=== PATIENT | female | born 1950 | race Caucasian/White ===

== ENCOUNTER 2017-08-26 15:53 | Inpatient (IN) ==
--- NOTE | 2017-08-26 16:07 | Emergency Department Note ---
Disposition Clinical Impression: PAD (peripheral artery disease), Foot ulcer, Foot pain Disposition: Admitted As Inpatient General Adult HPI - General Chief complaint: ED Extremity Problem,Nontraumatic Stated complaint: left foot problem, swelling to foot/leg Time Seen by Provider: 08/26/17 16:03 Source: patient - History of Present Illness Pain Scale: 10 - Related Data Home Medications Medication Instructions Recorded Confirmed Albuterol Sulfate [Proair 2 puff IH Q4-6H PRN 12/02/14 08/26/17 Respiclick] Aspirin Enteric Coated [Aspirin] 81 mg PO DAILY 12/02/14 08/26/17 Clopidogrel [Plavix] 75 mg PO DAILY 12/02/14 08/26/17 Famotidine [Pepcid] 40 mg PO QPM 12/02/14 08/26/17 Furosemide [Lasix] 20 mg PO BID 12/02/14 08/26/17 GlipiZIDE [Glipizide Xl] 10 mg PO BID 12/02/14 08/26/17 Insulin ASPART [Novolog Flexpen] 8 - 10 unit SQ TID PRN 12/02/14 08/26/17 Insulin Glargine,Hum.rec.anlog 8 units SQ HS 12/02/14 08/26/17 [Lantus Solostar] Isosorbide MONOnitrate [Isosorbide 60 mg PO QDPC 12/02/14 08/26/17 Mononitrate ER] Lisinopril [Zestril] 20 mg PO DAILY 12/02/14 08/26/17 Lovastatin 20 mg PO DAILY 12/02/14 08/26/17 Metoprolol [Lopressor] 25 mg PO BID 12/02/14 08/26/17 Nitroglycerin [Nitrostat] 0.3 mg SL PRN PRN 12/02/14 08/26/17 OxyCODONE/APAP 10/325 [Percocet 10 mg PO Q6HR PRN 12/02/14 08/26/17 10/325] Albuterol Neb [Proventil Neb] 2.5 mg IH TID PRN 05/16/16 08/26/17 Dicyclomine [Bentyl] 10 mg PO TID 05/16/16 08/26/17 Ergocalciferol (VITAMIN D2) 50,000 unit PO QWEEK 05/16/16 08/26/17 [Vitamin D2] Simethicone [Gas Relief] 180 mg PO DAILY PRN 05/16/16 08/26/17 Sitagliptin Phosphate [Januvia] 50 mg PO DAILY 05/16/16 08/26/17 Gabapentin [Neurontin] 300 mg PO HS 08/26/17 08/26/17 Multivit-Min/FA/Lycopen/Lutein [A 1 tab PO DAILY 08/26/17 08/26/17 Thru Z Select Multivit Tab] Allergies Allergy/AdvReac Type Severity Reaction Status Date / Time escitalopram [From Lexapro] Allergy Rash Verified 01/23/17 11:54 itraconazole [From Sporanox] Allergy Hives Verified 01/23/17 11:54 Penicillins [PCN] Allergy Rash Verified 01/23/17 11:54 metformin AdvReac Diarrhea Verified 01/23/17 11:54 Past Medical History - Past Medical History Medical history: Reports: arthritis, asthma, COPD, coronary artery disease, diabetes, hyperlipidemia, hypertension, renal disease Surgical history: Reports: appendectomy, coronary bypass (CABG), hysterectomy, other, vascular surgery Psychiatric history: Reports: no psych history - Social History Smoking Status: Current every day smoker Smokeless Tobacco Status: No Alcohol use: Reports: unknown Drug use: Reports: unknown Physical Exam - General General appearance: alert Course Vital Signs Temperature 98.9 F 08/26/17 15:58 Pulse Rate 78 08/26/17 15:58 Respiratory Rate 16 08/26/17 15:58 Blood Pressure 121/77 08/26/17 15:58 O2 Sat by Pulse Oximetry 98 08/26/17 15:58 Temperature 97.8 F 08/26/17 18:19 Pulse Rate 73 08/26/17 17:43 Respiratory Rate 18 08/26/17 18:19 Blood Pressure 161/62 08/26/17 18:19 O2 Sat by Pulse Oximetry 98 08/26/17 17:43 Oxygen Delivery Oxygen Delivery Room Air Medical Decision Making - Lab Data Result diagrams: 08/26/17 16:07 08/26/17 16:07 Lab Results 08/26/17 08/26/17 08/26/17 Range/Units 16:07 16:07 16:07 WBC 8.4 (4.3-11.1) K/mcL RBC 3.65 L (3.82-4.97) M/mcL Hgb 10.6 L (11.5-15.4) g/dL Hct 32.4 L (35.3-44.9) % MCV 88.8 (83.0-100.0) fL MCH 29.0 (28.0-33.3) pg MCHC 32.7 (31.6-35.5) g/dL RDW 13.2 (11.5-14.5) % Plt Count 187 (140-400) K/mcL MPV 10.6 (9.4-12.4) fL Immature Gran % 0.1 (0-4) % Seg Neutrophils % 77.7 % Lymphocytes % 10.6 % Monocytes % 7.5 % Eosinophils % 3.7 % Basophils % 0.4 % Neutrophils # 6.5 (1.6-8.9) K/mcL Lymphocytes # 0.9 (0.6-4.6) K/mcL Monocytes # 0.6 (0.0-1.3) K/mcL Eosinophils # 0.3 (0.0-0.6) K/mcL Basophils # 0.0 (0.0-0.2) K/mcL PT 12.3 H (9.4-12.1) Seconds INR 1.1 APTT 30.5 (26.0-36.0) Seconds Sodium 136 (136-145) mEq/L Potassium 4.5 (3.5-5.1) mEq/L Chloride 105 (98-107) mEq/L Carbon Dioxide 26 (23-29) mEq/L BUN 26 H (8-23) mg/dL Creatinine 1.20 (0.60-1.20) mg/dL Est GFR ( Amer) 54 L (> 60) Est GFR (Non-Af Amer) 45 L (> 60) BUN/Creatinine Ratio 22 (6-26) Glucose 203 H (70-105) mg/dL Calculated Osmolality 293 (280-300) Calcium 9.3 (8.6-10.3) mg/dL Attestation Statement - Attestation Attestation: I examined this patient and my medical decision-making was reviewed with the Resident Physician. I agree with the documented findings, disposition and treatment plan as described except to the extent set forth below. [id number] time provided Atraumatic left foot pain. History of peripheral arterial disease. Arterial study dated 08/20/17 results reviewed by me. The patient does have increased erythema and swelling to her left foot but her foot is warm. We will evaluate this patient and plan to admit to the medicine service with impending vascular surgery consultation
[2017-08-26] MEDS ORDERED: *HR* FentaNYL (PF) 100 MCG/2 ML VIAL IVP ONE ×3 (16:08→17:53)
--- NOTE | 2017-08-26 16:30 | Emergency Department Note ---
Disposition Clinical Impression: PAD (peripheral artery disease) Foot ulcer Qualifiers: Laterality: left Non-pressure ulcer stage: unspecified non-pressure ulcer stage Qualified Code(s): L97.529 - Non-pressure chronic ulcer of other part of left foot with unspecified severity Foot pain Qualifiers: Laterality: left Qualified Code(s): M79.672 - Pain in left foot Disposition: Admitted As Inpatient Referrals: Eleazar Vargas MD [Primary Care Provider] - Forms: ED Satisfaction Letter Extremity Problem HPI - General Chief complaint: ED Extremity Problem,Nontraumatic Stated complaint: left foot problem, swelling to foot/leg Time Seen by Provider: 08/26/17 16:03 Source: patient Nursing Notes Reviewed: Yes Vital Signs Reviewed: Yes - History of Present Illness HPI Narrative: Mrs. Sepulveda, 66-year-old female, presents from home for evaluation of worsening left foot pain. Is been steadily getting slowly worse over the week however, became substantially worse this morning so that it is now intolerable. Pain is described as 10/10, sharp, stabbing, radiating proximally. This occurs at rest as well as with any ambulation. She is a patient of Dr. Hutchinson. She has no inflammatory afternoon but could not wait as the pain is becoming excruciating. Recent SILVIA which told her she had a blockage in the left lower extremity. She is a history of note left femoropopliteal bypass. Patient also has ulcers on the bottom of her left foot that are in various stages of healing. Patient's history of CAD with ACS status post CABG. On aspirin and Plavix. No anticoagulants. ROS: Positive: As above Negative: Fever, chills, nausea, vomiting, chest pains, palpitations, dyspnea, diaphoresis, knee pain, ankle pain, trauma Pain Scale: 10 - Related Data Home Medications Medication Instructions Recorded Confirmed Albuterol Sulfate [Proair 2 puff IH Q4-6H PRN 12/02/14 08/26/17 Respiclick] Aspirin Enteric Coated [Aspirin] 81 mg PO DAILY 12/02/14 08/26/17 Clopidogrel [Plavix] 75 mg PO DAILY 12/02/14 08/26/17 Famotidine [Pepcid] 40 mg PO QPM 12/02/14 08/26/17 Furosemide [Lasix] 20 mg PO BID 12/02/14 08/26/17 GlipiZIDE [Glipizide Xl] 10 mg PO BID 12/02/14 08/26/17 Insulin ASPART [Novolog Flexpen] 8 - 10 unit SQ TID PRN 12/02/14 08/26/17 Insulin Glargine,Hum.rec.anlog 8 units SQ HS 12/02/14 08/26/17 [Lantus Solostar] Isosorbide MONOnitrate [Isosorbide 60 mg PO QDPC 12/02/14 08/26/17 Mononitrate ER] Lisinopril [Zestril] 20 mg PO DAILY 12/02/14 08/26/17 Lovastatin 20 mg PO DAILY 12/02/14 08/26/17 Metoprolol [Lopressor] 25 mg PO BID 12/02/14 08/26/17 Nitroglycerin [Nitrostat] 0.3 mg SL PRN PRN 12/02/14 08/26/17 OxyCODONE/APAP 10/325 [Percocet 10 mg PO Q6HR PRN 12/02/14 08/26/17 10/325] Albuterol Neb [Proventil Neb] 2.5 mg IH TID PRN 05/16/16 08/26/17 Dicyclomine [Bentyl] 10 mg PO TID 05/16/16 08/26/17 Ergocalciferol (VITAMIN D2) 50,000 unit PO QWEEK 05/16/16 08/26/17 [Vitamin D2] Simethicone [Gas Relief] 180 mg PO DAILY PRN 05/16/16 08/26/17 Sitagliptin Phosphate [Januvia] 50 mg PO DAILY 05/16/16 08/26/17 Gabapentin [Neurontin] 300 mg PO HS 08/26/17 08/26/17 Multivit-Min/FA/Lycopen/Lutein [A 1 tab PO DAILY 08/26/17 08/26/17 Thru Z Select Multivit Tab] Allergies Allergy/AdvReac Type Severity Reaction Status Date / Time escitalopram [From Lexapro] Allergy Rash Verified 01/23/17 11:54 itraconazole [From Sporanox] Allergy Hives Verified 01/23/17 11:54 Penicillins [PCN] Allergy Rash Verified 01/23/17 11:54 metformin AdvReac Diarrhea Verified 01/23/17 11:54 All systems ED: reviewed and negative except as stated. Review of Systems: As Per HPI Past Medical History - Past Medical History Medical history: Reports: arthritis, asthma, COPD, coronary artery disease, diabetes, hyperlipidemia, hypertension, renal disease Surgical history: Reports: appendectomy, coronary bypass (CABG), hysterectomy, other, vascular surgery Psychiatric history: Reports: no psych history - Social History Smoking Status: Current every day smoker Smokeless Tobacco Status: No Alcohol use: Reports: unknown Drug use: Reports: unknown Physical Exam Vital Signs Reviewed General: Patient is alert, oriented, and in moderate distress - from her left lower extremity pain Head: atraumatic, normocephalic Eye: normal appearance, no scleral icterus, no conjunctival injection ENT: mucous membranes moist, normal external ear exam Neck: normal inspection, trachea midline, full ROM Chest: normal inspection, symmetric chest rise Respiratory: Good respiratory effort. Bilateral breath sounds are clear without wheezing, crackles, or rhonchi. Cardiovascular: Regular rate and rhythm. No clicks, rubs, gallops, or murmors. Normal heart sounds. Left posterior tibial pulse is 1/4 and weak. Capillary refill is 3 seconds. Abdomen: Bowel sounds present normoactive x-4 quadrants. Abdomen is soft, nondistended, and nontender. No guarding or rebound. No organomegaly noted. Musculoskeletal: Spontaneously moving all extremities. Skin: warm, dry. Healing ulcer over later surface of MTP joint of great toe. Active ulcer plantar surface of left heel. Neuro: Alert and oriented x4. Sensation light touch intact. Psych: Patient's affect is appropriate for situation. - General General appearance: alert Course Course Narrative: Prior Intervention: The patient has undergone the following procedures: bypass of the fem pop bypass on the left and angioplasty of the superficial femoral on the right. SILVIA 08/20/17: 0.32 on left 1.02 on right EKG dated 26 Aug 2017 at 16:21 interpreted as sinus rhythm with rate of 74. Normal intervals. Normal axis. Right bundle branch block. Precordial T-wave inversions which are present on comparative EKG. Compared to previous EKG dated 01/23/2017 showing no acute ischemic changes or comparison. Discussed the patient with on-call vascular surgery, Dr. Giron. Given the patient's pain, he is agreeable to admission to the hospitalist for continued evaluation. This is likely chronic ischemia and not a surgical emergency at this time. We will begin IV Levaquin and heparinization as well as continued pain control. I discussed the patient with the admitting hospitalist, Dr. Silveira. She is in agreement to accept the patient for continued evaluation and management. Vital Signs Temperature 98.9 F 08/26/17 15:58 Pulse Rate 78 08/26/17 15:58 Respiratory Rate 16 08/26/17 15:58 Blood Pressure 121/77 08/26/17 15:58 O2 Sat by Pulse Oximetry 98 08/26/17 15:58 Temperature 98.9 F 08/26/17 15:58 Pulse Rate 73 08/26/17 17:43 Respiratory Rate 18 08/26/17 17:43 Blood Pressure 180/80 08/26/17 17:43 O2 Sat by Pulse Oximetry 98 08/26/17 17:43 Oxygen Delivery Oxygen Delivery Room Air Extremity Problem, Nontraumati - Lab Data Result diagrams: 08/26/17 16:07 08/26/17 16:07 Lab Results 08/26/17 08/26/17 08/26/17 Range/Units 16:07 16:07 16:07 WBC 8.4 (4.3-11.1) K/mcL RBC 3.65 L (3.82-4.97) M/mcL Hgb 10.6 L (11.5-15.4) g/dL Hct 32.4 L (35.3-44.9) % MCV 88.8 (83.0-100.0) fL MCH 29.0 (28.0-33.3) pg MCHC 32.7 (31.6-35.5) g/dL RDW 13.2 (11.5-14.5) % Plt Count 187 (140-400) K/mcL MPV 10.6 (9.4-12.4) fL Immature Gran % 0.1 (0-4) % Seg Neutrophils % 77.7 % Lymphocytes % 10.6 % Monocytes % 7.5 % Eosinophils % 3.7 % Basophils % 0.4 % Neutrophils # 6.5 (1.6-8.9) K/mcL Lymphocytes # 0.9 (0.6-4.6) K/mcL Monocytes # 0.6 (0.0-1.3) K/mcL Eosinophils # 0.3 (0.0-0.6) K/mcL Basophils # 0.0 (0.0-0.2) K/mcL PT 12.3 H (9.4-12.1) Seconds INR 1.1 APTT 30.5 (26.0-36.0) Seconds Sodium 136 (136-145) mEq/L Potassium 4.5 (3.5-5.1) mEq/L Chloride 105 (98-107) mEq/L Carbon Dioxide 26 (23-29) mEq/L BUN 26 H (8-23) mg/dL Creatinine 1.20 (0.60-1.20) mg/dL Est GFR ( Amer) 54 L (> 60) Est GFR (Non-Af Amer) 45 L (> 60) BUN/Creatinine Ratio 22 (6-26) Glucose 203 H (70-105) mg/dL Calculated Osmolality 293 (280-300) Calcium 9.3 (8.6-10.3) mg/dL
[2017-08-26 16:35] LABS: Basophils % 0.4 %; Eosinophils # 0.3 K/mcL (0.0-0.6); Eosinophils % 3.7 %; Hematocrit 32.4 % (35.3-44.9); Hemoglobin 10.6 g/dL (11.5-15.4); Immature Granulocytes % 0.1 % (0-4); Lymphocytes # 0.9 K/mcL (0.6-4.6); Lymphocytes % 10.6 %; Mean Corpuscular HGB Conc 32.7 g/dL (31.6-35.5); Mean Corpuscular Volume 88.8 fL (83.0-100.0); Mean Platelet Volume 10.6 fL (9.4-12.4); Monocytes # 0.6 K/mcL (0.0-1.3); Monocytes % 7.5 %; Neutrophils # 6.5 K/mcL (1.6-8.9); Platelet Count 187 K/mcL (140-400); Red Blood Count 3.65 M/mcL (3.82-4.97); Red Cell Distribution Width 13.2 % (11.5-14.5); Segmented Neutrophils % 77.7 %
[2017-08-26 16:40] LABS: INR 1.1; Prothrombin Time 12.3 Seconds (9.4-12.1)
[2017-08-26] MEDS ORDERED: Levofloxacin 750 MG/150 ML 750 MG/150 ML BAG IVPB ONE (16:41)
[2017-08-26] MEDS ORDERED: *HR* Heparin 5,000 UNIT/ML VIAL IVP ONE (16:42)
[2017-08-26] MEDS ORDERED: *HR* Heparin 5,000 UNIT/ML VIAL IVP PRN (16:42)
[2017-08-26 16:43] LABS: Activated Partial Thrombo Time 30.5 Seconds (26.0-36.0)
[2017-08-26 16:56] LABS: Calcium 9.3 mg/dL (8.6-10.3); Potassium 4.5 mEq/L (3.5-5.1)
[2017-08-26] MEDS: Heparin 25,000 UNIT/500 ML D5W 25,000 UNIT/500 ML BAG IVC SCH (18:06)
--- NOTE | 2017-08-26 18:43 | Vascular/Endovasc Consult Note ---
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 She is currently in no immediate limb threatening danger. I suspect she will come to repeat angiography with potential catheter directed lysis versus thromboembolectomy. Dr. Castelan will be around early this week and definitively manage this patient' s care. Discussed in detail with the patient and her son. Qualifiers: Peripheral atherosclerosis artery type: bypass graft, unspecified type Lower extremity ulceration location: midfoot Qualified Code(s): I70.344 - Atherosclerosis of unspecified type of bypass graft(s) of the left leg with ulceration of heel and midfoot - History of Present Illness Consult date: 08/26/17 Consult reason: Increasing pain left foot. Chief complaint: Ischemic rest pain left foot. History of present illness: Ms. Sepulveda is a 66 year old female who has a long-standing history of vascular disease. She has undergone prior left femoral to above-knee popliteal arterial bypass in the past. She has had progressive ischemic rest pain of her right foot now for more than 4 weeks. Her symptoms have become unbearable, and she now presents to the emergency room for pain control. She notices that she is also developed a small ulceration on the plantar surface of her left foot. Past Med Surg Social Fam HX - Past Medical History Medical history: arthritis, asthma, COPD, coronary artery disease, diabetes, hyperlipidemia, hypertension, renal disease Psychiatric history: no psych history - Past Surgical History Surgical History: appendectomy, coronary bypass (CABG), hysterectomy, other, vascular surgery - Social History Smoking Status: Current every day smoker Smokeless Tobacco Status: No Alcohol use: unknown Drug use: unknown Medications and Allergies Albuterol Sulfate [Proair Respiclick] 2 puff IH Q4-6H PRN 12/02/14 [History] Aspirin Enteric Coated [Aspirin] 81 mg PO DAILY 12/02/14 [History] Clopidogrel [Plavix] 75 mg PO DAILY 12/02/14 [History] Famotidine [Pepcid] 40 mg PO QPM 12/02/14 [History] Furosemide [Lasix] 20 mg PO BID 12/02/14 [History] GlipiZIDE [Glipizide Xl] 10 mg PO BID 12/02/14 [History] Insulin ASPART [Novolog Flexpen] 8 - 10 unit SQ TID PRN 12/02/14 [History] Insulin Glargine,Hum.rec.anlog [Lantus Solostar] 8 units SQ HS 12/02/14 [History ] Isosorbide MONOnitrate [Isosorbide Mononitrate ER] 60 mg PO QDPC 12/02/14 [ History] Lisinopril [Zestril] 20 mg PO DAILY 12/02/14 [History] Lovastatin 20 mg PO DAILY 12/02/14 [History] Metoprolol [Lopressor] 25 mg PO BID 12/02/14 [History] Nitroglycerin [Nitrostat] 0.3 mg SL PRN PRN 12/02/14 [History] OxyCODONE/APAP 10/325 [Percocet 10/325] 10 mg PO Q6HR PRN 12/02/14 [History] Albuterol Neb [Proventil Neb] 2.5 mg IH TID PRN 05/16/16 [History] Dicyclomine [Bentyl] 10 mg PO TID 05/16/16 [History] Ergocalciferol (VITAMIN D2) [Vitamin D2] 50,000 unit PO QWEEK 05/16/16 [History] Simethicone [Gas Relief] 180 mg PO DAILY PRN 05/16/16 [History] Sitagliptin Phosphate [Januvia] 50 mg PO DAILY 05/16/16 [History] Gabapentin [Neurontin] 300 mg PO HS 08/26/17 [History] Multivit-Min/FA/Lycopen/Lutein [A Thru Z Select Multivit Tab] 1 tab PO DAILY 10/08 [History] 3 Allergy/AdvReac Type Severity Reaction Status Date / Time escitalopram [From Lexapro] Allergy Rash Verified 01/23/17 11:54 itraconazole [From Sporanox] Allergy Hives Verified 01/23/17 11:54 Penicillins [PCN] Allergy Rash Verified 01/23/17 11:54 metformin AdvReac Diarrhea Verified 01/23/17 11:54 All Systems Review: The remainder of the systems were reviewed and are negative Exam Vital Signs, Last 4 Hours Temp Resp BP 08/26/17 18:19 97.8 F 18 161/62 General: Present: No Apparent Distress HEENT: Present: Trachea midline, Pupils equal Neck: Absent: JVD, Lymphadenopathy, Left Carotid bruit, Right Carotid bruit Cardiac: Present: Reg Rate and Rhythm, Normal S1 and S2, No Murmur Lungs: Present: Normal Breath Sounds, No Wheeze, Rales, Rhonchi Neuro: Present: Alert and responsive, No focal deficits noted Abdomen: Present: Soft, Non-tender Vascular: Present: Normal capillary refill, Pulse, absent (There are strong femoral pulses bilaterally. There is good right popliteal pulse and no left popliteal pulse present. There are good pedal pulses present in the right foot and no palpable pedal pulses present in the left foot.), Surgical incisions ( There are healed left groin and above-knee popliteal incisions present.). Absent: Amputation(s) Skin: Present: Wound/ulcer(s) (There is a small punctate ulceration of the left plantar surface around the third MTP joint.) Musculoskeletal: Present: No Chest Wall Tenderness Consult Discharge Plan - Plan Referrals: Eleazar Vargas MD [Primary Care Provider] -
--- NOTE | 2017-08-26 20:24 | Internal Med History&Physical ---
Date of Encounter: 08/26/17 Time of Encounter: 20:14 Internal Medicine - H&P: HPI Chief complaint: pain Admitted From: Emergency Dept Plans for Post Hospital Care: Home History of present illness: Ms. Sepulveda is a 66 year old female with extensive history of PVD s/p fem-pop bypass, CAD s/p CABG who presents with left foot pain that has worsened over the last few weeks. It is pain with rest and worse with ambulation. The patient has been evaluated by vascular in the outpatient with studies that showed PVD. Recent SILVIA on the left was .32 and on the right was 1.02. The left fem-pop is occluded. Vascular were consulted and recommended heparanizing with possibly intervention. She has a small ulceration of the left plantar side of the foot and was given levaquin in the ED for possible cellulitis. Patietn was hemodynamically stable. labs are unremarkable. Denies fever, chills, nausea, vomiting, chest pain, shortness of breath, abdominal pain, urinary symptoms, or neurological symptoms. Past Med Surg Social Fam HX - Past Medical History Medical history: arthritis, asthma, COPD, coronary artery disease, diabetes, hyperlipidemia, hypertension, renal disease Psychiatric history: no psych history - Past Surgical History Surgical History: appendectomy, coronary bypass (CABG), hysterectomy, other, vascular surgery - Social History Smoking Status: Current every day smoker Smokeless Tobacco Status: No Alcohol use: unknown Drug use: unknown Internal Medicine - H&P: Meds Albuterol Sulfate [Proair Respiclick] 2 puff IH Q4-6H PRN 12/02/14 [History] Aspirin Enteric Coated [Aspirin] 81 mg PO DAILY 12/02/14 [History] Clopidogrel [Plavix] 75 mg PO DAILY 12/02/14 [History] Famotidine [Pepcid] 40 mg PO QPM 12/02/14 [History] Furosemide [Lasix] 20 mg PO BID 12/02/14 [History] GlipiZIDE [Glipizide Xl] 10 mg PO BID 12/02/14 [History] Insulin ASPART [Novolog Flexpen] 8 - 10 unit SQ TID PRN 12/02/14 [History] Insulin Glargine,Hum.rec.anlog [Lantus Solostar] 8 units SQ HS 12/02/14 [History ] Isosorbide MONOnitrate [Isosorbide Mononitrate ER] 60 mg PO QDPC 12/02/14 [ History] Lisinopril [Zestril] 20 mg PO DAILY 12/02/14 [History] Lovastatin 20 mg PO DAILY 12/02/14 [History] Metoprolol [Lopressor] 25 mg PO BID 12/02/14 [History] Nitroglycerin [Nitrostat] 0.3 mg SL PRN PRN 12/02/14 [History] OxyCODONE/APAP 10/325 [Percocet 10/325] 10 mg PO Q6HR PRN 12/02/14 [History] Albuterol Neb [Proventil Neb] 2.5 mg IH TID PRN 05/16/16 [History] Dicyclomine [Bentyl] 10 mg PO TID 05/16/16 [History] Ergocalciferol (VITAMIN D2) [Vitamin D2] 50,000 unit PO QWEEK 05/16/16 [History] Simethicone [Gas Relief] 180 mg PO DAILY PRN 05/16/16 [History] Sitagliptin Phosphate [Januvia] 50 mg PO DAILY 05/16/16 [History] Gabapentin [Neurontin] 300 mg PO HS 08/26/17 [History] Multivit-Min/FA/Lycopen/Lutein [A Thru Z Select Multivit Tab] 1 tab PO DAILY 10/08 [History] 3 Allergy/AdvReac Type Severity Reaction Status Date / Time escitalopram [From Lexapro] Allergy Rash Verified 01/23/17 11:54 itraconazole [From Sporanox] Allergy Hives Verified 01/23/17 11:54 Penicillins [PCN] Allergy Rash Verified 01/23/17 11:54 metformin AdvReac Diarrhea Verified 01/23/17 11:54 All Systems PM: A 10-system review of systems was performed and is negative for pertinent findings except as documented above in the HPI. Review of systems: All systems reviewed are negative except for as mentioned above - Constitutional Vitals: Temp Pulse Resp BP Pulse Ox 97.9 F 70 16 153/112 96 08/26/17 19:09 08/26/17 19:09 08/26/17 19:09 08/26/17 19:09 08/26/17 19:09 Exam: GEN: NAD HEENT: AT, NC, No cyanosis, oral mucosa is moist, No JVD Lymphatics: No lymphadenoapthy Eyes: Extrocular muscles intact, anicteric CVS:RRR. S1, S2, No m/r/g RESP: CTAB ABD: Soft, NT, ND, +BS EXT: No edema, No rashes, pulses are felt in the femoral. I am unable to feel pulses in the popliteal bilaterally however those were felt by vascular. Dorsalis pedis pulse felt on the right and is weak. Not palpable on the left. NEURO: Nonfocal, CN II-XII intact, No focal motor or sensory deficits Psych: Cooperative, Not anxious or depressed Internal Med - H&P Results - Labs CBC & Chem 7: 08/26/17 16:07 08/26/17 16:07 - Assessment and plan (1) PAD (peripheral artery disease) Current Visit: Yes Status: Acute Assessment and plan: Vascular has been consulted already and recommended heparin drip. We will continue with pain control. Continue Levaquin for possible lower extremity cellulitis and ulceration. (2) CAD (coronary artery disease) Current Visit: Yes Status: Acute Assessment and plan: Continue with cardiac meds. Patient is stable. Qualifiers: Coronary Disease-Associated Artery/Lesion type: bypass graft [place] vs. transplanted heart: [place] heart Associated angina: without angina Qualified Code(s): I25.810 - Atherosclerosis of coronary artery bypass graft(s) without angina pectoris (3) Hypertension Current Visit: Yes Status: Acute Assessment and plan: Blood pressure is elevated likely secondary to pain. We will have some pain control. Resume antihypertensives. Qualifiers: Hypertension type: essential hypertension Qualified Code(s): I10 - Essential (primary) hypertension (4) Diabetes mellitus Current Visit: Yes Status: Acute Assessment and plan: We will place patient on insulin sliding scale. Continue with patient's basal insulin. Accu-Cheks. Qualifiers: Diabetes mellitus type: type 2 Diabetes mellitus snf insulin use: with snf use Diabetes mellitus complication status: with circulatory complication Diabetes mellitus complication detail: with other circulatory complications Qualified Code(s): E11.59 - Type 2 diabetes mellitus with other circulatory complications; Z79.4 - intermediate teacher (current) use of insulin; Z79.4 - residential (current) use of insulin; Z79.4 - intermediate teacher (current) use of insulin; Z79.4 - intermediate teacher (current) use of insulin (5) Atherosclerosis of left lower extremity with ulceration Current Visit: Yes Status: Acute Qualifiers: Peripheral atherosclerosis artery type: bypass graft, unspecified type Lower extremity ulceration location: midfoot Qualified Code(s): I70.344 - Atherosclerosis of unspecified type of bypass graft(s) of the left leg with ulceration of heel and midfoot (6) DVT prophylaxis Current Visit: Yes Status: Acute Assessment and plan: Patient is a heparin drip - Time Spent With Patient Total time spent is greater than 50% in coordination of care (as documented) at patient's floor/unit and/or counseling patient:
[2017-08-26] MEDS ORDERED: Dextrose Gel 15 GM/37.5 ML TUBE PO PRN ×2 (20:30)
[2017-08-26] MEDS ORDERED: D5% in Water 1,000 ML IVC PRN (20:30)
[2017-08-26] MEDS ORDERED: *HR* Dextrose 50 % in Water (Syg) 50 ML SYRINGE IVP PRN (20:30)
[2017-08-26] MEDS ORDERED: Naloxone 0.4 MG/ML INJ IVP PRN (20:31)
[2017-08-26] MEDS ORDERED: *HR* HYDROcodone/Acet 5/325 mg TABLET PO PRN (20:31)
[2017-08-26] MEDS ORDERED: Acetaminophen 325 MG TABLET PO PRN (20:31)
[2017-08-26] MEDS ORDERED: NON-FORMULARY MEDICATION 1 EACH EACH (Insulin Glargine,Hum.Rec.Anlog [Lantus Solostar] 8 U SQ SCH (21:00)
[2017-08-26] MEDS: Gabapentin 300 MG CAPSULE PO SCH (21:59)
[2017-08-26] MEDS: Insulin DETEMIR 100 UNIT/ML X5UNITS SQ SCH (22:00)
[2017-08-26] MEDS: Insulin LISPRO 300 UNITS/3 ML VIAL SQ SCH (22:01)
[2017-08-26] MEDS: Furosemide 20 MG TABLET PO SCH (22:07)
[2017-08-26] MEDS: *HR* OxyCODONE/APAP 7.5/325 TABLET PO PRN (22:15)
[2017-08-26] MEDS: Ondansetron 4 MG/2 ML VIAL IVP PRN (22:15)
[2017-08-27 01:03] LABS: Basophils % 0.3 %; Eosinophils # 0.2 K/mcL (0.0-0.6); Eosinophils % 3.7 %; Hematocrit 29.4 % (35.3-44.9); Hemoglobin 9.7 g/dL (11.5-15.4); Immature Granulocytes % 0.2 % (0-4); Immature Platelets 3.8 % (1.1-6.1); Lymphocytes # 0.8 K/mcL (0.6-4.6); Lymphocytes % 13.2 %; Mean Corpuscular Hemoglobin 29.6 pg (28.0-33.3); Mean Corpuscular Volume 89.6 fL (83.0-100.0); Monocytes # 0.5 K/mcL (0.0-1.3); Monocytes % 7.9 %; Neutrophils # 4.6 K/mcL (1.6-8.9); Platelet Count 150 K/mcL (140-400); Red Blood Count 3.28 M/mcL (3.82-4.97); Red Cell Distribution Width 13.1 % (11.5-14.5); Segmented Neutrophils % 74.7 %
[2017-08-27 01:25] LABS: Activated Partial Thrombo Time 140.7 Seconds (26.0-36.0)
[2017-08-27 01:29] LABS: Calcium 8.9 mg/dL (8.6-10.3); Heparin anti-factor XA UFH 0.8 IU/mL (0.30-0.70); Magnesium 1.8 mg/dL (1.6-2.6); Potassium 4.5 mEq/L (3.5-5.1)
[2017-08-27] MEDS: *HR* OxyCODONE/APAP 7.5/325 TABLET PO PRN (04:03)
[2017-08-27] MEDS ORDERED: *HR* OxyCODONE/APAP 7.5/325 TABLET PO PRN (07:28)
[2017-08-27] MEDS: Insulin LISPRO 300 UNITS/3 ML VIAL SQ SCH ×4 (07:50→22:07)
[2017-08-27] MEDS: Isosorbide MONOnitrate (24 HR) 60 MG TAB.ER.24H PO SCH (07:53)
[2017-08-27] MEDS: Lisinopril 20 MG TABLET PO SCH (07:53)
[2017-08-27] MEDS: Furosemide 20 MG TABLET PO SCH ×2 (07:53→16:42)
[2017-08-27] MEDS ORDERED: Isovue-370 500 ML INFUS..BTL IV ONE (08:38)
[2017-08-27 09:18] LABS: Estimated Average Glucose 186 mg/dl; Hemoglobin A1C 8.1 %
--- NOTE | 2017-08-27 10:48 | Internal Med Progress Note ---
Date of Encounter: 08/27/17 Time of Encounter: 10:45 - Assessment and plan (1) Foot ulcer Current Visit: No Status: Acute Assessment and plan: will continue on antibiotics for nopw Qualifiers: Laterality: left Non-pressure ulcer stage: unspecified non-pressure ulcer stage Qualified Code(s): L97.529 - Non-pressure chronic ulcer of other part of left foot with unspecified severity (2) PAD (peripheral artery disease) Current Visit: Yes Status: Acute Assessment and plan: severe with limb ischemic vascular surgery following has rest cludication (3) Foot pain Current Visit: Yes Status: Acute Assessment and plan: add toradol to pain regemen Qualifiers: Laterality: left Qualified Code(s): M79.672 - Pain in left foot (4) Atherosclerosis of left lower extremity with ulceration Current Visit: Yes Status: Chronic Assessment and plan: with rest pain Qualifiers: Peripheral atherosclerosis artery type: bypass graft, unspecified type Lower extremity ulceration location: midfoot Qualified Code(s): I70.344 - Atherosclerosis of unspecified type of bypass graft(s) of the left leg with ulceration of heel and midfoot (5) CAD (coronary artery disease) Current Visit: Yes Status: Chronic Assessment and plan: no chest pain Qualifiers: Coronary Disease-Associated Artery/Lesion type: bypass graft [place] vs. transplanted heart: [place] heart Associated angina: without angina Qualified Code(s): I25.810 - Atherosclerosis of coronary artery bypass graft(s) without angina pectoris (6) Hypertension Current Visit: Yes Status: Chronic Assessment and plan: not well controlled Qualifiers: Hypertension type: essential hypertension Qualified Code(s): I10 - Essential (primary) hypertension (7) Diabetes mellitus Current Visit: Yes Status: Chronic Assessment and plan: chronic continue sliding scale Qualifiers: Diabetes mellitus type: type 2 Diabetes mellitus fpc insulin use: with fpc use Diabetes mellitus complication status: with circulatory complication Diabetes mellitus complication detail: with other circulatory complications Qualified Code(s): E11.59 - Type 2 diabetes mellitus with other circulatory complications; Z79.4 - intermediate project manager (current) use of insulin; Z79.4 - intermediate project manager (current) use of insulin; Z79.4 - intermediate project manager (current) use of insulin; Z79.4 - intermediate project manager (current) use of insulin - Time Spent With Patient Total time spent is greater than 50% in coordination of care (as documented) at patient's floor/unit and/or counseling patient: - Subjective Interval history: Patient with history of PVD had a femoropopliteal bypass in the past, CAD had history of CABG, COPD, hypertension, diabetes. Patient admitted with left foot pain vascular studies shows a SILVIA bnormal SILVIA on the left 0.32 with with possible cellulitis . patient had been seen by vascular surgery and plan for possible intervention this week patient still complaining of lots of pain of the left leg I will add toradol to her pain management denies any chest pain - Constitutional Vitals: Temp Pulse Resp BP Pulse Ox 98.3 F 61 15 152/58 94 08/27/17 06:28 08/27/17 06:28 08/27/17 06:28 08/27/17 06:28 08/27/17 06:28 General appearance: Present: mild distress - Eye Eye exam: Present: PERRL, conjuntiva pink, sclera anicteric Pupils: Present: PERRL - Neck Neck exam general surgery: Present: supple, trachea midline. Absent: lymphadenopathy - Respiratory Respiratory exam: Present: CTAB. Absent: accessory muscle use, rales, rhonchi, wheezes - Cardiovascular Cardiovascular exam: Present: RRR, +S1, +S2. Absent: diastolic murmur, gallop, rubs, systolic murmur - GI/Abdominal GI/Abdominal exam: Present: normal bowel sounds, soft, no peritoneal signs. Absent: distended, tenderness Internal Medicine: Result - Labs CBC & Chem 7: 08/27/17 00:55 08/27/17 00:55 Labs: Short CBC 08/27/17 Range/Units 00:55 WBC 6.2 (4.3-11.1) K/mcL Hgb 9.7 L (11.5-15.4) g/dL Hct 29.4 L (35.3-44.9) % Plt Count 150 (140-400) K/mcL Neutrophils # 4.6 (1.6-8.9) K/mcL BMP 08/27/17 00:55 Sodium 137 Potassium 4.5 Chloride 106 Carbon Dioxide 24 BUN 24 H Creatinine 1.18 Glucose 82 Calcium 8.9 - ABG Interpretation ABG results: PT/INR, D-dimer PT 12.3 Seconds (9.4-12.1) H 08/26/17 16:07 Consult Discharge Plan - Plan Referrals: Eleazar Vargas MD [Primary Care Provider] -
--- NOTE | 2017-08-27 12:39 | Vascular/[facility] Progress Note ---
Date of Encounter: 08/27/17 Time of Encounter: 12:00 - Assessment and plan (1) Atherosclerosis of left lower extremity with ulceration Current Visit: Yes Status: Chronic Patient history of peripheral vascular disease. She has previously undergone a left femoral to above the posterior artery bypass. CT scan reveals that her bypass grafts now occluded. [place] severe disabling claudication and lethargically rest pain. She has a left heel ulceration without signs or symptoms of infection. She will continue with heparin drip today. Plan for graft thrombectomy with possible revision tomorrow. Continue with pain control. Qualifiers: Peripheral atherosclerosis artery type: bypass graft, unspecified type Lower extremity ulceration location: midfoot Qualified Code(s): I70.344 - Atherosclerosis of unspecified type of bypass graft(s) of the left leg with ulceration of heel and midfoot (2) CAD (coronary artery disease) Current Visit: Yes Status: Chronic Qualifiers: Coronary Disease-Associated Artery/Lesion type: bypass graft [place] vs. transplanted heart: [place] heart Associated angina: without angina Qualified Code(s): I25.810 - Atherosclerosis of coronary artery bypass graft(s) without angina pectoris (3) Hypertension Current Visit: Yes Status: Chronic She was counseled regarding atherosclerotic risk factor reduction. Qualifiers: Hypertension type: essential hypertension Qualified Code(s): I10 - Essential (primary) hypertension (4) Diabetes mellitus Current Visit: Yes Status: Chronic Qualifiers: Diabetes mellitus type: type 2 Diabetes mellitus group home insulin use: with group home use Diabetes mellitus complication status: with circulatory complication Diabetes mellitus complication detail: with other circulatory complications Qualified Code(s): E11.59 - Type 2 diabetes mellitus with other circulatory complications; Z79.4 - jail (current) use of insulin; Z79.4 - intermodal customer service (current) use of insulin; Z79.4 - intermodal customer service (current) use of insulin; Z79.4 - jail (current) use of insulin (5) Chronic anemia Current Visit: Yes Status: Chronic (6) Chronic kidney disease, stage III (moderate) Current Visit: Yes Status: Chronic - Subjective Interval history: The patient reports improved pain control since starting a heparin drip. She denies any fevers or chills. She denies chest pain or shortness of breath Vital Signs, Last 4 Hours Temp Pulse Resp BP Pulse Ox 08/27/17 11:54 98.1 F 67 15 150/93 97 - Physical Examination General: Present: Conversant, No Apparent Distress HEENT: Present: Pupils equal Neck: Absent: JVD Cardiac: Present: Reg Rate and Rhythm Lungs: Present: Normal Breath Sounds Neuro: Present: Alert and responsive, Motor nerves grossly intact, Sensory nerves grossly intact Vascular: Present: Normal capillary refill, Pulse, absent (Left popliteal and pedal pulses absent), Pulse, normal (Right lower [place] pulses normal). Absent: Edema Abdomen: Present: Soft Skin: Present: Wound/ulcer(s) (Left heel ulceration without erythema or drainage ) Results 08/27/17 00:55 08/27/17 00:55 Lab Results, Last 24 hours 08/27/17 08/27/17 08/27/17 00:55 00:55 00:55 WBC 6.2 Hgb 9.7 L Hct 29.4 L Plt Count 150 APTT 140.7 H* D Sodium 137 Potassium 4.5 Chloride 106 Carbon Dioxide 24 BUN 24 H Creatinine 1.18 Glucose 82 Calcium 8.9 Magnesium 1.8 08/27/17 09:46 WBC Hgb Hct Plt Count APTT 70.7 H Sodium Potassium Chloride Carbon Dioxide BUN Creatinine Glucose Calcium Magnesium - Imaging / Other Tests CT/CTA: report reviewed, image reviewed (Occluded left femoral to above-knee pop bypass with above-knee reconstitution.) Consult Discharge Plan - Plan Referrals: Eleazar Vargas MD [Primary Care Provider] -
[2017-08-27] MEDS ORDERED: Acetaminophen 325 MG TABLET PO PRN (12:54)
[2017-08-27] MEDS: *HR* Acetylcysteine 20% 600 MG/3 ML ORAL SYRINGE PO SCH ×2 (13:14→22:07)
[2017-08-27] MEDS: *HR* Heparin 5,000 UNIT/ML VIAL IVP PRN (16:43)
[2017-08-27] MEDS: *HR* OxyCODONE/APAP 10/325 TABLET PO PRN (16:44)
[2017-08-27] MEDS ORDERED: Levofloxacin 500 MG/100 ML 500 MG/100 ML BAG IVPB SCH (18:00)
[2017-08-27] MEDS: Famotidine 20 MG TABLET PO SCH (18:05)
[2017-08-27] MEDS: Doxycycline 100 MG in 0.9 % Sodium Chloride Mini Bag 100 ML IVPB SCH (18:06)
[2017-08-27] MEDS: *HR* OxyCODONE Immed Rel 5 MG TABLET PO PRN (22:06)
[2017-08-27] MEDS: Gabapentin 300 MG CAPSULE PO SCH (22:06)
[2017-08-27] MEDS: Insulin DETEMIR 100 UNIT/ML X5UNITS SQ SCH (22:06)
[2017-08-27 23:29] LABS: Activated Partial Thrombo Time 114.4 Seconds (26.0-36.0)
[2017-08-27 23:35] LABS: Heparin anti-factor XA UFH 0.7 IU/mL (0.30-0.70)
[2017-08-27] MEDS: Heparin 25,000 UNIT/500 ML D5W 25,000 UNIT/500 ML BAG IVC SCH (23:37)
[2017-08-28] MEDS: *HR* OxyCODONE/APAP 10/325 TABLET PO PRN ×3 (00:47→18:50)
[2017-08-28] MEDS: *HR* OxyCODONE Immed Rel 5 MG TABLET PO PRN ×2 (04:19→22:59)
[2017-08-28 05:35] LABS: Basophils % 0.5 %; Eosinophils # 0.3 K/mcL (0.0-0.6); Eosinophils % 4.7 %; Hematocrit 30.9 % (35.3-44.9); Hemoglobin 10.2 g/dL (11.5-15.4); Immature Granulocytes % 0.2 % (0-4); Lymphocytes # 1.1 K/mcL (0.6-4.6); Lymphocytes % 17.7 %; Mean Corpuscular Hemoglobin 29.1 pg (28.0-33.3); Monocytes # 0.6 K/mcL (0.0-1.3); Monocytes % 9.6 %; Platelet Count 162 K/mcL (140-400); Red Blood Count 3.51 M/mcL (3.82-4.97); Red Cell Distribution Width 13.2 % (11.5-14.5); Segmented Neutrophils % 67.3 %
[2017-08-28] MEDS: Doxycycline 100 MG in 0.9 % Sodium Chloride Mini Bag 100 ML IVPB SCH ×2 (05:48→17:42)
[2017-08-28 05:52] LABS: Calcium 9.2 mg/dL (8.6-10.3); Potassium 4.4 mEq/L (3.5-5.1)
[2017-08-28] MEDS: *HR* Heparin 5,000 UNIT/ML VIAL IVP PRN (05:54)
[2017-08-28] MEDS: Insulin LISPRO 300 UNITS/3 ML VIAL SQ SCH ×4 (07:39→20:29)
--- NOTE | 2017-08-28 07:50 | Internal Med Progress Note ---
Date of Encounter: 08/28/17 Time of Encounter: 07:48 - Assessment and plan (1) Foot ulcer Current Visit: No Status: Acute Assessment and plan: Occluded grafts to the left leg with plan for thrombectomy and muslim of blood flow sometime today Qualifiers: Laterality: left Non-pressure ulcer stage: unspecified non-pressure ulcer stage Qualified Code(s): L97.529 - Non-pressure chronic ulcer of other part of left foot with unspecified severity (2) PAD (peripheral artery disease) Current Visit: Yes Status: Acute (3) Foot pain Current Visit: Yes Status: Acute Assessment and plan: We will continue current pain control Qualifiers: Laterality: left Qualified Code(s): M79.672 - Pain in left foot (4) Atherosclerosis of left lower extremity with ulceration Current Visit: Yes Status: Chronic Qualifiers: Peripheral atherosclerosis artery type: bypass graft, unspecified type Lower extremity ulceration location: midfoot Qualified Code(s): I70.344 - Atherosclerosis of unspecified type of bypass graft(s) of the left leg with ulceration of heel and midfoot (5) CAD (coronary artery disease) Current Visit: Yes Status: Chronic Assessment and plan: No chest pain continue current medications Qualifiers: Coronary Disease-Associated Artery/Lesion type: bypass graft [place] vs. transplanted heart: [place] heart Associated angina: without angina Qualified Code(s): I25.810 - Atherosclerosis of coronary artery bypass graft(s) without angina pectoris (6) Hypertension Current Visit: Yes Status: Chronic Assessment and plan: not Quite well controlled will make adjustments to blood pressure meds Qualifiers: Hypertension type: essential hypertension Qualified Code(s): I10 - Essential (primary) hypertension (7) Diabetes mellitus Current Visit: Yes Status: Chronic Assessment and plan: Chronic we will continue sliding scale Qualifiers: Diabetes mellitus type: type 2 Diabetes mellitus long-term insulin use: with intermodal truck driver use Diabetes mellitus complication status: with circulatory complication Diabetes mellitus complication detail: with other circulatory complications Qualified Code(s): E11.59 - Type 2 diabetes mellitus with other circulatory complications; Z79.4 - [facility] (current) use of insulin; Z79.4 - [facility] (current) use of insulin; Z79.4 - [facility] (current) use of insulin; Z79.4 - [facility] (current) use of insulin - Time Spent With Patient Total time spent is greater than 50% in coordination of care (as documented) at patient's floor/unit and/or counseling patient: - Subjective Interval history: Patient with history of PVD had a femoropopliteal bypass in the past, CAD had history of CABG, COPD, hypertension, diabetes. Patient admitted with left foot pain vascular studies shows a SILVIA bnormal SILVIA on the left 0.32 with with possible cellulitis . patient had been seen by vascular surgery and plan for possible intervention this week patient still complaining of lots of pain of the left leg I will add toradol to her pain management denies any chest pain Vascular surgery evaluation and plan noted patient is still complaining of left leg pain but she says she stable at this point no new complaints plan for thrombectemy sometime this afternoon - Constitutional Vitals: Temp Pulse Resp BP Pulse Ox 98.3 F 64 18 164/68 98 08/28/17 07:19 08/28/17 07:19 08/28/17 07:19 08/28/17 07:19 08/28/17 07:19 General appearance: Present: mild distress - Head Head exam: Present: atraumatic, normocephalic - Eye Eye exam: Present: PERRL, conjuntiva pink, sclera anicteric Pupils: Present: PERRL - Neck Neck exam general surgery: Present: supple, trachea midline. Absent: lymphadenopathy - Respiratory Respiratory exam: Present: CTAB. Absent: accessory muscle use, rales, rhonchi, wheezes - Cardiovascular Cardiovascular exam: Present: RRR, +S1, +S2. Absent: diastolic murmur, gallop, rubs, systolic murmur - GI/Abdominal GI/Abdominal exam: Present: normal bowel sounds, soft, no peritoneal signs. Absent: distended, tenderness Internal Medicine: Result - Labs CBC & Chem 7: 08/28/17 05:16 08/28/17 05:16 Labs: Short CBC 08/28/17 Range/Units 05:16 WBC 5.9 (4.3-11.1) K/mcL Hgb 10.2 L (11.5-15.4) g/dL Hct 30.9 L (35.3-44.9) % Plt Count 162 (140-400) K/mcL Neutrophils # 4.0 (1.6-8.9) K/mcL BMP 08/28/17 05:16 Sodium 136 Potassium 4.4 Chloride 103 Carbon Dioxide 26 BUN 25 H Creatinine 1.33 H Glucose 156 H Calcium 9.2 - ABG Interpretation ABG results: PT/INR, D-dimer PT 12.3 Seconds (9.4-12.1) H 08/26/17 16:07 - Impressions Impressions Aorta w/Runoff CTA 08/27/17 10:00 IMPRESSION: 1. Occluded/thrombosed left femoral-popliteal bypass graft. 2. Flow in the left profunda femoral artery with collateral perfusion of the left popliteal artery distal to the bypass graft. 3. There is 3 vessel patency in the left leg and 2 vessel patency in the left foot. 4. Mild multifocal stenoses in the right superficial femoral artery. 5. Indeterminate 10 mm and 7 mm hypervascular lesions in the liver are likely benign. If the patient is low risk, no further imaging follow-up is required. If the patient is high risk, follow-up MRI should be considered in 3 to 6 months. D/ / 08/27/2017 17:52:11 Slick Hand MD / kasie Interpreting Provider: Slick Hand MD Consult Discharge Plan - Plan Referrals: Eleazar Vargas MD [Primary Care Provider] -
[2017-08-28] MEDS: Isosorbide MONOnitrate (24 HR) 60 MG TAB.ER.24H PO SCH (08:26)
[2017-08-28] MEDS: Furosemide 20 MG TABLET PO SCH (08:26)
[2017-08-28] MEDS: Lisinopril 20 MG TABLET PO SCH (08:26)
[2017-08-28] MEDS: *HR* Acetylcysteine 20% 600 MG/3 ML ORAL SYRINGE PO SCH ×2 (08:27→20:31)
[2017-08-28] MEDS: Ondansetron 4 MG/2 ML VIAL IVP PRN ×2 (08:35→23:00)
[2017-08-28] MEDS: 0.9 % Sodium Chloride 1,000 ML IVC SCH ×2 (10:19→23:26)
--- NOTE | 2017-08-28 16:39 | Electrocardiograph Report ---
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
[2017-08-28] MEDS ORDERED: Vancomycin 1,000 MG, Sodium Chloride IRRigation 1,000 ML IR ONE (17:00)
--- NOTE | 2017-08-28 17:15 | Vascular/Endovas Progress Note ---
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 She has ulcers on her left foot. She has a left femoral to popliteal artery bypass graft occlusion. She remains on heparin. She reports adequate pain control. She is scheduled for a left lower surgery thrombectomy with possible revision of her graft tomorrow. Qualifiers: Peripheral atherosclerosis artery type: bypass graft, unspecified type Lower extremity ulceration location: midfoot Qualified Code(s): I70.344 - Atherosclerosis of unspecified type of bypass graft(s) of the left leg with ulceration of heel and midfoot (2) CAD (coronary artery disease) Status: Chronic Qualifiers: Coronary Disease-Associated Artery/Lesion type: bypass graft [place] vs. transplanted heart: [email or web address] heart Associated angina: without angina Qualified Code(s): I25.810 - Atherosclerosis of coronary artery bypass graft(s) without angina pectoris (3) Hypertension Status: Chronic She was counseled regarding atherosclerotic risk factor reduction. 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 She reports that she is able to wiggle her toes. She denies any acute events overnight. She denies chest pain or shortness of breath Vital Signs, Last 4 Hours Temp Pulse Resp BP Pulse Ox 08/28/17 16:06 97.7 F 60 17 121/55 97 08/28/17 13:42 20 100 - Physical Examination General: Present: Conversant, No Apparent Distress HEENT: Present: Atraumatic Cardiac: Present: Reg Rate and Rhythm, Normal S1 and S2 Lungs: Present: Normal Breath Sounds Neuro: Present: Alert and responsive, No focal deficits noted, Motor nerves grossly intact, Sensory nerves grossly intact Vascular: Present: Normal capillary refill, Pulse, absent (Left pedal pulses absent), Pulse, normal (In the right lower extremity). Absent: Cyanosis, Edema Abdomen: Present: Soft, Non-tender Skin: Present: Wound/ulcer(s) (Superficial ulcerations on the plantar aspect of the left foot) Results 08/30/17 04:41 08/30/17 12:53 Lab Results, Last 24 hours 08/27/17 08/28/17 08/28/17 22:47 05:16 05:16 WBC 5.9 Hgb 10.2 L Hct 30.9 L Plt Count 162 APTT 114.4 H* D Sodium 136 Potassium 4.4 Chloride 103 Carbon Dioxide 26 BUN 25 H Creatinine 1.33 H Glucose 156 H Calcium 9.2 B-Natriuretic Peptide 08/28/17 08/28/17 08/28/17 05:16 05:16 11:07 WBC Hgb Hct Plt Count APTT 55.3 H D 102.1 H D Sodium Potassium Chloride Carbon Dioxide BUN Creatinine Glucose Calcium B-Natriuretic Peptide 309 H - Imaging / Other Tests CT/CTA: image reviewed Consult Discharge Plan - Plan Instructions: Doxycycline (By mouth) Additional Instructions: May remove bandages and shower on 08/31/17. Wash wound gently and pat to dry. Apply dry gauze to wound daily for 7 days. No tub baths or swimming until 09/25/17. Call Dr. Castelan at [phone] with questions or concerns. Follow up with PCP in 2-3 days after discharge. Recheck BMP (OSCAR on CKD) and CBC (post-op anemia) at that time. Follow up with vascular surgery as directed. Follow up with nephrology as directed. Referrals: Eleazar Vargas MD [Primary Care Provider] - 09/04/17 11:15 am Serge Castelan MD [Partnered Physician] - 10/15/17 11:00 am Prescriptions: Doxycycline 100 mg PO Q12HR 6 Days #12 capsule
[2017-08-28] MEDS: Famotidine 20 MG TABLET PO SCH (17:42)
--- NOTE | 2017-08-28 19:07 | Anesthesia Evaluation PreOp ---
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: Denies Any Significant HX Other Medical History: Renal (CKD stage 3), Diabetes Type II Anesthesia History: No Prior Anesthetic Complications, Past Anesthesia Alcohol Use: none Drug use: none Medications and Allergies Albuterol Sulfate [Proair Respiclick] 2 puff IH Q4-6H PRN 12/02/14 [History] Aspirin Enteric Coated [Aspirin] 81 mg PO DAILY 12/02/14 [History] Clopidogrel [Plavix] 75 mg PO DAILY 12/02/14 [History] Famotidine [Pepcid] 40 mg PO QPM 12/02/14 [History] Furosemide [Lasix] 20 mg PO BID 12/02/14 [History] GlipiZIDE [Glipizide Xl] 10 mg PO BID 12/02/14 [History] Insulin ASPART [Novolog Flexpen] 8 - 10 unit SQ TID PRN 12/02/14 [History] Insulin Glargine,Hum.rec.anlog [Lantus Solostar] 8 units SQ HS 12/02/14 [History ] Isosorbide MONOnitrate [Isosorbide Mononitrate ER] 60 mg PO QDPC 12/02/14 [ History] Lisinopril [Zestril] 20 mg PO DAILY 12/02/14 [History] Lovastatin 20 mg PO DAILY 12/02/14 [History] Metoprolol [Lopressor] 25 mg PO BID 12/02/14 [History] Nitroglycerin [Nitrostat] 0.3 mg SL PRN PRN 12/02/14 [History] OxyCODONE/APAP 10/325 [Percocet 10/325] 10 mg PO Q6HR PRN 12/02/14 [History] Albuterol Neb [Proventil Neb] 2.5 mg IH TID PRN 05/16/16 [History] Dicyclomine [Bentyl] 10 mg PO TID 05/16/16 [History] Ergocalciferol (VITAMIN D2) [Vitamin D2] 50,000 unit PO QWEEK 05/16/16 [History] Simethicone [Gas Relief] 180 mg PO DAILY PRN 05/16/16 [History] Sitagliptin Phosphate [Januvia] 50 mg PO DAILY 05/16/16 [History] Gabapentin [Neurontin] 300 mg PO HS 08/26/17 [History] Multivit-Min/FA/Lycopen/Lutein [A Thru Z Select Multivit Tab] 1 tab PO DAILY 10/08 [History] 3 Allergy/AdvReac Type Severity Reaction Status Date / Time escitalopram [From Lexapro] Allergy Rash Verified 01/23/17 11:54 itraconazole [From Sporanox] Allergy Hives Verified 01/23/17 11:54 Penicillins [PCN] Allergy Rash Verified 01/23/17 11:54 metformin AdvReac Diarrhea Verified 01/23/17 11:54 - Meds/Allergy Pre-op Review Medications Reviewed: Yes Allergies Reviewed: Yes Beta Blockers on Current Med List: Yes If Beta Blockers taken, Date/Time (Last Dose taken): 08/28/2017 at 2028 Anesthesia Results - Labs 08/28/17 05:16 08/28/17 05:16 Laboratory Tests 08/26/17 08/28/17 16:07 18:07 PT 12.3 H INR 1.1 APTT 61.3 H - Imaging EKG: report reviewed (08/26/2017 SINUS RHYTHM RIGHT BUNDLE BRANCH BLOCK [120+ ms QRS DURATION, UPRIGHT V1, 40+ ms S IN I/aVL/V4/V5/V6] MODERATE ST-WAVE ABNORMALITY, CONSIDER LATERAL ISCHEMIA [-0.1+ mV T WAVE IN I/aVL/V5/V6]) Additional studies: 04/10/2016 TTE: Impressions: LVEF 60%. Normal LV chamber size and function. Moderate left ventricular diastolic dysfunction. Atypical septal motion consistent with post-operative status. Normal right ventricular structure and function. Estimated RVSP is 54 mmHg. No significant valvular dysfunction. Anesthesia Exam Vital Signs/O2 Sat/Glucose, Most Recent Temp Pulse Resp BP Pulse Ox 97.7 F 60 17 121/55 97 08/28/17 16:06 08/28/17 16:06 08/28/17 16:06 08/28/17 16:06 08/28/17 16:06 Blood Glucose* 181 Height: 5'/1.52m Weight: 150 lbs/68 kg Pain Scale: 10 (left leg) Pain Scale Used: Numeric (1 - 10) - HEENT Pupil (Motor): EOMI Mallampati: II Teeth: Edentulous Oral Opening: Greater than 3 - WASTE REMOVALIST LOC: Oriented WASTE REMOVALIST Motor: Normal RUE, Normal LUE, Normal RLE, Normal Face, Deficit LLE WASTE REMOVALIST Sensory: Normal: RUE, LUE, Face, Deficit: RLE, LLE - Cardiac Rhythm: Regular Murmur: None - Pulmonary Breath Sounds: bilateral Clear Respiratory Effort: Symmetrical Anesthesia Assess/Plan ASA Score: 3 Modified [place] Scale for Level of Consciousness: Cooperative, oriented, and tranquil Anesthetic Plan: General Monitoring Plan: Standard Monitors Recovery Plan: PACU
[2017-08-28] MEDS: Gabapentin 300 MG CAPSULE PO SCH (20:28)
[2017-08-28] MEDS: Insulin DETEMIR 100 UNIT/ML X5UNITS SQ SCH (20:28)
[2017-08-29 01:29] LABS: Calcium 8.9 mg/dL (8.6-10.3); Potassium 4.7 mEq/L (3.5-5.1)
[2017-08-29] MEDS: *HR* OxyCODONE/APAP 10/325 TABLET PO PRN ×2 (01:35→23:30)
[2017-08-29] MEDS: *HR* Heparin 5,000 UNIT/ML VIAL IVP PRN (01:36)
[2017-08-29] MEDS: Doxycycline 100 MG in 0.9 % Sodium Chloride Mini Bag 100 ML IVPB SCH (05:50)
[2017-08-29] MEDS ORDERED: Vancomycin 1,000 MG, Sodium Chloride IRRigation 1,000 ML IR ONE (06:00)
[2017-08-29] MEDS ORDERED: Heparin 1,000 UNITS/500 mL 1,500 ML ONE (07:24)
[2017-08-29] MEDS ORDERED: Vancomycin 1,000 MG VIAL ONE (07:24)
[2017-08-29] MEDS: Heparin 25,000 UNIT/500 ML D5W 25,000 UNIT/500 ML BAG IVC SCH (07:46)
[2017-08-29] MEDS ORDERED: 0.9 % Sodium Chloride 1,000 ML IVC ONE (07:47)
[2017-08-29] MEDS: Insulin LISPRO 300 UNITS/3 ML VIAL SQ SCH ×2 (07:47→16:48)
[2017-08-29] MEDS ORDERED: Simethicone 80 MG TAB.CHEW PO PRN ×2 (07:49→12:01)
[2017-08-29] MEDS ORDERED: Albuterol 2.5 MG/3 ML NEBULIZER IH PRN ×2 (07:50→12:01)
[2017-08-29] MEDS ORDERED: Nitroglycerin 0.4 MG TAB.SUBL SL PRN ×2 (08:00→12:01)
[2017-08-29] MEDS ORDERED: 0.9 % Sodium Chloride 1,000 ML IVC SCH (08:00)
[2017-08-29] MEDS: Ringers Solution, Lactated 1,000 ML IVC SCH ×2 (08:15→10:03)
[2017-08-29] MEDS ORDERED: Multivit/Ca/Min/Fe/FA 1 TAB TABLET PO SCH (09:00)
[2017-08-29] MEDS ORDERED: *HR* FentaNYL (PF) 100 MCG/2 ML VIAL ONE (09:11)
[2017-08-29] MEDS ORDERED: *HR* Propofol 200 MG/20 ML VIAL IVP ONE (09:11)
[2017-08-29] MEDS ORDERED: Heparin 1,000 UNITS/500 mL 500 ML ONE (09:11)
[2017-08-29] MEDS ORDERED: *HR* Midazolam HCl 2 MG/2 ML VIAL ONE (09:11)
[2017-08-29] MEDS ORDERED: *HR* Succinylcholine 200 MG/10 ML VIAL IVP ONE (09:11)
[2017-08-29] MEDS ORDERED: Lidocaine -MPF 2% 2 ML VIAL ONE (09:11)
[2017-08-29] MEDS ORDERED: Ondansetron 4 MG/2 ML VIAL ONE (09:24)
[2017-08-29] MEDS ORDERED: Dexamethasone 4 MG/ML VIAL ONE (09:24)
[2017-08-29] MEDS ORDERED: *HR* Heparin 5,000 UNIT/ML VIAL ONE (09:25)
[2017-08-29] MEDS ORDERED: CeFAZolin Syringe 2,000MG/20 ML SYR IVPB ONE (09:42)
[2017-08-29] MEDS ORDERED: *HR* OxyCODONE Immed Rel 5 MG TABLET PO PRN ×2 (09:55→12:01)
[2017-08-29] MEDS ORDERED: *HR* Promethazine 25 MG/ML VIAL IVP PRN (09:55)
[2017-08-29] MEDS ORDERED: *HR* Labetalol 20 MG/4 ML SYRINGE IVP PRN ×2 (09:55→12:01)
[2017-08-29] MEDS ORDERED: CeFAZolin Syr 2,000MG/20 ML 2,000 MG/20 ML SYRINGE IVPB ONE (10:00)
--- NOTE | 2017-08-29 10:53 | Operative Note ---
Date of procedure: 08/29/17 Pre-op diagnosis: Peripheral vascualr disease with ulceration Post-op diagnosis: same Procedure: 1. Left lower extremity bypass graft thrombectomy. 2. Left common femoral endarterectomy. Complications: None Anesthesia: GETA Surgeon: Serge Casetlan Was there an customer relations assistant present: No Estimated blood loss (cc): 50 Specimen: Left lowerr extremity thrombus Condition: stable Disposition: same day Procedure in Detail: Indications: The patient is a 66 year old female with a history of peripheral vascular disease with disabling claudication. She previously underwent a left femoral to above knee popliteal artery bypass for a left superficial femoral artery occlusion. Her symptoms resolved. She has now developed recurrent symptoms as well as left foot ulcerations. A CT scan revealed that her graft is occluded. Revascularization has been recommended to reduce her risk of limb loss and to promote healing. Procedure: The patient was identified in the preoperative area. The risks, benefits and alternatives were discussed and all questions were answered. The patient was taken to the operating room and placed in the supine position on the operating room table. After the induction of general endotracheal anesthesia, the patient was cleaned and draped in the normal sterile fashion. An oblique incision was made sharply through her previous left groin scar overlying the femoral vessels. Hemostasis was obtained with electrocautery. Through a process of blunt, sharp and electrocautery dissection, the distal external iliac, deep and superficial femoral arteries were dissected and surrounded with vessel loops. The graft was also dissected and surrounded with vessel loops. The patient received a 5000 unit bolus of heparin. After waiting adequate time for the heparin to circulate, the vessels were occluded with the vessel loops. A longitudinal arteriotomy was made through the graft anastamosis. No flow was noted on release of the loops. Approximately a a strong pulse was noted. Upon release of the vessel loop antegrade pulsatile vigorous flow was noted in the common femoral artery. Significant interval hyperplasia was noted at the anastomosis. A 4 mal[place] lior catheter was passed distally through the graft and into the distal popliteal artery. Thrombus was retrieved on the first pass. Additional passes resulted in no additional thrombus. Retrograde flow as noted through the graft. The vessels and graft were flushed with heparin. Using a dental freer, an endarectomy was performed along the proximal anastomosis to remove the intimal hyperplasia that had accumulated. This intimal hyperplasia suspected to be the etiology of her graft occlusion. The graftotomy was reapproximated with arunnnig 6-0 prolene. Prior to completing the closure, the vessels were flushed, the graft was flushed and heparin was infused into the lumen. Flow was restored in the [place] vessels and graft. Polyphasic signals were identified in the posterior tibial and dorsalis pedis arteries below the ankle. The wound was irrigated with antibiotic containing saline. Hemostasis was obtained with electrocautery. Platelet rich and platelet poor plasma were infused into the wound. The wound was reapproximated with 2-0 and 3-0 vicryl. Skin was reapproximated with 3-0 Monocryl. Sterile dressings were applied. The patient was extubated and taken to the recover room in stable condition.
[2017-08-29] MEDS: *HR* HYDROmorphone (PF) 1 MG/ML SYRINGE IVP PRN ×2 (11:07→11:37)
[2017-08-29] MEDS ORDERED: Ondansetron 4 MG/2 ML VIAL IVP PRN (12:01)
[2017-08-29] MEDS ORDERED: D5% in Water 1,000 ML IVC PRN (12:01)
[2017-08-29] MEDS ORDERED: Acetaminophen 325 MG TABLET PO PRN (12:01)
[2017-08-29] MEDS ORDERED: Naloxone 0.4 MG/ML INJ IVP PRN ×2 (12:01)
[2017-08-29] MEDS ORDERED: Dextrose Gel 15 GM/37.5 ML TUBE PO PRN ×2 (12:01)
[2017-08-29] MEDS ORDERED: *HR* Dextrose 50 % in Water (Syg) 50 ML SYRINGE IVP PRN (12:01)
--- NOTE | 2017-08-29 12:25 | Anesthesia Evaluation Post Op ---
Date of Encounter: 08/29/17 Time of Encounter: 12:24 - Vital Signs Vital Signs: Selected Entries 08/29/17 11:53 08/29/17 12:13 Temperature 97.4 F L Pulse Rate 76 Respiratory Rate 14 Blood Pressure 158/54 O2 Sat by Pulse Oximetry 100 Oxygen Flow Rate (LPM) 2 - Lungs Lungs: Clear Ascult./Percussion - Airway Airway: Non-obstructed - Cardiovascular Regular Rate - Mental Status Mental Status: Alert & Oriented, Answers Appropriately - Pain Pain Scale: 3 Pain Scale used: Numeric (1 - 10) - Nausea Vomiting Nausea Vomiting: Not Present - Hydration Hydration: Tolerates oral liquids, Kennedy catheter - Discharge PostOp Status: Transfer Patient to floor
[2017-08-29] MEDS: *HR* Metoprolol 5 MG/5 ML VIAL IVP SCH ×3 (13:35→23:30)
[2017-08-29] MEDS: 0.9 % Sodium Chloride 1,000 ML IVC SCH ×2 (13:39→23:32)
[2017-08-29] MEDS: Famotidine 20 MG TABLET PO SCH (16:05)
[2017-08-29] MEDS: Doxycycline 100 MG CAPSULE PO SCH (16:05)
[2017-08-29] MEDS: CeFAZolin Pre 2,000 MG/100 ML 2,000 MG/100 ML BAG IVPB SCH ×2 (16:12→23:31)
--- NOTE | 2017-08-29 18:31 | Internal Med Progress Note ---
Date of Encounter: 08/29/17 Time of Encounter: 17:27 - Assessment and plan (1) Atherosclerosis of left lower extremity with ulceration Current Visit: Yes Status: Acute Assessment and plan: Vascular surgery consulted; appreciate input. S/P LLE thrombectomy today. Pain controlled at this time. Continue doxycycline for possible cellulitis/ ulcerations. Continue home medications. Continue to monitor. Recheck labwork in AM. Qualifiers: Peripheral atherosclerosis artery type: bypass graft, unspecified type Lower extremity ulceration location: midfoot Qualified Code(s): I70.344 - Atherosclerosis of unspecified type of bypass graft(s) of the left leg with ulceration of heel and midfoot (2) PAD (peripheral artery disease) Current Visit: Yes Status: Chronic Assessment and plan: Management as per above. (3) Acute kidney injury Current Visit: Yes Status: Acute Assessment and plan: Creatinine slowly trending up. Will give 1L NS bolus and then continue NS at 100 ml/hr. Monitor fluid status closely as patient has history of CHF; nursing staff counselled. Recheck BMP in AM. (4) CAD (coronary artery disease) Current Visit: Yes Status: Chronic Assessment and plan: Continue home medications. Qualifiers: Coronary Disease-Associated Artery/Lesion type: bypass graft [place] vs. transplanted heart: [place] heart Associated angina: without angina Qualified Code(s): I25.810 - Atherosclerosis of coronary artery bypass graft(s) without angina pectoris (5) Hypertension Current Visit: Yes Status: Chronic Assessment and plan: Improved. Continue home medications. Qualifiers: Hypertension type: essential hypertension Qualified Code(s): I10 - Essential (primary) hypertension (6) Diabetes mellitus Current Visit: Yes Status: Chronic Assessment and plan: Continue accuchecks and SSI QID AC/HS. Continue home basal insulin. 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 Will restart SQ lovenox tomorrow if H/H stable post-op. - Time Spent With Patient Total time spent is greater than 50% in coordination of care (as documented) at patient's floor/unit and/or counseling patient: less than 15 minutes - Subjective Interval history: Patient had no acute events overnight. She states that surgery went well today. She states that pain is controlled at this time. No issues with surgical site. She denies chest pain, SOB, fever, or chills. She has no complaints at this time. - Constitutional Vitals: Temp Pulse Resp BP Pulse Ox 99.1 F 63 16 142/64 100 08/29/17 17:00 08/29/17 17:00 08/29/17 17:00 08/29/17 17:00 08/29/17 17:00 General appearance: Present: cooperative, A&O X 3, pleasant, no acute distress, answers questions appropriately - Respiratory Respiratory exam: Present: CTAB. Absent: accessory muscle use, rales, rhonchi, wheezes Additional comments: Normal WOB - Cardiovascular Cardiovascular exam: Present: RRR, +S1, +S2. Absent: diastolic murmur, gallop, rubs, systolic murmur - GI/Abdominal GI/Abdominal exam: Present: normal bowel sounds, soft. Absent: distended, hepatomegaly, mass, splenomegaly, tenderness - Psychiatric Psychiatric exam: Present: normal affect, normal mood. Absent: agitated, anxious, depressed - Skin Skin exam: Present: dry, warm. Absent: cyanosis Additional comments: 2 small ulcerations on bottom of left foot Internal Medicine: Result - Labs CBC & Chem 7: 08/28/17 05:16 08/29/17 00:30 Labs: BMP 08/29/17 00:30 Sodium 137 Potassium 4.7 Chloride 106 Carbon Dioxide 22 L BUN 30 H Creatinine 1.86 H Glucose 110 H Calcium 8.9 - ABG Interpretation ABG results: PT/INR, D-dimer PT 12.3 Seconds (9.4-12.1) H 08/26/17 16:07 - VTE Reasons for not Prescribing Prophylaxis: Medical contraindication (Surgery) Documentation of Mechanical Device: Intermittent pneumatic compression device Consult Discharge Plan - Plan Referrals: Eleazar Vargas MD [Primary Care Provider] - 09/04/17 11:15 am Serge Castelan MD [Partnered Physician] - 10/15/17 11:00 am
[2017-08-29] MEDS ORDERED: Insulin LISPRO 300 UNITS/3 ML VIAL SQ SCH (21:00)
[2017-08-29] MEDS ORDERED: Doxycycline 100 MG CAPSULE PO SCH (21:00)
[2017-08-29] MEDS ORDERED: Insulin DETEMIR 100 UNIT/ML X5UNITS SQ SCH (21:00)
[2017-08-29] MEDS ORDERED: Gabapentin 300 MG CAPSULE PO SCH (21:00)
[2017-08-30] MEDS: *HR* Metoprolol 5 MG/5 ML VIAL IVP SCH (05:56)
[2017-08-30] MEDS: Doxycycline 100 MG CAPSULE PO SCH ×2 (05:57→17:09)
[2017-08-30 06:10] LABS: Potassium 4.8 mEq/L (3.5-5.1)
[2017-08-30 06:16] LABS: Basophils % 0.1 %; Hematocrit 25.9 % (35.3-44.9); Hemoglobin 8.5 g/dL (11.5-15.4); Immature Granulocytes % 0.9 % (0-4); Lymphocytes # 0.6 K/mcL (0.6-4.6); Lymphocytes % 7.8 %; Mean Corpuscular HGB Conc 32.8 g/dL (31.6-35.5); Mean Corpuscular Hemoglobin 30.1 pg (28.0-33.3); Mean Corpuscular Volume 91.8 fL (83.0-100.0); Mean Platelet Volume 11.6 fL (9.4-12.4); Monocytes # 0.6 K/mcL (0.0-1.3); Monocytes % 7.8 %; Neutrophils # 6.9 K/mcL (1.6-8.9); Nucleated Red Blood Cells 0.5 /100 WBC (0); Platelet Count 149 K/mcL (140-400); Red Blood Count 2.82 M/mcL (3.82-4.97); Red Cell Distribution Width 13.2 % (11.5-14.5); Segmented Neutrophils % 83.4 %
--- NOTE | 2017-08-30 08:08 | Vascular/Endovas Progress Note ---
Date of Encounter: 08/30/17 Time of Encounter: 07:45 - Assessment and plan (1) Atherosclerosis of left lower extremity with ulceration Current Visit: Yes Status: Chronic The patient is postoperative day #1 after left lower extremity thrombectomy. Her foot is warm and her pulses are normal. She will be seen by physical therapy today. She may be discharged from a vascular perspective pending PT recommendations. Qualifiers: Peripheral atherosclerosis artery type: bypass graft, unspecified type Lower extremity ulceration location: midfoot Qualified Code(s): I70.344 - Atherosclerosis of unspecified type of bypass graft(s) of the left leg with ulceration of heel and midfoot (2) CAD (coronary artery disease) Current Visit: Yes Status: Chronic Qualifiers: Coronary Disease-Associated Artery/Lesion type: bypass graft [place] vs. transplanted heart: [place] heart Associated angina: without angina Qualified Code(s): I25.810 - Atherosclerosis of coronary artery bypass graft(s) without angina pectoris (3) Hypertension Current Visit: Yes Status: Chronic She was counseled regarding atherosclerotic risk factor reduction. 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: with nursing home use Diabetes mellitus complication status: with circulatory complication Diabetes mellitus complication detail: with other circulatory complications Qualified Code(s): E11.59 - Type 2 diabetes mellitus with other circulatory complications; Z79.4 - [facility]iary (current) use of insulin; Z79.4 - superintendent container terminal (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 (7) Chronic disease anemia Current Visit: Yes Status: Chronic The patient has chronic anemia with acute expected postoperative blood loss anemia. She is hemodynamically stable without evidence of ongoing blood loss. - Subjective Interval history: The patient reports that she is feeling much better today, although she does complain of left foot pain secondary to her ulcer. She denies chest pain or shortness of breath Vital Signs, Last 4 Hours Temp Pulse Resp BP Pulse Ox 08/30/17 07:27 98.0 F 69 19 126/52 98 08/30/17 06:11 16 95 08/30/17 06:06 98.2 F 58 15 143/53 97 - Physical Examination General: Present: Conversant, No Apparent Distress Lungs: Present: Normal Breath Sounds Neuro: Present: Alert and responsive, No focal deficits noted, Motor nerves grossly intact, Sensory nerves grossly intact Vascular: Present: Normal capillary refill, Pulse, normal (polyphasic left dorsalis pedis and posterior tibial signals), Surgical incisions (clean and dry without erythema or drainage). Absent: Cyanosis Abdomen: Present: Soft - VTE Reasons for not Prescribing Prophylaxis: Medical contraindication (Surgery) Documentation of Mechanical Device: Graduated compression elastic hosiery Results 08/30/17 04:41 08/30/17 04:11 Lab Results, Last 24 hours 08/29/17 08/30/17 08/30/17 07:48 04:11 04:41 WBC 8.2 Hgb 8.5 L D Hct 25.9 L Plt Count 149 APTT 90.0 H D Sodium 139 Potassium 4.8 Chloride 110 H Carbon Dioxide 19 L BUN 39 H Creatinine 1.75 H Glucose 104 Calcium 8.0 L Consult Discharge Plan - Plan Additional Instructions: May remove bandages and shower on 08/31/17. Wash wound gently and pat to dry. Apply dry gauze to wound daily for 7 days. No tub baths or swimming until 09/25/17. Call Dr. Castelan at [phone] with questions or concerns. Referrals: Eleazar Vargas MD [Primary Care Provider] - 09/04/17 11:15 am Serge Castelan MD [Partnered Physician] - 10/15/17 11:00 am
[2017-08-30] MEDS: Insulin LISPRO 300 UNITS/3 ML VIAL SQ SCH ×3 (08:39→17:09)
[2017-08-30] MEDS ORDERED: Multivit/Ca/Min/Fe/FA 1 TAB TABLET PO SCH (09:00)
[2017-08-30] MEDS ORDERED: Isosorbide MONOnitrate (24 HR) 60 MG TAB.ER.24H PO SCH (09:00)
[2017-08-30] MEDS ORDERED: Aspirin Enteric Coated 81 MG Tablet PO SCH (09:00)
[2017-08-30] MEDS ORDERED: Lisinopril 20 MG TABLET PO SCH (09:00)
[2017-08-30] MEDS ORDERED: 0.9 % Sodium Chloride 1,000 ML IVC ONE (10:03)
[2017-08-30] MEDS: 0.9 % Sodium Chloride 1,000 ML IVC SCH (11:28)
[2017-08-30 13:35] LABS: Calcium 7.9 mg/dL (8.6-10.3); Potassium 4.6 mEq/L (3.5-5.1)
--- NOTE | 2017-08-30 16:52 | Discharge Summary ---
- NOTES TO OUTPATIENT PROVIDER Notes to Outpatient Provider: Follow up with PCP in 2-3 days after discharge. Recheck BMP (OSCAR on CKD) and CBC (post-op anemia) at that time. Follow up with vascular surgery as directed. Follow up with nephrology as directed. Orders not resulted at time of discharge: Pending orders 08/31/17 04:00 Basic Metabolic Panel AM 0400 CBC [Complete Blood Count] [HEME] AM 0400 Date of Encounter: 08/30/17 Time of Encounter: 12:47 - Discharge Diagnosis (1) Atherosclerosis of left lower extremity with ulceration Priority: Primary Status: Acute Qualifiers: Peripheral atherosclerosis artery type: bypass graft, unspecified type Lower extremity ulceration location: midfoot Qualified Code(s): I70.344 - Atherosclerosis of unspecified type of bypass graft(s) of the left leg with ulceration of heel and midfoot (2) PAD (peripheral artery disease) Priority: Secondary Status: Chronic (3) Acute kidney injury Priority: Secondary Status: Acute (4) CAD (coronary artery disease) Priority: Secondary Status: Chronic Qualifiers: Coronary Disease-Associated Artery/Lesion type: bypass graft [place] vs. transplanted heart: [place] heart Associated angina: without angina Qualified Code(s): I25.810 - Atherosclerosis of coronary artery bypass graft(s) without angina pectoris (5) Hypertension Priority: Secondary Status: Chronic Qualifiers: Hypertension type: essential hypertension Qualified Code(s): I10 - Essential (primary) hypertension (6) Diabetes mellitus Priority: Secondary Status: Chronic Qualifiers: Diabetes mellitus type: type 2 Diabetes mellitus clinical pharmacy specialist insulin use: with fci use Diabetes mellitus complication status: with circulatory complication Diabetes mellitus complication detail: with other circulatory complications Qualified Code(s): E11.59 - Type 2 diabetes mellitus with other circulatory complications; Z79.4 - draft roller picker (current) use of insulin; Z79.4 - draft roller picker (current) use of insulin; Z79.4 - nursing home (current) use of insulin; Z79.4 - draft roller picker (current) use of insulin (7) DVT prophylaxis Priority: Secondary Status: Acute Hospital course: Ms. Sepulveda is a 66 year old female admitted for atherosclerosis of LLE with ulceration. She was admitted to general medical floor with telemetry. She was started on antibiotics; transitioned to doxycycline on day of discharge. She was started on pain control medications. Vascular surgery was consulted. Patient went for LLE throbectomy. She tolerated procedure well, but some mild post-op anemia on top of chronic anemia, but hemodynamically stable and no further evidence of on-going blood loss. Pain is controlled today. She had some acute kidney injury on top of CKD. Creatinine trended up from 1.20 to 1.86 ; now trended down to 1.51 today with IVF. She was encouraged to maintain good PO fluid intake. PT saw patient and recommended home health with home PT services to improve overall AROM LLE and restore patient's independence with ambulation. She will complete 6 more days of doxycycline at home. She will follow up with PCP in 2-3 days after discharge. BMP (OSCAR on CKD) and CBC (post- op anemia) can be rechecked at that time. She will follow up with vascular surgery as directed. She will follow up with nephrology as directed. Patient has met maximum benefit of this hospitalization and will be discharged home with home health and home PT/OT in stable condition. Discharge discussed with: patient, nurse - Time Spent with Patient Total time spent providing and/or coordinating discharge services: Greater than 30 minutes - Discharge Medications Prescriptions: RX: Doxycycline 100 mg PO Q12HR 6 Days #12 capsule Home Medications: RX: Albuterol Sulfate [Proair Respiclick] 2 puff IH Q4-6H PRN 12/02/14 [History] RX: Aspirin Enteric Coated [Aspirin EC] 81 mg PO DAILY 12/02/14 [History] RX: Clopidogrel [Plavix] 75 mg PO DAILY 12/02/14 [History] RX: Famotidine [Pepcid] 40 mg PO QPM 12/02/14 [History] RX: Furosemide [Lasix] 20 mg PO BID 12/02/14 [History] RX: GlipiZIDE [Glipizide Xl] 10 mg PO BID 12/02/14 [History] RX: Insulin ASPART [Novolog Flexpen] 8 - 10 unit SQ TID PRN 12/02/14 [History] RX: Insulin Glargine,Hum.rec.anlog [Lantus Solostar] 8 units SQ HS 12/02/14 [ History] RX: Isosorbide MONOnitrate [Isosorbide Mononitrate ER] 60 mg PO QDPC 12/02/14 [ History] RX: Lisinopril [Zestril] 20 mg PO DAILY 12/02/14 [History] RX: Lovastatin 20 mg PO DAILY 12/02/14 [History] RX: Metoprolol [Lopressor] 25 mg PO BID 12/02/14 [History] RX: Nitroglycerin [Nitrostat] 0.3 mg SL PRN PRN 12/02/14 [History] RX: OxyCODONE/APAP 10/325 [Percocet 10/325] 10 mg PO Q6HR PRN 12/02/14 [History] RX: Albuterol Neb [Proventil Neb] 2.5 mg IH TID PRN 05/16/16 [History] RX: Dicyclomine [Bentyl] 10 mg PO TID 05/16/16 [History] RX: Ergocalciferol (VITAMIN D2) [Vitamin D2] 50,000 unit PO QWEEK 05/16/16 [ History] RX: Simethicone [Gas Relief] 180 mg PO DAILY PRN 05/16/16 [History] RX: Sitagliptin Phosphate [Januvia] 50 mg PO DAILY 05/16/16 [History] RX: Gabapentin [Neurontin] 300 mg PO HS 08/26/17 [History] RX: Multivit-Min/FA/Lycopen/Lutein [A Thru Z Select Multivit Tab] 1 tab PO DAILY 08/26/17 [History] RX: Doxycycline 100 mg PO Q12HR 6 Days #12 capsule 08/30/17 [Rx] Allergies/Adverse Reactions: 3 Allergy/AdvReac Type Severity Reaction Status Date / Time escitalopram [From Lexapro] Allergy Rash Verified 01/23/17 11:54 itraconazole [From Sporanox] Allergy Hives Verified 01/23/17 11:54 Penicillins [PCN] Allergy Rash Verified 01/23/17 11:54 metformin AdvReac Diarrhea Verified 01/23/17 11:54 Date of admission: 08/26/17 20:30 Primary care physician: Eleazar Vargas MD Consults: Vascular Surgery 08/30/17 08:36 Consult to Physical Therapy [CONS] Routine Comment: Evaluate, develop and implement POC Reason for Consult: postoperative evaluation after left lower extremity thrombectomy. Does patient have active BEDREST order?: No Is patient medically & hemodynamically stable?: Yes 08/30/17 13:09 Consult to Physical Therapy [CONS] Stat Comment: Evaluate, develop and implement POC Reason for Consult: Please evaluate and treat. Patient is POD #1 LLE thrombectomy. Plan for discharge today pending your recommendations. Please make sure you see today. Thanks. Does patient have active BEDREST order?: No Is patient medically & hemodynamically stable?: Yes Patient assessed for mobility or mobilized this visit?: No Discharging clinician: Ahmet Spence Anticipated date of discharge: 08/30/17 - Constitutional Vitals: Temp Pulse Resp BP Pulse Ox 98.0 F 60 18 127/60 100 08/30/17 11:44 08/30/17 11:44 08/30/17 11:44 08/30/17 11:44 08/30/17 11:44 General appearance: Present: cooperative, A&O X 3, pleasant, no acute distress, answers questions appropriately - Respiratory Respiratory exam: Present: CTAB. Absent: accessory muscle use, rales, rhonchi, wheezes Additional comments: Normal WOB - Cardiovascular Cardiovascular exam: Present: RRR, +S1, +S2. Absent: diastolic murmur, gallop, rubs, systolic murmur Additional comments: No BLE edema - GI/Abdominal GI/Abdominal exam: Present: normal bowel sounds, soft. Absent: distended, hepatomegaly, mass, splenomegaly, tenderness - Psychiatric Psychiatric exam: Present: normal affect, normal mood. Absent: agitated, anxious, depressed - Skin Skin exam: Present: dry, warm. Absent: cyanosis Additional comments: 2 small ulcerations on bottom of left foot, no erythema or drainage - Patient Status Disposition: Home Health Service Condition: Good Overall status at discharge: patient is progressing back to baseline - Discharge Instructions Instructions: Doxycycline (By mouth) Follow Up With: Eleazar Vargas MD [Primary Care Provider] - 09/04/17 11:15 am Serge Castelan MD [Partnered Physician] - 10/15/17 11:00 am Additional Instructions: May remove bandages and shower on 08/31/17. Wash wound gently and pat to dry. Apply dry gauze to wound daily for 7 days. No tub baths or swimming until 09/25/17. Call Dr. Castelan at [phone] with questions or concerns. Follow up with PCP in 2-3 days after discharge. Recheck BMP (OSCAR on CKD) and CBC (post-op anemia) at that time. Follow up with vascular surgery as directed. Follow up with nephrology as directed. - Diet and Activity Activity: as per physical therapy Diet: diabetic diet, low fat, low cholesterol, low salt diet, other (Cardiac Diet, Renal Diet) - VTE Reasons for not Prescribing Prophylaxis: Medical contraindication (Surgery) Documentation of Mechanical Device: Intermittent pneumatic compression device
[2017-08-30 17:06] VITALS: BP 132/64
[2017-08-30] MEDS: Famotidine 20 MG TABLET PO SCH (17:09)
--- NOTE | 2017-08-30 17:26 | Physician Discharge Referral ---
Home Health/Hosp Referral Info Transfer to: Home Health Provider in Charge Post Discharge: PCP - Diagnosis (1) Atherosclerosis of left lower extremity with ulceration Priority: Primary Status: Acute (2) PAD (peripheral artery disease) Priority: Secondary Status: Chronic (3) Acute kidney injury Priority: Secondary Status: Acute (4) CAD (coronary artery disease) Priority: Secondary Status: Chronic (5) Hypertension Priority: Secondary Status: Chronic (6) Diabetes mellitus Priority: Secondary Status: Chronic (7) DVT prophylaxis Priority: Secondary Status: Acute - Respiratory Orders Smoking Cessation: Smoking cessation has been advised. For more information, call the [place] Tobacco Quit Line at 1-863-RKQO-NOW. - Dressing/Wound Care Site: Per vascular surgery Type of Dressing/Treatments w/Frequency: Per vascular surgery - Diet/Nutrition Diet/Nutrition Orders: No Added Salt (MARY), Renal, Cardiac, No Concentrated Sweets (Diabetic) - Activity Activity: List: Per physical therapy - Services Needed Following services are medically necessary services: Nursing, Physical Therapy, Occupational Therapy - Transfer Medications Prescriptions: RX: Doxycycline 100 mg PO Q12HR 6 Days #12 capsule Home Medications: RX: Albuterol Sulfate [Proair Respiclick] 2 puff IH Q4-6H PRN 12/02/14 [History] RX: Aspirin Enteric Coated [Aspirin EC] 81 mg PO DAILY 12/02/14 [History] RX: Clopidogrel [Plavix] 75 mg PO DAILY 12/02/14 [History] RX: Famotidine [Pepcid] 40 mg PO QPM 12/02/14 [History] RX: Furosemide [Lasix] 20 mg PO BID 12/02/14 [History] RX: GlipiZIDE [Glipizide Xl] 10 mg PO BID 12/02/14 [History] RX: Insulin ASPART [Novolog Flexpen] 8 - 10 unit SQ TID PRN 12/02/14 [History] RX: Insulin Glargine,Hum.rec.anlog [Lantus Solostar] 8 units SQ HS 12/02/14 [ History] RX: Isosorbide MONOnitrate [Isosorbide Mononitrate ER] 60 mg PO QDPC 12/02/14 [ History] RX: Lisinopril [Zestril] 20 mg PO DAILY 12/02/14 [History] RX: Lovastatin 20 mg PO DAILY 12/02/14 [History] RX: Metoprolol [Lopressor] 25 mg PO BID 12/02/14 [History] RX: Nitroglycerin [Nitrostat] 0.3 mg SL PRN PRN 12/02/14 [History] RX: OxyCODONE/APAP 10/325 [Percocet 10/325] 10 mg PO Q6HR PRN 12/02/14 [History] RX: Albuterol Neb [Proventil Neb] 2.5 mg IH TID PRN 05/16/16 [History] RX: Dicyclomine [Bentyl] 10 mg PO TID 05/16/16 [History] RX: Ergocalciferol (VITAMIN D2) [Vitamin D2] 50,000 unit PO QWEEK 05/16/16 [ History] RX: Simethicone [Gas Relief] 180 mg PO DAILY PRN 05/16/16 [History] RX: Sitagliptin Phosphate [Januvia] 50 mg PO DAILY 05/16/16 [History] RX: Gabapentin [Neurontin] 300 mg PO HS 08/26/17 [History] RX: Multivit-Min/FA/Lycopen/Lutein [A Thru Z Select Multivit Tab] 1 tab PO DAILY 08/26/17 [History] RX: Doxycycline 100 mg PO Q12HR 6 Days #12 capsule 08/30/17 [Rx] Allergies/Adverse Reactions: 3 Allergy/AdvReac Type Severity Reaction Status Date / Time escitalopram [From Lexapro] Allergy Rash Verified 01/23/17 11:54 itraconazole [From Sporanox] Allergy Hives Verified 01/23/17 11:54 Penicillins [PCN] Allergy Rash Verified 01/23/17 11:54 metformin AdvReac Diarrhea Verified 01/23/17 11:54 Certification: Further, I certify that my clinical findings support that this patient is homebound (i.e. absences from home require considerable and taxing effort and are for medical reasons or voodoo services or infrequently or short duration when for other reasons) because: Homebound Reason: Patient requires assistance of a person or device to safely leave home, Post-surgery restriction and or conditions limit ability to leave home, Leaving home requires considerable and taxing effort due to condition, Severity of cardiac or pulmonary status limits activity tolerance Attestation: My signature below is to certify that this patient is under my care and that I, or nurse practitioner, or a physician's assistant store manager sales working with me, has a face-to -face encounter with this patient.
[2017-08-30] MEDS: *HR* OxyCODONE/APAP 10/325 TABLET PO PRN (18:28)
== END 2017-08-30 19:40 | disposition home health service (06) | DRG 253 ==
LOC: 3ANU 15:53 → EMEROO 15:53 → 3ANU 18:43 → 2ANU 20:46 → 2NNU 08-29 11:26
PROVIDERS: ADMIT General Practice; ATTEND General Practice

== ENCOUNTER 2017-10-27 15:30 | Inpatient (IN) ==
--- NOTE | 2017-10-27 15:47 | Emergency Department Note ---
Disposition Clinical Impression: Acute kidney injury, Hyperkalemia, Laceration Fall Qualifiers: Encounter type: initial encounter Qualified Code(s): W19.XXXA - Unspecified fall, initial encounter Closed head injury Qualifiers: Encounter type: initial encounter Qualified Code(s): S09.90XA - Unspecified injury of head, initial encounter Disposition: Admitted As Inpatient Condition: Critical Referrals: Eleazar Vargas MD [Primary Care Provider] - Time of Disposition: 20:14 Fall HPI - General Stated Complaint: Fall head injury Time Seen by Provider: 10/27/17 15:36 Nursing Notes Reviewed: Yes Vital Signs Reviewed: Yes - History of Present Illness HPI Narrative: 66-year-old female presents from home with son and grandson bedside. Approximately 90 minutes prior to arrival, patient fell forward from the toilet , striking the top of her forehead on the lasted around the corner of the bathtub. Patient denies headache or neck pain. She does note that she knows what she was to say however she is having difficulty getting her words out. Patient is a history of type 2 diabetes insulin-dependent. She is a left heel ulcer currently managed by wound care. Patient takes daily aspirin as well as an unknown anticoagulant. She is not aware what an INR is therefore suspected novel anticoagulant. ROS: Positive: As above Negative: Fever, chills, nausea, vomiting, chest pains, palpitations, abdominal pain, hematuria, melena, hematochezia, confusion - Related Data Home Medications Medication Instructions Recorded Confirmed Albuterol Sulfate [Proair 2 puff IH Q4-6H PRN 12/02/14 09/06/17 Respiclick] Aspirin Enteric Coated [Aspirin EC] 81 mg PO DAILY 12/02/14 10/27/17 Clopidogrel [Plavix] 75 mg PO DAILY 12/02/14 10/27/17 Famotidine [Pepcid] 40 mg PO QPM 12/02/14 10/27/17 Furosemide [Lasix] 20 mg PO BID 12/02/14 10/27/17 GlipiZIDE [Glipizide Xl] 10 mg PO BID 12/02/14 10/27/17 Insulin ASPART [Novolog Flexpen] 8 - 10 unit SQ TID PRN 12/02/14 10/27/17 Insulin Glargine,Hum.rec.anlog 8 units SQ HS 12/02/14 09/06/17 [Lantus Solostar] Isosorbide MONOnitrate [Isosorbide 60 mg PO QDPC 12/02/14 10/27/17 Mononitrate ER] Lisinopril [Zestril] 20 mg PO DAILY 12/02/14 10/27/17 Lovastatin 20 mg PO DAILY 12/02/14 10/27/17 Metoprolol [Lopressor] 25 mg PO BID 12/02/14 10/27/17 Nitroglycerin [Nitrostat] 0.3 mg SL PRN PRN 12/02/14 10/27/17 OxyCODONE/APAP 10/325 [Percocet 10 mg PO Q6HR PRN 12/02/14 10/27/17 10/325] Albuterol Neb [Proventil Neb] 2.5 mg IH TID PRN 05/16/16 09/06/17 Dicyclomine [Bentyl] 10 mg PO TID 05/16/16 10/27/17 Ergocalciferol (VITAMIN D2) 50,000 unit PO QWEEK 05/16/16 10/27/17 [Vitamin D2] Simethicone [Gas Relief] 180 mg PO DAILY PRN 05/16/16 10/27/17 Sitagliptin Phosphate [Januvia] 50 mg PO DAILY 05/16/16 09/06/17 Gabapentin [Neurontin] 300 mg PO HS 08/26/17 10/27/17 Multivit-Min/FA/Lycopen/Lutein [A 1 tab PO DAILY 08/26/17 10/27/17 Thru Z Select Multivit Tab] Allergies Allergy/AdvReac Type Severity Reaction Status Date / Time escitalopram [From Lexapro] Allergy Rash Verified 01/23/17 11:54 itraconazole [From Sporanox] Allergy Hives Verified 01/23/17 11:54 Penicillins [PCN] Allergy Rash Verified 01/23/17 11:54 metformin AdvReac Diarrhea Verified 01/23/17 11:54 All systems ED: reviewed and negative except as stated. Review of Systems: As Per HPI Fall PMH - Past Medical History Medical history: Reports: arthritis, asthma, CHF, COPD, coronary artery disease , diabetes, hyperlipidemia, hypertension, renal disease Surgical history: Reports: appendectomy, coronary bypass (CABG), hysterectomy, other, vascular surgery Psychiatric history: Reports: no psych history - Social History Smoking Status: Current every day smoker Alcohol use: Reports: none Drug use: Reports: none Physical Exam Vital Signs Reviewed General: Patient is alert, oriented, and in no acute distress. She appears to be slow to speak. Head: normocephalic Eye: normal appearance, PERRL, EOMI, no scleral icterus, no conjunctival injection ENT: mucous membranes moist, normal external ear exam Neck: normal inspection, trachea midline, full ROM Chest: normal inspection, symmetric chest rise Respiratory: Good respiratory effort. Bilateral breath sounds are clear without wheezing, crackles, or rhonchi. Cardiovascular: Regular rate and rhythm. No clicks, rubs, gallops, or murmors. Normal heart sounds. Abdomen: Bowel sounds present normoactive x-4 quadrants. Abdomen is soft, nondistended, and nontender. No guarding or rebound. No organomegaly noted. Musculoskeletal: Spontaneously moving all extremities. Skin: warm, dry. 3 cm linear laceration across midline upper aspect of patient' s forehead with spontaneous hemostasis. Neuro: Alert and oriented x4. Sensation light touch intact and equal bilaterally. Strength 5/5 and equal in upper and lower extremities. Psych: Patient's affect is appropriate for situation. Course Course Narrative: Will stat CT head, C-spine. Immediate concern is for intracranial pathology given the patient's speech patterns. Will update tetanus and staple her wound closed. Patient's heart rate fluctuated to a minimum of the low 30s. She was never hypotensive. Reviewing her history, she has been bradycardic previously as documented on early EKGs. She remains with unchanged mentation and appropriate blood pressure. Patient's blood work shows acute kidney injury with hyperkalemia 6.5. No EKG changes. Repeat potassium is 6.3. Will give calcium. I discussed the above with the patient and her son at bedside. Have ordered gentamicin ointment 3 bandage her left heel ulcer. In agreement to admission for continued evaluation of her acute kidney injury as well as her hyperkalemia. Discussed the patient with the admitting hospitalist, Dr. Griggs, who agrees to accept the patient for continued evaluation monitoring. Dr. Griggs requests insulin with glucose. I ordered 20 units of insulin in D5 500 mL to be given over 60 minutes with repeat POC glucose checks every 2 hours. EKG dated 27 October 2017 at 15:53 interpreted as sinus bradycardia with a rate of 46. ND 153, QRS 141, QTC 471. Normal axis. Nonspecific ST-T changes. Compared to previous dated 08/26/2017 showing no acute ischemic changes or comparison. Vital Signs Temperature 0 F L 10/27/17 15:41 Pulse Rate 40 10/27/17 15:41 Respiratory Rate 20 10/27/17 15:41 Blood Pressure 117/57 10/27/17 15:41 O2 Sat by Pulse Oximetry 95 10/27/17 15:41 Temperature 0 F L 10/27/17 15:41 Pulse Rate 44 10/27/17 18:30 Respiratory Rate 20 10/27/17 18:30 Blood Pressure 151/73 10/27/17 18:30 O2 Sat by Pulse Oximetry 94 10/27/17 18:30 Oxygen Delivery Oxygen Delivery Room Air Procedures - Laceration Laceration 1 Site: scalp Side (If applicable): right Size (cm): 3 Description: linear Depth: simple, single layer Local Anesthetic: lidocaine 1% Amount of Anesthesia Used (mL): 5 Pre-repair: wound explored, irrigated extensively, deep structures intact Skin layer closed with: anna Number of sutures/anna: 5 Fall - Lab Data Result diagrams: 10/27/17 15:42 10/27/17 17:00 Lab Results 10/27/17 10/27/17 10/27/17 Range/Units 15:42 16:02 16:31 WBC 8.2 (4.3-11.1) K/mcL RBC 3.89 (3.82-4.97) M/mcL Hgb 12.0 (11.5-15.4) g/dL Hct 36.5 (35.3-44.9) % MCV 93.8 (83.0-100.0) fL MCH 30.8 (28.0-33.3) pg MCHC 32.9 (31.6-35.5) g/dL RDW 13.4 (11.5-14.5) % Plt Count 155 (140-400) K/mcL MPV 11.7 (9.4-12.4) fL Immature Gran % 0.4 (0-4) % Seg Neutrophils % 84.3 % Lymphocytes % 8.3 % Monocytes % 5.6 % Eosinophils % 1.0 % Basophils % 0.4 % Neutrophils # 6.9 (1.6-8.9) K/mcL Lymphocytes # 0.7 (0.6-4.6) K/mcL Monocytes # 0.5 (0.0-1.3) K/mcL Eosinophils # 0.1 (0.0-0.6) K/mcL Basophils # 0.0 (0.0-0.2) K/mcL Sodium 137 (136-145) mEq/L Potassium 6.5 H* (3.5-5.1) mEq/L Chloride 112 H (98-107) mEq/L Carbon Dioxide 23 (23-29) mEq/L BUN 83 H (8-23) mg/dL Creatinine 3.77 H (0.60-1.20) mg/dL Est GFR ( Amer) 14 L (> 60) Est GFR (Non-Af Amer) 12 L (> 60) BUN/Creatinine Ratio 22 (6-26) Glucose 43 L (70-105) mg/dL Calculated Osmolality 306 H (280-300) Calcium 9.8 (8.6-10.3) mg/dL Troponin I 0.03 (< 0.04) ng/mL Urine Color Yellow (Yellow) Urine Clarity Clear (Clear) Urine pH 5.5 (5.0-8.0) pH Units Ur Specific [place] 1.021 (1.010-1.025) Urine Protein Trace (Neg-Trace) mg/dL Urine Glucose (UA) Normal (Normal) mg/dL Urine Ketones Negative (Negative) mg/dL Urine Blood Negative (Negative) Urine Nitrite Negative (Negative) Urine Bilirubin Small H (Negative) Urine Urobilinogen Normal (Normal) mg/dL Ur Leukocyte Esterase Small H (Negative) Urine Microscopic RBC 0-3 (0-3) per hpf Urine Microscopic WBC 3-5 H (0-3) per hpf Ur Squamous Epith Cells Many H (None-Few) per lpf Urine Bacteria None Seen (None-Few) per hpf Hyaline Casts Many H (None-Few) per lpf Ur Culture Indicated? NO. A (NO) 10/27/17 Range/Units 17:00 WBC (4.3-11.1) K/mcL RBC (3.82-4.97) M/mcL Hgb (11.5-15.4) g/dL Hct (35.3-44.9) % MCV (83.0-100.0) fL MCH (28.0-33.3) pg MCHC (31.6-35.5) g/dL RDW (11.5-14.5) % Plt Count (140-400) K/mcL MPV (9.4-12.4) fL Immature Gran % (0-4) % Seg Neutrophils % % Lymphocytes % % Monocytes % % Eosinophils % % Basophils % % Neutrophils # (1.6-8.9) K/mcL Lymphocytes # (0.6-4.6) K/mcL Monocytes # (0.0-1.3) K/mcL Eosinophils # (0.0-0.6) K/mcL Basophils # (0.0-0.2) K/mcL Sodium (136-145) mEq/L Potassium 6.3 H (3.5-5.1) mEq/L Chloride (98-107) mEq/L Carbon Dioxide (23-29) mEq/L BUN (8-23) mg/dL Creatinine (0.60-1.20) mg/dL Est GFR ( Amer) (> 60) Est GFR (Non-Af Amer) (> 60) BUN/Creatinine Ratio (6-26) Glucose (70-105) mg/dL Calculated Osmolality (280-300) Calcium (8.6-10.3) mg/dL Troponin I (< 0.04) ng/mL Urine Color (Yellow) Urine Clarity (Clear) Urine pH (5.0-8.0) pH Units Ur Specific [place] (1.010-1.025) Urine Protein (Neg-Trace) mg/dL Urine Glucose (UA) (Normal) mg/dL Urine Ketones (Negative) mg/dL Urine Blood (Negative) Urine Nitrite (Negative) Urine Bilirubin (Negative) Urine Urobilinogen (Normal) mg/dL Ur Leukocyte Esterase (Negative) Urine Microscopic RBC (0-3) per hpf Urine Microscopic WBC (0-3) per hpf Ur Squamous Epith Cells (None-Few) per lpf Urine Bacteria (None-Few) per hpf Hyaline Casts (None-Few) per lpf Ur Culture Indicated? (NO)
[2017-10-27 16:18] LABS: Basophils % 0.4 %; Eosinophils # 0.1 K/mcL (0.0-0.6); Hematocrit 36.5 % (35.3-44.9); Immature Granulocytes % 0.4 % (0-4); Lymphocytes # 0.7 K/mcL (0.6-4.6); Lymphocytes % 8.3 %; Mean Corpuscular HGB Conc 32.9 g/dL (31.6-35.5); Mean Corpuscular Hemoglobin 30.8 pg (28.0-33.3); Mean Corpuscular Volume 93.8 fL (83.0-100.0); Mean Platelet Volume 11.7 fL (9.4-12.4); Monocytes # 0.5 K/mcL (0.0-1.3); Monocytes % 5.6 %; Neutrophils # 6.9 K/mcL (1.6-8.9); Platelet Count 155 K/mcL (140-400); Red Blood Count 3.89 M/mcL (3.82-4.97); Red Cell Distribution Width 13.4 % (11.5-14.5); Segmented Neutrophils % 84.3 %
--- NOTE | 2017-10-27 16:31 | Emergency Department Note ---
Disposition Clinical Impression: Acute kidney injury, Hyperkalemia, Fall, Closed head injury, Laceration Disposition: Admitted As Inpatient Condition: Critical Referrals: Eleazar Vargas MD [Primary Care Provider] - General Adult HPI - General Stated complaint: Fall head injury Time Seen by Provider: 10/27/17 15:36 Nursing Notes Reviewed: Yes Vital Signs Reviewed: Yes - History of Present Illness Pain Scale: 8 - Related Data Home Medications Medication Instructions Recorded Confirmed Albuterol Sulfate [Proair 2 puff IH Q4-6H PRN 12/02/14 09/06/17 Respiclick] Aspirin Enteric Coated [Aspirin EC] 81 mg PO DAILY 12/02/14 10/27/17 Clopidogrel [Plavix] 75 mg PO DAILY 12/02/14 10/27/17 Famotidine [Pepcid] 40 mg PO QPM 12/02/14 10/27/17 Furosemide [Lasix] 20 mg PO BID 12/02/14 10/27/17 GlipiZIDE [Glipizide Xl] 10 mg PO BID 12/02/14 10/27/17 Insulin ASPART [Novolog Flexpen] 8 - 10 unit SQ TID PRN 12/02/14 10/27/17 Insulin Glargine,Hum.rec.anlog 8 units SQ HS 12/02/14 09/06/17 [Lantus Solostar] Isosorbide MONOnitrate [Isosorbide 60 mg PO QDPC 12/02/14 10/27/17 Mononitrate ER] Lisinopril [Zestril] 20 mg PO DAILY 12/02/14 10/27/17 Lovastatin 20 mg PO DAILY 12/02/14 10/27/17 Metoprolol [Lopressor] 25 mg PO BID 12/02/14 10/27/17 Nitroglycerin [Nitrostat] 0.3 mg SL PRN PRN 12/02/14 10/27/17 OxyCODONE/APAP 10/325 [Percocet 10 mg PO Q6HR PRN 12/02/14 10/27/17 10/325] Albuterol Neb [Proventil Neb] 2.5 mg IH TID PRN 05/16/16 09/06/17 Dicyclomine [Bentyl] 10 mg PO TID 05/16/16 10/27/17 Ergocalciferol (VITAMIN D2) 50,000 unit PO QWEEK 05/16/16 10/27/17 [Vitamin D2] Simethicone [Gas Relief] 180 mg PO DAILY PRN 05/16/16 10/27/17 Sitagliptin Phosphate [Januvia] 50 mg PO DAILY 05/16/16 09/06/17 Gabapentin [Neurontin] 300 mg PO HS 08/26/17 10/27/17 Multivit-Min/FA/Lycopen/Lutein [A 1 tab PO DAILY 08/26/17 10/27/17 Thru Z Select Multivit Tab] Allergies Allergy/AdvReac Type Severity Reaction Status Date / Time escitalopram [From Lexapro] Allergy Rash Verified 01/23/17 11:54 itraconazole [From Sporanox] Allergy Hives Verified 01/23/17 11:54 Penicillins [PCN] Allergy Rash Verified 01/23/17 11:54 metformin AdvReac Diarrhea Verified 01/23/17 11:54 Past Medical History - Past Medical History Medical history: Reports: arthritis, asthma, CHF, COPD, coronary artery disease , diabetes, hyperlipidemia, hypertension, renal disease Surgical history: Reports: appendectomy, coronary bypass (CABG), hysterectomy, other, vascular surgery Psychiatric history: Reports: no psych history - Social History Smoking Status: Current every day smoker Smokeless Tobacco Status: No Alcohol use: Reports: none Drug use: Reports: none Physical Exam - General General appearance: alert, in no apparent distress Course Vital Signs Temperature 0 F L 10/27/17 15:41 Pulse Rate 40 10/27/17 15:41 Respiratory Rate 20 10/27/17 15:41 Blood Pressure 117/57 10/27/17 15:41 O2 Sat by Pulse Oximetry 95 10/27/17 15:41 Temperature 0 F L 10/27/17 15:41 Pulse Rate 44 10/27/17 18:30 Respiratory Rate 20 10/27/17 18:30 Blood Pressure 151/73 10/27/17 18:30 O2 Sat by Pulse Oximetry 94 10/27/17 18:30 Oxygen Delivery Oxygen Delivery Room Air Medical Decision Making - MDM Narrative Medical decision making narrative: Chest X-Ray 10/27/17 15:42 IMPRESSION: No acute traumatic abnormality. D/ : / 10/27/2017 16:28:02 Juwan Sims MD / paige Interpreting Provider: Juwan Sims MD Head CT 10/27/17 15:42 IMPRESSION: 1. Right frontal scalp laceration with mild contusion. No acute osseous abnormality. 2. No acute intracranial abnormality. D/ / Juwan Sims MD / Juwan iSms MD Interpreting Provider: Juwan Sims MD 1630 hrs.: Patient has no intracranial injury we will clean and repair the wound on her scalp with surgical anna. Await her labs and then determine best disposition for her. Family is in agreement with plan. We will also update her tetanus status. 1640 hrs.: Patient's CT is negative for intracranial bleed. Her labs were called up and were slightly hemolyzed with potassium 6.5 saw repeat that. Chemistry analyzer is down so is going to take a while to get her troponin back. Her blood pressure and has improved 118 over palp and her heart rates in the mid 50s which is normal for her 1813 hrs.: Patient's repeat potassium is back at 6.3 no EKG changes. We will give her some calcium we have I spoke with hospitalist she is going to admit. Patient had her scalp repaired with surgical anan. She is coming in due to dehydration syncope hypoglycemia hyperkalemia acute AKA and head injury. Patient's agreement this plan. 1900 hrs.: Possible small patient and the ER she asked that we do Kayexalate and dextrose and insulin. Which we did. Patient is going upstairs once her bed is ready. She stable at this time family is updated on progress as this patient. - Lab Data Result diagrams: 10/27/17 15:42 10/27/17 17:00 Lab Results 10/27/17 10/27/17 10/27/17 Range/Units 15:42 16:02 16:31 WBC 8.2 (4.3-11.1) K/mcL RBC 3.89 (3.82-4.97) M/mcL Hgb 12.0 (11.5-15.4) g/dL Hct 36.5 (35.3-44.9) % MCV 93.8 (83.0-100.0) fL MCH 30.8 (28.0-33.3) pg MCHC 32.9 (31.6-35.5) g/dL RDW 13.4 (11.5-14.5) % Plt Count 155 (140-400) K/mcL MPV 11.7 (9.4-12.4) fL Immature Gran % 0.4 (0-4) % Seg Neutrophils % 84.3 % Lymphocytes % 8.3 % Monocytes % 5.6 % Eosinophils % 1.0 % Basophils % 0.4 % Neutrophils # 6.9 (1.6-8.9) K/mcL Lymphocytes # 0.7 (0.6-4.6) K/mcL Monocytes # 0.5 (0.0-1.3) K/mcL Eosinophils # 0.1 (0.0-0.6) K/mcL Basophils # 0.0 (0.0-0.2) K/mcL Sodium 137 (136-145) mEq/L Potassium 6.5 H* (3.5-5.1) mEq/L Chloride 112 H (98-107) mEq/L Carbon Dioxide 23 (23-29) mEq/L BUN 83 H (8-23) mg/dL Creatinine 3.77 H (0.60-1.20) mg/dL Est GFR ( Amer) 14 L (> 60) Est GFR (Non-Af Amer) 12 L (> 60) BUN/Creatinine Ratio 22 (6-26) Glucose 43 L (70-105) mg/dL Calculated Osmolality 306 H (280-300) Calcium 9.8 (8.6-10.3) mg/dL Troponin I 0.03 (< 0.04) ng/mL Urine Color Yellow (Yellow) Urine Clarity Clear (Clear) Urine pH 5.5 (5.0-8.0) pH Units Ur Specific [place] 1.021 (1.010-1.025) Urine Protein Trace (Neg-Trace) mg/dL Urine Glucose (UA) Normal (Normal) mg/dL Urine Ketones Negative (Negative) mg/dL Urine Blood Negative (Negative) Urine Nitrite Negative (Negative) Urine Bilirubin Small H (Negative) Urine Urobilinogen Normal (Normal) mg/dL Ur Leukocyte Esterase Small H (Negative) Urine Microscopic RBC 0-3 (0-3) per hpf Urine Microscopic WBC 3-5 H (0-3) per hpf Ur Squamous Epith Cells Many H (None-Few) per lpf Urine Bacteria None Seen (None-Few) per hpf Hyaline Casts Many H (None-Few) per lpf Ur Culture Indicated? NO. A (NO) 10/27/17 Range/Units 17:00 WBC (4.3-11.1) K/mcL RBC (3.82-4.97) M/mcL Hgb (11.5-15.4) g/dL Hct (35.3-44.9) % MCV (83.0-100.0) fL MCH (28.0-33.3) pg MCHC (31.6-35.5) g/dL RDW (11.5-14.5) % Plt Count (140-400) K/mcL MPV (9.4-12.4) fL Immature Gran % (0-4) % Seg Neutrophils % % Lymphocytes % % Monocytes % % Eosinophils % % Basophils % % Neutrophils # (1.6-8.9) K/mcL Lymphocytes # (0.6-4.6) K/mcL Monocytes # (0.0-1.3) K/mcL Eosinophils # (0.0-0.6) K/mcL Basophils # (0.0-0.2) K/mcL Sodium (136-145) mEq/L Potassium 6.3 H (3.5-5.1) mEq/L Chloride (98-107) mEq/L Carbon Dioxide (23-29) mEq/L BUN (8-23) mg/dL Creatinine (0.60-1.20) mg/dL Est GFR ( Amer) (> 60) Est GFR (Non-Af Amer) (> 60) BUN/Creatinine Ratio (6-26) Glucose (70-105) mg/dL Calculated Osmolality (280-300) Calcium (8.6-10.3) mg/dL Troponin I (< 0.04) ng/mL Urine Color (Yellow) Urine Clarity (Clear) Urine pH (5.0-8.0) pH Units Ur Specific [place] (1.010-1.025) Urine Protein (Neg-Trace) mg/dL Urine Glucose (UA) (Normal) mg/dL Urine Ketones (Negative) mg/dL Urine Blood (Negative) Urine Nitrite (Negative) Urine Bilirubin (Negative) Urine Urobilinogen (Normal) mg/dL Ur Leukocyte Esterase (Negative) Urine Microscopic RBC (0-3) per hpf Urine Microscopic WBC (0-3) per hpf Ur Squamous Epith Cells (None-Few) per lpf Urine Bacteria (None-Few) per hpf Hyaline Casts (None-Few) per lpf Ur Culture Indicated? (NO) Critical Care Time Critical Care Time: Yes Total Critical Care Time: 50 Attestation: Excluding any separately billable procedures. Attestation Statement - Attestation Attestation: This documentation is done with the assistance of Dragon dictation. Despite efforts made to ensure accuracy, there may be inaccuracies in decorating equipment setter or spelling and typographical errors. I examined this patient and my medical decision-making was reviewed with the Resident Physician. I agree with the documented findings, disposition and treatment plan as described except to the extent set forth below. Patient seen and evaluated on arrival with family and Dr. Lawson, I agree with his evaluation and management plan, supervise care the patient's stay. Patient presents today after falling from a toilet onto the shower and getting laceration to top of her head. Son thinks may have been about an hour and half prior to arrival. They cleaned her up and brought her in here. She has had a little headache. She said she was having difficulty getting words out initially that resolved she is bradycardic but has a history of that in the past. She is getting current treatment for a wound on her left heel wound treatment center along with new antibiotics which family is not aware. She has a history of bradycardia being on a beta wesley. She denies any other injuries. Were checking labs CT her head and reassessed. She is in agreement with plan. She most likely will need admission.
[2017-10-27] MEDS ORDERED: Td (TENIVAC) Vaccine 0.5 ML VIAL IM ONE (16:32)
[2017-10-27 16:40] LABS: Calcium 9.8 mg/dL (8.6-10.3); Potassium 6.5 mEq/L (3.5-5.1)
[2017-10-27 16:56] LABS: Bilirubin,Urine Small (Negative); Blood,Urine Negative (Negative); Clarity,Urine Clear (Clear); Color,Urine Yellow (Yellow); Glucose,Urine (UA) Normal (Normal); Ketones,Urine Negative (Negative); Leukocyte Esterase,Urine Small (Negative); Nitrite,Urine Negative (Negative); PH,Urine 5.5 pH Units (5.0-8.0); Protein,Urine Trace mg/dL (Neg-Trace); Specific Gravity,Urine 1.021 (1.010-1.025); Urobilinogen,Urine Normal (Normal)
[2017-10-27 16:58] LABS: Bacteria,Urine None Seen per hpf (None-Few); RBC,Urine 0-3 per hpf (0-3); Squamous Epithelial Cell,Urine Many per lpf (None-Few)
[2017-10-27 17:10] LABS: Troponin I 0.03 ng/mL (< 0.04)
[2017-10-27 17:12] LABS: Hyaline Casts,Urine Many per lpf (None-Few)
[2017-10-27] MEDS ORDERED: Lidocaine 1% 20 ML MDV INFILT ONE (17:15)
[2017-10-27] MEDS ORDERED: Lidocaine/EPI 1:100k 1% 30 ML VIAL INFILT ONE (17:19)
--- NOTE | 2017-10-27 17:40 | Internal Med History&Physical ---
<Geovanni Parrish - Last Filed: 10/27/17 21:40> Date of Encounter: 10/27/17 Internal Medicine - H&P: HPI Chief complaint: Syncope Admitted From: Home History of present illness: Ms. Sepulveda is a 66 year old female with a PMH of COPD, CAD s/p 3 vessel bypass , DM Type 2, hypertension, hyperlipidemia, and CKD stage 3 presented secondary to syncopal episode. Patient was found down in the bathroom at home. Patient does not recall falling but remembers waking up on the floor when her family arrived. Family reports she lives alone and was laying on the floor for approximately 2 hours. Patient sustained a laceration to her parietal scalp. She is currently on aspirin and Plavix. Of note, family reports her heart rate has been very slow for the past several weeks and sh has been feeling very fatigued lately. She also has a diabetic foot ulcer with MRSA on intraoperative culture results from 10/17/17 from her left heel which has been treated with topical gentamicin and Santyl ointment twice a day. Patient follows with Podiatry and wound care. Past Med Surg Social Fam HX - Past Medical History Additional medical history: 3 vessel bypass - Social History Current living situation: Home - Independent Activity Level: Wheelchair bound Internal Medicine - H&P: Meds Albuterol Sulfate [Proair Respiclick] 2 puff IH Q4-6H PRN 12/02/14 [History] Aspirin Enteric Coated [Aspirin EC] 81 mg PO DAILY 12/02/14 [History] Clopidogrel [Plavix] 75 mg PO DAILY 12/02/14 [History] Famotidine [Pepcid] 40 mg PO QPM 12/02/14 [History] Furosemide [Lasix] 20 mg PO BID 12/02/14 [History] GlipiZIDE [Glipizide Xl] 10 mg PO BID 12/02/14 [History] Insulin ASPART [Novolog Flexpen] 8 - 10 unit SQ TID PRN 12/02/14 [History] Insulin Glargine,Hum.rec.anlog [Lantus Solostar] 8 units SQ HS 12/02/14 [History ] Isosorbide MONOnitrate [Isosorbide Mononitrate ER] 60 mg PO QDPC 12/02/14 [ History] Lisinopril [Zestril] 20 mg PO DAILY 12/02/14 [History] Lovastatin 20 mg PO DAILY 12/02/14 [History] Metoprolol [Lopressor] 25 mg PO BID 12/02/14 [History] Nitroglycerin [Nitrostat] 0.3 mg SL PRN PRN 12/02/14 [History] OxyCODONE/APAP 10/325 [Percocet 10/325] 10 mg PO Q6HR PRN 12/02/14 [History] Albuterol Neb [Proventil Neb] 2.5 mg IH TID PRN 05/16/16 [History] Dicyclomine [Bentyl] 10 mg PO TID 05/16/16 [History] Ergocalciferol (VITAMIN D2) [Vitamin D2] 50,000 unit PO QWEEK 05/16/16 [History] Simethicone [Gas Relief] 180 mg PO DAILY PRN 05/16/16 [History] Sitagliptin Phosphate [Januvia] 50 mg PO DAILY 05/16/16 [History] Gabapentin [Neurontin] 300 mg PO HS 08/26/17 [History] Multivit-Min/FA/Lycopen/Lutein [A Thru Z Select Multivit Tab] 1 tab PO DAILY 10/08 [History] 3 Allergy/AdvReac Type Severity Reaction Status Date / Time escitalopram [From Lexapro] Allergy Rash Verified 01/23/17 11:54 itraconazole [From Sporanox] Allergy Hives Verified 01/23/17 11:54 Penicillins [PCN] Allergy Rash Verified 01/23/17 11:54 metformin AdvReac Diarrhea Verified 01/23/17 11:54 All Systems PM: A 10-system review of systems was performed and is negative for pertinent findings except as documented above in the HPI. - Constitutional Constitutional: chills, fatigue, falls, lethargy, weakness, no fever(s), no weight gain, no weight loss - EENT Eyes: no blurry vision, no diplopia Nose, mouth and throat: no nasal congestion, no sore throat - Cardiovascular Cardiovascular ROS IM: syncope, no chest pain, no dyspnea on exertion, no orthopnea, no palpitations - Respiratory Respiratory: wheezing, no cough, no dyspnea on exertion - Gastrointestinal Gastrointestinal: no abdominal pain, no constipation, no diarrhea, no nausea, no vomiting - Genitourinary Genitourinary: no dysuria, no urinary frequency, no urinary urgency - Musculoskeletal Musculoskeletal ROS IM: arthralgias, back pain, myalgias, no numbness, no tingling - Integumentary Integumentary IM: new lesions (Forehead laceration), skin ulcer (Diabetic foot ulcer left heel), no rash - Neurological Neurological ROS: abnormal gait (Wheelchair-bound secondary to foot ulcer), weakness, no confusion, no dizziness, no numbness, no tingling - Psychiatric Psychiatric: no anxiety, no depression - Endocrine Endocrine IM: no polydipsia, no polyphagia, no polyuria - Hematologic/Lymphatic Hematologic/Lymphatic: no easy bleeding, no easy bruising - Allergic/Immunologic Allergic/Immunologic: wheezing - Constitutional Vitals: Temp Pulse Resp BP Pulse Ox 0 F L 44 20 151/73 94 10/27/17 15:41 10/27/17 18:30 10/27/17 18:30 10/27/17 18:30 10/27/17 18:30 General appearance: Present: cooperative, A&O X 3, pleasant, no acute distress, answers questions appropriately - Head Head exam: Present: normocephalic. Absent: atraumatic - Expanded Head Exam Head exam expanded: Present: laceration (Laceration midline parietal scalp with anna in place, no active bleeding) - Eye Eye exam: Present: EOMI, PERRL, conjuntiva pink, sclera anicteric Pupils: Present: PERRL - ENT ENT exam: Present: mucous membranes dry, normal oropharynx - Neck Neck exam general surgery: Present: supple, trachea midline. Absent: lymphadenopathy - Respiratory Respiratory exam: Present: wheezes. Absent: accessory muscle use, CTAB, rales, rhonchi - Cardiovascular Cardiovascular exam: Present: bradycardia, +S1, +S2. Absent: diastolic murmur, gallop, irregular rhythm, RRR, rubs, systolic murmur, tachycardia - GI/Abdominal GI/Abdominal exam: Present: normal bowel sounds, soft, no peritoneal signs. Absent: distended, guarding, tenderness - Extremities Exam Extremities exam: Present: warm, radial pulses palpable and symmetrical. Absent : calf tenderness, cyanotic, normal inspection (1 cm diameter left heel ulcer with yellow purulent discharge), pedal edema, tenderness - Back Exam Back exam: Present: normal inspection. Absent: paraspinal tenderness, tenderness - Neurological Exam Neurological exam: Present: abnormal gait (Wheelchair-bound due to left foot ulcer), CN II-XII intact, oriented X3, no focal deficits. Absent: pronater drift, facial droop, speech deficit - Psychiatric Psychiatric exam: Present: normal affect, normal mood - Skin Additional comments: Laceration repaired with anna on midline parietal scalp, 1 cm diameter left heel ulcer with yellow purulent discharge, poor skin turgor Internal Med - H&P Results - Labs CBC & Chem 7: 10/27/17 15:42 10/27/17 17:00 - Pulse Oximetry Interpretation Digit-Finger O2 Sat by Pulse Oximetry: 94 (On room air) - EKG Data -: EKG Interpreted by Myself EKG shows normal: sinus rhythm, axis Rate: bradycardia (HR 46, right bundle branch block, nonspecific T-wave abnormality) - Assessment and plan (1) Acute kidney injury Current Visit: Yes Status: Acute Assessment and plan: OSCAR in the setting of dehydration and LAN inhibitor/ Lasix use Patient found down for 2 hours, CK level pending to rule out rhabdomyelitis Avoid nephrotoxins Hold Lisinopril and Lasix secondary to OSCAR Continue gentle hydration Monitor renal function Consider nephrology consult if renal function does not improve (2) Chronic kidney disease, stage III (moderate) Current Visit: Yes Status: Chronic Assessment and plan: CKD stage 3, taper/finisher is Dr. Blackwood Avoid nephrotoxins Hold Lisinopril and Lasix secondary to OSCAR (3) Hyperkalemia Current Visit: Yes Status: Acute Assessment and plan: Potassium level 6.3 setting of OSCAR/ CKD stage III/ dehydration Kayexalate, Calcium gluconate, insulin, glucose, and albuterol given Once potassium level is less than 6, monitor BMP every 6 hours EKG reveals sinus bradycardia with right bundle branch block and nonspecific T- wave abnormality Continue telemetry monitoring (4) Syncope Current Visit: Yes Status: Acute Assessment and plan: Patient presented secondary to syncopal episode/ symptomatic bradycardia. EKG reveals sinus bradycardia with right bundle branch block. TSH level pending Carotid Dopplers pending Echo pending Cardiology consulted due to symptomatic bradycardia, evaluation for pacer placement Qualifiers: Syncope type: unspecified Qualified Code(s): R55 - Syncope and collapse (5) Closed head injury Current Visit: Yes Status: Acute Assessment and plan: Status post laceration repair midline parietal scalp CT brain negative for intracranial bleed Okay to resume home aspirin and Plavix Qualifiers: Encounter type: initial encounter Qualified Code(s): S09.90XA - Unspecified injury of head, initial encounter (6) 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 Visit: Yes Status: Chronic Assessment and plan: PVD vs Diabetic foot ulcer positive for MRSA on intraoperative culture results from 10/17/17 from her left heel which has been treated with topical gentamicin and Santyl ointment twice a day. Patient is wheelchair bound due to non-weightbearing status Patient follows with Podiatry and wound care. Podiatry and wound care consulted (7) Diabetes mellitus Current Visit: No Status: Chronic Assessment and plan: Hemoglobin A1c that was 7.5 on 09/11/17 Continue basal and SSI Monitor blood glucose levels ACHS ADA diet Continue diabetic foot ulcer management Qualifiers: Diabetes mellitus type: type 2 Diabetes mellitus intermediate designer insulin use: with [facility] use Diabetes mellitus complication status: with circulatory complication Diabetes mellitus complication detail: with other circulatory complications Qualified Code(s): E11.59 - Type 2 diabetes mellitus with other circulatory complications; Z79.4 - jail (current) use of insulin; Z79.4 - jail (current) use of insulin; Z79.4 - jail (current) use of insulin; Z79.4 - jail (current) use of insulin (8) Hypertension Current Visit: No Status: Chronic Assessment and plan: Hold home beta wesley secondary to symptomatic bradycardia Hold home lisinopril secondary to OSCAR Continue hydralazine when necessary systolic blood pressure greater than 170 Qualifiers: Hypertension type: essential hypertension Qualified Code(s): I10 - Essential (primary) hypertension (9) CAD (coronary artery disease) Current Visit: No Status: Chronic Assessment and plan: Patient is status post 3 vessel bypass Continue home aspirin and Plavix Cardiology consulted Qualifiers: Coronary Disease-Associated Artery/Lesion type: bypass graft [place] vs. transplanted heart: [place] heart Associated angina: without angina Qualified Code(s): I25.810 - Atherosclerosis of coronary artery bypass graft(s) without angina pectoris (10) PAD (peripheral artery disease) Current Visit: No Status: Chronic Assessment and plan: Carotid Dopplers pending secondary to syncopal episode CTA 5/6/18 revealed occluded/thrombosed left femoral popliteal bypass graft, multifocal stenosis of right superficial femoral artery Continue heparin subcutaneous TID Importance of tobacco cessation discussed (11) HLD (hyperlipidemia) Current Visit: No Status: Chronic Assessment and plan: Continue home meds Qualifiers: Hyperlipidemia type: unspecified Qualified Code(s): E78.5 - Hyperlipidemia , unspecified (12) Chronic disease anemia Current Visit: No Status: Chronic Assessment and plan: Continue monitoring (13) COPD (chronic obstructive pulmonary disease) Current Visit: No Status: Chronic Assessment and plan: COPD not in acute exacerbation Continue Duonebs Tobacco cessation discussed Qualifiers: COPD type: unspecified COPD Qualified Code(s): J44.9 - Chronic obstructive pulmonary disease, unspecified (14) Tobacco dependence Current Visit: Yes Status: Chronic Assessment and plan: Tobacco cessation discussed. Nicotine patch ordered (15) DVT prophylaxis Current Visit: Yes Status: Acute Assessment and plan: Heparin subcutaneous TID - Time Spent With Patient Total time spent is greater than 50% in coordination of care (as documented) at patient's floor/unit and/or counseling patient: <Nery Griggs - Last Filed: 10/28/17 05:17> Date of Encounter: 10/28/17 Time of Encounter: 17:40 Internal Medicine - H&P: HPI History of present illness: Ms. Sepulveda is a 66 year old female Past Med Surg Social Fam HX - Past Medical History Medical history: arthritis, asthma, CHF, COPD, coronary artery disease, diabetes , hyperlipidemia, hypertension, renal disease Additional medical history: 3 stents Psychiatric history: no psych history - Past Surgical History Surgical History: appendectomy, coronary bypass (CABG), hysterectomy, other, vascular surgery Additional surgical history: Colonoscopy - Social History Smoking Status: Current every day smoker Smokeless Tobacco Status: No Alcohol use: none Drug use: none - Family History Mother Adopted: No Living Status: Hx Family Cardiac Disorders: Yes Hx Family Respiratory Disorders: Yes Hx Family Endocrine Disorder: Yes Father Adopted: No Living Status: Hx Family Cardiac Disorders: Yes Hx Family Respiratory Disorders: Yes Hx Family Cancer: No All Systems PM: A 10-system review of systems was performed and is negative for pertinent findings except as documented above in the HPI. - Constitutional Vitals: Temp Pulse Resp BP Pulse Ox 0 F L 40 20 117/57 95 10/27/17 15:41 10/27/17 15:41 10/27/17 15:41 10/27/17 15:41 10/27/17 15:41 Internal Med - H&P Results - Labs CBC & Chem 7: 10/28/17 04:15 10/28/17 04:15 Labs: Short CBC 10/27/17 Range/Units 15:42 WBC 8.2 (4.3-11.1) K/mcL Hgb 12.0 (11.5-15.4) g/dL Hct 36.5 (35.3-44.9) % Plt Count 155 (140-400) K/mcL Neutrophils # 6.9 (1.6-8.9) K/mcL BMP 10/27/17 16:02 Sodium 137 Potassium 6.5 H* Chloride 112 H Carbon Dioxide 23 BUN 83 H Creatinine 3.77 H Glucose 43 L Calcium 9.8 Cardiac Enzymes 10/27/17 Range/Units 16:02 Troponin I 0.03 (< 0.04) ng/mL Urine 10/27/17 Range/Units 16:31 Urine Color Yellow (Yellow) Urine Clarity Clear (Clear) Urine pH 5.5 (5.0-8.0) pH Units Ur Specific [place] 1.021 (1.010-1.025) Urine Protein Trace (Neg-Trace) mg/dL Urine Glucose (UA) Normal (Normal) mg/dL - Impressions ITS Impressions Cervical Spine CT 10/27/17 15:42 IMPRESSION: No acute abnormality of the cervical spine. D/ / Warren Courtney MD / Warren Courtney MD Interpreting Provider: Warren Courtney MD Chest X-Ray 10/27/17 15:42 IMPRESSION: No acute traumatic abnormality. D/ / 10/27/2017 16:28:02 Juwan Sims MD / paige Interpreting Provider: Juwan Sims MD Head CT 10/27/17 15:42 IMPRESSION: 1. Right frontal scalp laceration with mild contusion. No acute osseous abnormality. 2. No acute intracranial abnormality. D/ / 10/27/2017 16:30:33 Juwan Sims MD / Kendy Singletary Interpreting Provider: Juwan Sims MD - Time Spent With Patient Total time spent is greater than 50% in coordination of care (as documented) at patient's floor/unit and/or counseling patient:
[2017-10-27] MEDS ORDERED: Calcium Gluconate 1,000 MG in D5% in Water 100 ML IVPB ONE (18:08)
[2017-10-27] MEDS ORDERED: Ondansetron 4 MG/2 ML VIAL IVP ONE (19:36)
[2017-10-27] MEDS: WATER IVC SCH ×3 (20:04→22:59)
[2017-10-27] MEDS: D5 IVC SCH ×3 (20:04→22:59)
[2017-10-27] MEDS: INSULIN HUMAN REGULAR IVC SCH ×3 (20:04→22:59)
[2017-10-27] MEDS: [UNRECOGNIZED DRUG - OTHER] IVC SCH ×3 (20:04→22:59)
[2017-10-27] MEDS: DEXTROSE 50% IVC SCH ×3 (20:04→22:59)
[2017-10-27] MEDS ORDERED: Naloxone 0.4 MG/ML INJ IVP PRN (20:15)
[2017-10-27] MEDS ORDERED: Acetaminophen 325 MG TABLET PO PRN (20:17)
[2017-10-27] MEDS ORDERED: Insulin Regular, Human 100 UNIT/ML SQ ONE (20:17)
[2017-10-27] MEDS ORDERED: D5% in Water 1,000 ML IVC PRN (20:17)
[2017-10-27] MEDS ORDERED: Dextrose Gel 15 GM/37.5 ML TUBE PO PRN ×2 (20:17)
[2017-10-27] MEDS ORDERED: Simethicone 80 MG TAB.CHEW PO PRN (20:33)
[2017-10-27] MEDS ORDERED: Insulin LISPRO 300 UNITS/3 ML VIAL SQ ONE ×2 (20:45→22:47)
[2017-10-27] MEDS: Ipratropium/Albuterol Neb 3 ML IH SCH ×2 (20:47→22:58)
[2017-10-27] MEDS ORDERED: Insulin DETEMIR 100 UNIT/ML X5UNITS SQ SCH (21:00)
[2017-10-27] MEDS: *HR* Heparin 5,000 UNIT/ML VIAL SQ SCH (22:07)
[2017-10-27 22:10] LABS: INR 1.1; Prothrombin Time 12.9 Seconds (9.4-12.1)
[2017-10-27] MEDS: Nicotine 14 MG PATCH.TD24 TD SCH (22:12)
[2017-10-27] MEDS: Insulin LISPRO 300 UNITS/3 ML VIAL SQ SCH (22:13)
[2017-10-27 22:17] LABS: BUN/Creatinine Ratio 22 (6-26); Blood Urea Nitrogen 83 mg/dL (8-23); Calcium 9.1 mg/dL (8.6-10.3); Carbon Dioxide 19 mEq/L (23-29); Chloride 110 mEq/L (98-107); Creatine Kinase 113 Units/L (30-223); Glucose 106 mg/dL (70-105); Magnesium 2.4 mg/dL (1.6-2.6); Osmolality,Calculated 304 (280-300); Potassium 6.1 mEq/L (3.5-5.1); Sodium 134 mEq/L (136-145); eGFR For African Americans 15 (> 60); eGFR For Non-African Americans 12 (> 60)
[2017-10-27 22:18] LABS: Troponin I < 0.03 ng/mL (< 0.04)
[2017-10-27] MEDS: 0.9 % Sodium Chloride 1,000 ML IVC SCH (22:21)
[2017-10-27 22:31] LABS: Thyroid Stimulating Hormone 0.885 mcIU/mL (0.340-5.600)
[2017-10-27] MEDS: Famotidine 20 MG TABLET PO SCH (22:33)
[2017-10-27] MEDS: *HR* Dextrose 25% in Water (Syg) 10 ML SYRINGE IVP ONE ×2 (23:00→23:57)
[2017-10-27] MEDS ORDERED: Insulin Human Regular 10 UNIT in 0.9 % Sodium Chloride 10 ML IV ONE (23:17)
[2017-10-27] MEDS: Gentamicin Oint 15 GM TUBE TP SCH (23:23)
[2017-10-28] MEDS: *HR* Dextrose 50 % in Water (Syg) 50 ML SYRINGE IVP PRN ×2 (01:31→01:32)
[2017-10-28] MEDS: Ipratropium/Albuterol Neb 3 ML IH SCH ×6 (04:38→23:45)
[2017-10-28 04:44] LABS: Basophils % 0.3 %; Eosinophils # 0.1 K/mcL (0.0-0.6); Hematocrit 29.9 % (35.3-44.9); Immature Granulocytes % 0.4 % (0-4); Lymphocytes # 0.6 K/mcL (0.6-4.6); Lymphocytes % 8.6 %; Mean Corpuscular HGB Conc 31.4 g/dL (31.6-35.5); Mean Corpuscular Hemoglobin 29.1 pg (28.0-33.3); Mean Corpuscular Volume 92.6 fL (83.0-100.0); Mean Platelet Volume 11.9 fL (9.4-12.4); Monocytes # 0.5 K/mcL (0.0-1.3); Monocytes % 7.2 %; Neutrophils # 5.6 K/mcL (1.6-8.9); Platelet Count 124 K/mcL (140-400); Red Blood Count 3.23 M/mcL (3.82-4.97); Red Cell Distribution Width 13.3 % (11.5-14.5); Segmented Neutrophils % 82.5 %
[2017-10-28 04:58] LABS: Hemoglobin 9.4 g/dL (11.5-15.4)
[2017-10-28 05:05] LABS: Alanine Aminotransferase 13 Units/L (7-52); Albumin 3.3 g/dL (3.5-5.7); Albumin/Globulin Ratio 1.2 (1.1-2.2); Alkaline Phosphatase 71 Units/L (34-104); Aspartate Amino Transferase 21 Units/L (13-39); BUN/Creatinine Ratio 22 (6-26); Bilirubin,Total 0.2 mg/dL (0.3-1.0); Blood Urea Nitrogen 82 mg/dL (8-23); Calcium 9.4 mg/dL (8.6-10.3); Carbon Dioxide 21 mEq/L (23-29); Chloride 110 mEq/L (98-107); Globulin 2.7 g/dL (2.4-3.5); Glucose 93 mg/dL (70-105); Osmolality,Calculated 304 (280-300); Potassium 5.7 mEq/L (3.5-5.1); Sodium 135 mEq/L (136-145); Troponin I < 0.03 ng/mL (< 0.04); eGFR For African Americans 15 (> 60); eGFR For Non-African Americans 12 (> 60)
[2017-10-28] MEDS: *HR* Heparin 5,000 UNIT/ML VIAL SQ SCH ×3 (05:51→21:05)
[2017-10-28] MEDS: 0.9 % Sodium Chloride 1,000 ML IVC SCH (05:53)
[2017-10-28] MEDS: Multivit/Ca/Min/Fe/FA 1 TAB TABLET PO SCH (09:11)
[2017-10-28] MEDS: Aspirin Enteric Coated 81 MG Tablet PO SCH (09:11)
[2017-10-28] MEDS: Nicotine 14 MG PATCH.TD24 TD SCH (09:12)
[2017-10-28] MEDS: Gentamicin Oint 15 GM TUBE TP SCH ×2 (09:15→21:04)
[2017-10-28] MEDS: Insulin LISPRO 300 UNITS/3 ML VIAL SQ SCH ×4 (09:22→21:02)
[2017-10-28 11:09] LABS: Calcium 9.1 mg/dL (8.6-10.3); Potassium 4.9 mEq/L (3.5-5.1)
--- NOTE | 2017-10-28 11:55 | Internal Med Progress Note ---
<Andrea Blanco - Last Filed: 10/28/17 13:47> Date of Encounter: 10/28/17 Time of Encounter: 11:51 - Assessment and plan (1) Syncope Current Visit: Yes Status: Acute Assessment and plan: Patient had syncopal episode with fall yesterday. Echo and carotid dopplers pending to investigate embolic etiology Telemetry and cardiology consult to investigate symptomatic bradycardia, with pacing discussion Patient has been having episodes of hypoglycemia, we are monitoring here and implementing sliding scale insulin Patient has been dehydrated and having episodes of lightheadedness, orthostatic vitals ordered Qualifiers: Syncope type: unspecified Qualified Code(s): R55 - Syncope and collapse (2) Hyperkalemia Current Visit: Yes Status: Acute Assessment and plan: Hyperkalemia likely secondary to dehydration/OSCAR on CKD3 kayexalate, calcium gluconate, insulin, glucose, and albuterol have all been implemented Insulin will need to be carefully titrated due to patient hypoglycemia episodes (3) Acute kidney injury Current Visit: Yes Status: Acute Assessment and plan: OSCAR on CKD likely secondary to dehydration and renal insulting medications Lisinopril and furosemide held Will hydrate and monitor carefully due to patient cardiac history (4) Hypoglycemia Current Visit: Yes Status: Acute Assessment and plan: Patient complains of several recent incidents of hypoglycemia will titrate sliding scale insulin therapy and carefully monitor (5) Chronic kidney disease, stage III (moderate) Current Visit: Yes Status: Chronic Assessment and plan: Patient has not been adequately hydrating at home and is taking several renal insulting medications Will consider this at discharge med rec lisinopril and furosemide held here (6) Diabetes mellitus Current Visit: No Status: Chronic Assessment and plan: Patient on sliding scale insulin at home with recurrent episodes of hypoglycemia will consider during discharge med rec will require close outpatient follow up Qualifiers: Diabetes mellitus type: type 2 Diabetes mellitus fdc insulin use: with fdc use Diabetes mellitus complication status: with circulatory complication Diabetes mellitus complication detail: with other circulatory complications Qualified Code(s): E11.59 - Type 2 diabetes mellitus with other circulatory complications; 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; 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; Z79.4 - correction (current) use of insulin; 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 (7) Heel ulcer due to DM Current Visit: No Status: Acute Assessment and plan: Patient has been receiving levaquin and bactrim outpatient as well as gentamicin topical and santyl for MRSA positive heel ulcer Podiatry and wound care have been consulted, we will continue gentamicin sulfate and santyl here Qualifiers: Diabetes mellitus type: type 2 Laterality: left Non-pressure ulcer stage : with fat layer exposed Qualified Code(s): E11.621 - Type 2 diabetes mellitus with foot ulcer; L97.422 - 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 layer exposed (8) Closed head injury Current Visit: Yes Status: Acute Assessment and plan: Patient had negative CT scan yesterday Scalp laceration is clean, dry intact Patient restarted on aspirin and plavix Qualifiers: Encounter type: initial encounter Qualified Code(s): S09.90XA - Unspecified injury of head, initial encounter (9) Anemia Current Visit: Yes Status: Acute Assessment and plan: Acute onset anemia after admission Possibly related to dilution from IVF possibly from scalp laceration possibly secondary to chronic disease H&H ordered for this afternoon to monitor Qualifiers: Anemia type: unspecified type Qualified Code(s): D64.9 - Anemia, unspecified (10) COPD (chronic obstructive pulmonary disease) Current Visit: No Status: Chronic Assessment and plan: chronic and controlled on home meds patient getting duonebs here Qualifiers: COPD type: unspecified COPD Qualified Code(s): J44.9 - Chronic obstructive pulmonary disease, unspecified (11) DVT prophylaxis Current Visit: Yes Status: Acute Assessment and plan: Plavix (12) PAD (peripheral artery disease) Current Visit: No Status: Chronic (13) CAD (coronary artery disease) Current Visit: No Status: Chronic Assessment and plan: Patient is status post 3 vessel bypass Continue home aspirin and Plavix Cardiology consulted Qualifiers: Coronary Disease-Associated Artery/Lesion type: bypass graft [place] vs. transplanted heart: [place] heart Associated angina: without angina Qualified Code(s): I25.810 - Atherosclerosis of coronary artery bypass graft(s) without angina pectoris (14) Hypertension Current Visit: No Status: Chronic Assessment and plan: Hold home beta wesley secondary to symptomatic bradycardia Hold home lisinopril secondary to OSCAR Continue hydralazine when necessary systolic blood pressure greater than 170 Qualifiers: Hypertension type: essential hypertension Qualified Code(s): I10 - Essential (primary) hypertension (15) Symptomatic sinus bradycardia Current Visit: Yes Status: Acute Assessment and plan: Patient reported episodes of bradycardia with associated lethargy Potential etiology of syncopal episode Holding metoprolol Cardioogy consulted - Time Spent With Patient Total time spent is greater than 50% in coordination of care (as documented) at patient's floor/unit and/or counseling patient: - Subjective Interval history: Patient seen and examined this morning. She had a hypoglycemic episode in the punch hand, but had no other complaints. She denied chest pain, shortness of breath, fever or chills, nausea, vomiting, or diarrhea. I discussed the plan of care with her and her daughter. - Constitutional Vitals: Temp Pulse Resp BP Pulse Ox 97.8 F 65 18 126/59 99 10/28/17 07:21 10/28/17 09:00 10/28/17 07:30 10/28/17 07:30 10/28/17 07:30 General appearance: Present: cooperative, A&O X 3, pleasant, no acute distress, answers questions appropriately Exam: Patient resting watching TV, no acute distress Alert and oriented x3 There is a clean, dry and intact wound on the scalp Skin is warm and dry without pallor Heart is in regular rate and rhythm without murmur, rub, or gallop Lungs have complete and equal air movement, there is an inhalation wheeze in the bilateral lower lobes Abdomen is soft and non tender Legs are non-edematous The left heel has an open ulcer without drainage or bleeding Internal Medicine: Result - Labs CBC & Chem 7: 10/28/17 04:15 10/28/17 10:16 Labs: Short CBC 10/28/17 Range/Units 04:15 WBC 6.8 (4.3-11.1) K/mcL Hgb 9.4 L D (11.5-15.4) g/dL Hct 29.9 L (35.3-44.9) % Plt Count 124 L (140-400) K/mcL Neutrophils # 5.6 (1.6-8.9) K/mcL BMP 10/27/17 10/28/17 10/28/17 21:44 01:22 04:15 Sodium 134 L 135 L Potassium 6.1 H 5.4 H 5.7 H Chloride 110 H 110 H Carbon Dioxide 19 L 21 L BUN 83 H 82 H Creatinine 3.71 H 3.66 H Glucose 106 H 93 Calcium 9.1 9.4 10/28/17 10:16 Sodium 137 Potassium 4.9 Chloride 107 Carbon Dioxide 22 L BUN 81 H Creatinine 3.39 H Glucose 178 H Calcium 9.1 Cardiac Enzymes 10/27/17 10/28/17 Range/Units 21:44 04:15 Troponin I < 0.03 < 0.03 (< 0.04) ng/mL Liver Function 10/28/17 Range/Units 04:15 Total Bilirubin 0.2 L (0.3-1.0) mg/dL AST 21 (13-39) Units/L ALT 13 (7-52) Units/L Alkaline Phosphatase 71 (34-104) Units/L Albumin 3.3 L (3.5-5.7) g/dL - ABG Interpretation ABG results: PT/INR, D-dimer PT 12.9 Seconds (9.4-12.1) H 10/27/17 21:44 - Diagnostic Studies Other Images Additional comments: EV/EV echocardiogram Impressions: LVEF 60-65%. Normal LV chamber size, wall thickness and function. Moderate left ventricular diastolic dysfunction. Normal right ventricular structure and function. Estimated RVSP is 36 mmHg. Mild pulmonary hypertension. No significant valvular dysfunction. Consult Discharge Plan - Plan Referrals: Eleazar Vargas MD [Primary Care Provider] - <Efraín Gale - Last Filed: 10/28/17 18:35> Date of Encounter: 10/28/17 - Assessment and plan (1) PAD (peripheral artery disease) Current Visit: No Status: Chronic (2) CAD (coronary artery disease) Current Visit: No Status: Chronic Qualifiers: Coronary Disease-Associated Artery/Lesion type: bypass graft [place] vs. transplanted heart: [place] heart Associated angina: without angina Qualified Code(s): I25.810 - Atherosclerosis of coronary artery bypass graft(s) without angina pectoris (3) Hypertension Current Visit: No Status: Chronic Qualifiers: Hypertension type: essential hypertension Qualified Code(s): I10 - Essential (primary) hypertension (4) Diabetes mellitus Current Visit: No Status: Chronic Qualifiers: Diabetes mellitus type: type 2 Diabetes mellitus termite treater insulin use: with termite treater use Diabetes mellitus complication status: with circulatory complication Diabetes mellitus complication detail: with other circulatory complications Qualified Code(s): E11.59 - Type 2 diabetes mellitus with other circulatory complications; 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; 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; 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; Z79.4 - correction (current) use of insulin (5) DVT prophylaxis Current Visit: Yes Status: Acute (6) Chronic kidney disease, stage III (moderate) Current Visit: Yes Status: Chronic (7) Acute kidney injury Current Visit: Yes Status: Acute (8) Heel ulcer due to DM Current Visit: No Status: Acute Qualifiers: Diabetes mellitus type: type 2 Laterality: left Non-pressure ulcer stage : with fat layer exposed Qualified Code(s): E11.621 - Type 2 diabetes mellitus with foot ulcer; L97.422 - 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 layer exposed (9) Hyperkalemia Current Visit: Yes Status: Acute (10) Closed head injury Current Visit: Yes Status: Acute Qualifiers: Encounter type: initial encounter Qualified Code(s): S09.90XA - Unspecified injury of head, initial encounter (11) Syncope Current Visit: Yes Status: Acute Qualifiers: Syncope type: unspecified Qualified Code(s): R55 - Syncope and collapse (12) COPD (chronic obstructive pulmonary disease) Current Visit: No Status: Chronic Qualifiers: COPD type: unspecified COPD Qualified Code(s): J44.9 - Chronic obstructive pulmonary disease, unspecified (13) Hypoglycemia Current Visit: Yes Status: Acute (14) Anemia Current Visit: Yes Status: Acute Qualifiers: Anemia type: unspecified type Qualified Code(s): D64.9 - Anemia, unspecified (15) Symptomatic sinus bradycardia Current Visit: Yes Status: Acute - Time Spent With Patient Total time spent is greater than 50% in coordination of care (as documented) at patient's floor/unit and/or counseling patient: - Constitutional Vitals: Temp Pulse Resp BP Pulse Ox 98 F 73 18 158/63 97 10/28/17 16:02 10/28/17 16:02 10/28/17 16:03 10/28/17 16:03 10/28/17 16:03 Internal Medicine: Result - Labs CBC & Chem 7: 10/28/17 04:15 10/28/17 10:16 Labs: Short CBC 10/28/17 Range/Units 04:15 WBC 6.8 (4.3-11.1) K/mcL Hgb 9.4 L D (11.5-15.4) g/dL Hct 29.9 L (35.3-44.9) % Plt Count 124 L (140-400) K/mcL Neutrophils # 5.6 (1.6-8.9) K/mcL BMP 10/27/17 10/28/17 10/28/17 21:44 01:22 04:15 Sodium 134 L 135 L Potassium 6.1 H 5.4 H 5.7 H Chloride 110 H 110 H Carbon Dioxide 19 L 21 L BUN 83 H 82 H Creatinine 3.71 H 3.66 H Glucose 106 H 93 Calcium 9.1 9.4 10/28/17 10:16 Sodium 137 Potassium 4.9 Chloride 107 Carbon Dioxide 22 L BUN 81 H Creatinine 3.39 H Glucose 178 H Calcium 9.1 Cardiac Enzymes 10/27/17 10/28/17 Range/Units 21:44 04:15 Troponin I < 0.03 < 0.03 (< 0.04) ng/mL Liver Function 10/28/17 Range/Units 04:15 Total Bilirubin 0.2 L (0.3-1.0) mg/dL AST 21 (13-39) Units/L ALT 13 (7-52) Units/L Alkaline Phosphatase 71 (34-104) Units/L Albumin 3.3 L (3.5-5.7) g/dL - ABG Interpretation ABG results: PT/INR, D-dimer PT 12.9 Seconds (9.4-12.1) H 10/27/17 21:44 - Impressions Impressions Echocardiogram 10/28/17 21:39 Impressions: LVEF 60-65%. Normal LV chamber size, wall thickness and function. Moderate left ventricular diastolic dysfunction. Normal right ventricular structure and function. Estimated RVSP is 36 mmHg. Mild pulmonary hypertension. No significant valvular dysfunction. Left Ventricular Wall Motion: Rest Echo Findings All wall segments showed normal motion. Findings: Study Quality * Technically adequate exam. ECG Findings * Normal sinus rhythm. Left Ventricle * LVEF 60-65%. * Normal LV chamber size, wall thickness and function. * Moderate left ventricular diastolic dysfunction. Right Ventricle * Normal right ventricular structure and function. Left Atrium * Mildly dilated left atrium. Right Atrium * Normal right atrial size. Aortic Valve * Trileaflet aortic valve with normal function. * No aortic regurgitation. * No aortic stenosis. Mitral Valve * Normal mitral valve structure and function. * No mitral regurgitation. * No mitral stenosis. Tricuspid Valve * Normal tricuspid valve structure and function. * Trace tricuspid regurgitation. * Borderline mild pulmonary hypertension. * Estimated RVSP is 36 mmHg. * Estimated RA pressure is 5 mmHg. Pulmonic Valve * Normal pulmonic valve structure and function. * No pulmonic regurgitation. Aorta * Normally sized aortic root. Pericardium * The pericardium appears normal. IVC * Normal IVC dimensions and inspiratory collapse. Pulmonary Artery * Normal visualized portions of the main pulmonary artery. - Attending Attestation I examined this patient and my medical decision-making was reviewed with the Resident Physician. I agree with the documented findings, disposition and treatment plan as described except to the extent set forth below.
[2017-10-28] MEDS: traMADol 50 MG TABLET PO PRN ×3 (12:08→23:37)
--- NOTE | 2017-10-28 12:48 | Cardiology Consult Note ---
<Johnna Cornejo - Last Filed: 10/28/17 13:06> Date of Encounter: 10/28/17 Time of Encounter: 09:30 Assessment and Plan (1) Syncope Current Visit: Yes Status: Acute Per cardiology: -Reported syncope at home with injury to head. -TTE, carotid pending. -OF note, FS was 41 on admission. -Was also bradycardic on admission with HR 46bpm. OF note, outpatient notes reviewed with HRs in the 40s in outpatient setting. -Further recommendations pending TTE. -Suspect syncope multi-factoral. Qualifiers: Syncope type: unspecified Qualified Code(s): R55 - Syncope and collapse (2) Acute kidney injury Current Visit: Yes Status: Acute Per cardiology: -OSCAR noted on admission with creatinine 3.77. -Of note, hyperkalemia also noted with K 6.5 on admission. -Management per primary service. (3) Sinus bradycardia Current Visit: Yes Status: Acute Per cardiology: -ECG with SB, RBB, HR 46 in the setting of OSCAR, hyperkalemia. -Does report dizziness, lightheadedness. -Was on BB in outpatient setting. -Telemetry reviewed with average HR previous 12 hours noted ot be 63. -Agree with holding BB. -Continue telemetry. -No indication for pacemaker at this point, HR improving. (4) CAD (coronary artery disease) Current Visit: No Status: Chronic Per cardiology: -Known CAD s/p CABG. -Last [facility] 06/13/14: EF 50%. 2/3 patent bypass grafts. Severe [place] three vessel CAD. Optimal medical management recommended. -TTE 2014 with LVEF 60% -TTE pending. -On asa, plavix, statin. Not on BB due to hypotension. -Reports one epidsoe of atypical pinching chest pain, denies recurrence. -Further recommendations pending TTE. Qualifiers: Coronary Disease-Associated Artery/Lesion type: bypass graft [place] vs. transplanted heart: [place] heart Associated angina: without angina Qualified Code(s): I25.810 - Atherosclerosis of coronary artery bypass graft(s) without angina pectoris Discussion w patient/family: The assessment and plan as outlined above was discussed with the patient and/or family members who expressed understanding and agreement. All questions were answered. Thank you for involving us in the care of your patient. Please call with any questions. Discussed and reviewed with . History of Present Illness Consult date: 10/27/17 Requesting physician: Geovanni Parrish Consult reason: bradycardia Chief complaint: syncope, fall History of present illness: Ms. Sepulveda is a 66 year old female with a relevant past medical history of cad S/p CABG, CKD, HTN, DM, neuropathy, PAD, COPD, HLD who presented to [facility] with complaints of syncope at home. Patient states she fell and hit her head. States her sugar dropped, FS noted to be 41 on admission. Patient reports a few weeks of "just not feeling well." States she has been dizzy and lightheaded some. Denies current chest pain, states had one episode of sharp "pinch." Denies recurrence. Denies increased shortness of breath. Reports fatigue. Past Med Surg Social Fam HX - Past Medical History Attestation: Yes The following information was validated with the patient. Source: patient, old records reviewed, obtained from family Medical history: arthritis, asthma, CHF, COPD, coronary artery disease, diabetes , hyperlipidemia, hypertension, renal disease Additional medical history: 3 stents Psychiatric history: no psych history - Past Surgical History Surgical History: appendectomy, coronary bypass (CABG), hysterectomy, other, vascular surgery Additional surgical history: Colonoscopy - Social History Smoking Status: Current every day smoker Packs per day: 1 Smokeless Tobacco Status: No Alcohol use: none Drug use: none - Family History Mother Adopted: No Living Status: Hx Family Cardiac Disorders: Yes Hx Family Respiratory Disorders: Yes Hx Family Endocrine Disorder: Yes Father Adopted: No Living Status: Hx Family Cardiac Disorders: Yes Hx Family Respiratory Disorders: Yes Hx Family Cancer: No Medications and Allergies Aspirin Enteric Coated [Aspirin EC] 81 mg PO DAILY 12/02/14 [History] Clopidogrel [Plavix] 75 mg PO DAILY 12/02/14 [History] Famotidine [Pepcid] 40 mg PO QPM 12/02/14 [History] Furosemide [Lasix] 20 mg PO BID 12/02/14 [History] GlipiZIDE [Glipizide Xl] 10 mg PO BID 12/02/14 [History] Insulin ASPART [Novolog Flexpen] 8 - 10 unit SQ TID PRN 12/02/14 [History] Insulin Glargine,Hum.rec.anlog [Lantus Solostar] 8 units SQ HS 12/02/14 [History ] Isosorbide MONOnitrate [Isosorbide Mononitrate ER] 60 mg PO DAILY 12/02/14 [ History] Lisinopril [Zestril] 20 mg PO DAILY 12/02/14 [History] Lovastatin 20 mg PO DAILY 12/02/14 [History] Metoprolol [Lopressor] 25 mg PO BID 12/02/14 [History] OxyCODONE/APAP 10/325 [Percocet 10/325] 10 mg PO Q6HR PRN 12/02/14 [History] Albuterol Neb [Proventil Neb] 2.5 mg IH TID PRN 05/16/16 [History] Dicyclomine [Bentyl] 10 mg PO TID 05/16/16 [History] Ergocalciferol (VITAMIN D2) [Vitamin D2] 50,000 unit PO QWEEK 05/16/16 [History] Simethicone [Gas Relief] 180 mg PO DAILY PRN 05/16/16 [History] Sitagliptin Phosphate [Januvia] 50 mg PO DAILY 05/16/16 [History] Gabapentin [Neurontin] 300 mg PO HS 08/26/17 [History] Multivit-Min/FA/Lycopen/Lutein [A Thru Z Select Multivit Tab] 1 tab PO DAILY 10/08 [History] Insulin ASPART [Novolog Flexpen] 8 - 10 unit SQ BID 10/28/17 [History] Insulin Glargine,Hum.rec.anlog [Lantus Solostar] 8 unit SQ QPM 10/28/17 [History ] Ipratropium/Albuterol Neb [Duoneb] 3 ml IH Q6HR PRN 10/28/17 [History] 3 Allergy/AdvReac Type Severity Reaction Status Date / Time escitalopram [From Lexapro] Allergy Rash Verified 01/23/17 11:54 itraconazole [From Sporanox] Allergy Hives Verified 01/23/17 11:54 Penicillins [PCN] Allergy Rash Verified 01/23/17 11:54 metformin AdvReac Diarrhea Verified 01/23/17 11:54 All Systems Review: The remainder of the systems were reviewed and are negative - Cardiovascular Cardiovascular: as per HPI, lightheadedness, syncope Physical Examination Vital Signs, Last 4 Hours Temp Pulse Resp BP Pulse Ox 10/28/17 11:53 98.1 F 77 17 157/56 97 10/28/17 09:00 65 General: Conversant, No Apparent Distress HEENT: Atraumatic, Normocephaly, Mucus Membranes Moist Neck: No JVD, Normal carotid pulses Cardiac: Reg Rate and Rhythm, Normal S1 and S2, No Murmur Lungs: Normal Breath Sounds, No Wheeze, Rales, Rhonchi Neuro: Alert and responsive, No focal deficits noted Abdomen: Soft, Non-Tender Skin: No rashes noted on visualized skin Musculoskeletal: No Chest Wall Tenderness Extremities: No Clubbing, No Cyanosis, No Edema, Normal Pulses Results 10/28/17 04:15 10/28/17 10:16 Lab Results Impressions Cervical Spine CT 10/27/17 15:42 IMPRESSION: No acute abnormality of the cervical spine. D/ / Warren Courtney MD / Warren Courtney MD Interpreting Provider: Warren Courtney MD Chest X-Ray 10/27/17 15:42 IMPRESSION: No acute traumatic abnormality. D/ / 10/27/2017 16:28:02 Juwan Sims MD / paige Interpreting Provider: Juwan Sims MD Head CT 10/27/17 15:42 IMPRESSION: 1. Right frontal scalp laceration with mild contusion. No acute osseous abnormality. 2. No acute intracranial abnormality. D/ / 10/27/2017 16:30:33 Juwan Sims MD / Kendy Singletary Interpreting Provider: Juwan Sims MD Active Medications Acetaminophen (Tylenol) 650 mg PO Q6HR PRN PRN Reason: Mild Pain/Fever Stop: 04/28/18 20:18 Last Admin: 10/27/17 22:33 Dose: 650 mg Albuterol/Ipratropium (Duoneb) 3 ml IH [id number] [facility] Stop: 04/28/18 20:46 Last Admin: 10/28/17 07:30 Dose: 3 ml Aspirin (Aspirin Ec) 81 mg PO DAILY [facility] Stop: 04/29/18 09:01 Last Admin: 10/28/17 09:11 Dose: 81 mg Clopidogrel Bisulfate (Plavix) 75 mg PO DAILY [facility] Stop: 04/29/18 09:01 Last Admin: 10/28/17 09:11 Dose: 75 mg Collagenase (Santyl) 1 appl TP BID [facility] PRN Reason: Protocol Stop: 04/29/18 10:16 Last Admin: 10/28/17 12:07 Dose: 1 appl Dextrose/Water (Dextrose 50% (Syg)) 25 ml IVP AD PRN PRN Reason: Hypoglycemia Stop: 04/28/18 20:18 Last Admin: 10/28/17 01:32 Dose: 25 ml Dicyclomine HCl (Bentyl) 10 mg PO TID [facility] Stop: 04/28/18 21:01 Last Admin: 10/28/17 09:12 Dose: 10 mg Ergocalciferol (Drisdol (50,000 Unit)) 50,000 unit PO QWEEK [facility] Stop: 05/03/18 09:01 Famotidine (Pepcid) 10 mg PO QPM [facility] Stop: 04/28/18 20:46 Last Admin: 10/27/17 22:33 Dose: 10 mg Gentamicin Sulfate (Garamycin) 1 appl TP BID [facility] Stop: 04/28/18 21:01 Last Admin: 10/28/17 09:15 Dose: 1 appl Glucagon (Glucagen) 1 mg IM ONCE PRN PRN Reason: Hypoglycemia Stop: 04/28/18 20:18 Glucose (Gluctose) 15 gm PO ONCE PRN PRN Reason: Hypoglycemia Stop: 04/28/18 20:18 Glucose (Gluctose) 30 gm PO ONCE PRN PRN Reason: Hypoglycemia Stop: 04/28/18 20:18 Heparin Sodium (Porcine) (Heparin) 5,000 unit SQ Q8HCO [facility] Stop: 04/28/18 22:01 Last Admin: 10/28/17 05:51 Dose: 5,000 unit Hydralazine HCl (Hydralazine) 10 mg IVP Q6HR PRN PRN Reason: Hypertension SBP >170 Stop: 04/28/18 21:04 Dextrose (Dextrose 5%) 1,000 mls @ 100 mls/hr IVC .Q10H PRN PRN Reason: HYPOGLYCEMIA Stop: 04/28/18 20:18 Insulin Detemir (Levemir) 15 unit SQ HS [facility] Stop: 04/28/18 21:01 Last Admin: 10/27/17 22:13 Dose: 15 unit Insulin Human Lispro (Humalog) 0 units SQ HS [facility] PRN Reason: Protocol Stop: 04/28/18 21:01 Last Admin: 10/27/17 22:13 Dose: Not Given Insulin Human Lispro (Humalog) 0 units SQ TIDAC [facility] PRN Reason: Protocol Stop: 04/29/18 07:31 Last Admin: 10/28/17 12:07 Dose: 4 units Multivitamins/Calcium (Thera M Plus) 1 tab PO DAILY [facility] Stop: 04/29/18 09:01 Last Admin: 10/28/17 09:11 Dose: 1 tab Naloxone HCl (Narcan) 0.4 mg IVP Q2MIN PRN PRN Reason: SEE COMMENTS Stop: 04/28/18 20:16 Nicotine (Nicoderm) 14 mg TD DAILY [facility] PRN Reason: Protocol Stop: 04/28/18 21:01 Last Admin: 10/28/17 09:12 Dose: 14 mg Simethicone (Gas-X) 180 mg PO DAILY PRN PRN Reason: gas Simvastatin (Zocor) 10 mg PO DAILY [facility] Stop: 04/28/18 20:46 Last Admin: 10/28/17 09:12 Dose: 10 mg Tramadol HCl (Ultram) 50 mg PO Q4HR PRN PRN Reason: Headache Stop: 04/29/18 00:31 Last Admin: 10/28/17 12:08 Dose: 50 mg Laboratory Tests 10/27/17 10/27/17 10/27/17 15:39 15:42 16:02 Hgb 12.0 Potassium 6.5 H* Creatinine 3.77 H POC Glucose 41 L* Troponin I 0.03 TSH 10/27/17 10/28/17 10/28/17 21:44 01:22 04:15 Hgb 9.4 L D Potassium 5.4 H Creatinine POC Glucose Troponin I < 0.03 TSH 0.885 10/28/17 04:15 Hgb Potassium Creatinine 3.66 H POC Glucose Troponin I < 0.03 TSH - Imaging and Cardiology Chest Xray: report reviewed Echo: pending, report reviewed Cardiac cath: report reviewed - EKG Interpretation EKG results cardiology: personally reviewed (ECG with SB, HR 46, RBBB noted.), other (Telemetry reviewed with average HR previous 12 hours noted to be 63, SR. Minimum HR 47 at 2222. PVCs and PACs noted.) Consult Discharge Plan - Plan Referrals: Eleazar Vargas MD [Primary Care Provider] - <Carlos Mabry - Last Filed: 10/28/17 21:50> Date of Encounter: 10/28/17 Time of Encounter: 21:40 - Attending Attestation I have personally performed a face to face evaluation on this patient. I have reviewed and agree with the care plan. History and Exam by me shows: CC: Passed out Pt reports passes out at home, did not know she was going to fall, hit her head somehow during the event. She reports awoke on the floor. She denies chest pain , pressure, neck, jaw or arm pain, palpitations or prodrome before her falling event. She has not had any reoccurrence of symptoms since admit. She does report feeling "ill" for several weeks with generalize fatique, mild lightheadedness with changes in position from sitting to standing, and one episode of feeling a sharp pinch in her left chest wall which occurred spontaneously, lasted less than five seconds and resolved spontaneously. PMH: REviewed ROS: Reviewed PE: pt seen and examined, agree with physical findings as documented. IMP/Plan 1. Acute kidney injury with hyperkalemia, slowly improving with management per primary service. 2. Sinus bradycardia: due to hyperkalemia, improving with K normalization, now sinus in mid 60s, asymptomatic 3. Syncope: found to have low BS at 41, not clear if related to event or not, concerning for profound bradycardia causing syncopal event which has improved with K correction. 4. CAD: severe three vessel CAD post CABG, no active chest pain she can recall, normal EF 2014, repeat echo ordered to evaluate LV function, new wall motion abnormalities. May benefit from ischemic eval when electrolytes and renal function corrected. Assessment and Plan Discussion w patient/family: The assessment and plan as outlined above was discussed with the patient and/or family members who expressed understanding and agreement. All questions were answered. Thank you for involving us in the care of your patient. Please call with any questions. History of Present Illness History of present illness: Ms. Sepulveda is a 66 year old female All Systems Review: The remainder of the systems were reviewed and are negative Physical Examination Vital Signs, Last 4 Hours Temp Pulse Resp BP Pulse Ox 10/28/17 20:20 16 96 10/28/17 20:13 98.1 F 75 18 133/48 92 Results 10/28/17 18:09 10/28/17 18:09 Lab Results 10/27/17 10/27/17 10/28/17 21:44 21:44 01:22 WBC Hgb Hct Plt Count INR 1.1 Sodium 134 L Potassium 6.1 H 5.4 H Chloride 110 H Carbon Dioxide 19 L BUN 83 H Creatinine 3.71 H Glucose 106 H Calcium 9.1 Magnesium 2.4 Total Bilirubin AST ALT Alkaline Phosphatase Troponin I < 0.03 TSH 0.885 10/28/17 10/28/17 10/28/17 04:15 04:15 10:16 WBC 6.8 Hgb 9.4 L D Hct 29.9 L Plt Count 124 L INR Sodium 135 L 137 Potassium 5.7 H 4.9 Chloride 110 H 107 Carbon Dioxide 21 L 22 L BUN 82 H 81 H Creatinine 3.66 H 3.39 H Glucose 93 178 H Calcium 9.4 9.1 Magnesium Total Bilirubin 0.2 L AST 21 ALT 13 Alkaline Phosphatase 71 Troponin I < 0.03 TSH 10/28/17 10/28/17 18:09 18:09 WBC Hgb 8.8 L Hct 26.9 L Plt Count INR Sodium 136 Potassium 4.7 Chloride 109 H Carbon Dioxide 21 L BUN 70 H Creatinine 2.91 H Glucose 193 H Calcium 8.3 L Magnesium Total Bilirubin AST ALT Alkaline Phosphatase Troponin I TSH
[2017-10-28] MEDS: Famotidine 20 MG TABLET PO SCH (17:23)
[2017-10-28 19:01] LABS: Hematocrit 26.9 % (35.3-44.9); Hemoglobin 8.8 g/dL (11.5-15.4)
[2017-10-28 19:24] LABS: Calcium 8.3 mg/dL (8.6-10.3); Potassium 4.7 mEq/L (3.5-5.1)
[2017-10-29] MEDS: Ipratropium/Albuterol Neb 3 ML IH SCH ×5 (03:46→20:48)
[2017-10-29 05:05] LABS: Basophils % 0.2 %; Eosinophils # 0.2 K/mcL (0.0-0.6); Eosinophils % 3.8 %; Hematocrit 26.5 % (35.3-44.9); Hemoglobin 8.6 g/dL (11.5-15.4); Immature Granulocytes % 0.2 % (0-4); Immature Platelets 4.5 % (1.1-6.1); Mean Corpuscular HGB Conc 32.5 g/dL (31.6-35.5); Mean Corpuscular Hemoglobin 30.1 pg (28.0-33.3); Mean Corpuscular Volume 92.7 fL (83.0-100.0); Mean Platelet Volume 12.3 fL (9.4-12.4); Monocytes # 0.3 K/mcL (0.0-1.3); Monocytes % 8.2 %; Neutrophils # 2.7 K/mcL (1.6-8.9); Red Blood Count 2.86 M/mcL (3.82-4.97); Red Cell Distribution Width 13.3 % (11.5-14.5); Segmented Neutrophils % 63.6 %
[2017-10-29 05:22] LABS: Calcium 8.4 mg/dL (8.6-10.3); Potassium 4.9 mEq/L (3.5-5.1)
[2017-10-29 05:43] LABS: Platelet Count 77 K/mcL (140-400)
[2017-10-29 05:45] LABS: Platelet Estimate Decreased (Normal)
[2017-10-29] MEDS: *HR* Heparin 5,000 UNIT/ML VIAL SQ SCH ×3 (06:21→19:40)
[2017-10-29] MEDS: Aspirin Enteric Coated 81 MG Tablet PO SCH (08:37)
[2017-10-29] MEDS: Insulin LISPRO 300 UNITS/3 ML VIAL SQ SCH ×4 (08:37→19:41)
[2017-10-29] MEDS: Nicotine 14 MG PATCH.TD24 TD SCH (08:37)
[2017-10-29] MEDS: Multivit/Ca/Min/Fe/FA 1 TAB TABLET PO SCH (08:37)
[2017-10-29] MEDS: Gentamicin Oint 15 GM TUBE TP SCH ×2 (08:38→19:42)
--- NOTE | 2017-10-29 11:24 | Cardiology Progress Note ---
Date of Encounter: 10/29/17 Time of Encounter: 10:00 Assessment and Plan (1) Syncope Current Visit: Yes Status: Acute Per cardiology: -Reported syncope at home with injury to head. -TTE, carotid pending. -OF note, FS was 41 on admission. -Was also bradycardic on admission with HR 46bpm. OF note, outpatient notes reviewed with HRs in the 40s in outpatient setting. -Suspect syncope multi-factoral. Qualifiers: Syncope type: unspecified Qualified Code(s): R55 - Syncope and collapse (2) Acute kidney injury Current Visit: Yes Status: Acute Per cardiology: -OSCAR noted on admission with creatinine 3.77. -Of note, hyperkalemia also noted with K 6.5 on admission. -Management per primary service. (3) Sinus bradycardia Current Visit: Yes Status: Acute Per cardiology: -ECG with SB, RBB, HR 46 in the setting of OSCAR, hyperkalemia. -Does report dizziness, lightheadedness. -Was on BB in outpatient setting. -Telemetry reviewed with average HR previous 12 hours noted ot be 84, SR. -TTE with LVEF preserved, no segmental wall motion abnormalities noted. -Agree with holding BB. -NO recurrent bradycardia after hyperkalemia improved. -Cardiology will sign off and will follow in outpatient setting. Follow up set. (4) CAD (coronary artery disease) Current Visit: No Status: Chronic Per cardiology: -Known CAD s/p CABG. -Last [facility] 06/13/14: EF 50%. 2/3 patent bypass grafts. Severe [place] three vessel CAD. Optimal medical management recommended. -TTE 2014 with LVEF 60% -TTE pending. -On asa, plavix, statin. Not on BB due to hypotension. -Reports one epidsoe of atypical pinching chest pain, denies recurrence. -TTE with LVEF preserved, no segmental wall motion abnormalities noted. -Will continue to follow in outpatient setting. Qualifiers: Coronary Disease-Associated Artery/Lesion type: bypass graft [place] vs. transplanted heart: [place] heart Associated angina: without angina Qualified Code(s): I25.810 - Atherosclerosis of coronary artery bypass graft(s) without angina pectoris Discussion w patient/family: The assessment and plan as outlined above was discussed with the patient and/or family members who expressed understanding and agreement. All questions were answered. Thank you for involving us in the care of your patient. Please call with any questions. Discussed and reviewed with . Subjective Principal diagnosis: syncope Interval history: Patient states she feels much better today. Deneis dizziness, lightheadedness. Objective Vital Signs, Last 4 Hours Temp Pulse Resp BP Pulse Ox 10/29/17 08:30 18 97 10/29/17 07:56 98.3 F 83 18 159/71 97 General: Conversant, No Apparent Distress HEENT: Atraumatic, Normocephaly, Mucus Membranes Moist Neck: No JVD, Normal carotid pulses Cardiac: Reg Rate and Rhythm, Normal S1 and S2, No Murmur Lungs: Normal Breath Sounds, No Wheeze, Rales, Rhonchi Neuro: Alert and responsive, No focal deficits noted Abdomen: Soft, Non-Tender Skin: No rashes noted on visualized skin Musculoskeletal: No Chest Wall Tenderness Extremities: No Clubbing, No Cyanosis, No Edema, Normal Pulses Results 10/29/17 04:02 10/29/17 04:02 Lab Results Impressions Echocardiogram 10/28/17 21:39 Impressions: LVEF 60-65%. Normal LV chamber size, wall thickness and function. Moderate left ventricular diastolic dysfunction. Normal right ventricular structure and function. Estimated RVSP is 36 mmHg. Mild pulmonary hypertension. No significant valvular dysfunction. Left Ventricular Wall Motion: Rest Echo Findings All wall segments showed normal motion. Findings: Study Quality * Technically adequate exam. ECG Findings * Normal sinus rhythm. Left Ventricle * LVEF 60-65%. * Normal LV chamber size, wall thickness and function. * Moderate left ventricular diastolic dysfunction. Right Ventricle * Normal right ventricular structure and function. Left Atrium * Mildly dilated left atrium. Right Atrium * Normal right atrial size. Aortic Valve * Trileaflet aortic valve with normal function. * No aortic regurgitation. * No aortic stenosis. Mitral Valve * Normal mitral valve structure and function. * No mitral regurgitation. * No mitral stenosis. Tricuspid Valve * Normal tricuspid valve structure and function. * Trace tricuspid regurgitation. * Borderline mild pulmonary hypertension. * Estimated RVSP is 36 mmHg. * Estimated RA pressure is 5 mmHg. Pulmonic Valve * Normal pulmonic valve structure and function. * No pulmonic regurgitation. Aorta * Normally sized aortic root. Pericardium * The pericardium appears normal. IVC * Normal IVC dimensions and inspiratory collapse. Pulmonary Artery * Normal visualized portions of the main pulmonary artery. Active Medications Acetaminophen (Tylenol) 650 mg PO Q6HR PRN PRN Reason: Mild Pain/Fever Stop: 04/28/18 20:18 Last Admin: 10/27/17 22:33 Dose: 650 mg Albuterol/Ipratropium (Duoneb) 3 ml IH [id number] [facility] Stop: 04/28/18 20:46 Last Admin: 10/29/17 08:26 Dose: 3 ml Aspirin (Aspirin Ec) 81 mg PO DAILY [facility] Stop: 04/29/18 09:01 Last Admin: 10/29/17 08:37 Dose: 81 mg Clopidogrel Bisulfate (Plavix) 75 mg PO DAILY [facility] Stop: 04/29/18 09:01 Last Admin: 10/29/17 08:37 Dose: 75 mg Collagenase (Santyl) 1 appl TP BID [facility] PRN Reason: Protocol Stop: 04/29/18 10:16 Last Admin: 10/29/17 08:38 Dose: 1 appl Dextrose/Water (Dextrose 50% (Syg)) 25 ml IVP AD PRN PRN Reason: Hypoglycemia Stop: 04/28/18 20:18 Last Admin: 10/28/17 01:32 Dose: 25 ml Dicyclomine HCl (Bentyl) 10 mg PO TID [facility] Stop: 04/28/18 21:01 Last Admin: 10/29/17 08:37 Dose: 10 mg Ergocalciferol (Drisdol (50,000 Unit)) 50,000 unit PO QWEEK [facility] Stop: 05/03/18 09:01 Famotidine (Pepcid) 10 mg PO QPM [facility] Stop: 04/28/18 20:46 Last Admin: 10/28/17 17:23 Dose: 10 mg Gentamicin Sulfate (Garamycin) 1 appl TP BID [facility] Stop: 04/28/18 21:01 Last Admin: 10/29/17 08:38 Dose: 1 appl Glucagon (Glucagen) 1 mg IM ONCE PRN PRN Reason: Hypoglycemia Stop: 04/28/18 20:18 Glucose (Gluctose) 15 gm PO ONCE PRN PRN Reason: Hypoglycemia Stop: 04/28/18 20:18 Glucose (Gluctose) 30 gm PO ONCE PRN PRN Reason: Hypoglycemia Stop: 04/28/18 20:18 Heparin Sodium (Porcine) (Heparin) 5,000 unit SQ Q8HCO [facility] Stop: 04/28/18 22:01 Last Admin: 10/29/17 06:21 Dose: 5,000 unit Hydralazine HCl (Hydralazine) 10 mg IVP Q6HR PRN PRN Reason: Hypertension SBP >170 Stop: 04/28/18 21:04 Dextrose (Dextrose 5%) 1,000 mls @ 100 mls/hr IVC .Q10H PRN PRN Reason: HYPOGLYCEMIA Stop: 04/28/18 20:18 Insulin Human Lispro (Humalog) 0 units SQ HS [facility] PRN Reason: Protocol Stop: 04/28/18 21:01 Last Admin: 10/28/17 21:02 Dose: 5 units Insulin Human Lispro (Humalog) 0 units SQ TIDAC [facility] PRN Reason: Protocol Stop: 04/29/18 07:31 Last Admin: 10/29/17 08:37 Dose: 8 units Multivitamins/Calcium (Thera M Plus) 1 tab PO DAILY [facility] Stop: 04/29/18 09:01 Last Admin: 10/29/17 08:37 Dose: 1 tab Naloxone HCl (Narcan) 0.4 mg IVP Q2MIN PRN PRN Reason: SEE COMMENTS Stop: 04/28/18 20:16 Nicotine (Nicoderm) 14 mg TD DAILY [facility] PRN Reason: Protocol Stop: 04/28/18 21:01 Last Admin: 10/29/17 08:37 Dose: 14 mg Simethicone (Gas-X) 180 mg PO DAILY PRN PRN Reason: gas Simvastatin (Zocor) 10 mg PO DAILY [facility] Stop: 04/28/18 20:46 Last Admin: 10/29/17 08:37 Dose: 10 mg Tramadol HCl (Ultram) 50 mg PO Q4HR PRN PRN Reason: Headache Stop: 04/29/18 00:31 Last Admin: 10/28/17 23:37 Dose: 50 mg Laboratory Tests 10/29/17 10/29/17 04:02 04:02 Hgb 8.6 L Potassium 4.9 Creatinine 2.68 H - Imaging and Cardiology Chest Xray: report reviewed Echo: report reviewed - EKG Interpretation EKG results cardiology: other (Telemetry reviewed with average HR previous 12 hours noted to be 84, SR. PVCs and PACs noted.) Consult Discharge Plan - Plan Referrals: Eleazar Vargas MD [Primary Care Provider] - (sent web request on 10-29-17 @ 1825 ) Carlos Mabry DO [Partnered Physician] - (office will call patient at home with follow up appointment)
--- NOTE | 2017-10-29 13:08 | Podiatry Consult Note ---
Date of Encounter: 10/29/17 Time of Encounter: 12:20 Assessment and Plan (1) Foot ulcer Current visit: No Status: Acute Full thickness ulcer to the plantar aspect of the left heel, no signs of bacterial infection. Overall improvement noted to ulceration since last seen in wound care two weeks ago. WBC: 4.2 Wound culture frmo 10/17/17 isolated MRSA. Plan: Continue wound care as ordered with Santyl/gentamicin ointment. Keep pressure offloaded from left heel. Follow up in wound care with Dr. Andrews one week after discharge from hospital. 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 Sepulveda is a 66 year old female admitted to [facility] for a syncopal episode. Patient has a medical history significant for COPD, CAD, DM Type 2 with neuropathy, hypertension, hyperlipidemia, and CKD stage 3. The patient has a history of peripheral vascular disease. Surgical history significant for angiogram with a right SFA angioplasty and a left femoral to popliteal bypass with PTFE, with a repeat right SFA angioplasty. Left lower extremity bypass graft thrombectomy as well as a left femoral endarterectomy. Podiatry was consulted for an ulceration to the left heel. Patient [facility] a [facility] Patient was last seen in wound care two weeks ago where patient had a bedside debridement. Wound cultures isolated MRSA and patient was started on topical Santyl/ gentamicin and oral Levaquin. Patient states she has had this heel ulcer since June. Patient states her heel is looking better and her son is helping her change the dressing. No c/o pain, fever, chills. Past Med Surg Social Fam HX - Past Medical History Medical history: arthritis, asthma, CHF, COPD, coronary artery disease, diabetes , hyperlipidemia, hypertension, renal disease Additional medical history: 3 stents Psychiatric history: no psych history - Past Surgical History Surgical History: appendectomy, coronary bypass (CABG), hysterectomy, other, vascular surgery Additional surgical history: Colonoscopy - Social History Smoking Status: Current every day smoker Packs per day: 1 Smokeless Tobacco Status: No Alcohol use: none Drug use: none - Family History Mother Adopted: No Living Status: Hx Family Cardiac Disorders: Yes Hx Family Respiratory Disorders: Yes Hx Family Endocrine Disorder: Yes Father Adopted: No Living Status: Hx Family Cardiac Disorders: Yes Hx Family Respiratory Disorders: Yes Hx Family Cancer: No Medications and Allergies Aspirin Enteric Coated [Aspirin EC] 81 mg PO DAILY 12/02/14 [History] Clopidogrel [Plavix] 75 mg PO DAILY 12/02/14 [History] Famotidine [Pepcid] 40 mg PO QPM 12/02/14 [History] Furosemide [Lasix] 20 mg PO BID 12/02/14 [History] GlipiZIDE [Glipizide Xl] 10 mg PO BID 12/02/14 [History] Insulin ASPART [Novolog Flexpen] 8 - 10 unit SQ TID PRN 12/02/14 [History] Insulin Glargine,Hum.rec.anlog [Lantus Solostar] 8 units SQ HS 12/02/14 [History ] Isosorbide MONOnitrate [Isosorbide Mononitrate ER] 60 mg PO DAILY 12/02/14 [ History] Lisinopril [Zestril] 20 mg PO DAILY 12/02/14 [History] Lovastatin 20 mg PO DAILY 12/02/14 [History] Metoprolol [Lopressor] 25 mg PO BID 12/02/14 [History] OxyCODONE/APAP 10/325 [Percocet 10/325] 10 mg PO Q6HR PRN 12/02/14 [History] Albuterol Neb [Proventil Neb] 2.5 mg IH TID PRN 05/16/16 [History] Dicyclomine [Bentyl] 10 mg PO TID 05/16/16 [History] Ergocalciferol (VITAMIN D2) [Vitamin D2] 50,000 unit PO QWEEK 05/16/16 [History] Simethicone [Gas Relief] 180 mg PO DAILY PRN 05/16/16 [History] Sitagliptin Phosphate [Januvia] 50 mg PO DAILY 05/16/16 [History] Gabapentin [Neurontin] 300 mg PO HS 08/26/17 [History] Multivit-Min/FA/Lycopen/Lutein [A Thru Z Select Multivit Tab] 1 tab PO DAILY 10/08 [History] Insulin ASPART [Novolog Flexpen] 8 - 10 unit SQ BID 10/28/17 [History] Insulin Glargine,Hum.rec.anlog [Lantus Solostar] 8 unit SQ QPM 10/28/17 [History ] Ipratropium/Albuterol Neb [Duoneb] 3 ml IH Q6HR PRN 10/28/17 [History] Sertraline [Zoloft] 10/29/17 [History] 3 Allergy/AdvReac Type Severity Reaction Status Date / Time escitalopram [From Lexapro] Allergy Rash Verified 01/23/17 11:54 itraconazole [From Sporanox] Allergy Hives Verified 01/23/17 11:54 Penicillins [PCN] Allergy Rash Verified 01/23/17 11:54 metformin AdvReac Diarrhea Verified 01/23/17 11:54 All Systems Reviewed: Denies fever, denies chills, denies pain. Physical Exam - Constitutional Vitals: Temp Pulse Resp BP Pulse Ox 98.2 F 90 20 136/51 95 10/29/17 11:59 10/29/17 11:59 10/29/17 11:59 10/29/17 11:59 10/29/17 11:59 Exam: General appearance: alert awake oriented X 3. Calm and pleasant, no acute distress.. Vascular: No evidence of cyanosis, pallor or rubor, Edema graded at 1+/4, Skin Tempature warm, No calf pain with manual compression. capillary refill time is immediate to digits. Neurologic: Sensation intact with light touch to left foot. . Wound: Full thickness ulcer to the plantar aspect of the left calcaneus measuring 1 cm in length x 1.8 cm in width x 0.2 cm in depth, base of wound with 80 % granulation tissue and 20% yellow slough, no pus, no odor, wound edges are connected, no periwound erythema, no streaking, no flutuctuance, no cellulitis, no evidence of bacterial infection. Results - Labs Result Diagrams: 10/29/17 04:02 10/29/17 04:02 Labs: Abnormal lab results WBC 4.2 K/mcL (4.3-11.1) L 10/29/17 04:02 RBC 2.86 M/mcL (3.82-4.97) L 10/29/17 04:02 Hgb 8.6 g/dL (11.5-15.4) L 10/29/17 04:02 Hct 26.5 % (35.3-44.9) L 10/29/17 04:02 Plt Count 77 K/mcL (140-400) L 10/29/17 04:02 Platelet Estimate Decreased (Normal) L 10/29/17 04:02 PT 12.9 Seconds (9.4-12.1) H 10/27/17 21:44 Chloride 108 mEq/L (98-107) H 10/29/17 04:02 BUN 72 mg/dL (8-23) H 10/29/17 04:02 Creatinine 2.68 mg/dL (0.60-1.20) H 10/29/17 04:02 Est GFR ( Amer) 21 (> 60) L 10/29/17 04:02 Est GFR (Non-Af Amer) 18 (> 60) L 10/29/17 04:02 BUN/Creatinine Ratio 27 (6-26) H 10/29/17 04:02 Glucose 228 mg/dL (70-105) H 10/29/17 04:02 POC Glucose 294 mg/dL (70-99) H 10/29/17 12:01 Calculated Osmolality 310 (280-300) H 10/29/17 04:02 Calcium 8.4 mg/dL (8.6-10.3) L 10/29/17 04:02 Total Bilirubin 0.2 mg/dL (0.3-1.0) L 10/28/17 04:15 Serum Total Protein 6.0 g/dL (6.4-8.9) L 10/28/17 04:15 Albumin 3.3 g/dL (3.5-5.7) L 10/28/17 04:15 Urine Bilirubin Small (Negative) H 10/27/17 16:31 Ur Leukocyte Esterase Small (Negative) H 10/27/17 16:31 Urine Microscopic WBC 3-5 per hpf (0-3) H 10/27/17 16:31 Ur Squamous Epith Cells Many per lpf (None-Few) H 10/27/17 16:31 Hyaline Casts Many per lpf (None-Few) H 10/27/17 16:31 Ur Culture Indicated? NO. (NO) A 10/27/17 16:31 H & H 10/28/17 10/29/17 Range/Units 18:09 04:02 Hgb 8.8 L 8.6 L (11.5-15.4) g/dL Hct 26.9 L 26.5 L (35.3-44.9) % All other labs normal. Consult Discharge Plan - Plan Referrals: Eleazar Vargas MD [Primary Care Provider] - (sent web request on 10-29-17 @ [phone] ) Carlos Mabry DO [Partnered Physician] - (office will call patient at home with follow up appointment)
--- NOTE | 2017-10-29 15:44 | Electrocardiograph Report ---
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
--- NOTE | 2017-10-29 16:52 | Internal Med Progress Note ---
<Andrea Blanco - Last Filed: 10/29/17 16:49> Date of Encounter: 10/29/17 Time of Encounter: 16:49 - Assessment and plan (1) Syncope Current Visit: Yes Status: Acute Assessment and plan: Patient had syncopal episode with fall Echocardiogram was negative for thrombus Telemetry and cardiology consult to investigate symptomatic bradycardia, cardiology does not recommend pacing at this time Patient has been having episodes of hypoglycemia, we are monitoring here and implementing sliding scale insulin Patient has been dehydrated and having episodes of lightheadedness, orthostatic vitals were positive for orthostatic hypotension Syncope was likely multi-factorial Qualifiers: Syncope type: unspecified Qualified Code(s): R55 - Syncope and collapse (2) Hyperkalemia Current Visit: Yes Status: Resolved Assessment and plan: Hyperkalemia likely secondary to dehydration/OSCAR on CKD3 kayexalate, calcium gluconate, insulin, glucose, and albuterol were all been implemented Insulin will need to be carefully titrated due to patient hypoglycemia episodes Hyperkalemia resolved, will monitor with sequential BMP (3) Acute kidney injury Current Visit: Yes Status: Acute Assessment and plan: OSCAR on CKD likely secondary to dehydration and renal insulting medications Lisinopril and furosemide held Will hydrate and monitor carefully due to patient cardiac history Bactrim could have been insulting agent (4) Hypoglycemia Current Visit: Yes Status: Acute Assessment and plan: Patient complains of several recent incidents of hypoglycemia will titrate sliding scale insulin therapy and carefully monitor levemir restarted at low dose due to hyperglycemia (5) Chronic kidney disease, stage III (moderate) Current Visit: Yes Status: Chronic Assessment and plan: Patient has not been adequately hydrating at home and is taking several renal insulting medications Will consider this at discharge med rec lisinopril and furosemide held here (6) Diabetes mellitus Current Visit: No Status: Chronic Assessment and plan: Patient on sliding scale insulin at home with recurrent episodes of hypoglycemia will consider during discharge med rec will require close outpatient follow up Qualifiers: Diabetes mellitus type: type 2 Diabetes mellitus halfway insulin use: with termite treater use Diabetes mellitus complication status: with circulatory complication Diabetes mellitus complication detail: with other circulatory complications Qualified Code(s): E11.59 - Type 2 diabetes mellitus with other circulatory complications; Z79.4 - nursing home (current) use of insulin; Z79.4 - exterminator helper (current) use of insulin; Z79.4 - nursing home (current) use of insulin; Z79.4 - exterminator helper (current) use of insulin (7) Heel ulcer due to DM Current Visit: No Status: Acute Assessment and plan: Patient has been receiving levaquin and bactrim outpatient as well as gentamicin topical and santyl for MRSA positive heel ulcer Podiatry and wound care have been consulted, we will continue gentamicin sulfate and santyl here Qualifiers: Diabetes mellitus type: type 2 Laterality: left Non-pressure ulcer stage : with fat layer exposed Qualified Code(s): E11.621 - Type 2 diabetes mellitus with foot ulcer; L97.422 - 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 layer exposed (8) Closed head injury Current Visit: Yes Status: Acute Assessment and plan: Patient had negative CT scan at admission Scalp laceration is clean, dry intact Patient restarted on aspirin and plavix Qualifiers: Encounter type: initial encounter Qualified Code(s): S09.90XA - Unspecified injury of head, initial encounter (9) Anemia Current Visit: Yes Status: Acute Assessment and plan: Acute onset anemia after admission Possibly related to dilution from IVF, white count also decreased unlikely from scalp laceration possibly secondary to chronic disease sequential CBC to monitor Qualifiers: Anemia type: unspecified type Qualified Code(s): D64.9 - Anemia, unspecified (10) COPD (chronic obstructive pulmonary disease) Current Visit: No Status: Chronic Assessment and plan: chronic and controlled on home meds patient getting duonebs here Qualifiers: COPD type: unspecified COPD Qualified Code(s): J44.9 - Chronic obstructive pulmonary disease, unspecified (11) DVT prophylaxis Current Visit: Yes Status: Acute Assessment and plan: sub q heparin (12) PAD (peripheral artery disease) Current Visit: No Status: Chronic Assessment and plan: History of previous DVT and lower extremity grafts Heparin sub q on board (13) CAD (coronary artery disease) Current Visit: No Status: Chronic Assessment and plan: Patient is status post 3 vessel bypass Continue home aspirin and Plavix Cardiology consulted Qualifiers: Coronary Disease-Associated Artery/Lesion type: bypass graft [place] vs. transplanted heart: [place] heart Associated angina: without angina Qualified Code(s): I25.810 - Atherosclerosis of coronary artery bypass graft(s) without angina pectoris (14) Hypertension Current Visit: No Status: Chronic Assessment and plan: Hold home lisinopril secondary to OSCAR Metoprolol 12.5 BID started Qualifiers: Hypertension type: essential hypertension Qualified Code(s): I10 - Essential (primary) hypertension (15) Symptomatic sinus bradycardia Current Visit: Yes Status: Acute Assessment and plan: Patient reported episodes of bradycardia with associated lethargy Potential etiology of syncopal episode Cardioogy consulted, did not recommend intervention metoprolol restarted at lower dose, now that her kidney function has improved and she can renally clear it - Time Spent With Patient Total time spent is greater than 50% in coordination of care (as documented) at patient's floor/unit and/or counseling patient: - Subjective Interval history: Patient seen and examined this morning. She denied chest pain, shortness of breath, fever or chills, nausea, vomiting, or diarrhea. I discussed the plan of care with her and her son. - Constitutional Vitals: Temp Pulse Resp BP Pulse Ox 98.1 F 93 20 165/66 94 10/29/17 16:30 10/29/17 16:30 10/29/17 16:30 10/29/17 16:30 10/29/17 16:30 General appearance: Present: cooperative, A&O X 3, pleasant, no acute distress, answers questions appropriately Exam: No acute distress Alert and oriented x 3 heart regular rate and rhythm expiratory wheeze in bilateral lungs, good air movement abdomen soft and non tender lower extremities without edema scalp laceration clean dry and intact left heel ulcer clean and dry Internal Medicine: Result - Labs CBC & Chem 7: 10/29/17 04:02 10/29/17 04:02 Labs: Short CBC 10/28/17 10/29/17 Range/Units 18:09 04:02 WBC 4.2 L (4.3-11.1) K/mcL Hgb 8.8 L 8.6 L (11.5-15.4) g/dL Hct 26.9 L 26.5 L (35.3-44.9) % Plt Count 77 L (140-400) K/mcL Neutrophils # 2.7 (1.6-8.9) K/mcL BMP 10/28/17 10/29/17 18:09 04:02 Sodium 136 136 Potassium 4.7 4.9 Chloride 109 H 108 H Carbon Dioxide 21 L 23 BUN 70 H 72 H Creatinine 2.91 H 2.68 H Glucose 193 H 228 H Calcium 8.3 L 8.4 L - ABG Interpretation ABG results: PT/INR, D-dimer PT 12.9 Seconds (9.4-12.1) H 10/27/17 21:44 - Diagnostic Studies Other Images Additional comments: EV/EV echocardiogram Impressions: LVEF 60-65%. Normal LV chamber size, wall thickness and function. Moderate left ventricular diastolic dysfunction. Normal right ventricular structure and function. Estimated RVSP is 36 mmHg. Mild pulmonary hypertension. No significant valvular dysfunction. Consult Discharge Plan - Plan Referrals: Eleazar Vargas MD [Primary Care Provider] - (sent web request on 10-29-17 @ [phone] ) Carlos Mabry DO [Partnered Physician] - (office will call patient at home with follow up appointment) <Efraín Gale - Last Filed: 10/29/17 17:41> Date of Encounter: 10/29/17 - Assessment and plan (1) PAD (peripheral artery disease) Current Visit: No Status: Chronic (2) CAD (coronary artery disease) Current Visit: No Status: Chronic Qualifiers: Coronary Disease-Associated Artery/Lesion type: bypass graft [place] vs. transplanted heart: [place] heart Associated angina: without angina Qualified Code(s): I25.810 - Atherosclerosis of coronary artery bypass graft(s) without angina pectoris (3) Hypertension Current Visit: No Status: Chronic Qualifiers: Hypertension type: essential hypertension Qualified Code(s): I10 - Essential (primary) hypertension (4) Diabetes mellitus Current Visit: No Status: Chronic Qualifiers: Diabetes mellitus type: type 2 Diabetes mellitus termite treater insulin use: with termite treater use Diabetes mellitus complication status: with circulatory complication Diabetes mellitus complication detail: with other circulatory complications Qualified Code(s): E11.59 - Type 2 diabetes mellitus with other circulatory complications; Z79.4 - nursing home (current) use of insulin; Z79.4 - exterminator helper (current) use of insulin; Z79.4 - exterminator helper (current) use of insulin; Z79.4 - exterminator helper (current) use of insulin (5) DVT prophylaxis Current Visit: Yes Status: Acute (6) Chronic kidney disease, stage III (moderate) Current Visit: Yes Status: Chronic (7) Acute kidney injury Current Visit: Yes Status: Acute (8) Heel ulcer due to DM Current Visit: No Status: Acute Qualifiers: Diabetes mellitus type: type 2 Laterality: left Non-pressure ulcer stage : with fat layer exposed Qualified Code(s): E11.621 - Type 2 diabetes mellitus with foot ulcer; L97.422 - 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 layer exposed (9) Hyperkalemia Current Visit: Yes Status: Resolved (10) Closed head injury Current Visit: Yes Status: Acute Qualifiers: Encounter type: initial encounter Qualified Code(s): S09.90XA - Unspecified injury of head, initial encounter (11) Syncope Current Visit: Yes Status: Acute Qualifiers: Syncope type: unspecified Qualified Code(s): R55 - Syncope and collapse (12) COPD (chronic obstructive pulmonary disease) Current Visit: No Status: Chronic Qualifiers: COPD type: unspecified COPD Qualified Code(s): J44.9 - Chronic obstructive pulmonary disease, unspecified (13) Hypoglycemia Current Visit: Yes Status: Acute (14) Anemia Current Visit: Yes Status: Acute Qualifiers: Anemia type: unspecified type Qualified Code(s): D64.9 - Anemia, unspecified (15) Symptomatic sinus bradycardia Current Visit: Yes Status: Acute - Time Spent With Patient Total time spent is greater than 50% in coordination of care (as documented) at patient's floor/unit and/or counseling patient: - Constitutional Vitals: Temp Pulse Resp BP Pulse Ox 98.1 F 93 20 165/66 94 10/29/17 16:30 10/29/17 16:30 10/29/17 16:30 10/29/17 16:30 10/29/17 16:30 Internal Medicine: Result - Labs CBC & Chem 7: 10/29/17 04:02 10/29/17 04:02 Labs: Short CBC 10/28/17 10/29/17 Range/Units 18:09 04:02 WBC 4.2 L (4.3-11.1) K/mcL Hgb 8.8 L 8.6 L (11.5-15.4) g/dL Hct 26.9 L 26.5 L (35.3-44.9) % Plt Count 77 L (140-400) K/mcL Neutrophils # 2.7 (1.6-8.9) K/mcL BMP 10/28/17 10/29/17 18:09 04:02 Sodium 136 136 Potassium 4.7 4.9 Chloride 109 H 108 H Carbon Dioxide 21 L 23 BUN 70 H 72 H Creatinine 2.91 H 2.68 H Glucose 193 H 228 H Calcium 8.3 L 8.4 L - ABG Interpretation ABG results: PT/INR, D-dimer PT 12.9 Seconds (9.4-12.1) H 10/27/17 21:44 - Attending Attestation I examined this patient and my medical decision-making was reviewed with the Resident Physician. I agree with the documented findings, disposition and treatment plan as described except to the extent set forth below. Patient has no complaints today. She is back to baseline. Physical exam unremarkable and she answers questions appropriately. VS reviewed, BP and HR normal but now HR is in 90s. Glucose running 200-300s after Levemir held yesterday. Glucose was in 40s yesterday at one point. Diet is better today. Orthosatic vital signs positive, no longer hypoglycemic. Likely multifactorial , polypharmacy. BP medications and insulin were held and will be gradually increased to avoid return of hypotension/bradycardia/hypoglycemia. Renal function gradually improving, will monitor and hold nephrotoxic agents.
[2017-10-29] MEDS: Famotidine 20 MG TABLET PO SCH (19:40)
[2017-10-29] MEDS ORDERED: Insulin DETEMIR 100 UNIT/ML X5UNITS SQ SCH (21:00)
[2017-10-30] MEDS: traMADol 50 MG TABLET PO PRN (00:04)
[2017-10-30] MEDS: Ipratropium/Albuterol Neb 3 ML IH SCH ×7 (00:14→23:58)
[2017-10-30 04:06] LABS: Basophils % 0.4 %; Red Cell Distribution Width 13.2 % (11.5-14.5)
[2017-10-30 04:07] LABS: Eosinophils # 0.3 K/mcL (0.0-0.6); Eosinophils % 5.9 %; Hematocrit 26.3 % (35.3-44.9); Hemoglobin 8.7 g/dL (11.5-15.4); Immature Granulocytes % 0.2 % (0-4); Immature Platelets 3.9 % (1.1-6.1); Lymphocytes # 0.8 K/mcL (0.6-4.6); Lymphocytes % 17.8 %; Mean Corpuscular HGB Conc 33.1 g/dL (31.6-35.5); Mean Corpuscular Hemoglobin 30.7 pg (28.0-33.3); Mean Corpuscular Volume 92.9 fL (83.0-100.0); Monocytes # 0.4 K/mcL (0.0-1.3); Neutrophils # 3.2 K/mcL (1.6-8.9); Red Blood Count 2.83 M/mcL (3.82-4.97); Segmented Neutrophils % 67.7 %
[2017-10-30 04:11] LABS: Platelet Count 78 K/mcL (140-400)
[2017-10-30 04:54] LABS: Calcium 8.8 mg/dL (8.6-10.3)
[2017-10-30] MEDS ORDERED: Ondansetron 4 MG/2 ML VIAL ONE (05:11)
[2017-10-30] MEDS: *HR* Heparin 5,000 UNIT/ML VIAL SQ SCH ×3 (06:23→21:10)
[2017-10-30] MEDS: Nicotine 14 MG PATCH.TD24 TD SCH (08:51)
[2017-10-30] MEDS: Multivit/Ca/Min/Fe/FA 1 TAB TABLET PO SCH (08:53)
[2017-10-30] MEDS: Lisinopril 20 MG TABLET PO SCH (08:53)
[2017-10-30] MEDS: Aspirin Enteric Coated 81 MG Tablet PO SCH (08:53)
[2017-10-30] MEDS: Insulin LISPRO 300 UNITS/3 ML VIAL SQ SCH ×4 (08:56→21:17)
[2017-10-30] MEDS: Furosemide 20 MG TABLET PO SCH ×2 (09:11→16:14)
[2017-10-30] MEDS: Gentamicin Oint 15 GM TUBE TP SCH ×2 (09:13→21:22)
--- NOTE | 2017-10-30 09:16 | Internal Med Progress Note ---
Date of Encounter: 10/30/17 Time of Encounter: 09:05 - Assessment and plan (1) Syncope Current Visit: Yes Status: Acute Assessment and plan: Patient had syncopal episode with fall, likely multifactorial Differentials include polypharmacy, bradycardia, hypoglycemia, volume depletion , orthostatic hypotension, vaso-vagal Addressing polypharmacy Echocardiogram was negative for thrombus Telemetry and cardiology consult to investigate symptomatic bradycardia, cardiology does not recommend pacing at this time Patient has been having episodes of hypoglycemia, we are monitoring here and implementing sliding scale insulin, restarted levemir at 5 units QHS due to hyperglycemia, continuing to titrate insulin Patient has been dehydrated and having episodes of lightheadedness, orthostatic vitals were positive for orthostatic hypotension, patient is currently hypertensive, reinstituted home lisinopril and lasix doses Qualifiers: Syncope type: unspecified Qualified Code(s): R55 - Syncope and collapse (2) Hyperkalemia Current Visit: Yes Status: Resolved Assessment and plan: Hyperkalemia likely secondary to dehydration/OSCAR on CKD3 kayexalate, calcium gluconate, insulin, glucose, and albuterol were all implemented at admission Insulin is being carefully titrated due to patient hypoglycemia episodes Hyperkalemia resolved, hyperkalemia protocol discontinued, will monitor with sequential BMP (3) Acute kidney injury Current Visit: Yes Status: Acute Assessment and plan: OSCAR on CKD likely secondary to dehydration and renal insulting medications, patient was on bactrim prior to admission Lisinopril and furosemide held originally, renal function improved, lisinopril and furosemide restarted due to hypertension Will hydrate and monitor carefully due to patient cardiac history (4) Symptomatic sinus bradycardia Current Visit: Yes Status: Acute Assessment and plan: Patient reported episodes of bradycardia with associated lethargy Potential etiology of syncopal episode, metoprolol was stopped Cardiology consulted, did not recommend intervention Patient metoprolol restarted at lower dose due to tachycardia, heart rate currently stable (5) Hypoglycemia Current Visit: Yes Status: Acute Assessment and plan: Patient complained of several recent incidents of hypoglycemia Titrating sliding scale insulin therapy and carefully monitoring Levemir restarted at 5 units QHS due to hyperglycemia, will continue to titrate (6) Chronic kidney disease, stage III (moderate) Current Visit: Yes Status: Chronic Assessment and plan: Patient has not been adequately hydrating at home and was taking several renal insulting medications Will consider this at discharge med rec, currently avoiding nephrotoxic agents when possible Renal function improving, Creatinine 1.64 today Lisinopril and furosemide restarted due to hypertension Will continue to monitor renal function (7) Diabetes mellitus Current Visit: No Status: Chronic Assessment and plan: Patient on sliding scale insulin at home with recurrent episodes of hypoglycemia will consider during discharge [facility] rec will require close outpatient follow up Qualifiers: Diabetes mellitus type: type 2 Diabetes mellitus terminologist insulin use: with alf use Diabetes mellitus complication status: with circulatory complication Diabetes mellitus complication detail: with other circulatory complications Qualified Code(s): E11.59 - Type 2 diabetes mellitus with other circulatory complications; Z79.4 - watermaster (current) use of insulin; Z79.4 - prison (current) use of insulin; Z79.4 - watermaster (current) use of insulin; Z79.4 - prison (current) use of insulin (8) Heel ulcer due to DM Current Visit: No Status: Acute Assessment and plan: Patient had been receiving levaquin and bactrim outpatient as well as gentamicin topical and santyl for MRSA positive heel ulcer Podiatry and wound care have been consulted, we will continue gentamicin sulfate and santyl here Wound covered, improving, patient afebrile and asymptomatic Qualifiers: Diabetes mellitus type: type 2 Laterality: left Non-pressure ulcer stage : with fat layer exposed Qualified Code(s): E11.621 - Type 2 diabetes mellitus with foot ulcer; L97.422 - 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 layer exposed (9) Closed head injury Current Visit: Yes Status: Acute Assessment and plan: Patient had negative CT scan at admission Scalp laceration is clean, dry intact Patient restarted on aspirin and plavix Qualifiers: Encounter type: initial encounter Qualified Code(s): S09.90XA - Unspecified injury of head, initial encounter (10) Anemia Current Visit: Yes Status: Acute Assessment and plan: Acute onset anemia after admission Possibly related to dilution from IVF, white count also decreased unlikely from scalp laceration possibly secondary to chronic disease sequential CBC to monitor Hgb stable this morning at 8.7, will continue to monitor Qualifiers: Anemia type: unspecified type Qualified Code(s): D64.9 - Anemia, unspecified (11) COPD (chronic obstructive pulmonary disease) Current Visit: No Status: Chronic Assessment and plan: chronic and controlled on home meds patient getting duonebs here Qualifiers: COPD type: unspecified COPD Qualified Code(s): J44.9 - Chronic obstructive pulmonary disease, unspecified (12) DVT prophylaxis Current Visit: Yes Status: Acute Assessment and plan: sub q heparin (13) PAD (peripheral artery disease) Current Visit: No Status: Chronic Assessment and plan: History of previous DVT and lower extremity grafts Heparin sub q on board (14) CAD (coronary artery disease) Current Visit: No Status: Chronic Assessment and plan: Patient is status post 3 vessel bypass Continue home aspirin and Plavix Cardiology consulted Patient currently asymptomatic without pertinent exam findings Qualifiers: Coronary Disease-Associated Artery/Lesion type: bypass graft [place] vs. transplanted heart: [place] heart Associated angina: without angina Qualified Code(s): I25.810 - Atherosclerosis of coronary artery bypass graft(s) without angina pectoris (15) Hypertension Current Visit: No Status: Chronic Assessment and plan: Held home lisinopril and lasix secondary to OSCAR Metoprolol 12.5 BID started secondary to tachycardia, heart rate now stable Patient currently hypertensive, home lasix and lisinoprl restarted, will continue to monitor Qualifiers: Hypertension type: essential hypertension Qualified Code(s): I10 - Essential (primary) hypertension - Time Spent With Patient Total time spent is greater than 50% in coordination of care (as documented) at patient's floor/unit and/or counseling patient: - Subjective Interval history: Patient seen and examined this morning. She denied chest pain, shortness of breath, fever or chills, vomiting, or diarrhea. She does complain of nausea this morning. I discussed the plan of care with her and her son. - Constitutional Vitals: Temp Pulse Resp BP Pulse Ox 98.5 F 72 16 196/73 99 10/30/17 07:16 10/30/17 07:16 10/30/17 07:40 10/30/17 07:16 10/30/17 07:40 General appearance: Present: cooperative, A&O X 3, pleasant, no acute distress, answers questions appropriately Exam: Patient blood pressure found to be approximately 170/60 in bilateral upper extremities on manual exam Patient in no acute distress, eating breakfast Alert and oriented x3 heart in regular rate and rhythm, no murmur rub or mk Air movement auscultated throughout all lung [place], bilateral expiratory wheeze Abdomen non tender, normal bowel sounds, no bruit Lower extremities warm, dry, and non-edematous Internal Medicine: Result - Labs CBC & Chem 7: 10/30/17 03:48 10/30/17 03:48 Labs: Short CBC 10/30/17 Range/Units 03:48 WBC 4.7 (4.3-11.1) K/mcL Hgb 8.7 L (11.5-15.4) g/dL Hct 26.3 L (35.3-44.9) % Plt Count 78 L (140-400) K/mcL Neutrophils # 3.2 (1.6-8.9) K/mcL BMP 10/30/17 03:48 Sodium 137 Potassium 5.0 Chloride 110 H Carbon Dioxide 23 BUN 57 H Creatinine 1.64 H Glucose 220 H Calcium 8.8 - ABG Interpretation ABG results: PT/INR, D-dimer PT 12.9 Seconds (9.4-12.1) H 10/27/17 21:44 Consult Discharge Plan - Plan Referrals: Eleazar Vargas MD [Primary Care Provider] - (sent web request on 10-29-17 @ [phone] ) Carlos Mabry DO [Partnered Physician] - (office will call patient at home with follow up appointment)
--- NOTE | 2017-10-30 13:31 | Discharge Summary ---
- NOTES TO OUTPATIENT PROVIDER Notes to Outpatient Provider: - Instructed to bring in ALL medications to next office visit and also bring discharge med rec paper. - Glucose log; instructed patient to bring in on follow-up appointment. - BP/HR log; instructed patient to bring on follow-up appointment. - Complains of poor appetite for several months, suggest workup and follow-up. - Reassess if Lasix needs added back and at what dose. - Recheck CBC, BMP in 3-5 days. Date of Encounter: 10/30/17 Time of Encounter: 13:31 - Discharge Diagnosis (1) Syncope Priority: Primary Status: Acute Qualifiers: Syncope type: unspecified Qualified Code(s): R55 - Syncope and collapse (2) Acute kidney injury Priority: Secondary Status: Acute (3) PAD (peripheral artery disease) Priority: Secondary Status: Chronic (4) CAD (coronary artery disease) Priority: Secondary Status: Chronic Qualifiers: Coronary Disease-Associated Artery/Lesion type: bypass graft [place] vs. transplanted heart: [place] heart Associated angina: without angina Qualified Code(s): I25.810 - Atherosclerosis of coronary artery bypass graft(s) without angina pectoris (5) Hypertension Priority: Secondary Status: Chronic Qualifiers: Hypertension type: essential hypertension Qualified Code(s): I10 - Essential (primary) hypertension (6) Diabetes mellitus Priority: Secondary Status: Chronic Qualifiers: Diabetes mellitus type: type 2 Diabetes mellitus residential insulin use: with residential use Diabetes mellitus complication status: with circulatory complication Diabetes mellitus complication detail: with other circulatory complications Qualified Code(s): E11.59 - Type 2 diabetes mellitus with other circulatory complications; Z79.4 - salvage determiner (current) use of insulin; Z79.4 - [facility] (current) use of insulin; Z79.4 - [facility] (current) use of insulin; Z79.4 - salvage determiner (current) use of insulin (7) DVT prophylaxis Priority: Secondary Status: Acute (8) Chronic kidney disease, stage III (moderate) Priority: Secondary Status: Chronic (9) Heel ulcer due to DM Priority: Secondary Status: Acute Qualifiers: Diabetes mellitus type: type 2 Laterality: left Non-pressure ulcer stage : with fat layer exposed Qualified Code(s): E11.621 - Type 2 diabetes mellitus with foot ulcer; L97.422 - 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 layer exposed (10) Hyperkalemia Priority: Secondary Status: Resolved (11) Closed head injury Priority: Secondary Status: Acute Qualifiers: Encounter type: initial encounter Qualified Code(s): S09.90XA - Unspecified injury of head, initial encounter (12) COPD (chronic obstructive pulmonary disease) Priority: Secondary Status: Chronic Qualifiers: COPD type: unspecified COPD Qualified Code(s): J44.9 - Chronic obstructive pulmonary disease, unspecified (13) Hypoglycemia Priority: Secondary Status: Acute (14) Anemia Priority: Secondary Status: Acute Qualifiers: Anemia type: unspecified type Qualified Code(s): D64.9 - Anemia, unspecified (15) Symptomatic sinus bradycardia Priority: Secondary Status: Acute Hospital course: Ms. Sepulveda is a 66 year old female with a PMH of COPD, CAD s/p CABG, DM Type 2 , hypertension, hyperlipidemia, and CKD stage 3 presented secondary to syncopal episode. Patient was found down in the bathroom at home. Patient does not recall falling but remembers waking up on the floor when her family arrived. Family reports she lives alone and was laying on the floor for approximately 2 hours. Patient sustained a laceration to her parietal scalp. She is currently on aspirin and Plavix. Of note, family reports her heart rate has been very slow for the past several weeks and she has been feeling very fatigued lately. She also has a diabetic foot ulcer with MRSA on intraoperative culture results from 10/17/17 from her left heel which has been treated with topical gentamicin and Santyl ointment twice a day. Patient follows with Podiatry and wound care. In the ED she had CT of head that showed scalp laceration but no intracranial abnormality. She had stitches placed in ED. Workup showed acute on chronic kidney injury with hyperkalemia with creatinine of 3.77 (basline is approx 1.0- 1.3), hypoglycemic episodes with episode in 40s, Orthostatic hypotension, bradycardia. She was admitted for further monitoring and treatment. Cardiology was consulted for syncope with bradycardia. An echocardiogram was done showing no explainable findings. Cardiology noted no intervention was needed and signed off. Based on workup and tratment it seems like patient had severe dehydration causing OSCAR on chronic kidney disease. Lasix, lisinopril, and metformin were held to prevent dehydration and further renal injury. Glipizide was discontinued. Levemir was decreased in dose due to hypoglycemia. Beta wesley was titrated as well. She will be asked to follow-up in primary care office in one week. Her appetite has been poor for past several weeks and will need outpatient evaluation for this. She was discharged home in stable condition. - Time Spent with Patient Total time spent providing and/or coordinating discharge services: - Discharge Medications Home Medications: Aspirin Enteric Coated [Aspirin EC] 81 mg PO DAILY 12/02/14 [History] Clopidogrel [Plavix] 75 mg PO DAILY 12/02/14 [History] Insulin ASPART [Novolog Flexpen] 8 - 10 unit SQ TID PRN 12/02/14 [History] Isosorbide MONOnitrate [Isosorbide Mononitrate ER] 60 mg PO DAILY 12/02/14 [ History] Lisinopril [Zestril] 20 mg PO DAILY 12/02/14 [History] Lovastatin 20 mg PO DAILY 12/02/14 [History] Metoprolol [Lopressor] 25 mg PO BID 12/02/14 [History] OxyCODONE/APAP 10/325 [Percocet 10/325] 10 mg PO Q6HR PRN 12/02/14 [History] Albuterol Neb [Proventil Neb] 2.5 mg IH TID PRN 05/16/16 [History] Dicyclomine [Bentyl] 10 mg PO TID 05/16/16 [History] Ergocalciferol (VITAMIN D2) [Vitamin D2] 50,000 unit PO QWEEK 05/16/16 [History] Simethicone [Gas Relief] 180 mg PO DAILY PRN 05/16/16 [History] Sitagliptin Phosphate [Januvia] 50 mg PO DAILY 05/16/16 [History] Gabapentin [Neurontin] 300 mg PO HS 08/26/17 [History] Multivit-Min/FA/Lycopen/Lutein [A Thru Z Select Multivit Tab] 1 tab PO DAILY 10/08 [History] Insulin ASPART [Novolog Flexpen] 8 - 10 unit SQ BID 10/28/17 [History] Ipratropium/Albuterol Neb [Duoneb] 3 ml IH Q6HR PRN 10/28/17 [History] Sertraline [Zoloft] 10/29/17 [History] Collagenase Oint [Santyl] 1 appl TP BID tube 10/30/17 [Rx] Gentamicin Oint [Garamycin] 1 appl TP BID tube 10/30/17 [Rx] Insulin Glargine,Hum.rec.anlog [Lantus Solostar] 6 unit SQ QPM #0 10/30/17 [Rx] Insulin Glargine,Hum.rec.anlog [Lantus Solostar] 6 units SQ HS #0 10/30/17 [Rx] Nicotine Patch [Nicoderm] 14 mg TD DAILY patch.td24 10/30/17 [Rx] Allergies/Adverse Reactions: 3 Allergy/AdvReac Type Severity Reaction Status Date / Time escitalopram [From Lexapro] Allergy Rash Verified 01/23/17 11:54 itraconazole [From Sporanox] Allergy Hives Verified 01/23/17 11:54 Penicillins [PCN] Allergy Rash Verified 01/23/17 11:54 metformin AdvReac Diarrhea Verified 01/23/17 11:54 Date of admission: 10/30/17 00:33 Primary care physician: Eleazar Vargas MD Discharging clinician: Efraín Gale - Constitutional Vitals: Temp Pulse Resp BP Pulse Ox 98.8 F 74 18 165/74 95 10/30/17 11:42 10/30/17 11:42 10/30/17 11:42 10/30/17 11:42 10/30/17 11:42 General appearance: Present: cooperative, A&O X 3, pleasant, no acute distress, answers questions appropriately - Head Head exam: Present: atraumatic, normocephalic - Eye Eye exam: Present: PERRL, conjuntiva pink, sclera anicteric Pupils: Present: PERRL - Neck Neck exam general surgery: Present: supple, trachea midline. Absent: lymphadenopathy - Respiratory Respiratory exam: Present: CTAB. Absent: accessory muscle use, rales, rhonchi, wheezes - Cardiovascular Cardiovascular exam: Present: RRR, +S1, +S2. Absent: diastolic murmur, gallop, rubs, systolic murmur - GI/Abdominal GI/Abdominal exam: Present: normal bowel sounds, soft, no peritoneal signs. Absent: distended, tenderness - Extremities Exam Extremities exam: Present: warm, radial pulses palpable and symmetrical. Absent : calf tenderness, cyanotic, pedal edema - Neurological Exam Neurological exam: Present: CN II-XII intact, oriented X3, no focal deficits. Absent: pronater drift, facial droop, speech deficit - Skin Skin exam: Present: dry, intact - Patient Status Disposition: Home, Self-Care Condition: Fair Functional capacity at discharge: independent ambulation Overall status at discharge: patient is progressing back to baseline - Discharge Instructions Follow Up With: Eleazar Vargas MD [Primary Care Provider] - (sent web request on 10-29-17 @ [phone] ) Carlos Mabry DO [Partnered Physician] - (office will call patient at home with follow up appointment) - Diet and Activity Activity: return to work once cleared by your PCP/specialist Diet: diabetic diet, low fat, low cholesterol, low salt diet
[2017-10-30] MEDS: Famotidine 20 MG TABLET PO SCH (18:41)
[2017-10-30] MEDS ORDERED: Insulin DETEMIR 100 UNIT/ML X5UNITS SQ SCH (21:00)
[2017-10-31] MEDS: Ipratropium/Albuterol Neb 3 ML IH SCH ×3 (04:48→11:57)
[2017-10-31] MEDS: *HR* Heparin 5,000 UNIT/ML VIAL SQ SCH ×2 (06:08→13:06)
[2017-10-31] MEDS: traMADol 50 MG TABLET PO PRN (08:44)
[2017-10-31] MEDS: Lisinopril 20 MG TABLET PO SCH (08:44)
[2017-10-31] MEDS: Multivit/Ca/Min/Fe/FA 1 TAB TABLET PO SCH (08:44)
[2017-10-31] MEDS: Nicotine 14 MG PATCH.TD24 TD SCH (08:45)
[2017-10-31] MEDS: Insulin LISPRO 300 UNITS/3 ML VIAL SQ SCH ×2 (08:45→13:11)
[2017-10-31] MEDS: Furosemide 20 MG TABLET PO SCH (08:45)
[2017-10-31] MEDS: Aspirin Enteric Coated 81 MG Tablet PO SCH (08:45)
[2017-10-31] MEDS ORDERED: Isosorbide MONOnitrate (24 HR) 60 MG TAB.ER.24H PO SCH (09:00)
[2017-10-31] MEDS ORDERED: *HR* OxyCODONE/APAP 10/325 TABLET PO PRN (10:39)
--- NOTE | 2017-10-31 11:30 | Internal Med Progress Note ---
Date of Encounter: 10/31/17 Time of Encounter: 11:28 - Assessment and plan (1) PAD (peripheral artery disease) Current Visit: Yes Status: Chronic (2) CAD (coronary artery disease) Current Visit: Yes Status: Chronic Assessment and plan: Continue medications per discharge instructions. Qualifiers: Coronary Disease-Associated Artery/Lesion type: bypass graft [place] vs. transplanted heart: [place] heart Associated angina: without angina Qualified Code(s): I25.810 - Atherosclerosis of coronary artery bypass graft(s) without angina pectoris (3) Hypertension Current Visit: Yes Status: Chronic Assessment and plan: Continue medications per discharge instructions. Qualifiers: Hypertension type: essential hypertension Qualified Code(s): I10 - Essential (primary) hypertension (4) Acute kidney injury Current Visit: Yes Status: Acute Assessment and plan: Continue PO hydration at home. Follow up with PCP for repeat BMP. (5) Chronic kidney disease, stage III (moderate) Current Visit: Yes Status: Chronic Assessment and plan: Management as per above. (6) Heel ulcer due to DM Current Visit: Yes Status: Acute Assessment and plan: Countinue wound care at home per podiatry instructions. Qualifiers: Diabetes mellitus type: type 2 Laterality: left Non-pressure ulcer stage : with fat layer exposed Qualified Code(s): E11.621 - Type 2 diabetes mellitus with foot ulcer; L97.422 - 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 layer exposed (7) Hyperkalemia Current Visit: Yes Status: Resolved Assessment and plan: Resolved. (8) Closed head injury Current Visit: Yes Status: Acute Assessment and plan: Follow up with PCP for stitch removal. Qualifiers: Encounter type: initial encounter Qualified Code(s): S09.90XA - Unspecified injury of head, initial encounter (9) Syncope Current Visit: Yes Status: Resolved Assessment and plan: Resolved. Will have home health with home PT/OT. Qualifiers: Syncope type: unspecified Qualified Code(s): R55 - Syncope and collapse (10) COPD (chronic obstructive pulmonary disease) Current Visit: Yes Status: Chronic Assessment and plan: Continue home medications per discharge instructions. Qualifiers: COPD type: unspecified COPD Qualified Code(s): J44.9 - Chronic obstructive pulmonary disease, unspecified (11) Hypoglycemia Current Visit: Yes Status: Resolved Assessment and plan: Resolved. (12) Anemia Current Visit: Yes Status: Acute Assessment and plan: Stable. Follow up with PCP for repeat CBC to monitor. Qualifiers: Anemia type: unspecified type Qualified Code(s): D64.9 - Anemia, unspecified (13) Symptomatic sinus bradycardia Current Visit: Yes Status: Resolved (14) Diabetes mellitus Current Visit: Yes Status: Chronic Assessment and plan: Continue medications per discharge instructions. Qualifiers: Diabetes mellitus type: type 2 Diabetes mellitus supervisor intermediates insulin use: with supervisor intermediates use Diabetes mellitus complication status: with circulatory complication Diabetes mellitus complication detail: with other circulatory complications Qualified Code(s): E11.59 - Type 2 diabetes mellitus with other circulatory complications; Z79.4 - retirement (current) use of insulin; Z79.4 - retirement (current) use of insulin; Z79.4 - termination clerk (current) use of insulin; Z79.4 - termination clerk (current) use of insulin (15) DVT prophylaxis Current Visit: Yes Status: Acute - Time Spent With Patient Total time spent is greater than 50% in coordination of care (as documented) at patient's floor/unit and/or counseling patient: less than 15 minutes - Subjective Interval history: Patient had no acute events overnight. She states that she feels "better" today and is ready to go home. PT/OT has recommended home health with home PT/ OT. Discharge has been done yesterday. She will get call from PCP for follow up appointment. Her only complaint today is lower back pain, which is chronic in nature. She was not getting home percocet, which has no been reordered. Patient denies fever, chills, chest pain, SOB, nausea, vomiting, or abdominal pain. She has no other complaints at this time. Son is in room today and states that he will be taking care of patient at home. He is amenable to discharge today. - Constitutional Vitals: Temp Pulse Resp BP Pulse Ox 98.4 F 89 20 178/76 95 10/31/17 09:00 10/31/17 09:00 10/31/17 09:00 10/31/17 09:00 10/31/17 09:00 General appearance: Present: cooperative, A&O X 3, pleasant, no acute distress, answers questions appropriately - Respiratory Respiratory exam: Present: CTAB. Absent: accessory muscle use, rales, rhonchi, wheezes Additional comments: Normal WOB - Cardiovascular Cardiovascular exam: Present: RRR, +S1, +S2. Absent: diastolic murmur, gallop, rubs, systolic murmur Additional comments: No BLE edema - GI/Abdominal GI/Abdominal exam: Present: normal bowel sounds, soft. Absent: distended, hepatomegaly, mass, splenomegaly, tenderness - Psychiatric Psychiatric exam: Present: normal affect, normal mood. Absent: agitated, anxious, depressed - Skin Skin exam: Present: dry, intact, warm. Absent: cyanosis, rash Internal Medicine: Result - Labs CBC & Chem 7: 10/30/17 03:48 10/30/17 03:48 - ABG Interpretation ABG results: PT/INR, D-dimer PT 12.9 Seconds (9.4-12.1) H 10/27/17 21:44 Consult Discharge Plan - Plan Referrals: Eleazar Vargas MD [Primary Care Provider] - (sent web request on 10-29-17 @ [phone] ) Carlos Mabry DO [Partnered Physician] - (office will call patient at home with follow up appointment)
--- NOTE | 2017-10-31 11:41 | Physician Discharge Referral ---
Home Health/Hosp Referral Info Transfer to: Home Health Provider in Charge Post Discharge: PCP - Diagnosis (1) PAD (peripheral artery disease) Priority: Secondary Status: Chronic (2) CAD (coronary artery disease) Priority: Secondary Status: Chronic (3) Hypertension Priority: Secondary Status: Chronic (4) Acute kidney injury Priority: Secondary Status: Acute (5) Chronic kidney disease, stage III (moderate) Priority: Secondary Status: Chronic (6) Heel ulcer due to DM Priority: Secondary Status: Acute (7) Hyperkalemia Priority: Secondary Status: Resolved (8) Closed head injury Priority: Secondary Status: Acute (9) Syncope Priority: Primary Status: Resolved (10) COPD (chronic obstructive pulmonary disease) Priority: Secondary Status: Chronic (11) Hypoglycemia Priority: Secondary Status: Resolved (12) Anemia Priority: Secondary Status: Acute (13) Symptomatic sinus bradycardia Priority: Secondary Status: Resolved (14) Diabetes mellitus Priority: Secondary Status: Chronic (15) DVT prophylaxis Priority: Secondary Status: Acute - Respiratory Orders None Smoking Cessation: Smoking cessation has been advised. For more information, call the [employer] Tobacco Quit Line at 4-385-TNMKNOW. - Dressing/Wound Care Site: Left Heel Type of Dressing/Treatments w/Frequency: Per podiatry - gentamicin and santyl - Diet/Nutrition Diet/Nutrition Orders: No Added Salt (MARY), Renal, Cardiac, No Concentrated Sweets (Diabetic Diet) Diet/Nutrition: List: Ensure HP with Dinner - Activity Activity: List: Per physical therapy - Services Needed Following services are medically necessary services: Nursing, Physical Therapy, Occupational Therapy - Transfer Medications Home Medications: Aspirin Enteric Coated [Aspirin EC] 81 mg PO DAILY 12/02/14 [History] Clopidogrel [Plavix] 75 mg PO DAILY 12/02/14 [History] Insulin ASPART [Novolog Flexpen] 8 - 10 unit SQ TID PRN 12/02/14 [History] Isosorbide MONOnitrate [Isosorbide Mononitrate ER] 60 mg PO DAILY 12/02/14 [ History] Lisinopril [Zestril] 20 mg PO DAILY 12/02/14 [History] Lovastatin 20 mg PO DAILY 12/02/14 [History] Metoprolol [Lopressor] 25 mg PO BID 12/02/14 [History] OxyCODONE/APAP 10/325 [Percocet 10/325] 10 mg PO Q6HR PRN 12/02/14 [History] Albuterol Neb [Proventil Neb] 2.5 mg IH TID PRN 05/16/16 [History] Dicyclomine [Bentyl] 10 mg PO TID 05/16/16 [History] Ergocalciferol (VITAMIN D2) [Vitamin D2] 50,000 unit PO QWEEK 05/16/16 [History] Simethicone [Gas Relief] 180 mg PO DAILY PRN 05/16/16 [History] Sitagliptin Phosphate [Januvia] 50 mg PO DAILY 05/16/16 [History] Gabapentin [Neurontin] 300 mg PO HS 08/26/17 [History] Multivit-Min/FA/Lycopen/Lutein [A Thru Z Select Multivit Tab] 1 tab PO DAILY 10/08 [History] Insulin ASPART [Novolog Flexpen] 8 - 10 unit SQ BID 10/28/17 [History] Ipratropium/Albuterol Neb [Duoneb] 3 ml IH Q6HR PRN 10/28/17 [History] Sertraline [Zoloft] 10/29/17 [History] Collagenase Oint [Santyl] 1 appl TP BID tube 10/30/17 [Rx] Gentamicin Oint [Garamycin] 1 appl TP BID tube 10/30/17 [Rx] Insulin Glargine,Hum.rec.anlog [Lantus Solostar] 6 unit SQ QPM #0 10/30/17 [Rx] Nicotine Patch [Nicoderm] 14 mg TD DAILY patch.td24 10/30/17 [Rx] Allergies/Adverse Reactions: 3 Allergy/AdvReac Type Severity Reaction Status Date / Time escitalopram [From Lexapro] Allergy Rash Verified 01/23/17 11:54 itraconazole [From Sporanox] Allergy Hives Verified 01/23/17 11:54 Penicillins [PCN] Allergy Rash Verified 01/23/17 11:54 metformin AdvReac Diarrhea Verified 01/23/17 11:54 Certification: Further, I certify that my clinical findings support that this patient is homebound (i.e. absences from home require considerable and taxing effort and are for medical reasons or tenriism services or infrequently or short duration when for other reasons) because: syncope, generalized debility, CKD, CAD, HTN, Type II DM, PAD, COPD, and anemia. Homebound Reason: Patient requires assistance of a person or device to safely leave home, Leaving home requires considerable and taxing effort due to condition Attestation: My signature below is to certify that this patient is under my care and that I, or nurse practitioner, or a physician's front end assistant working with me, has a face-to -face encounter with this patient.
[2017-10-31 11:44] VITALS: BP 172/86
[2017-10-31] MEDS: Gentamicin Oint 15 GM TUBE TP SCH (14:00)
== END 2017-10-31 14:31 | disposition home or self-care (01) | DRG 312 ==
LOC: EMEROO 15:30 → 2NNU 15:30
PROVIDERS: ADMIT Internal Medicine Nephrology; ATTEND Internal Medicine Nephrology

== ENCOUNTER 2018-09-08 18:34 | Inpatient (IN) ==
--- NOTE | 2018-09-08 19:37 | Emergency Department Note ---
Disposition Clinical Impression: Osteomyelitis Qualifiers: Osteomyelitis type: unspecified type Osteomyelitis location: foot Laterality: left Qualified Code(s): M86.9 - Osteomyelitis, unspecified Disposition: Admitted As Inpatient Condition: Fair Time of Disposition: 14:32 Extremity Problem HPI - General Chief complaint: ED Extremity Problem,Nontraumatic Stated complaint: left toe infected (diabetic) Time Seen by Provider: 09/08/18 19:36 Source: patient Mode of arrival: ambulatory Limitations: no limitations Nursing Notes Reviewed: Yes Vital Signs Reviewed: Yes - History of Present Illness HPI Narrative: 59-year-old female past medical history of diabetes, recent vascular surgery performed on the left leg by Dr. Lam as her presenting for a 3 day history of pain in her left great toe with change in color to a white/ashen and lack of sensation. Patient states that these symptoms developed suddenly on Sunday and have been getting worse. Pt Subjective Complaint: extremity pain, cold extremity Onset (ago): day(s) Consistency: Worsening Injury Location: lower extremity (Left great toe) Pain Scale: 9 Quality: stabbing, sharp Radiation: proximal (Patient states pain radiates up the leg to the mid left abad) Improves with: nothing Worsens with: nothing Associated symptoms: Reports: other (Patient states she has been nauseated denies other symptoms.) - Related Data Home Medications Medication Instructions Recorded Confirmed Albuterol Sulfate [Proair Hfa] 2 puff IH Q4H PRN 08/15/18 09/09/18 Amitriptyline [Elavil] 25 mg PO HS 08/15/18 09/09/18 Aspirin [Lo-Dose Aspirin EC] 81 mg PO DAILY 08/15/18 09/09/18 Clopidogrel [Plavix] 75 mg PO DAILY 08/15/18 09/09/18 DULoxetine [Cymbalta] 30 mg PO DAILY 08/15/18 09/09/18 Ergocalciferol (VITAMIN D2) 50,000 unit PO TH 08/15/18 09/09/18 [Vitamin D2] Gabapentin [Neurontin] 300 mg PO HS 08/15/18 09/09/18 Insulin NPH Hum/Reg Insulin Hm 5 unit SQ BID 08/15/18 09/09/18 [Relion Novolin 70-30 Flexpen] Ipratropium/Albuterol Sulfate 1 vial IH Q6H PRN 08/15/18 09/09/18 [Iprat-Albut 0.5-3(2.5) mg/3 ml] Iron Polysaccharide Complex 150 mg PO DAILY 08/15/18 09/09/18 [Ferrex 150] Isosorbide MONOnitrate (24 HR) 60 mg PO DAILY 08/15/18 09/09/18 [Imdur] Lisinopril [Zestril] 20 mg PO DAILY 08/15/18 09/09/18 Lovastatin [Mevacor] 20 mg PO HS 08/15/18 09/09/18 Metoprolol [Lopressor] 25 mg PO BID 08/15/18 09/09/18 OxyCODONE/APAP 10/325 [Percocet 1 tab PO Q6H PRN 08/15/18 09/09/18 10/325 MG] Ropinirole HCl 0.25 mg PO HS 08/15/18 09/09/18 Sertraline [Zoloft] 50 mg PO DAILY 08/15/18 09/09/18 Simethicone [Gas-X] 80 mg PO QID PRN 08/15/18 09/09/18 Sitagliptin Phosphate [Januvia] 50 mg PO DAILY 08/15/18 09/09/18 Vit A/C/E AC/Znox/Cupric Oxide 1 tab PO DAILY 08/15/18 09/09/18 [Eye Vitamin-Minerals Tablet] Allergies Allergy/AdvReac Type Severity Reaction Status Date / Time escitalopram [From Lexapro] Allergy Rash Verified 09/09/18 16:11 itraconazole [From Sporanox] Allergy Hives Verified 09/09/18 16:11 Penicillins [PCN] Allergy Rash Verified 09/09/18 16:11 metformin AdvReac Diarrhea Verified 09/09/18 16:11 Review of Systems: Constitutional: Denies: fever, chills Cardiovascular: Denies: chest pain Respiratory: Denies: dyspnea Gastrointestinal: Patient notes to nausea. Denies: abdominal pain, vomiting, d iarrhea, constipation, hematemesis, melena, hematochezia Genitourinary: Denies: hematuria Musculoskeletal: Denies: back pain, neck pain Integumentary: Denies: rash Neurological: Denies: headache, weakness, numbness, paresthesias Endocrine: Denies: fatigue Hematological/Lymphatic: Denies: easy bleeding, easy bruising, lymphadenopathy All systems ED: reviewed and negative except as stated. Review of Systems: As Per HPI Past Medical History - Past Medical History Source: patient Medical history: Reports: arthritis, asthma, CHF, COPD, coronary artery disease, diabetes, hyperlipidemia, hypertension, renal disease Surgical history: Reports: appendectomy, coronary bypass (CABG), hysterectomy, other, vascular surgery Psychiatric history: Reports: no psych history - Social History Smoking Status: Current every day smoker Smokeless Tobacco Status: No Alcohol use: Reports: none Drug use: Reports: none Physical Exam Constitutional: No acute distress, [id number], engaged to conversation, speech is fluid, answers questions appropriately Neuro: GCS 15, no overt focal neurological deficits Head: Atraumatic, normocephalic Eyes: Pupils equal, round and reactive to light, no scleral icterus, no conjunctival injection Neck: Trachea midline without deviation. Anterior neck is supple without swelling. *Chest: Symmetric chest wall rise *Heart: Cardiac rhythm and rate are regular with S1 and S2 , no S3 or S4 appreciated, no murmurs, gallops, rubs, or clicks. *Lungs: Lungs are clear to auscultation bilaterally, without accessory muscle use or prolonged expiratory phase. No wheezes, rhonchi or stridor appreciated. Abdomen: Abdomen is flat, soft to palpation, normal bowel sounds. No abdominal bruit auscultated. Non-distended, non-rigid, no organomegaly, no ascites appreciated. No pulsatile mass, no tenderness or guarding to palpation in all four quadrants, no rebound Extremities: Normal capillary refill without evidence of pedal edema, joint swelling or erythema. Pulses/motor/sensory intact in all 4 extremities. Psychiatric exam: Patient displays a normal affect and mood for the environment. No overt signs of hallucination. Integumentary: warm, dry, intact, normal color. No rash, cyanosis, diaphoresis, erythema, or pallor Muscle skull: Patient has ashen left great toe above the proximal metatarsal phalangeal joint. There is a hole where nail had been. Patient has no sensation to the toe toe has no capillary refill. Course Course Narrative: CT scan of left foot Immediate release morphine for management of patient pain. Vital Signs Temperature 98.6 F 09/08/18 18:46 Pulse Rate 97 09/08/18 18:46 Respiratory Rate 18 09/08/18 18:46 Blood Pressure 132/88 09/08/18 18:46 O2 Sat by Pulse Oximetry 97 09/08/18 18:46 Temperature 97.5 F L 09/09/18 10:50 Pulse Rate 80 09/09/18 10:50 Respiratory Rate 18 09/09/18 11:33 Blood Pressure 151/67 09/09/18 10:50 O2 Sat by Pulse Oximetry 99 09/09/18 11:33 Oxygen Delivery Oxygen Delivery Room Air Extremity Problem, Nontraumati - MDM Narrative Medical decision making narrative: CT scan shows osteomyelitis of the left great toe Consulted podiatry who recommends clindamycin admission to hospital medicine service Patient verbalizes understanding and agreement with this plan. - Lab Data Lab results reviewed: Yes I reviewed the patient's lab results. Result diagrams: 09/09/18 06:48 09/09/18 06:48 Lab Results 09/08/18 09/08/18 09/08/18 Range/Units 21:02 21:02 21:02 WBC 6.3 (4.3-11.1) K/mcL RBC 2.85 L (3.82-4.97) M/mcL Hgb 8.6 L (11.5-15.4) g/dL Hct 26.5 L (35.3-44.9) % MCV 93.0 (83.0-100.0) fL MCH 30.2 (28.0-33.3) pg MCHC 32.5 (31.6-35.5) g/dL RDW 12.6 (11.5-14.5) % Plt Count 189 (140-400) K/mcL MPV 10.7 (9.4-12.4) fL Immature Gran % 0.2 (0-4) % Seg Neutrophils % 73.4 % Lymphocytes % 11.7 % Monocytes % 9.0 % Eosinophils % 5.2 % Basophils % 0.5 % Neutrophils # 4.6 (1.6-8.9) K/mcL Lymphocytes # 0.7 (0.6-4.6) K/mcL Monocytes # 0.6 (0.0-1.3) K/mcL Eosinophils # 0.3 (0.0-0.6) K/mcL Basophils # 0.0 (0.0-0.2) K/mcL ESR 75 H (0-15) mm/hr Sodium 134 L (136-145) mEq/L Potassium 4.8 (3.5-5.1) mEq/L Chloride 102 (98-107) mEq/L Carbon Dioxide 26 (23-29) mEq/L BUN 27 H (8-23) mg/dL Creatinine 1.11 (0.60-1.20) mg/dL Est GFR ( Amer) 59 L (> 60) Est GFR (Non-Af Amer) 49 L (> 60) BUN/Creatinine Ratio 24 (6-26) Glucose 204 H (70-105) mg/dL Calculated Osmolality 289 (280-300) Calcium 8.8 (8.6-10.3) mg/dL C-Reactive Protein 113 H (Less than 10) mg/L - Radiology Data Radiology results reviewed: Yes I reviewed the patient's radiology results. Foot CT 09/08/18 21:13 IMPRESSION: 1. Soft tissue wound of the distal great toe extending to the underlying bone with osteolysis of the involving the distal phalanx of the great toe consistent with osteomyelitis. No organized drainable fluid collection identified within limits of this exam. D/ / Warren Courtney MD / Warren Courtney MD Interpreting Provider: Warren Courtney MD Attestation Statement - Attestation Attestation: I have seen this patient with the resident physician, I have personally evaluated this patient. I had reviewed the chart and document dictation by the resident physician and aM in agreement with the information documented by the resident physician. Please see documentation by the resident physician for complete chart including past medical history, family medical history, review of systems, current history and physical and laboratory and imaging studies. I was present for all procedures, provided direct supervision for all procedures, was present for the entirety of all procedures and provided direct guidance during the procedures. Please see documentation by the resident physician for any procedures performed. I have reviewed all interpretations of EKGs, and reviewed all EKGs performed on patient's as well. I have also reviewed reports of imaging as provided by radiology.
[2018-09-08 21:13] LABS: Basophils % 0.5 %; Eosinophils # 0.3 K/mcL (0.0-0.6); Eosinophils % 5.2 %; Hematocrit 26.5 % (35.3-44.9); Hemoglobin 8.6 g/dL (11.5-15.4); Immature Granulocytes % 0.2 % (0-4); Lymphocytes # 0.7 K/mcL (0.6-4.6); Lymphocytes % 11.7 %; Mean Corpuscular HGB Conc 32.5 g/dL (31.6-35.5); Mean Corpuscular Hemoglobin 30.2 pg (28.0-33.3); Mean Platelet Volume 10.7 fL (9.4-12.4); Monocytes # 0.6 K/mcL (0.0-1.3); Neutrophils # 4.6 K/mcL (1.6-8.9); Platelet Count 189 K/mcL (140-400); Red Blood Count 2.85 M/mcL (3.82-4.97); Red Cell Distribution Width 12.6 % (11.5-14.5); Segmented Neutrophils % 73.4 %; White Blood Count 6.3 K/mcL (4.3-11.1)
[2018-09-08 21:31] LABS: Calcium 8.8 mg/dL (8.6-10.3); Potassium 4.8 mEq/L (3.5-5.1)
[2018-09-08] MEDS ORDERED: *HR* Morphine Immed Rel 15 MG TABLET PO ONE (22:05)
[2018-09-08] MEDS ORDERED: Clindamycin 900 MG/50 ML 900 MG/50 ML IV.SOLN IVPB ONE (23:17)
--- NOTE | 2018-09-08 23:30 | Emergency Department Note ---
Disposition Clinical Impression: Osteomyelitis Disposition: Admitted As Inpatient Condition: Fair Referrals: NONE,PCP [Non-Partnered Physician] - Forms: ED Satisfaction Letter Time of Disposition: 23:31 Extremity Problem HPI - General Chief complaint: ED Extremity Problem,Nontraumatic Stated complaint: left toe infected (diabetic) Time Seen by Provider: 09/08/18 19:36 Source: patient Mode of arrival: ambulatory Limitations: no limitations - History of Present Illness Consistency: Worsening Injury Location: lower extremity (Left great toe) Pain Scale: 9 Quality: stabbing, sharp Improves with: nothing Worsens with: nothing Associated symptoms: Reports: other (Patient states she has been nauseated denies other symptoms.) - Related Data Home Medications Medication Instructions Recorded Confirmed Albuterol Neb [Proventil Neb] 2.5 mg IH Q4HR PRN 08/15/18 08/15/18 Albuterol Sulfate [Proair Hfa] 2 puff IH Q4H PRN 08/15/18 08/15/18 Amitriptyline [Elavil] 25 mg PO HS 08/15/18 08/15/18 Aspirin [Lo-Dose Aspirin EC] 81 mg PO DAILY 08/15/18 08/15/18 Clopidogrel [Plavix] 75 mg PO DAILY 08/15/18 08/15/18 DULoxetine [Cymbalta] 30 mg PO DAILY 08/15/18 08/15/18 Ergocalciferol (VITAMIN D2) 50,000 unit PO TH 08/15/18 08/15/18 [Vitamin D2] Gabapentin [Neurontin] 300 mg PO HS 08/15/18 08/15/18 Insulin NPH Hum/Reg Insulin Hm 5 unit SQ BID 08/15/18 08/15/18 [Relion Novolin 70-30 Flexpen] Ipratropium/Albuterol Sulfate 1 vial IH Q6H PRN 08/15/18 08/15/18 [Iprat-Albut 0.5-3(2.5) mg/3 ml] Iron Polysaccharide Complex 150 mg PO DAILY 08/15/18 08/15/18 [Ferrex 150] Isosorbide MONOnitrate (24 HR) 60 mg PO DAILY 08/15/18 08/15/18 [Imdur] Lisinopril [Zestril] 20 mg PO DAILY 08/15/18 08/15/18 Lovastatin [Mevacor] 20 mg PO HS 08/15/18 08/15/18 Metoprolol [Lopressor] 25 mg PO BID 08/15/18 08/15/18 OxyCODONE/APAP 10325 [Percocet 1 tab PO Q6H PRN 08/15/18 08/15/18 10/325 MG] Ropinirole HCl 0.25 mg PO HS 08/15/18 08/15/18 Sertraline [Zoloft] 50 mg PO DAILY 08/15/18 08/15/18 Simethicone [Gas-X] 80 mg PO QID PRN 08/15/18 08/15/18 Sitagliptin Phosphate [Januvia] 50 mg PO DAILY 08/15/18 08/15/18 Vit A/C/E AC/Znox/Cupric Oxide 1 tab PO DAILY 08/15/18 08/15/18 [Eye Vitamin-Minerals Tablet] Allergies Allergy/AdvReac Type Severity Reaction Status Date / Time escitalopram [From Lexapro] Allergy Rash Verified 01/23/17 11:54 itraconazole [From Sporanox] Allergy Hives Verified 01/23/17 11:54 Penicillins [PCN] Allergy Rash Verified 01/23/17 11:54 metformin AdvReac Diarrhea Verified 01/23/17 11:54 Past Medical History - Past Medical History Medical history: Reports: arthritis, asthma, CHF, COPD, coronary artery disease, diabetes, hyperlipidemia, hypertension, renal disease Surgical history: Reports: appendectomy, coronary bypass (CABG), hysterectomy, other, vascular surgery Psychiatric history: Reports: no psych history - Social History Smoking Status: Current every day smoker Smokeless Tobacco Status: No Alcohol use: Reports: none Drug use: Reports: none Physical Exam - General Limitations: no limitations Course Vital Signs Temperature 98.6 F 09/08/18 18:46 Pulse Rate 97 09/08/18 18:46 Respiratory Rate 18 09/08/18 18:46 Blood Pressure 132/88 09/08/18 18:46 O2 Sat by Pulse Oximetry 97 09/08/18 18:46 Temperature 98.6 F 09/08/18 19:47 Pulse Rate 97 09/08/18 19:47 Respiratory Rate 18 09/08/18 19:47 Blood Pressure 132/88 09/08/18 19:47 O2 Sat by Pulse Oximetry 97 09/08/18 19:47 Oxygen Delivery Oxygen Delivery Room Air Extremity Problem, Nontraumati - Lab Data Result diagrams: 09/08/18 21:02 09/08/18 21:02 Lab Results 09/08/18 09/08/18 09/08/18 Range/Units 21:02 21:02 21:02 WBC 6.3 (4.3-11.1) K/mcL RBC 2.85 L (3.82-4.97) M/mcL Hgb 8.6 L (11.5-15.4) g/dL Hct 26.5 L (35.3-44.9) % MCV 93.0 (83.0-100.0) fL MCH 30.2 (28.0-33.3) pg MCHC 32.5 (31.6-35.5) g/dL RDW 12.6 (11.5-14.5) % Plt Count 189 (140-400) K/mcL MPV 10.7 (9.4-12.4) fL Immature Gran % 0.2 (0-4) % Seg Neutrophils % 73.4 % Lymphocytes % 11.7 % Monocytes % 9.0 % Eosinophils % 5.2 % Basophils % 0.5 % Neutrophils # 4.6 (1.6-8.9) K/mcL Lymphocytes # 0.7 (0.6-4.6) K/mcL Monocytes # 0.6 (0.0-1.3) K/mcL Eosinophils # 0.3 (0.0-0.6) K/mcL Basophils # 0.0 (0.0-0.2) K/mcL ESR 75 H (0-15) mm/hr Sodium 134 L (136-145) mEq/L Potassium 4.8 (3.5-5.1) mEq/L Chloride 102 (98-107) mEq/L Carbon Dioxide 26 (23-29) mEq/L BUN 27 H (8-23) mg/dL Creatinine 1.11 (0.60-1.20) mg/dL Est GFR ( Amer) 59 L (> 60) Est GFR (Non-Af Amer) 49 L (> 60) BUN/Creatinine Ratio 24 (6-26) Glucose 204 H (70-105) mg/dL Calculated Osmolality 289 (280-300) Calcium 8.8 (8.6-10.3) mg/dL C-Reactive Protein 113 H (Less than 10) mg/L Attestation Statement - Attestation Attestation: I have seen this patient with the resident physician, I have personally evaluated this patient. I had reviewed the chart and document dictation by the resident physician and aM in agreement with the information documented by the resident physician. Please see documentation by the resident physician for complete chart including past medical history, family medical history, review of systems, current history and physical and laboratory and imaging studies. I was present for all procedures, provided direct supervision for all procedures, was present for the entirety of all procedures and provided direct guidance during the procedures. Please see documentation by the resident physician for any procedures performed. I have reviewed all interpretations of EKGs, and reviewed all EKGs performed on patient's as well. I have also reviewed reports of imaging as provided by radiology. Patient presented to the emergency department with chief complaint of left great toe pain no purple discoloration and drainage. Patient went to her art therapy specialist last week and had it drained in the office with partial removal of the toenail and it is worsened since that time. Patient is a diabetic she also has peripheral vascular disease. She has normal palpable pulses, her left great toe demonstrates purple dis coloration, slight weeping, with a hole noted at the distal aspect of the nail bed with obvious recent manipulation of the toenail, there is some slight redness to the skin but no warmth. There is no lymphangitis. CT of the foot showed evidence for osteomyelitis of the great toe. Basic laboratory studies showed chronic anemia, no leukocytosis, however significantly elevated sedimentation rate of 70 and CRP of 113. She was started on IV antibiotics was provided pain medication podiatry was contacted for consultation and patient will be admitted to the hospital. Podiatry requested IV clindamycin
[2018-09-09] MEDS ORDERED: OXYCODONE Oral CONC 10 MG/0.5 ML ORAL.SYG SL PRN (02:57)
[2018-09-09] MEDS ORDERED: Naloxone 0.4 MG/ML INJ IVP PRN (02:57)
[2018-09-09] MEDS ORDERED: 0.9 % Sodium Chloride 1,000 ML IVC ONE ×2 (02:59→08:59)
--- NOTE | 2018-09-09 03:09 | Internal Med History&Physical ---
Date of Encounter: 09/09/18 Time of Encounter: 02:42 Internal Medicine - H&P: HPI Chief complaint: Osteomyelitis Admitted From: Emergency Dept Plans for Post Hospital Care: Home History of present illness: Ms. Sepulveda is a 67 year old female Patient presented to the emergency room for three-day history of left great toe pain. She recently had an ingrown toenail removed on the toe on August 28. She states she has been keeping the toe clean and dry since the procedure. She was to follow-up with podiatry after 3 weeks. She developed pain and discoloration of her toe 3 days ago and it has progressively worsened. Her son and daughter convinced her to come to the hospital for further evaluation. In the emergency room patient's initial vital signs were within normal limits. CBC revealed a white count of 6.3 and hemoglobin of 8.6. BMP showed chronic kidney disease with a GFR 49 and a glucose of 204. CRP was 113 and ESR was 75.CT of the left foot was performed: IMPRESSION: 1. Soft tissue wound of the distal great toe extending to the underlying bone with osteolysis of the involving the distal phalanx of the great toe consistent with osteomyelitis. No organized drainable fluid collection identified within limits of this exam. Podiatry was called and recommended clindamycin, and will consult on the patient in the morning. She was admitted to the hospital for further management. Upon my assessment, patient is resting comfortably in hospital bed in no acute distress. Her family is at bedside. She denies chest pain, abdominal pain, nausea, vomiting, diarrhea and constipation. She has a past medical history of diabetes has a previous foot ulcer on the left foot at the heel. This has since healed. She also has significant recent history of left femoral popliteal artery bypass graft thrombectomy as well as left iliofemoral endarterectomy. This was performed on August 15. At the time of the procedure she did have a superficial ulceration of the left great toe. She also has history of Charcot foot on the right. She is a half-pack to pack-a-day smoker, denies alcohol and other drugs. She is family history of heart disease as well as diabetes, and she is a DNR/DNI. Past Med Surg Social Fam HX - Past Medical History Medical history: arthritis, asthma, CHF, COPD, coronary artery disease, diab etes, hyperlipidemia, hypertension, renal disease Additional medical history: 3 stents Psychiatric history: no psych history - Past Surgical History Surgical History: appendectomy, coronary bypass (CABG), hysterectomy, other, vascular surgery Additional surgical history: Colonoscopy - Social History Smoking Status: Current every day smoker Smokeless Tobacco Status: No Alcohol use: none Drug use: none - Family History Mother Adopted: No Living Status: Hx Family Cardiac Disorders: Yes Hx Family Respiratory Disorders: Yes Hx Family Endocrine Disorder: Yes Father Adopted: No Living Status: Hx Family Cardiac Disorders: Yes Hx Family Respiratory Disorders: Yes Hx Family Cancer: No Internal Medicine - H&P: Meds Albuterol Neb [Proventil Neb] 2.5 mg IH Q4HR PRN 08/15/18 [History] Albuterol Sulfate [Proair Hfa] 2 puff IH Q4H PRN 08/15/18 [History] Amitriptyline [Elavil] 25 mg PO HS 08/15/18 [History] Aspirin [Lo-Dose Aspirin EC] 81 mg PO DAILY 08/15/18 [History] Clopidogrel [Plavix] 75 mg PO DAILY 08/15/18 [History] DULoxetine [Cymbalta] 30 mg PO DAILY 08/15/18 [History] Ergocalciferol (VITAMIN D2) [Vitamin D2] 50,000 unit PO TH 08/15/18 [History] Gabapentin [Neurontin] 300 mg PO HS 08/15/18 [History] Insulin NPH Hum/Reg Insulin Hm [Relion Novolin 70-30 Flexpen] 5 unit SQ BID 08/15/18 [History] Ipratropium/Albuterol Sulfate [Iprat-Albut 0.5-3(2.5) mg/3 ml] 1 vial IH Q6H PRN 08/15/18 [History] Iron Polysaccharide Complex [Ferrex 150] 150 mg PO DAILY 08/15/18 [History] Isosorbide MONOnitrate (24 HR) [Imdur] 60 mg PO DAILY 08/15/18 [History] Lisinopril [Zestril] 20 mg PO DAILY 08/15/18 [History] Lovastatin [Mevacor] 20 mg PO HS 08/15/18 [History] Metoprolol [Lopressor] 25 mg PO BID 08/15/18 [History] OxyCODONE/APAP 10/325 [Percocet 10/325 MG] 1 tab PO Q6H PRN 08/15/18 [History] Ropinirole HCl 0.25 mg PO HS 08/15/18 [History] Sertraline [Zoloft] 50 mg PO DAILY 08/15/18 [History] Simethicone [Gas-X] 80 mg PO QID PRN 08/15/18 [History] Sitagliptin Phosphate [Januvia] 50 mg PO DAILY 08/15/18 [History] Vit A/C/E AC/Znox/Cupric Oxide [Eye Vitamin-Minerals Tablet] 1 tab PO DAILY 08/15/18 [History] Allergy/AdvReac Type Severity Reaction Status Date / Time escitalopram [From Lexapro] Allergy Rash Verified 01/23/17 11:54 itraconazole [From Sporanox] Allergy Hives Verified 01/23/17 11:54 Penicillins [PCN] Allergy Rash Verified 01/23/17 11:54 metformin AdvReac Diarrhea Verified 01/23/17 11:54 All Systems PM: A 10-system review of systems was performed and is negative for pertinent findings except as documented above in the HPI. - Constitutional Vitals: Temp Pulse Resp BP Pulse Ox 99.6 F 74 16 185/70 95 09/09/18 02:29 09/09/18 02:29 09/09/18 02:29 09/09/18 02:29 09/09/18 02:29 General appearance: Present: cooperative, A&O X 3, pleasant, no acute distress, answers questions appropriately Exam: - - Head Head exam: Present: normal inspection - Eye Eye exam: Present: EOMI, normal appearance - Respiratory Respiratory exam: Present: wheezes. Absent: CTAB, rales, respiratory distress, rhonchi - Cardiovascular Cardiovascular exam: Present: RRR. Absent: diastolic murmur, systolic murmur - GI/Abdominal GI/Abdominal exam: Present: normal bowel sounds, soft. Absent: tenderness - Extremities Exam Extremities exam: Present: tenderness, warm, radial pulses palpable and symmetr ical. Absent: pedal edema Additional comments: Left great toe: darkened skin surrounding toe nail, most of toe nail removed. Dried blood surrounding nailbed. Pain with movement and decreased sensation to midfoot. Healed heel ulceration - Neurological Exam Neurological exam: Present: motor sensory deficit, no focal deficits, strengths equal and symetr throughout. Absent: facial droop, speech deficit Additional comments: Decreased sensation bilaterally lower extremities - Skin Skin exam: Present: dry, warm Additional comments: dark discoloration of left great toe Internal Med - H&P Results - Labs CBC & Chem 7: 09/08/18 21:02 09/08/18 21:02 Labs: Short CBC 09/08/18 Range/Units 21:02 WBC 6.3 (4.3-11.1) K/mcL Hgb 8.6 L (11.5-15.4) g/dL Hct 26.5 L (35.3-44.9) % Plt Count 189 (140-400) K/mcL Neutrophils # 4.6 (1.6-8.9) K/mcL BMP 09/08/18 21:02 Sodium 134 L Potassium 4.8 Chloride 102 Carbon Dioxide 26 BUN 27 H Creatinine 1.11 Glucose 204 H Calcium 8.8 - Impressions ITS Impressions Foot CT 09/08/18 21:13 IMPRESSION: 1. Soft tissue wound of the distal great toe extending to the underlying bone with osteolysis of the involving the distal phalanx of the great toe consistent with osteomyelitis. No organized drainable fluid collection identified within limits of this exam. D/ / Warren Courtney MD / Warren Courtney MD Interpreting Provider: Warren Courtney MD - Assessment and Plan (1) Osteomyelitis Current Visit: Yes Status: Acute Assessment and plan: Osteomyelitis of the left great toe as seen on foot CT. Podiatry contacted in ER, recommended starting clindamcin. Podiatry will see in the morning. Significant history of ingrown toenail removal on this toe nearly 2 weeks ago. Follow up podiatry recommendations Continue IV antibiotics Obtain and follow up on blood cultures Qualifiers: Osteomyelitis type: unspecified type Osteomyelitis location: foot Laterality: left Qualified Code(s): M86.9 - Osteomyelitis, unspecified (2) Chronic disease anemia Current Visit: No Status: Chronic Assessment and plan: Patient has history of anemia, baseline 9-11. Currently hemoglobin is 8.6. Continue to monitor hemoglobin Repeat cbc in AM (3) Chronic kidney disease, stage III (moderate) Current Visit: No Status: Chronic Assessment and plan: at baseline currently. Continue to monitor renally dose meds Avoid nephrotoxic medications (4) Diabetes mellitus Current Visit: No Status: Chronic Assessment and plan: Patient is an insulin dependent diabetic Monitor sugars Q6H NPO Low dose insulin sliding scale as needed Hold home meds. Qualifiers: Diabetes mellitus type: type 2 Diabetes mellitus senior care insulin use: with long term care administrator use Diabetes mellitus complication status: with circulatory complication Diabetes mellitus complication detail: with peripheral angiopathy without gangrene Qualified Code(s): E11.51 - Type 2 diabetes mellitus with d iabetic peripheral angiopathy without gangrene; Z79.4 - group home (current) use of insulin (5) COPD (chronic obstructive pulmonary disease) Current Visit: No Status: Chronic Assessment and plan: Patient wheezy on exam. Uses breathing treatments at home. PRN breathing treatments Qualifiers: COPD type: unspecified COPD Qualified Code(s): J44.9 - Chronic obstructive pulmonary disease, unspecified (6) Tobacco dependence Current Visit: No Status: Chronic Assessment and plan: Patient declines nicotine patch (7) DVT prophylaxis Current Visit: No Status: Acute Assessment and plan: SCDs - Time Spent With Patient Total time spent is greater than 50% in coordination of care (as documented) at patient's floor/unit and/or counseling patient:
[2018-09-09] MEDS ORDERED: Ipratropium/Albuterol Neb 3 ML IH PRN (03:44)
[2018-09-09] MEDS ORDERED: D5% in Water 1,000 ML IVC PRN (03:48)
[2018-09-09] MEDS ORDERED: *HR* Dextrose 50 % in Water (Syg) 50 ML SYRINGE IVP PRN (03:48)
[2018-09-09] MEDS ORDERED: Dextrose Gel 15 GM/37.5 ML TUBE PO PRN ×2 (03:48)
[2018-09-09] MEDS: OXYCODONE Oral CONC 10 MG/0.5 ML ORAL.SYG SL PRN ×4 (04:11→19:00)
[2018-09-09] MEDS ORDERED: Insulin LISPRO 300 UNITS/3 ML VIAL SQ SCH ×3 (06:00→21:00)
[2018-09-09 07:04] LABS: Hematocrit 25.6 % (35.3-44.9); Hemoglobin 8.4 g/dL (11.5-15.4); Mean Corpuscular HGB Conc 32.8 g/dL (31.6-35.5); Mean Corpuscular Hemoglobin 30.2 pg (28.0-33.3); Mean Corpuscular Volume 92.1 fL (83.0-100.0); Mean Platelet Volume 10.7 fL (9.4-12.4); Platelet Count 176 K/mcL (140-400); Red Blood Count 2.78 M/mcL (3.82-4.97); Red Cell Distribution Width 12.4 % (11.5-14.5); White Blood Count 5.7 K/mcL (4.3-11.1)
[2018-09-09 07:24] LABS: BUN/Creatinine Ratio 22 (6-26); Blood Urea Nitrogen 24 mg/dL (8-23); Calcium 9.2 mg/dL (8.6-10.3); Carbon Dioxide 24 mEq/L (23-29); Chloride 103 mEq/L (98-107); Glucose 127 mg/dL (70-105); Osmolality,Calculated 286 (280-300); Potassium 4.9 mEq/L (3.5-5.1); Sodium 135 mEq/L (136-145); eGFR For African Americans > 60 (> 60); eGFR For Non-African Americans 50 (> 60)
--- NOTE | 2018-09-09 08:56 | Event Note ---
Date of Encounter: 09/09/18 Time of Encounter: 08:55 Patient seen and examined this morning in with her. No acute overnight events. Admitted overnight for osteomyelitis of left great toe seen on CT. Started on clindamycin and maintenance IV fluids. Patient significantly short of breath and wheezing this morning. Denies any chest pain. Does not use any inhaled steroids for her COPD and continues to smoke. We will start patient on duo nebs scheduled and steroids. Patient's right foot dusky in color below mid leg level and toe ulceration noted with necrosis. Continue with clindamycin. Podiatry consulted for osteomyelitis.
[2018-09-09] MEDS: Ipratropium/Albuterol Neb 3 ML IH SCH ×4 (09:43→20:11)
[2018-09-09] MEDS: Clindamycin 600 MG/50 ML 600 MG/50 ML IV.SOLN IVPB SCH ×2 (09:57→17:12)
[2018-09-09] MEDS: methylPREDNISolone 125 MG/2 ML VIAL IVP SCH (09:57)
--- NOTE | 2018-09-09 10:19 | Podiatry Consult Note ---
Date of Encounter: 09/09/18 Time of Encounter: 09:30 Assessment and Plan (1) Ischemic toe ulcer Current visit: Yes Status: Acute Assessment: -Left distal great toe bluish/purple in color with sloughing and hyperkeratotic tissue. Toe nail absent. No drainage noted. Fluctance noted at distal lateral aspect. No cellulitis, no lymphangitis noted. -Nonpalpable pulses LLE, unable to obtain pulse with Doppler -Cap refill sluggish -Extremity dusky and cooler to touch in comparison to right lower extremity -WBC 5.7 -Patient receiving IV Clindamycin -CT showed evidence of soft tissue wound distal great toe extending to the underlying bone with osteolysis involving the distal phalanx of the great toe consistent with osteomyelitis. No organized drainable fluid collection identified within limits of the exam. -Blood cultures ordered Plan: -Left great toe flushed with sterile saline. Due to concern for vascular status only the hyperkeratotic tissue was removed using sterile suture scissors and pick-ups from distal plantar aspect revealing a 1 cm x 1cm ulcer that does have an area open at the distal medial aspect that probes to bone. -No drainage. -Site flushed well with sterile saline, painted with betadine, and covered with 4x4 dry gauze and secured with Kerlix and tape. -ABIs and TCP O2 -Pending SILVIA results may recommend vascular consult -Heel medix boots to bilateral extremities at all times while in bed, nursing to obtain from [employer] -Possible I&D, amputation of left great toe, loss of lower extremity discussed with patient and family -Okay for patient to eat -Discussed with patient the importance of her stopping smoking to promote wound healing and prevent further complication -Will continue to monitor Qualifiers: Laterality: left Non-pressure ulcer stage: with fat layer exposed Qualified Code(s): L97.522 - Non-pressure chronic ulcer of other part of left foot with fat layer exposed (2) Diabetes mellitus Current visit: No Status: Chronic Assessment: -Blood sugar 127 -A1c 7.5 on 08/14/2018 Plan: -Tight glycemic control to prevent further complications and promote wound healing - primary managing Qualifiers: Diabetes mellitus type: type 2 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 Sepulveda is a 67 year old female who presented to the Emergency Room (ER) yesterday evening with complaints of pain and discoloration to the left great toe. Patient recently underwent bypass to the left lower extremity by Dr. Joaquim aranda on 08/15/2018 and had a debridement of an ulcer to her left great toe by Dr. Andrews on 08/28/2018. Patient does have a past medical history of arthritis, asthma, CHF, COPD, coronary artery disease, diabetes, hyperlipidemia, hypertension, renal disease, appendectomy, coronary bypass (CABG), hysterectomy, and other vascular surgery. She reports her family noted the changes to her foot while changing her dressing on Sunday and noticed Sunday it looked worse and brought her to the ER. A CBC was obtained and WBC 6.3, ESR 75, and CRP 113. Last Hgb A1c was 7.5 on 08/14/2018. A CT was obtained and showed evidence of soft tissue wound distal great toe extending to the underlying bone with osteolysis involving the distal phalanx of the great toe consistent with osteomyelitis. No organized drainable fluid collection identified within limits of the exam. Upon meeting with patient she is alert and oriented x 3, no apparent distress noted sitting in bed with head elevated. She does report shortness of breath, history of COPD and receiving breathing treatment. She denies any chest pain. Patient does report some calf tenderness. She does report fever, nothing over 100 degrees, and highest temperature recorded since admission was 99.6. She reports chills and denies any n/v/d. Patient denies chest pain. She denies any drainage. Patient does report she is smoker, less than a pack per day, and she denies alcohol or illicit drug use. Past Med Surg Social Fam HX - Past Medical History Medical history: arthritis, asthma, CHF, COPD, coronary artery disease, diabetes, hyperlipidemia, hypertension, renal disease Additional medical history: 3 stents Psychiatric history: no psych history - Past Surgical History Surgical History: appendectomy, coronary bypass (CABG), hysterectomy, other, vascular surgery Additional surgical history: Colonoscopy - Social History Smoking Status: Current every day smoker Smokeless Tobacco Status: No Alcohol use: none Drug use: none - Family History Mother Adopted: No Living Status: Hx Family Cardiac Disorders: Yes Hx Family Respiratory Disorders: Yes Hx Family Endocrine Disorder: Yes Father Adopted: No Living Status: Hx Family Cardiac Disorders: Yes Hx Family Respiratory Disorders: Yes Hx Family Cancer: No Medications and Allergies Albuterol Sulfate [Proair Hfa] 2 puff IH Q4H PRN 08/15/18 [History] Amitriptyline [Elavil] 25 mg PO HS 08/15/18 [History] Aspirin [Lo-Dose Aspirin EC] 81 mg PO DAILY 08/15/18 [History] Clopidogrel [Plavix] 75 mg PO DAILY 08/15/18 [History] DULoxetine [Cymbalta] 30 mg PO DAILY 08/15/18 [History] Ergocalciferol (VITAMIN D2) [Vitamin D2] 50,000 unit PO TH 08/15/18 [History] Gabapentin [Neurontin] 300 mg PO HS 08/15/18 [History] Insulin NPH Hum/Reg Insulin Hm [Relion Novolin 70-30 Flexpen] 5 unit SQ BID 08/15/18 [History] Ipratropium/Albuterol Sulfate [Iprat-Albut 0.5-3(2.5) mg/3 ml] 1 vial IH Q6H PRN 08/15/18 [History] Iron Polysaccharide Complex [Ferrex 150] 150 mg PO DAILY 08/15/18 [History] Isosorbide MONOnitrate (24 HR) [Imdur] 60 mg PO DAILY 08/15/18 [History] Lisinopril [Zestril] 20 mg PO DAILY 08/15/18 [History] Lovastatin [Mevacor] 20 mg PO HS 08/15/18 [History] Metoprolol [Lopressor] 25 mg PO BID 08/15/18 [History] OxyCODONE/APAP 10/325 [Percocet 10/325 MG] 1 tab PO Q6H PRN 08/15/18 [History] Ropinirole HCl 0.25 mg PO HS 08/15/18 [History] Sertraline [Zoloft] 50 mg PO DAILY 08/15/18 [History] Simethicone [Gas-X] 80 mg PO QID PRN 08/15/18 [History] Sitagliptin Phosphate [Januvia] 50 mg PO DAILY 08/15/18 [History] Vit A/C/E AC/Znox/Cupric Oxide [Eye Vitamin-Minerals Tablet] 1 tab PO DAILY 08/15/18 [History] Allergy/AdvReac Type Severity Reaction Status Date / Time escitalopram [From Lexapro] Allergy Rash Verified 01/23/17 11:54 itraconazole [From Sporanox] Allergy Hives Verified 01/23/17 11:54 Penicillins [PCN] Allergy Rash Verified 01/23/17 11:54 metformin AdvReac Diarrhea Verified 01/23/17 11:54 All Systems Reviewed: The remainder of the systems were reviewed and are negative Review of systems: As per HPI. - Constitutional Constitutional: fever(s) - Cardiovascular Cardiovascular: no chest pain - Respiratory Respiratory: dyspnea Additional comments: History of COPD, states this is her norm, receiving breathing treatment, no apparent distress noted Physical Exam - Constitutional Vitals: Temp Pulse Resp BP Pulse Ox 97.7 F 72 18 149/66 89 09/09/18 07:38 09/09/18 07:38 09/09/18 09:46 09/09/18 07:38 09/09/18 09:46 Exam: Constitutional: Alert and oriented x 3, no acute distress noted Vascular: Left lower extremity dusky and cool to touch compared to right, no palpable pulses left PT/DP, unable to obtain with Doppler, right lower extremity warm and pulses 2+ PT/DP. Cap refill sluggish to left lower extremity, cap refill less than 3 seconds RLE. No pain with calf squeeze. Neurological: Proprioception intact, abnormal dorsal reflex Dermatological: Left distal great toe bluish/purple in color with sloughing and hyperkeratotic tissue. Toe nail absent. No drainage noted. Fluctance noted at distal lateral aspect. No cellulitis, no lymphangitis noted. Musculoskeletal: 4/5 muscle strength, normal muscle tone Results - Labs Result Diagrams: 09/09/18 06:48 09/09/18 06:48 Labs: Abnormal lab results RBC 2.78 M/mcL (3.82-4.97) L 09/09/18 06:48 Hgb 8.4 g/dL (11.5-15.4) L 09/09/18 06:48 Hct 25.6 % (35.3-44.9) L 09/09/18 06:48 ESR 75 mm/hr (0-15) H 09/08/18 21:02 Sodium 135 mEq/L (136-145) L 09/09/18 06:48 BUN 24 mg/dL (8-23) H 09/09/18 06:48 Est GFR ( Amer) 59 (> 60) L 09/08/18 21:02 Est GFR (Non-Af Amer) 50 (> 60) L 09/09/18 06:48 Glucose 127 mg/dL (70-105) H 09/09/18 06:48 POC Glucose 146 mg/dL (70-99) H 09/09/18 06:08 113 mg/L (Less than 10) H 09/08/18 21:02 H & H 09/08/18 09/09/18 Range/Units 21:02 06:48 Hgb 8.6 L 8.4 L (11.5-15.4) g/dL Hct 26.5 L 25.6 L (35.3-44.9) % All other labs normal. Consult Discharge Plan - Plan Referrals: Eleazar Vargas MD [Primary Care Provider] -
[2018-09-09] MEDS ORDERED: Lisinopril 20 MG TABLET PO SCH (16:45)
[2018-09-09] MEDS: Isosorbide MONOnitrate (24 HR) 60 MG TAB.ER.24H PO SCH (17:10)
[2018-09-10] MEDS: Clindamycin 600 MG/50 ML 600 MG/50 ML IV.SOLN IVPB SCH ×3 (00:01→16:59)
[2018-09-10] MEDS: OXYCODONE Oral CONC 10 MG/0.5 ML ORAL.SYG SL PRN ×4 (00:05→20:37)
[2018-09-10] MEDS: Insulin LISPRO 300 UNITS/3 ML VIAL SQ SCH ×6 (00:11→20:36)
[2018-09-10] MEDS: Ipratropium/Albuterol Neb 3 ML IH SCH ×7 (00:15→23:49)
[2018-09-10] MEDS: methylPREDNISolone 125 MG/2 ML VIAL IVP SCH (08:10)
[2018-09-10] MEDS: Isosorbide MONOnitrate (24 HR) 60 MG TAB.ER.24H PO SCH (08:10)
--- NOTE | 2018-09-10 08:37 | Internal Med Progress Note ---
Hospitalist Progress Note - Encounter Date of Encounter: 09/10/18 Time of Encounter: 08:35 - Subjective Interval History: Seen and examined this morning. No acute overnight events. Breathing improved. Complaints of left foot pain, slightly better than yesterday. Afebrile hemodynamically stable. Denies any other complaints. - Exam Vitals: Temp Pulse Resp BP Pulse Ox 98.0 F 78 19 168/65 99 09/10/18 06:56 09/10/18 06:56 09/10/18 06:56 09/10/18 06:56 09/10/18 06:56 Exam: General: In no acute distress. Respiratory exam: no accessory muscle use. occasional rhonchi Cardiovascular exam: RRR, +S1, +S2. no murmur, gallop, rubs. midline scar GI/Abdominal exam: Non-tender, Non-distended, normal bowel sounds, soft, no peritoneal signs. Extremities exam: no pedal edema, absent pulse on Lt foot. no calf tenderness. Lt foot with bandage and boots Neurological exam: CN II-XII intact, AO X3, no focal deficits. Skin exam: Lt leg slightly duskly - Assessment and Plan (1) Ischemic toe ulcer Current Visit: Yes Status: Acute (2) Osteomyelitis Current Visit: Yes Status: Acute (3) Anemia Current Visit: No Status: Acute (4) Atherosclerosis of left lower extremity with ulceration Current Visit: No Status: Acute (5) DVT prophylaxis Current Visit: No Status: Acute (6) Chronic kidney disease, stage III (moderate) Current Visit: No Status: Chronic (7) Diabetes mellitus Current Visit: No Status: Chronic (8) COPD exacerbation Current Visit: Yes Status: Acute (9) CAD (coronary artery disease) Current Visit: No Status: Chronic - Summary of Assessment and Plan Summary of Assessment and Plan: Assessment Lt toe osteomyelitis COPD exacerbation CAD PAD Chronic anemia CKD-3 DM smoker DVT prophylaxis Plan - Continue empiric clindamycin for osteomyelitis. f/u Blood culture - Podiatry following. Possible I&D vs possible amputation. Vascular surgery consulted. Recent fem-pop bypass on left. Decreased SILVIA on left at 0.48. - Continue scheduled bronchodilators and solumedrol. Breathing improved - c/w SSI and accuchecks. BG well controlled - c/w home aspirin, imdur, lisinopril betablocker. Start high intensity statin instead of simvastatin - Start home gabapentin and iron supplementation - Discussed smoking cessation - Time Spent with Patient Total time spent is greater than 50% in coordination of care (as documented) at patient's floor/unit and/or counseling patient: Internal Medicine: Result - Labs CBC & Chem 7: 09/09/18 06:48 09/09/18 06:48 Consult Discharge Plan - Plan Referrals: Eleazar Vargas MD [Primary Care Provider] - (1) Ischemic toe ulcer Qualifiers: Laterality: left Non-pressure ulcer stage: with fat layer exposed Qualified Code(s): L97.522 - Non-pressure chronic ulcer of other part of left foot with fat layer exposed (2) Osteomyelitis Qualifiers: Osteomyelitis type: unspecified type Osteomyelitis location: foot Laterality: left Qualified Code(s): M86.9 - Osteomyelitis, unspecified (3) Anemia Qualifiers: Anemia type: unspecified type Qualified Code(s): D64.9 - Anemia, unspecified (4) Atherosclerosis of left lower extremity with ulceration Qualifiers: Peripheral atherosclerosis artery type: bypass graft, nonbiological Lower extremity ulceration location: other part of foot Qualified Code(s): I70.645 - 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 transplanted heart: [place] heart Associated angina: without angina Qualified Code(s): I25.810 - Atherosclerosis of coronary artery bypass graft(s) without angina pectoris
--- NOTE | 2018-09-10 09:29 | Vascular/Endovasc Consult Note ---
Date of Encounter: 09/10/18 Time of Encounter: 08:40 Assessment and Plan (1) Atherosclerosis of left lower extremity with ulceration Current Visit: No Status: Chronic The patient is a long history of peripheral vascular disease with ulceration. She previously undergone a left femoral to popliteal artery bypass graft. She has required graft from between the past. She now has recurrent graft occlusion. Her left ankle-brachial index is consistent with severe disease. She has gangrenous changes in his left great toe with a surrounding cellulitis into the left mid calf. She will continue with intravenous antibiotics. Due to the extent for cellulitis, surgery will be delayed so the patient may receive intravenous antibiotics. The patient ultimately will need a graft thrombectomy with possible revision. Qualifiers: Peripheral atherosclerosis artery type: bypass graft, nonbiological Lower extremity ulceration location: other part of foot Qualified Code(s): I70.645 - Atherosclerosis of nonbiological bypass graft(s) of the left leg with ulceration of other part of foot (2) CAD (coronary artery disease) Current Visit: No Status: Chronic Qualifiers: Coronary Disease-Associated Artery/Lesion type: bypass graft [place] vs. transplanted heart: [place] heart Associated angina: without angina Qualified Code(s): I25.810 - Atherosclerosis of coronary artery bypass graft(s) without angina pectoris (3) COPD (chronic obstructive pulmonary disease) Current Visit: No Status: Chronic Qualifiers: COPD type: unspecified COPD Qualified Code(s): J44.9 - Chronic obstructive pulmonary disease, unspecified (4) Chronic disease anemia Current Visit: No Status: Chronic (5) Chronic kidney disease, stage III (moderate) Current Visit: No Status: Chronic (6) Hypertension Current Visit: No Status: Chronic She was counseled regarding atherosclerotic risk factor reduction. Qualifiers: Hypertension type: essential hypertension Qualified Code(s): I10 - Essential (primary) hypertension (7) Tobacco dependence Current Visit: No Status: Chronic She was counseled regarding smoking cessation. - History of Present Illness Consult date: 09/10/18 Requesting physician: Jim Hernandez Consult reason: Peripheral vascular disease with gangrene Chief complaint: Gangrenous right toe History of present illness: Ms. Sepulveda is a 67 year old female with history of peripheral vascular disease, diabetes, hypertension, hyperlipidemia and coronary artery disease. The patient is previously undergone a left femoral to popliteal artery bypass graft is also required left femoral to popliteal artery bypass graft thrombectomy. She was recently admitted with a left lower extremity cellulitis as well as gangrenous left great toe. Vascular surgery was counseled after her vascular labs revealed evidence of severe peripheral vascular disease and left lower extremity as well as an occluded bypass graft. The patient reports disabling claudication. She denies rest pain. She reports gangrene of the left great toe. She denies any fevers or chills. She is currently on intravenous antibiotics. She denies any chest pain or shortness of breath. Past Med Surg Social Fam HX - Past Medical History Medical history: arthritis, asthma, CHF, COPD, coronary artery disease, diabetes, hyperlipidemia, hypertension, renal disease Additional medical history: 3 stents Psychiatric history: no psych history - Past Surgical History Surgical History: appendectomy, coronary bypass (CABG), hysterectomy, other, vascular surgery Additional surgical history: Colonoscopy - Social History Smoking Status: Current every day smoker Smokeless Tobacco Status: No Alcohol use: none Drug use: none - Family History Mother Adopted: No Living Status: Hx Family Cardiac Disorders: Yes Hx Family Respiratory Disorders: Yes Hx Family Endocrine Disorder: Yes Father Adopted: No Living Status: Hx Family Cardiac Disorders: Yes Hx Family Respiratory Disorders: Yes Hx Family Cancer: No Medications and Allergies Albuterol Sulfate [Proair Hfa] 2 puff IH Q4H PRN 08/15/18 [History] Amitriptyline [Elavil] 25 mg PO HS 08/15/18 [History] Aspirin [Lo-Dose Aspirin EC] 81 mg PO DAILY 08/15/18 [History] Clopidogrel [Plavix] 75 mg PO DAILY 08/15/18 [History] DULoxetine [Cymbalta] 30 mg PO DAILY 08/15/18 [History] Ergocalciferol (VITAMIN D2) [Vitamin D2] 50,000 unit PO TH 08/15/18 [History] Gabapentin [Neurontin] 300 mg PO HS 08/15/18 [History] Insulin NPH Hum/Reg Insulin Hm [Relion Novolin 70-30 Flexpen] 5 unit SQ BID 08/15/18 [History] Ipratropium/Albuterol Sulfate [Iprat-Albut 0.5-3(2.5) mg/3 ml] 1 vial IH Q6H PRN 08/15/18 [History] Iron Polysaccharide Complex [Ferrex 150] 150 mg PO DAILY 08/15/18 [History] Isosorbide MONOnitrate (24 HR) [Imdur] 60 mg PO DAILY 08/15/18 [History] Lisinopril [Zestril] 20 mg PO DAILY 08/15/18 [History] Lovastatin [Mevacor] 20 mg PO HS 08/15/18 [History] Metoprolol [Lopressor] 25 mg PO BID 08/15/18 [History] OxyCODONE/APAP 10/325 [Percocet 10/325 MG] 1 tab PO Q6H PRN 08/15/18 [History] Ropinirole HCl 0.25 mg PO HS 08/15/18 [History] Sertraline [Zoloft] 50 mg PO DAILY 08/15/18 [History] Simethicone [Gas-X] 80 mg PO QID PRN 08/15/18 [History] Sitagliptin Phosphate [Januvia] 50 mg PO DAILY 08/15/18 [History] Vit A/C/E AC/Znox/Cupric Oxide [Eye Vitamin-Minerals Tablet] 1 tab PO DAILY 08/15/18 [History] Allergy/AdvReac Type Severity Reaction Status Date / Time escitalopram [From Lexapro] Allergy Rash Verified 09/09/18 16:11 itraconazole [From Sporanox] Allergy Hives Verified 09/09/18 16:11 Penicillins [PCN] Allergy Rash Verified 09/09/18 16:11 metformin AdvReac Diarrhea Verified 09/09/18 16:11 All Systems Review: The remainder of the systems were reviewed and are negative - Constitutional Constitutional: no chills, no fever(s) - Cardiovascular Cardiovascular: no chest pain at rest, no dyspnea at rest - Vascular Vascular: leg pain with exertion Exam Vital Signs, Last 4 Hours Temp Pulse Resp BP Pulse Ox 09/10/18 06:56 98.0 F 78 19 168/65 99 General: Present: Conversant, No Apparent Distress HEENT: Present: Atraumatic, Pupils equal Neck: Absent: JVD, Lymphadenopathy, Left Carotid bruit, Right Carotid bruit Cardiac: Present: Reg Rate and Rhythm, Normal S1 and S2 Lungs: Present: Normal Breath Sounds, No Wheeze, Rales, Rhonchi Neuro: Present: Alert and responsive, No focal deficits noted, Motor nerves grossly intact, Sensory nerves grossly intact Abdomen: Present: Soft, Non-tender. Absent: Masses Vascular: Present: Normal capillary refill, Pulse, absent (Left pedal pulses absent), Pulse, normal (Right tibial pulses palpable). Absent: Cyanosis, Edema Skin: Present: Wound/ulcer(s) (Gangrenous changes noted at the left great toe, no drainage, no fluctuance), Other (Cellulitis noted to the left mid calf) Consult Discharge Plan - Plan Referrals: Eleazar Vargas MD [Primary Care Provider] -
--- NOTE | 2018-09-10 11:40 | Podiatry Progress Note ---
Date of Encounter: 09/10/18 Time of Encounter: 11:05 - Assessment and Plan (1) Ischemic toe ulcer Current Visit: Yes Status: Acute Assessment: -Left distal great toe necrotic. Left hallux dusky. Toe nail absent. No drainage noted. No cellulitis, no lymphangitis noted. -Nonpalpable pulses LLE, unable to obtain pulse with Doppler. -Cap refill sluggish -Extremity dusky in comparison to right lower extremity -CT showed evidence of soft tissue wound distal great toe extending to the underlying bone with osteolysis involving the distal phalanx of the great toe consistent with osteomyelitis. No organized drainable fluid collection identified within limits of the exam. -Patient receiving IV Clindamycin -Blood cultures preliminary -ABIs: Right SILVIA is consistent with mild disease Right PT 0.93 DP 0.87 Left SILVIA is consistent with severe disease Left PT 0.43 DP 0.48 Plan: -Left great toe flushed with sterile saline -Painted with betadine, and covered with 4x4 dry gauze and secured with Kerlix and Medipore tape. -Vascular was consulted and due to reocclusion Dr. Castelan recommends graft thrombectomy with possible revision -Discussed with patient and family that further treatment from Podiatry will depend on outcome of vascular intervention, verbalized understanding -Heel medix boots to bilateral extremities at all times while in bed -Will continue to monitor Qualifiers: Laterality: left Non-pressure ulcer stage: with fat layer exposed Quali fied Code(s): L97.522 - Non-pressure chronic ulcer of other part of left foot with fat layer exposed (2) Diabetes mellitus Current Visit: No Status: Chronic Assessment: -A1c 7.5 on 08/14/2018 Plan: -Tight glycemic control to prevent further complications and promote wound healing - primary managing Qualifiers: Diabetes mellitus type: type 2 Diabetes mellitus fdc insulin use: with buttermaker continuous churn use Diabetes mellitus complication status: with circulatory complication Diabetes mellitus complication detail: with peripheral angiopathy without gangrene Qualified Code(s): E11.51 - Type 2 diabetes mellitus with diabetic peripheral angiopathy without gangrene; 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 No acute distress noted. Patient reports she feels better than she did yesterday and reports her shortness of breath has improved. She denies chest pain or calf pain. Patient denies any fever, chills, n/v/d. No acute events noted overnight. Objective - Vital Signs Vital Signs: Vital Signs Temp Pulse Resp BP Pulse Ox 09/10/18 11:29 18 97 09/10/18 10:50 97.7 F 82 18 169/69 94 09/10/18 07:37 18 97 09/10/18 06:56 98.0 F 78 19 168/65 99 09/10/18 03:38 22 98 09/10/18 03:23 98.6 F 92 16 135/47 95 09/10/18 00:15 20 97 09/10/18 00:11 98.7 F 84 16 172/66 95 09/09/18 20:45 18 95 09/09/18 20:11 18 95 09/09/18 19:28 98.4 F 87 16 161/67 95 09/09/18 15:46 18 95 09/09/18 15:42 98.3 F 85 18 172/67 94 Intake and Output 09/09/18 09/10/18 09/10/18 23:59 07:59 15:59 Intake Total 110 / 690 50 / 340 290 / 340 Output Total 0 / 400 400 / 400 Balance 110 / -635 50 / -60 -110 / -60 Intake: IV Fluids 50 / 150 50 / 100 50 / 100 Cleocin Premix 600 MG/50 ML 600 50 / 100 50 / 100 50 / 100 mg In 50 ml @ 50 mls/hr IVPB Q8HR [facility] Rx#:[id number] Oral 60 / 540 0 / 240 240 / 240 Output: Urine 0 / 400 400 / 400 Other: Meal Breakfast Percent of Meal Consumed 100% # Voids 1 Weight 57.3 kg Blood Glucose* 389 212 182 Patient Weight 09/10/18 23:59 Weight 57.3 kg - Exam Exam: Constitutional: Alert and oriented x 3, no acute distress noted Vascular: Left lower extremity dusky, no palpable pulses left PT/DP, unable to obtain with Doppler, right lower extremity warm and pulses 2+ PT/DP. Cap refill sluggish to left lower extremity, cap refill less than 3 seconds RLE. No pain with calf squeeze bilaterally. Neurological: Proprioception intact, abnormal dorsal reflex Dermatological: Left distal great toe necrotic. Left hallux dusky. Toe nail absent. No drainage noted. No cellulitis, no lymphangitis noted. Musculoskeletal: 4/5 muscle strength, normal muscle tone - Lab Result Diagrams: 09/09/18 06:48 09/09/18 06:48 Labs: Abnormal lab results RBC 2.78 M/mcL (3.82-4.97) L 09/09/18 06:48 Hgb 8.4 g/dL (11.5-15.4) L 09/09/18 06:48 Hct 25.6 % (35.3-44.9) L 09/09/18 06:48 ESR 75 mm/hr (0-15) H 09/08/18 21:02 Sodium 135 mEq/L (136-145) L 09/09/18 06:48 BUN 24 mg/dL (8-23) H 09/09/18 06:48 Est GFR ( Amer) 59 (> 60) L 09/08/18 21:02 Est GFR (Non-Af Amer) 50 (> 60) L 09/09/18 06:48 Glucose 127 mg/dL (70-105) H 09/09/18 06:48 POC Glucose 146 mg/dL (70-99) H 09/09/18 06:08 113 mg/L (Less than 10) H 09/08/18 21:02 Microbiology, Last 48 Hours 09/09/18 06:43 Blood Culture - Preliminary Peripheral Venipuncture Culture is incubating and being continuously monitored for growth. Final report to follow. 09/09/18 06:48 Blood Culture - Preliminary Peripheral Venipuncture Culture is incubating and being continuously monitored for growth. Final report to follow. Consult Discharge Plan - Plan Referrals: Eleazar Vargas MD [Primary Care Provider] -
[2018-09-10] MEDS: Iron Polysaccharide Complex 150 MG CAPSULE PO SCH (12:11)
[2018-09-10] MEDS: Gabapentin 300 MG CAPSULE PO SCH (20:35)
[2018-09-10] MEDS: Insulin DETEMIR 100 UNIT/ML X5UNITS SQ SCH (20:36)
[2018-09-11] MEDS: Clindamycin 600 MG/50 ML 600 MG/50 ML IV.SOLN IVPB SCH ×3 (00:01→17:15)
[2018-09-11] MEDS: Ipratropium/Albuterol Neb 3 ML IH SCH ×5 (04:07→19:58)
--- NOTE | 2018-09-11 08:31 | Internal Med Progress Note ---
Hospitalist Progress Note - Encounter Date of Encounter: 09/11/18 Time of Encounter: 07:30 - Subjective Interval History: Patient seen and examined this morning at bedside. No acute overnight events. Patient left leg pain improved. Denies fevers chills nausea vomiting or diarrhea. Denies any chest pain. Breathing almost at baseline. - Exam Vitals: Temp Pulse Resp BP Pulse Ox 97.6 F 78 18 150/60 96 09/11/18 06:49 09/11/18 06:49 09/11/18 07:37 09/11/18 06:49 09/11/18 07:37 Exam: General: In no acute distress. Respiratory exam: no accessory muscle use. occasional rhonchi Cardiovascular exam: RRR, +S1, +S2. no murmur, gallop, rubs. midline scar GI/Abdominal exam: Non-tender, Non-distended, normal bowel sounds, soft, no peritoneal signs. Extremities exam: no pedal edema, absent pulse on Lt foot. no calf tenderness. Lt great toe with necrosis at tip, absent nail. Neurological exam: CN II-XII intact, AO X3, no focal deficits. Skin exam: Lt leg slightly duskly, minimally improved - Assessment and Plan (1) Ischemic toe ulcer Current Visit: Yes Status: Acute (2) Osteomyelitis Current Visit: Yes Status: Acute (3) Anemia Current Visit: No Status: Acute (4) Atherosclerosis of left lower extremity with ulceration Current Visit: No Status: Acute (5) DVT prophylaxis Current Visit: No Status: Acute (6) Chronic kidney disease, stage III (moderate) Current Visit: No Status: Chronic (7) Diabetes mellitus Current Visit: No Status: Chronic (8) COPD exacerbation Current Visit: Yes Status: Acute (9) CAD (coronary artery disease) Current Visit: No Status: Chronic - Summary of Assessment and Plan Summary of Assessment and Plan: Assessment Lt toe osteomyelitis toe ulceration COPD exacerbation Lt fem-pop graft occlusion CAD PAD Chronic anemia CKD-3 DM smoker DVT prophylaxis Plan - Continue empiric clindamycin for osteomyelitis. Blood culture NGTD. - Podiatry following. Possible I&D vs possible amputation. Vascular surgery consulted. Discussed case. Recent fem-pop bypass on left. Decreased SILVIA on left at 0.48. Has graft occlusion. planning for surgery on sunday. May order CT. - Continue scheduled bronchodilators and taper solumedrol. Breathing improved - c/w SSI and accuchecks. BG well controlled - c/w home aspirin, imdur, lisinopril and metoprolol. Started on atorvastatin instead of home simvastatin - Start home gabapentin and iron supplementation. Has chronic anemia likely from chronic inflammation. No signs of active bleeding. Monitor Hb - Discussed smoking cessation - Time Spent with Patient Total time spent is greater than 50% in coordination of care (as documented) at patient's floor/unit and/or counseling patient: Internal Medicine: Result - Labs CBC & Chem 7: 09/09/18 06:48 09/09/18 06:48 Consult Discharge Plan - Plan Referrals: Eleazar Vargas MD [Primary Care Provider] - (1) Ischemic toe ulcer Qualifiers: Laterality: left Non-pressure ulcer stage: with fat layer exposed Qualified Code(s): L97.522 - Non-pressure chronic ulcer of other part of left foot with fat layer exposed (2) Osteomyelitis Qualifiers: Osteomyelitis type: unspecified type Osteomyelitis location: foot Laterality: left Qualified Code(s): M86.9 - Osteomyelitis, unspecified (3) Anemia Qualifiers: Anemia type: unspecified type Qualified Code(s): D64.9 - Anemia, unspecified (4) Atherosclerosis of left lower extremity with ulceration Qualifiers: Peripheral atherosclerosis artery type: bypass graft, nonbiological Lower extremity ulceration location: other part of foot Qualified Code(s): I70.645 - Atherosclerosis of nonbiological bypass graft(s) of the left leg with ulceration of other part of foot (7) Diabetes mellitus Qualifiers: Diabetes mellitus type: type 2 Diabetes mellitus skilled nursing insulin 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 transplanted heart: [place] heart Associated angina: without angina Qualified Code(s): I25.810 - Atherosclerosis of coronary artery bypass graft(s) without angina pectoris
[2018-09-11] MEDS: methylPREDNISolone 125 MG/2 ML VIAL IVP SCH (08:40)
[2018-09-11] MEDS: Iron Polysaccharide Complex 150 MG CAPSULE PO SCH (08:40)
[2018-09-11] MEDS: Isosorbide MONOnitrate (24 HR) 60 MG TAB.ER.24H PO SCH (08:40)
[2018-09-11] MEDS: Insulin LISPRO 300 UNITS/3 ML VIAL SQ SCH ×4 (08:41→20:53)
[2018-09-11] MEDS: OXYCODONE Oral CONC 10 MG/0.5 ML ORAL.SYG SL PRN ×3 (08:50→18:06)
--- NOTE | 2018-09-11 10:44 | Podiatry Progress Note ---
Date of Encounter: 09/11/18 Time of Encounter: 10:30 - Assessment and Plan (1) Ischemic toe ulcer Current Visit: Yes Status: Acute Assessment: -Left distal great toe necrotic. Left hallux dusky and pallor. Toe nail absent. No drainage noted. No cellulitis, no lymphangitis noted. Appears stable at this time. -Nonpalpable pulses LLE, unable to obtain pulse with Doppler. -Cap refill sluggish -Left lower extremity dusky in comparison to right lower extremity -CT showed evidence of soft tissue wound distal great toe extending to the underlying bone with osteolysis involving the distal phalanx of the great toe consistent with osteomyelitis. No organized drainable fluid collection identified within limits of the exam. -Patient receiving IV Clindamycin -Blood cultures preliminary -ABIs: Right SILVIA is consistent with mild disease Right PT 0.93 DP 0.87 Left SILVIA is consistent with severe disease Left PT 0.43 DP 0.48 Plan: -Left great toe flushed with sterile saline -Painted with betadine, and covered with 4x4 dry gauze and secured with Kerlix and Medipore tape. -Awaiting vascular intervention -As long as the toe remains stable we are awaiting for optimization/demarcation -Discussed with patient that further treatment from Podiatry will depend on outcome of vascular intervention, verbalized understanding -Heel medix boots to bilateral extremities at all times while in bed -Will continue to monitor Qualifiers: Laterality: left Non-pressure ulcer stage: with fat layer exposed Qualified Code(s): L97.522 - Non-pressure chronic ulcer of other part of left foot with fat layer exposed (2) Diabetes mellitus Current Visit: No Status: Chronic Assessment: -A1c 7.5 on 08/14/2018 Plan: -Tight glycemic control to prevent further complications and promote wound h ealing - primary managing Qualifiers: Diabetes mellitus type: type 2 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 Diabetes mellitus complication status: with circulatory complication Diabetes mellitus complication detail: with peripheral angiopathy without gangrene Qualified Code(s): E11.51 - Type 2 diabetes mellitus with diabetic peripheral angiopathy without gangrene; 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 No acute distress noted. Patient reports the pain in her left leg is improving. She denies chest pain, shortness of breath, or calf pain. Patient denies any fever, chills, n/v/d. No acute events noted overnight. Objective - Vital Signs Vital Signs: Vital Signs Temp Pulse Resp BP Pulse Ox 09/11/18 07:37 18 96 09/11/18 06:49 97.6 F 78 18 150/60 96 09/11/18 04:24 98.3 F 83 18 160/63 95 09/11/18 04:08 18 98 09/11/18 00:07 99.2 F 86 18 141/59 95 09/10/18 23:51 18 96 09/10/18 20:01 18 98 09/10/18 19:30 98.5 F 78 18 149/52 95 09/10/18 15:59 98.0 F 80 18 159/66 96 09/10/18 15:39 18 92 09/10/18 11:29 18 97 09/10/18 10:50 97.7 F 82 18 169/69 94 Intake and Output 09/10/18 09/11/18 09/11/18 23:59 07:59 15:59 Intake Total 50 / 630 50 / 290 240 / 290 Output Total 200 / 1100 0 / 0 Balance -150 / -470 50 / 290 240 / 290 Intake: IV Fluids 50 / 150 50 / 50 Cleocin Premix 600 MG/50 ML 600 50 / 150 50 / 50 mg In 50 ml @ 50 mls/hr IVPB Q8HR [facility] Rx#:[id number] Oral 0 / 240 240 / 240 Output: Urine 200 / 1100 0 / 0 Other: Meal Breakfast Percent of Meal Consumed 100% Weight 57.6 kg Blood Glucose* 174 142 Patient Weight 09/11/18 23:59 Weight 57.6 kg - Exam Exam: Constitutional: Patient sleeping, aroused easily with verbal stimuli, no acute distress noted Vascular: Left lower extremity dusky, no palpable pulses left PT/DP, unable to obtain with Doppler, right lower extremity warm and pulses 2+ PT/DP. Cap refill sluggish to left lower extremity, cap refill less than 3 seconds RLE. No pain with calf squeeze bilaterally. Neurological: Proprioception intact, abnormal dorsal reflex Dermatological: Left distal great toe necrotic. Left hallux dusky and pallor. Toe nail absent. No drainage noted. No cellulitis, no lymphangitis noted. Musculoskeletal: 4/5 muscle strength, normal muscle tone - Lab Result Diagrams: 09/09/18 06:48 09/09/18 06:48 Labs: Abnormal lab results RBC 2.78 M/mcL (3.82-4.97) L 09/09/18 06:48 Hgb 8.4 g/dL (11.5-15.4) L 09/09/18 06:48 Hct 25.6 % (35.3-44.9) L 09/09/18 06:48 ESR 75 mm/hr (0-15) H 09/08/18 21:02 Sodium 135 mEq/L (136-145) L 09/09/18 06:48 BUN 24 mg/dL (8-23) H 09/09/18 06:48 Est GFR ( Amer) 59 (> 60) L 09/08/18 21:02 Est GFR (Non-Af Amer) 50 (> 60) L 09/09/18 06:48 Glucose 127 mg/dL (70-105) H 09/09/18 06:48 POC Glucose 182 mg/dL (70-99) H 09/10/18 10:44 113 mg/L (Less than 10) H 09/08/18 21:02 Microbiology, Last 48 Hours 09/09/18 06:43 Blood Culture - Preliminary Peripheral Venipuncture Culture is incubating and being continuously monitored for growth. Final report to follow. 09/09/18 06:48 Blood Culture - Preliminary Peripheral Venipuncture Culture is incubating and being continuously monitored for growth. Final report to follow. Consult Discharge Plan - Plan Referrals: Eleazar Vargas MD [Primary Care Provider] -
[2018-09-11] MEDS: *HR* Heparin 5,000 UNIT/ML VIAL SQ SCH ×2 (14:22→20:53)
--- NOTE | 2018-09-11 16:56 | Vascular/[facility] Progress Note ---
Date of Encounter: 09/11/18 Time of Encounter: 16:30 - Assessment and plan (1) Atherosclerosis of left lower extremity with ulceration Current Visit: No Status: Acute The patient has history of peripheral vascular disease. She previously underwent left femoral to popliteal artery bypass graft. She now has a nonhealing ulcer on the left foot. Her ABIs are consistent with severe disease in left lower extremity. She has resolving cellulitis in the left lower extremity as well. The patient will get a CT scan tomorrow and plan for surgery on Sunday. The risks, benefits alternatives of graft thrombectomy and possible revision were discussed with her and all questions were answered. She expressed understanding wishes to proceed. Qualifiers: Peripheral atherosclerosis artery type: bypass graft, nonbiological Lower extremity ulceration location: other part of foot Qualified Code(s): I70.645 - Atherosclerosis of nonbiological bypass graft(s) of the left leg with ulceration of other part of foot - Subjective Interval history: The patient was counseled for. She denies any fevers or chills. She denies any acute leg pain. She denies any chest pain or shortness of breath. Vital Signs, Last 4 Hours Temp Pulse Resp BP Pulse Ox 09/11/18 15:42 98.0 F 73 16 159/56 96 - Physical Examination General: Present: Conversant, No Apparent Distress HEENT: Present: Pupils equal Cardiac: Present: Reg Rate and Rhythm Lungs: Present: Normal Breath Sounds Neuro: Present: Alert and responsive, Motor nerves grossly intact, Sensory nerves grossly intact Vascular: Present: Normal capillary refill, Pulse, diminished (Left lower extremity pedal signals are biphasic.). Absent: Edema Abdomen: Present: Soft, Non-tender Skin: Present: No rashes noted on visualized skin Results 09/09/18 06:48 09/09/18 06:48 Consult Discharge Plan - Plan Referrals: Eleazar Vargas MD [Primary Care Provider] -
[2018-09-11] MEDS: *HR* Acetylcysteine 20% 600 MG/3 ML ORAL SYRINGE PO SCH (20:53)
[2018-09-11] MEDS: Insulin DETEMIR 100 UNIT/ML X5UNITS SQ SCH (20:53)
[2018-09-11] MEDS: Gabapentin 300 MG CAPSULE PO SCH (20:54)
[2018-09-12] MEDS: Ipratropium/Albuterol Neb 3 ML IH SCH ×5 (00:07→22:25)
[2018-09-12] MEDS: OXYCODONE Oral CONC 10 MG/0.5 ML ORAL.SYG SL PRN ×3 (01:27→22:34)
[2018-09-12] MEDS: Clindamycin 600 MG/50 ML 600 MG/50 ML IV.SOLN IVPB SCH ×3 (01:27→16:27)
[2018-09-12] MEDS: *HR* Heparin 5,000 UNIT/ML VIAL SQ SCH ×2 (05:20→16:30)
[2018-09-12 05:51] LABS: Basophils % 0.2 %; Eosinophils % 0.3 %; Hematocrit 24.5 % (35.3-44.9); Hemoglobin 7.9 g/dL (11.5-15.4); Immature Granulocytes % 0.8 % (0-4); Lymphocytes # 0.8 K/mcL (0.6-4.6); Lymphocytes % 12.9 %; Mean Corpuscular HGB Conc 32.2 g/dL (31.6-35.5); Mean Corpuscular Hemoglobin 30.2 pg (28.0-33.3); Mean Corpuscular Volume 93.5 fL (83.0-100.0); Mean Platelet Volume 10.9 fL (9.4-12.4); Monocytes # 0.6 K/mcL (0.0-1.3); Monocytes % 9.4 %; Platelet Count 212 K/mcL (140-400); Red Blood Count 2.62 M/mcL (3.82-4.97); Red Cell Distribution Width 12.9 % (11.5-14.5); Segmented Neutrophils % 76.4 %; White Blood Count 6.5 K/mcL (4.3-11.1)
[2018-09-12 06:07] LABS: Calcium 8.7 mg/dL (8.6-10.3); Potassium 5.1 mEq/L (3.5-5.1)
--- NOTE | 2018-09-12 07:37 | History & Physical Report ---
Date of Encounter: 09/12/18 Time of Encounter: 07:28 24 Hour HP Update - Instructions Instructions: If the History and Physical is less than 30 days old and was completed prior to A.M. admission and or procedure and has NOT been updated on calendar day of procedure please complete this update prior to performing procedure. - Update Patient reports changes in Medical Condition: No Changes in examination, assessment, or condition: No Changes in Medication: No Preop tests/diagnostics Reviewed: Yes Surgery Remains Indicated: Yes Consent for Planned Operative Procedure(s) Verified: Yes - Pre-Operative Checklist Preoperative Checklist Indicated: Yes
[2018-09-12] MEDS ORDERED: 0.9 % Sodium Chloride 1,000 ML IVC SCH (08:00)
[2018-09-12] MEDS: Insulin LISPRO 300 UNITS/3 ML VIAL SQ SCH ×6 (08:59→21:20)
[2018-09-12] MEDS: Aspirin Enteric Coated 81 MG Tablet PO SCH (09:00)
[2018-09-12] MEDS: Isosorbide MONOnitrate (24 HR) 60 MG TAB.ER.24H PO SCH (09:00)
[2018-09-12] MEDS ORDERED: MethylPREDNISolone 40 MG/ML VIAL IVP SCH (09:00)
[2018-09-12] MEDS: *HR* Acetylcysteine 20% 600 MG/3 ML ORAL SYRINGE PO SCH ×2 (09:00→20:48)
[2018-09-12] MEDS: Iron Polysaccharide Complex 150 MG CAPSULE PO SCH (09:16)
--- NOTE | 2018-09-12 10:23 | Internal Med Progress Note ---
Hospitalist Progress Note - Encounter Date of Encounter: 09/12/18 Time of Encounter: 10:17 - Subjective Interval History: Patient seen and examined this morning at bedside. No acute overnight events. Denies any fevers chills nausea vomiting diarrhea. Denies new complaints. Foot pain improved. Breathing improved. - Exam Vitals: Temp Pulse Resp BP Pulse Ox 98.1 F 73 16 160/76 94 09/12/18 07:12 09/12/18 07:12 09/12/18 07:55 09/12/18 07:12 09/12/18 07:55 Exam: General: In no acute distress. Respiratory exam: no accessory muscle use. occasional rhonchi Cardiovascular exam: RRR, +S1, +S2. no murmur, gallop, rubs. midline scar GI/Abdominal exam: Non-tender, Non-distended, normal bowel sounds, soft, no peritoneal signs. Extremities exam: no pedal edema, absent pulse on Lt foot. no calf tenderness. Lt great toe with necrosis at tip, absent nail. Neurological exam: CN II-XII intact, AO X3, no focal deficits. Skin exam: Lt leg skin color improved - Assessment and Plan (1) Ischemic toe ulcer Current Visit: Yes Status: Acute (2) Osteomyelitis Current Visit: Yes Status: Acute (3) Anemia Current Visit: No Status: Acute (4) Atherosclerosis of left lower extremity with ulceration Current Visit: No Status: Acute (5) DVT prophylaxis Current Visit: No Status: Acute (6) Chronic kidney disease, stage III (moderate) Current Visit: No Status: Chronic (7) Diabetes mellitus Current Visit: No Status: Chronic (8) COPD exacerbation Current Visit: Yes Status: Acute (9) CAD (coronary artery disease) Current Visit: No Status: Chronic - Summary of Assessment and Plan Summary of Assessment and Plan: Assessment Lt toe osteomyelitis, cellulitis Toe ulceration COPD exacerbation Lt fem-pop graft occlusion OSCAR DVT prophylaxis CAD PAD Chronic anemia CKD-3 DM smoker Plan - Continue empiric clindamycin for osteomyelitis. Blood culture NGTD. - Podiatry following. Possible I&D vs possible amputation. Vascular surgery consulted. Recent fem-pop bypass on left. Decreased SILVIA on left at 0.48. Has graft occlusion. Planning for surgery on sunday. Vascular to get CT today. NPO after 12. - C/w scheduled bronchodilators. Change steroid to PO. Breathing improved - c/w SSI and accuchecks. BG elevated post prandial. Will add 5 units premeal. - c/w home aspirin, imdur, lisinopril and metoprolol. Started on atorvastatin instead of home simvastatin - Start home gabapentin and iron supplementation. Has chronic anemia likely from chronic inflammation. No signs of active bleeding. Monitor Hb. May need transfusion after surgery. - OSCAR. No difficulty urinating. Will do bladder scan. Possible prerenal. Will keep on 75 cc/hr IVf and monitor renal function. If getting ct angio will give before and after procedure. Patient has multiple risk factors for worsening renal function. strict I/O. avoid nephrotoxins. - Discussed smoking cessation - heparin for dvt prophylaxis - Time Spent with Patient Total time spent is greater than 50% in coordination of care (as documented) at patient's floor/unit and/or counseling patient: Internal Medicine: Result - Labs CBC & Chem 7: 09/12/18 05:37 09/12/18 05:37 Labs: Short CBC 09/12/18 Range/Units 05:37 WBC 6.5 (4.3-11.1) K/mcL Hgb 7.9 L (11.5-15.4) g/dL Hct 24.5 L (35.3-44.9) % Plt Count 212 (140-400) K/mcL Neutrophils # 5.0 (1.6-8.9) K/mcL BMP 09/12/18 05:37 Sodium 139 Potassium 5.1 Chloride 108 H Carbon Dioxide 24 BUN 52 H Creatinine 1.37 H Glucose 159 H Calcium 8.7 Consult Discharge Plan - Plan Referrals: Eleazar Vargas MD [Primary Care Provider] - (1) Ischemic toe ulcer Qualifiers: Laterality: left Non-pressure ulcer stage: with fat layer exposed Qualified Code(s): L97.522 - Non-pressure chronic ulcer of other part of left foot with fat layer exposed (2) Osteomyelitis Qualifiers: Osteomyelitis type: unspecified type Osteomyelitis location: foot Laterality: left Qualified Code(s): M86.9 - Osteomyelitis, unspecified (3) Anemia Qualifiers: Anemia type: unspecified type Qualified Code(s): D64.9 - Anemia, unspecified (4) Atherosclerosis of left lower extremity with ulceration Qualifiers: Peripheral atherosclerosis artery type: bypass graft, nonbiological Lower extremity ulceration location: other part of foot Qualified Code(s): I70.645 - Atherosclerosis of nonbiological bypass graft(s) of the left leg with ulceration of other part of foot (7) Diabetes mellitus Qualifiers: Diabetes mellitus type: type 2 Diabetes mellitus care home insulin use: with care home use Diabetes mellitus complication status: with circulatory complication Diabetes mellitus complication detail: with peripheral angiopathy without gangrene Qualified Code(s): E11.51 - Type 2 diabetes mellitus with diabetic peripheral angiopathy without gangrene; 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 transplanted heart: [place] heart Associated angina: without angina Qualified C ode(s): I25.810 - Atherosclerosis of coronary artery bypass graft(s) without angina pectoris
[2018-09-12] MEDS: 0.9 % Sodium Chloride 1,000 ML IVC SCH (11:20)
--- NOTE | 2018-09-12 13:26 | Podiatry Progress Note ---
Date of Encounter: 09/12/18 Time of Encounter: 12:30 - Assessment and Plan (1) Ischemic toe ulcer Current Visit: Yes Status: Acute Assessment: -Left distal great toe necrotic, stable gangrene. Left hallux dusky and pallor. Toe nail absent. No drainage noted. No cellulitis, no lymphangitis noted. -Nonpalpable pulses LLE, unable to obtain pulse with Doppler. -Cap refill sluggish -Left lower extremity dusky in comparison to right lower extremity -CT showed evidence of soft tissue wound distal great toe extending to the underlying bone with osteolysis involving the distal phalanx of the great toe consistent with osteomyelitis. No organized drainable fluid collection identified within limits of the exam. -Patient receiving IV Clindamycin -Blood cultures preliminary no growth -ABIs: Right SILVIA is consistent with mild disease Right PT 0.93 DP 0.87 Left SILVIA is consistent with severe disease Left PT 0.43 DP 0.48 Plan: -Left great toe flushed with sterile saline -Painted with betadine, and covered with 4x4 dry gauze and secured with Kerlix and Medipore tape. -Dr. Castelan to take patient to OR tomorrow -Awaiting for optimization/demarcation -Discussed with patient that further treatment from Podiatry will depend on ou tcome of vascular intervention, verbalized understanding -Heel medix boots to bilateral extremities at all times while in bed -Will continue to monitor Qualifiers: Laterality: left Non-pressure ulcer stage: with fat layer exposed Qualified Code(s): L97.522 - Non-pressure chronic ulcer of other part of left foot with fat layer exposed (2) Diabetes mellitus Current Visit: No Status: Chronic Assessment: -Blood glucose 159 -A1c 7.5 on 08/14/2018 Plan: -Tight glycemic control to prevent further complications and promote wound healing - primary managing Qualifiers: Diabetes mellitus type: type 2 Diabetes mellitus terminal gauger insulin use: with terminal gauger use Diabetes mellitus complication status: with circulatory complication Diabetes mellitus complication detail: with peripheral angiopathy without gangrene Qualified Code(s): E11.51 - Type 2 diabetes mellitus with diabetic peripheral angiopathy without gangrene; Z79.4 - long-term (current) use of insulin (3) Tobacco dependence Current Visit: No Status: Chronic Assessment: -Patient reports she is a less than 1 pack per day smoker Plan: -Smoking cessation discussed to prevent further complication and promote wound healing Subjective Interval history: Patient is alert and oriented x 3 sitting up at side of bed preparing to eat lunch. No acute distress noted. She denies chest pain, shortness of breath, or calf pain. Patient denies any fever, chills, n/v/d. No acute events noted overnight. Objective - Vital Signs Vital Signs: Vital Signs Temp Pulse Resp BP Pulse Ox 09/12/18 10:57 97.6 F 72 16 157/73 99 09/12/18 07:55 16 94 09/12/18 07:12 98.1 F 73 16 160/76 96 09/12/18 03:53 14 97 09/12/18 03:14 99.0 F 76 16 167/63 97 09/12/18 00:07 16 96 09/11/18 23:55 98.7 F 80 18 163/61 95 09/11/18 19:58 16 97 09/11/18 18:56 97.6 F 84 18 153/43 98 09/11/18 16:53 16 93 09/11/18 15:42 98.0 F 73 16 159/56 96 Intake and Output 09/11/18 09/12/18 09/12/18 23:59 07:59 15:59 Intake Total 290 / 1110 50 / 340 290 / 340 Output Total 200 / 1400 400 / 400 Balance 90 / -290 -350 / -60 290 / -60 Intake: IV Fluids 50 / 150 50 / 100 50 / 100 Cleocin Premix 600 MG/50 ML 600 50 / 150 50 / 100 50 / 100 mg In 50 ml @ 50 mls/hr IVPB Q8HR [facility] Rx#:[id number] Oral 240 / 960 240 / 240 Output: Urine 200 / 1400 400 / 400 Other: Meal Dinner Breakfast Percent of Meal Consumed 100% 100% Stool Size Small Stool Consistency formed Stool Color Brown # Voids 1 Blood Glucose* 282 155 214 - Exam Exam: Constitutional: Patient alert and oriented x 3, no acute distress noted Vascular: Left lower extremity dusky, no palpable pulses left PT/DP, unable to obtain with Doppler, right lower extremity warm and pulses 2+ PT/DP. Cap refill sluggish to left lower extremity, cap refill less than 3 seconds RLE. No pain with calf squeeze bilaterally. Neurological: Proprioception intact, abnormal dorsal reflex Dermatological: Left distal great toe necrotic, stable gangrene. Left hallux dusky and pallor. Toe nail absent. No drainage noted. No cellulitis, no lymphangitis noted. Musculoskeletal: 4/5 muscle strength, normal muscle tone - Lab Result Diagrams: 09/12/18 05:37 09/12/18 05:37 Labs: Abnormal lab results RBC 2.62 M/mcL (3.82-4.97) L 09/12/18 05:37 Hgb 7.9 g/dL (11.5-15.4) L 09/12/18 05:37 Hct 24.5 % (35.3-44.9) L 09/12/18 05:37 ESR 75 mm/hr (0-15) H 09/08/18 21:02 Sodium 135 mEq/L (136-145) L 09/09/18 06:48 Chloride 108 mEq/L (98-107) H 09/12/18 05:37 BUN 52 mg/dL (8-23) H 09/12/18 05:37 1.37 mg/dL (0.60-1.20) H 09/12/18 05:37 Est GFR ( Amer) 46 (> 60) L 09/12/18 05:37 Est GFR (Non-Af Amer) 38 (> 60) L 09/12/18 05:37 38 (6-26) H 09/12/18 05:37 Glucose 159 mg/dL (70-105) H 09/12/18 05:37 POC Glucose 214 mg/dL (70-99) H 09/12/18 10:55 305 (280-300) H 09/12/18 05:37 113 mg/L (Less than 10) H 09/08/18 21:02 Consult Discharge Plan - Plan Referrals: Eleazar Vargas MD [Primary Care Provider] -
--- NOTE | 2018-09-12 17:11 | Anesthesia Evaluation PreOp ---
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 History: Other (diabetic Neuropathy) Other Medical History: Diabetes Type II Anesthesia History: No Prior Anesthetic Complications, Past Anesthesia (tubal, CTR, CABG, LLE BPG, endarterectomy) : No Alcohol Use: none Drug use: none Medications and Allergies Albuterol Sulfate [Proair Hfa] 2 puff IH Q4H PRN 08/15/18 [History] Amitriptyline [Elavil] 25 mg PO HS 08/15/18 [History] Aspirin [Lo-Dose Aspirin EC] 81 mg PO DAILY 08/15/18 [History] Clopidogrel [Plavix] 75 mg PO DAILY 08/15/18 [History] DULoxetine [Cymbalta] 30 mg PO DAILY 08/15/18 [History] Ergocalciferol (VITAMIN D2) [Vitamin D2] 50,000 unit PO TH 08/15/18 [History] Gabapentin [Neurontin] 300 mg PO HS 08/15/18 [History] Insulin NPH Hum/Reg Insulin Hm [Relion Novolin 70-30 Flexpen] 5 unit SQ BID 08/15/18 [History] Ipratropium/Albuterol Sulfate [Iprat-Albut 0.5-3(2.5) mg/3 ml] 1 vial IH Q6H PRN 08/15/18 [History] Iron Polysaccharide Complex [Ferrex 150] 150 mg PO DAILY 08/15/18 [History] Isosorbide MONOnitrate (24 HR) [Imdur] 60 mg PO DAILY 08/15/18 [History] Lisinopril [Zestril] 20 mg PO DAILY 08/15/18 [History] Lovastatin [Mevacor] 20 mg PO HS 08/15/18 [History] Metoprolol [Lopressor] 25 mg PO BID 08/15/18 [History] OxyCODONE/APAP 10/325 [Percocet 10/325 MG] 1 tab PO Q6H PRN 08/15/18 [History] Ropinirole HCl 0.25 mg PO HS 08/15/18 [History] Sertraline [Zoloft] 50 mg PO DAILY 08/15/18 [History] Simethicone [Gas-X] 80 mg PO QID PRN 08/15/18 [History] Sitagliptin Phosphate [Januvia] 50 mg PO DAILY 08/15/18 [History] Vit A/C/E AC/Znox/Cupric Oxide [Eye Vitamin-Minerals Tablet] 1 tab PO DAILY 08/15/18 [History] Allergy/AdvReac Type Severity Reaction Status Date / Time escitalopram [From Lexapro] Allergy Rash Verified 09/09/18 16:11 itraconazole [From Sporanox] Allergy Hives Verified 09/09/18 16:11 Penicillins [PCN] Allergy Rash Verified 09/09/18 16:11 metformin AdvReac Diarrhea Verified 09/09/18 16:11 - Meds/Allergy Pre-op Review Medications Reviewed: Yes Allergies Reviewed: Yes Beta Blockers on Current Med List: Yes Anesthesia Results - Labs 09/12/18 05:37 09/12/18 05:37 - Imaging EKG: report reviewed (SINUS RHYTHM INDETERMINATE AXIS RIGHT BUNDLE BRANCH BLOCK Electronically Signed On 08-15-2018 23:23:25 EDT by Naun Livingston) Additional studies: Echocardiogram Name: Romina Sepulveda Date of Study: 10/28/2017 Impressions: LVEF 60-65%. Normal LV chamber size, wall thickness and function. Moderate left ventricular diastolic dysfunction. Normal right ventricular structure and function. Estimated RVSP is 36 mmHg. Mild pulmonary hypertension. No significant valvular dysfunction. Anesthesia Exam Vital Signs/O2 Sat, Most Current Temp Pulse Resp BP Pulse Ox 97.8 F 72 16 160/62 94 09/12/18 15:20 09/12/18 15:20 09/12/18 15:50 09/12/18 15:20 09/12/18 15:50 NPO (# of Hours): > 8 hrs Pain Scale: 0 Pain Scale Used: Numeric (1 - 10) - HEENT Pupil (Motor): Pupils equal, EOMI Mallampati: II Teeth: Edentulous Oral Opening: Greater than 3 - SOUND MIXER LOC: Oriented SOUND MIXER Motor: Normal RUE, Normal LUE, Normal RLE, Normal LLE, Normal Face SOUND MIXER Sensory: Normal: RUE, LUE, RLE, LLE, Face - Cardiac Rhythm: Regular Murmur: None JVD: No Carotid Bruit: No - Pulmonary Breath Sounds: bilateral Clear Respiratory Effort: Symmetrical Anesthesia Assess/Plan ASA Score: 3 Level of consciousness: Cooperative Anesthetic Plan: General Autologous Blood: Yes Monitoring Plan: Standard Monitors, A-Line Recovery Plan: PACU
--- NOTE | 2018-09-12 17:17 | Vascular/[facility]as Progress Note ---
Date of Encounter: 09/12/18 Time of Encounter: 16:10 - Assessment and plan (1) Atherosclerosis of left lower extremity with ulceration Current Visit: No Status: Acute The patient has history of peripheral vascular disease. She previously underwent left femoral to popliteal artery bypass graft. She now has a nonhealing ulcer on the left foot. Her ABIs are consistent with severe disease in left lower extremity. Her cellulitis continues to improve. The patient was noted to have an acute change in her GFR. She will undergo a CT scan today. She was started on intravenous hydration. She will continue with her Mucomyst. He remains on the schedule tentatively for tomorrow. She will be nothing by mouth after midnight. If her labs improved tomorrow we will proceed with surgery. Qualifiers: Peripheral atherosclerosis artery type: bypass graft, nonbiological Lower extremity ulceration location: other part of foot Qualified Code(s): I70.645 - Atherosclerosis of nonbiological bypass graft(s) of the left leg with ulceration of other part of foot (2) Chronic anemia Current Visit: No Status: Chronic The patient has chronic anemia. He was 7.9 today. She has no evidence of ongoing blood loss. She is typed and screened for potential transfusion if necessary. (3) Chronic kidney disease, stage III (moderate) Current Visit: No Status: Chronic The patient is chronically disease stage III. Her creatinine increased and her GFR decreased overnight. She is beginning hydration. Her labs rechecked tomorrow. - Subjective Interval history: The patient is alert and comfortable. She denies fevers or chills. She denies any chest pain or shortness of breath. She denies any acute leg pain. Vital Signs, Last 4 Hours Temp Pulse Resp BP Pulse Ox 09/12/18 15:50 16 94 09/12/18 15:20 97.8 F 72 16 160/62 97 - Physical Examination General: Present: Conversant Cardiac: Present: Reg Rate and Rhythm Lungs: Present: Normal Breath Sounds Neuro: Present: Alert and responsive, No focal deficits noted Vascular: Present: Normal capillary refill, Pulse, diminished (Left pedal signals biphasic). Absent: Cyanosis Abdomen: Present: Soft Skin: Present: Wound/ulcer(s) (Ulceration is unchanged, minimal cellulitis in the left foot, no fluctuance) Results 09/12/18 05:37 09/12/18 05:37 Lab Results, Last 24 hours 09/12/18 09/12/18 05:37 05:37 WBC 6.5 Hgb 7.9 L Hct 24.5 L Plt Count 212 Sodium 139 Potassium 5.1 Chloride 108 H Carbon Dioxide 24 BUN 52 H Creatinine 1.37 H Glucose 159 H Calcium 8.7 Consult Discharge Plan - Plan Referrals: Eleazar Vargas MD [Primary Care Provider] -
[2018-09-12] MEDS: Gabapentin 300 MG CAPSULE PO SCH (20:48)
[2018-09-12] MEDS: Insulin DETEMIR 100 UNIT/ML X5UNITS SQ SCH (20:48)
[2018-09-13] MEDS: Clindamycin 600 MG/50 ML 600 MG/50 ML IV.SOLN IVPB SCH ×4 (00:07→23:22)
[2018-09-13] MEDS: 0.9 % Sodium Chloride 1,000 ML IVC SCH ×3 (00:13→16:01)
[2018-09-13] MEDS: Ipratropium/Albuterol Neb 3 ML IH SCH ×4 (03:56→22:40)
[2018-09-13] MEDS: *HR* Heparin 5,000 UNIT/ML VIAL SQ SCH ×2 (04:55→17:25)
[2018-09-13] MEDS: OXYCODONE Oral CONC 10 MG/0.5 ML ORAL.SYG SL PRN ×4 (04:55→23:43)
[2018-09-13] MEDS ORDERED: Vancomycin 1,000 MG, Sodium Chloride IRRigation 1,000 ML IR ONE ×2 (06:00→14:57)
[2018-09-13 07:39] LABS: Hemoglobin 8.9 g/dL (11.5-15.4)
[2018-09-13 07:44] LABS: Potassium 4.7 mEq/L (3.5-5.1)
[2018-09-13] MEDS: Aspirin Enteric Coated 81 MG Tablet PO SCH (08:45)
[2018-09-13] MEDS: *HR* Acetylcysteine 20% 600 MG/3 ML ORAL SYRINGE PO SCH (08:45)
[2018-09-13] MEDS: Iron Polysaccharide Complex 150 MG CAPSULE PO SCH (08:46)
[2018-09-13] MEDS: Insulin LISPRO 300 UNITS/3 ML VIAL SQ SCH ×7 (08:46→21:31)
[2018-09-13] MEDS: Isosorbide MONOnitrate (24 HR) 60 MG TAB.ER.24H PO SCH (08:46)
[2018-09-13] MEDS ORDERED: predniSONE 20 MG TABLET PO SCH (09:00)
--- NOTE | 2018-09-13 10:07 | Internal Med Progress Note ---
Hospitalist Progress Note - Encounter Date of Encounter: 09/13/18 Time of Encounter: 10:04 - Subjective Interval History: Murphy is nothing by mouth. Plan for vascular surgery today. Review the lab with better hemoglobin and trending down creatinine level. Review the vitals with high blood pressure Denies fever chills nausea vomiting headache dizziness chest pain short of breath abdominal pain diarrhea - Exam Vitals: Temp Pulse Resp BP Pulse Ox 98 F 77 20 193/79 98 09/13/18 07:03 09/13/18 07:03 09/13/18 07:03 09/13/18 07:03 09/13/18 07:03 Exam: General: In no acute distress. Respiratory exam: no accessory muscle use. Decreased breath sound at the base Cardiovascular exam: RRR, +S1, +S2. no murmur, gallop, rubs. midline scar GI/Abdominal exam: Non-tender, Non-distended, normal bowel sounds, soft, no peritoneal signs. Extremities exam: no pedal edema, absent pulse on Lt foot. no calf tenderness. Lt great toe with necrosis at tip, absent nail. Neurological exam: CN II-XII intact, AO X3, no focal deficits. Skin exam: No rash 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 Current Visit: No Status: Acute (2) CAD (coronary artery disease) Current Visit: No Status: Chronic (3) Diabetes mellitus Current Visit: No Status: Chronic (4) DVT prophylaxis Current Visit: No Status: Acute (5) Chronic kidney disease, stage III (moderate) Current Visit: No Status: Chronic (6) Anemia Current Visit: No Status: Acute (7) Osteomyelitis Current Visit: Yes Status: Acute (8) Ischemic toe ulcer Current Visit: Yes Status: Acute (9) COPD exacerbation Current Visit: Yes Status: Acute - Summary of Assessment and Plan Summary of Assessment and Plan: Assessment Lt toe osteomyelitis, cellulitis-- Continue empiric clindamycin for osteomyelitis as per welding machine operator's advice. Will consult ID if needed. Blood culture NGTD. Toe ulceration-ischemic.- Podiatry following. Possible I&D vs possible amputation. Vascular surgery consulted. Recent fem-pop bypass on left. Decreased SILVIA on left at 0.48. Has graft occlusion. Planning for surgery today. NPO COPD exacerbation-po steroid . C/w scheduled bronchodilators. Change steroid to PO. Breathing improved Lt fem-pop graft occlusion-patient is scheduled for the surgery by vascular surgeon today. OSCAR-high creatinine level but not trending down. Avoid nephrotoxic drug. On renal protective medicine acetylcysteine and IV fluid 75 mL per hour. Monitor BMP. Hypertension-high. Giving all the morning medicine and will recheck the blood pressure and is still higher than will make further adjustment in medication. DVT prophylaxis-heparin CAD-- c/w home aspirin, imdur, lisinopril and metoprolol. Started on atorvastati n instead of home simvastatin PAD- severe. as above Chronic anemia--hemoglobin trended down but now trending up. No active bleeding. Monitor hemoglobin. CKD-3 DM-well controlled.- c/w SSI and accuchecks. BG elevated post prandial. Will add 5 units premeal. smoker-- Discussed smoking cessation - Time Spent with Patient Total time spent is greater than 50% in coordination of care (as documented) at patient's floor/unit and/or counseling patient: 25 - 35 minutes Plan of Care Discussed with: patient Internal Medicine: Result - Labs CBC & Chem 7: 09/13/18 06:57 09/13/18 06:57 Labs: Short CBC 09/13/18 Range/Units 06:57 Hgb 8.9 L (11.5-15.4) g/dL Hct 28.0 L (35.3-44.9) % BMP 09/13/18 06:57 Sodium 140 Potassium 4.7 Chloride 107 Carbon Dioxide 25 BUN 45 H Creatinine 1.24 H Glucose 100 Calcium 9.0 Consult Discharge Plan - Plan Referrals: Eleazar Vargas MD [Primary Care Provider] - (1) Atherosclerosis of left lower extremity with ulceration Qualifiers: Peripheral atherosclerosis artery type: bypass graft, nonbiological Lower extremity ulceration location: other part of foot Qualified Code(s): I70.645 - Atherosclerosis of nonbiological bypass graft(s) of the left leg with ulceration of other part of foot (2) CAD (coronary artery disease) Qualifiers: Coronary Disease-Associated Artery/Lesion type: bypass graft [place] vs. trans planted heart: [place] heart Associated angina: without angina Qualified Code(s): I25.810 - Atherosclerosis of coronary artery bypass graft(s) without angina pectoris (3) Diabetes mellitus Qualifiers: Diabetes mellitus type: type 2 Diabetes mellitus nursing home insulin use: with terminal computer operator use Diabetes mellitus complication status: with circulatory compli cation Diabetes mellitus complication detail: with peripheral angiopathy w ithout gangrene Qualified Code(s): E11.51 - Type 2 diabetes mellitus with diabetic peripheral angiopathy without gangrene; Z79.4 - nursing home (current) use of insulin (6) Anemia Qualifiers: Anemia type: unspecified type Qualified Code(s): D64.9 - Anemia, unspecified (7) Osteomyelitis Qualifiers: Osteomyelitis type: unspecified type Osteomyelitis location: foot Laterality: left Qualified Code(s): M86.9 - Osteomyelitis, unspecified (8) Ischemic toe ulcer Qualifiers: Laterality: left Non-pressure ulcer stage: with fat layer exposed Qualified Code(s): L97.522 - Non-pressure chronic ulcer of other part of left foot with fat layer exposed
[2018-09-13] MEDS ORDERED: Lidocaine -MPF 1% 5 ML AMPUL ONE (10:42)
[2018-09-13] MEDS ORDERED: Lidocaine -MPF 2% 2 ML VIAL ONE (11:00)
[2018-09-13] MEDS ORDERED: *HR* Propofol 200 MG/20 ML VIAL IVP ONE (11:00)
[2018-09-13] MEDS ORDERED: Lidocaine -MPF 4% 5 ML AMPUL ONE (11:00)
[2018-09-13] MEDS ORDERED: *HR* Rocuronium Bromide 50 MG/5 ML VIAL ONE (11:00)
[2018-09-13] MEDS ORDERED: *HR* FentaNYL (PF) 100 MCG/2 ML VIAL ONE ×2 (11:00→11:50)
[2018-09-13] MEDS ORDERED: EPHEDrine 50 MG/ML VIAL ONE (11:04)
[2018-09-13] MEDS ORDERED: Water for inj. (sterile) 10 ML ONE (11:04)
[2018-09-13] MEDS ORDERED: Heparin 1,000 UNITS/500 mL 1,000 ML ONE (11:05)
[2018-09-13] MEDS ORDERED: Vancomycin 1,000 MG VIAL ONE (11:05)
[2018-09-13] MEDS ORDERED: *HR* Heparin 5,000 UNIT/ML VIAL ONE (11:37)
[2018-09-13] MEDS ORDERED: *HR* PHENYLEPHRINE 1,000 MCG/10 ML SYRINGE IVP ONE (11:37)
[2018-09-13] MEDS ORDERED: EPINEPHrine 1 MG/ML VIAL ONE (12:22)
[2018-09-13] MEDS ORDERED: Racepinephrine Neb 0.5 ML VIAL IH ONE ×2 (12:32→13:08)
[2018-09-13] MEDS ORDERED: *HR* EPINEPHrine 1 MG/10 ML SYRINGE ONE (12:36)
[2018-09-13] MEDS ORDERED: Famotidine 20 MG/2 ML VIAL ONE (12:41)
[2018-09-13] MEDS ORDERED: Hydrocortisone Sodium Succ 100 MG/2 ML VIAL ONE (12:41)
[2018-09-13] MEDS ORDERED: Ipratropium/Albuterol Neb 3 ML IH ONE (13:27)
[2018-09-13] MEDS ORDERED: Ipratropium/Albuterol Neb 3 ML ONE (13:28)
[2018-09-13] MEDS ORDERED: Ringers Solution, Lactated 1,000 ML ONE (13:58)
--- NOTE | 2018-09-13 14:27 | Anesthesia Evaluation Post Op ---
Date of Encounter: 09/13/18 Time of Encounter: 14:12 - Vital Signs Vital Signs: Vital Signs/O2 Sat, Most Current Temp Pulse Resp BP Pulse Ox 98.0 F 75 18 163/86 97 09/13/18 14:08 09/13/18 14:08 09/13/18 14:08 09/13/18 14:08 09/13/18 14:08 - Lungs Lungs: Wheezes - Airway Airway: Non-obstructed - Cardiovascular Regular Rate - Mental Status Mental Status: Alert & Oriented, Answers Appropriately - Pain Pain Scale: 0 Pain Scale used: Numeric (1 - 10) - Nausea Vomiting Nausea Vomiting: Not Present - Hydration Hydration: Ice chips, Kennedy catheter - Discharge PostOp Status: Transfer Patient to floor
--- NOTE | 2018-09-13 14:46 | Vascular/[facility] Progress Note ---
Date of Encounter: 09/13/18 Time of Encounter: 14:00 - Assessment and plan (1) Atherosclerosis of left lower extremity with ulceration Current Visit: No Status: Acute The patient has history of peripheral vascular disease and is previously undergone a left femoral to popliteal artery bypass graft. She now has a nonhealing ulcer on the left foot with dry gangrene of the left great toe. She was admitted with cellulitis which has resolved. Her ABIs are consistent with severe disease in left lower extremity. She was scheduled for a left femoral to popliteal artery bypass graft thrombectomy with possible revision today. However she had bronchospasm on induction of anesthesia and initiation of vancomycin. She required supportive care and was ultimately extubated. She will need to continue with antibiotic therapy. She will ultimately need rev ascularization to reduce her risk of limb loss. The patient was discussed with Infectious Disease and the Hospitalist Service. Qualifiers: Peripheral atherosclerosis artery type: bypass graft, nonbiological Lower extremity ulceration location: other part of foot Qualified Code(s): I70.645 - Atherosclerosis of nonbiological bypass graft(s) of the left leg with ulceration of other part of foot (2) Chronic anemia Current Visit: No Status: Chronic The patient has chronic anemia. He was 7.9 today. She has no evidence of ongoing blood loss. She is typed and screened for potential transfusion if necessary. (3) Chronic kidney disease, stage III (moderate) Current Visit: No Status: Chronic The patient is chronically disease stage III. Her creatinine increased and her GFR decreased overnight. She is beginning hydration. Her labs rechecked tomorrow. - Subjective Interval history: The patient scheduled for phlebectomy of her left artery bypass graft a. Upon induction of general anesthesia and initiation of vancomycin infusion the patient went bronchospasm. The procedure was discontinued due to her respiratory distress. She was treated by anesthesia and ultimately was extubated. Vital Signs, Last 4 Hours Temp Pulse Resp BP Pulse Ox 09/13/18 14:08 98.0 F 75 18 163/86 97 09/13/18 13:58 75 16 169/88 97 09/13/18 13:48 79 16 178/97 97 09/13/18 13:38 97.9 F 82 18 184/85 100 09/13/18 13:28 81 18 179/112 100 09/13/18 13:18 81 16 194/77 100 09/13/18 13:08 97.7 F 81 18 195/115 100 - Physical Examination General: Present: No Apparent Distress Cardiac: Present: Reg Rate and Rhythm Lungs: Present: Normal Breath Sounds Neuro: Present: Alert and responsive Vascular: Present: Normal capillary refill Abdomen: Present: Soft Skin: Present: No rashes noted on visualized skin Results 09/13/18 06:57 09/13/18 06:57 Lab Results, Last 24 hours 09/13/18 09/13/18 06:57 06:57 Hgb 8.9 L Hct 28.0 L Sodium 140 Potassium 4.7 Chloride 107 Carbon Dioxide 25 BUN 45 H Creatinine 1.24 H Glucose 100 Calcium 9.0 Consult Discharge Plan - Plan Referrals: Eleazar Vargas MD [Primary Care Provider] -
[2018-09-13] MEDS ORDERED: Dextrose Gel 15 GM/37.5 ML TUBE PO PRN ×2 (14:57)
[2018-09-13] MEDS ORDERED: Naloxone 0.4 MG/ML INJ IVP PRN (14:57)
[2018-09-13] MEDS ORDERED: *HR* Dextrose 50 % in Water (Syg) 50 ML SYRINGE IVP PRN (14:57)
[2018-09-13] MEDS ORDERED: D5% in Water 1,000 ML IVC PRN (14:57)
--- NOTE | 2018-09-13 15:42 | Infectious Disease Consult ---
Infectious Disease-Consult - Encounter Date/Time Date of Encounter: 09/13/18 Time of Encounter: 15:34 - Data of Consult Patient: new to practice Reason for consult: Left toe osteomyelitis and diabetic foot Consult date: 09/13/18 Requesting Physician: Jim Hernandez MD Primary Care Provider: Eleazar Vargas MD - [facility] HPI: Patient is a 67-year-old woman who presented to [facility] on 09/08/2018 with left great toe pain. We are consulted on 09/13/2018 for osteomyelitis of the left toe. Patient is a 67-year-old woman with past medical history significant for diabetes mellitus type 2, hyperlipidemia, hypertension, coronary disease, COPD, CHF, arthritis and severe peripheral vascular disease with history of fem oropopliteal artery bypass graft presented to the emergency department with left great toe pain that apparently has been happening for about 3-4 days prior to admission. Patient had an ingrown toenail removed on 08/28/2018. Patient developed discoloration of her toe 3 days prior to admission with pain and swelling so she came in for evaluation. On admission, patient MAXIMUM TEMPERATURE was 99.6, tachycardic without tachypnea. Presenting labs revealed a WBC of 6.3 with normal differential. ESR 75 and a CRP of 113. BUN/CR 27/1.11. A CT of the foot revealed distal great toe extending to the underlying bone with ostial lysis of the involving distal phalanx of the great toe consistent with osteomyelitis. No organized drainable fluid collection. Patient still apparently was ulcerated with dusky color and necrosis. Patient was started on clindamycin. Patient was evaluated by vascular surgery and was noted to have recurrent graft occlusion and her ankle brachial index is consistent with severe disease. Patient was scheduled for thrombectomy with possible revision. Patient was taken to surgery today. Apparently when they were trying to induce anesthesia she had bronchospasms and they could not do the surgery. Patient received epinephrine she became hypoxic her O2 sats were in the 70s. Surgery was stopped the patient was taken back to the floor. I did have a chance to sp eak with the surgeon and he is concerned that this could have been due to the vancomycin. Currently patient laying in bed she still have some purplish lips and satting about 90% but she actually does not appear toxic. She does not have use of accessory respiratory muscles. She does not appear in distress. - ROS Review of Systems: 10 point review of systems done, negative other for what mentioned in history of present illness - Results CBC & Chem 7: 09/13/18 06:57 09/13/18 06:57 - Exam Vitals: Temp Pulse Resp BP Pulse Ox 97.8 F 74 18 108/88 99 09/13/18 14:55 09/13/18 14:55 09/13/18 14:55 09/13/18 14:55 09/13/18 14:55 Exam: GENERAL: Laying in bed, appears comfortable. HEAD: Normocephalic atraumatic EYES: PERRLA, EOMI, no conjunctival hemorrhage, sclera anicteric ENT: Mucous membranes moist, no oral thrush NECK: Supple. No meningeal signs. No masses LUNGS: Chest expanding symmetrically. Lungs sounds audible both lung holland. No wheezing, no rhonchi CV: RRR, S1S2, ABDOMEN: Soft, nontender, nondistended. Bowel sounds audible EXTREMITY: no pedal edema, absent pulse on Lt foot. no calf tenderness. Lt great toe with necrosis at tip, absent nail. SKIN: Normal color. No rash. NEURO: Awake alert oriented 3. No obvious focal deficit PSYCH: Calm and appropriate. No agitation. Albuterol Sulfate [Proair Hfa] 2 puff IH Q4H PRN 08/15/18 [History] Amitriptyline [Elavil] 25 mg PO HS 08/15/18 [History] Aspirin [Lo-Dose Aspirin EC] 81 mg PO DAILY 08/15/18 [History] Clopidogrel [Plavix] 75 mg PO DAILY 08/15/18 [History] DULoxetine [Cymbalta] 30 mg PO DAILY 08/15/18 [History] Ergocalciferol (VITAMIN D2) [Vitamin D2] 50,000 unit PO TH 08/15/18 [History] Gabapentin [Neurontin] 300 mg PO HS 08/15/18 [History] Insulin NPH Hum/Reg Insulin Hm [Relion Novolin 70-30 Flexpen] 5 unit SQ BID 08/15/18 [History] Ipratropium/Albuterol Sulfate [Iprat-Albut 0.5-3(2.5) mg/3 ml] 1 vial IH Q6H PRN 08/15/18 [History] Iron Polysaccharide Complex [Ferrex 150] 150 mg PO DAILY 08/15/18 [History] Isosorbide MONOnitrate (24 HR) [Imdur] 60 mg PO DAILY 08/15/18 [History] Lisinopril [Zestril] 20 mg PO DAILY 08/15/18 [History] Lovastatin [Mevacor] 20 mg PO HS 08/15/18 [History] Metoprolol [Lopressor] 25 mg PO BID 08/15/18 [History] OxyCODONE/APAP 10/325 [Percocet 10/325 MG] 1 tab PO Q6H PRN 08/15/18 [History] Ropinirole HCl 0.25 mg PO HS 08/15/18 [History] Sertraline [Zoloft] 50 mg PO DAILY 08/15/18 [History] Simethicone [Gas-X] 80 mg PO QID PRN 08/15/18 [History] Sitagliptin Phosphate [Januvia] 50 mg PO DAILY 08/15/18 [History] Vit A/C/E AC/Znox/Cupric Oxide [Eye Vitamin-Minerals Tablet] 1 tab PO DAILY 08/15/18 [History] Allergy/AdvReac Type Severity Reaction Status Date / Time escitalopram [From Lexapro] Allergy Rash Verified 09/09/18 16:11 itraconazole [From Sporanox] Allergy Hives Verified 09/09/18 16:11 Penicillins [PCN] Allergy Rash Verified 09/09/18 16:11 metformin AdvReac Diarrhea Verified 09/09/18 16:11 - Assessment and Plan (1) Osteomyelitis Current Visit: Yes Status: Acute Osteomyelitis of the left great toe with necrosis and poor O2 supply. SILVIA 24 I did speak with the surgery team and they think they would rather go with antibiotics because if not patient will end up having an amputation. Even though the resident good blood supply but the thing that is sufficient to get the antibiotics down there. Currently patient has no cultures from the wound. Previous wound culture were positive for MRSA less than a year ago Patient is already on clindamycin, I will add cefepime to have MRSA, anaerobic and gram-negative coverage. I will post and cefepime tomorrow to make sure the patient is clinically doing well and there is no other reaction. Patient's creatinine clearance right now is about 30-33. We will ask pharmacy to help us with the dosing. I am aware that the patient has penicillin allergy but hopefully she will tolerate the cefepime just fine. Qualifiers: Osteomyelitis type: unspecified type Osteomyelitis location: foot Laterality: left Qualified Code(s): M86.9 - Osteomyelitis, unspecified SNOMED Code(s): 51874937 (2) Ischemic toe ulcer Current Visit: Yes Status: Acute Qualifiers: Laterality: left Non-pressure ulcer stage: with fat layer exposed Qualified Code(s): L97.522 - Non-pressure chronic ulcer of other part of left foot with fat layer exposed SNOMED Code(s): 202779754 (3) PAD (peripheral artery disease) Current Visit: No Status: Chronic Multiple surgeries in the past s/p: 08/29/17: 1. Left lower extremity bypass graft thrombectomy. 2. Left common femoral endarterectomy. 08/15/18: 1. Left femoral to popliteal artery bypass graft thrombectomy with 4 maori and 5 maori Demetrice embolectomy catheters. 2. Left iliofemoral endarterterectomy. 08/29/2017 1. Left lower extremity bypass graft thrombectomy. 2. Left common femoral endarterectomy. SNOMED Code(s): 176392209, 590988910 (4) CAD (coronary artery disease) Current Visit: No Status: Chronic Qualifiers: Coronary Disease-Associated Artery/Lesion type: bypass graft [place] vs. transplanted heart: [place] heart Associated angina: without angina Qualified Code(s): I25.810 - Atherosclerosis of coronary artery bypass graft(s) without angina pectoris SNOMED Code(s): 40802747 (5) Diabetes mellitus Current Visit: No Status: Chronic Qualifiers: Diabetes mellitus type: type 2 Diabetes mellitus ferry terminal agent insulin use: with ferry terminal agent use Diabetes mellitus complication status: with circulatory complication Diabetes mellitus complication detail: with peripheral angiopathy without gangrene Qualified Code(s): E11.51 - Type 2 diabetes mellitus with di abetic peripheral angiopathy without gangrene; Z79.4 - intermediate teacher (current) use of insulin SNOMED Code(s): 91940356 (6) Tobacco dependence Current Visit: No Status: Chronic SNOMED Code(s): 92571326 (7) 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 Visit: No Status: Chronic History of MRSA infection in September [address] the patient and contact precautions Notified nursing already SNOMED Code(s): 427639835 (8) COPD exacerbation Current Visit: Yes Status: Acute SNOMED Code(s): 671202073 (9) Vascular graft occlusion Current Visit: Yes Status: Acute Qualifiers: Encounter type: initial encounter Qualified Code(s): T82.898A - Other specified complication of vascular prosthetic devices, implants and grafts, initial encounter SNOMED Code(s): 243402939 Past Med Surg Social Fam HX - Past Medical History Medical history: arthritis, asthma, CHF, COPD, coronary artery disease, diabetes, hyperlipidemia, hypertension, renal disease Additional medical history: 3 stents Psychiatric history: no psych history - Past Surgical History Surgical History: appendectomy, coronary bypass (CABG), hysterectomy, other, vascular surgery Additional surgical history: Colonoscopy - Social History Smoking Status: Current every day smoker Smokeless Tobacco Status: No Alcohol use: none Drug use: none - Family History Mother Adopted: No Living Status: Hx Family Cardiac Disorders: Yes Hx Family Respiratory Disorders: Yes Hx Family Endocrine Disorder: Yes Father Adopted: No Living Status: Hx Family Cardiac Disorders: Yes Hx Family Respiratory Disorders: Yes Hx Family Cancer: No Consult Discharge Plan - Plan Referrals: Eleazar Vargas MD [Primary Care Provider] -
[2018-09-13] MEDS: Gabapentin 300 MG CAPSULE PO SCH (21:30)
[2018-09-13] MEDS: Insulin DETEMIR 100 UNIT/ML X5UNITS SQ SCH (21:32)
[2018-09-14 02:39] LABS: Basophils % 0.1 %; Hematocrit 25.4 % (35.3-44.9); Hemoglobin 8.1 g/dL (11.5-15.4); Immature Granulocytes % 0.9 % (0-4); Lymphocytes # 0.3 K/mcL (0.6-4.6); Lymphocytes % 3.1 %; Mean Corpuscular HGB Conc 31.9 g/dL (31.6-35.5); Mean Corpuscular Hemoglobin 30.1 pg (28.0-33.3); Mean Corpuscular Volume 94.4 fL (83.0-100.0); Monocytes # 0.6 K/mcL (0.0-1.3); Monocytes % 6.2 %; Neutrophils # 8.6 K/mcL (1.6-8.9); Platelet Count 231 K/mcL (140-400); Red Blood Count 2.69 M/mcL (3.82-4.97); Red Cell Distribution Width 13.2 % (11.5-14.5); Segmented Neutrophils % 89.7 %; White Blood Count 9.6 K/mcL (4.3-11.1)
[2018-09-14 02:59] LABS: Potassium 4.9 mEq/L (3.5-5.1)
[2018-09-14] MEDS: Ipratropium/Albuterol Neb 3 ML IH SCH ×4 (04:04→22:48)
[2018-09-14] MEDS: *HR* Heparin 5,000 UNIT/ML VIAL SQ SCH (05:06)
[2018-09-14] MEDS: OXYCODONE Oral CONC 10 MG/0.5 ML ORAL.SYG SL PRN ×4 (05:09→20:49)
[2018-09-14] MEDS: 0.9 % Sodium Chloride 1,000 ML IVC SCH (07:24)
[2018-09-14] MEDS: Aspirin Enteric Coated 81 MG Tablet PO SCH (07:26)
[2018-09-14] MEDS: Isosorbide MONOnitrate (24 HR) 60 MG TAB.ER.24H PO SCH (07:26)
[2018-09-14] MEDS: Iron Polysaccharide Complex 150 MG CAPSULE PO SCH (07:27)
[2018-09-14] MEDS: predniSONE 20 MG TABLET PO SCH (07:27)
[2018-09-14] MEDS: Clindamycin 600 MG/50 ML 600 MG/50 ML IV.SOLN IVPB SCH ×3 (07:28→23:13)
[2018-09-14] MEDS: Insulin LISPRO 300 UNITS/3 ML VIAL SQ SCH ×7 (07:41→20:50)
--- NOTE | 2018-09-14 11:25 | Nephrology Consult Note ---
Date of Encounter: 09/14/18 Time of Encounter: 12:00 Assessment and Plan (1) Acute kidney injury Current Visit: No Status: Acute Elevated SCr in the setting of osteomyelitis with exoposure to vanco while on lisinopril Agree with fluids Avoid nephrotoxins if possible Will hold lisinopril and start a different less nephrotoxic med Will check urine studies, CPK and uric acid (2) Osteomyelitis Current Visit: Yes Status: Chronic per ID and primary team Qualifiers: Osteomyelitis type: unspecified type Osteomyelitis location: foot Laterality: left Qualified Code(s): M86.9 - Osteomyelitis, unspecified (3) Vascular graft occlusion Current Visit: Yes Status: Acute per vascular surgery. Still needs intervention to be determined by Dr Castelan Qualifiers: Encounter type: initial encounter Qualified Code(s): T82.898A - Other specified complication of vascular prosthetic devices, implants and grafts, initial encounter (4) Anemia Current Visit: No Status: Acute Hgb noted at 8.1 fluctuating, will monitor Transfusion parameters per primary team Qualifiers: Anemia type: unspecified type Qualified Code(s): D64.9 - Anemia, unspecified History of Present Illness - Reason for Consult Consult date: 09/14/18 Acute Kidney Injury, Chronic Kidney Disease Requesting physician: Chanel Silveira - History of Present Illness 67 y o female with PMh of DM, HTN, COPD, CAD s/p CABG, CHF, PVD s/p L fem-pop bypass graft admitted 09/09/18 with L great toe pain for several days duration after a recent ingrown toenail removal. She was diagnosed with osteomyelitis with abx, clindamycin started. She was also diagnosed with recurrent graft occlusion but was unable to tolerate thrombectomy/revision surgery due to acute bronchospasms with hypoxia. Renal consulted with slightly worse SCr at 1.43, GFR 36 despite IVF with baseline GFR fluctuating from 30-50s. She also received vanco at some point but discontinued. Past Med Surg Social Fam HX - Past Medical History Medical history: arthritis, asthma, CHF, COPD, coronary artery disease, diabetes, hyperlipidemia, hypertension, renal disease Additional medical history: 3 stents Psychiatric history: no psych history - Past Surgical History Surgical History: appendectomy, coronary bypass (CABG), hysterectomy, other, vascular surgery Additional surgical history: Colonoscopy - Social History Smoking Status: Current every day smoker Smokeless Tobacco Status: No Alcohol use: none Drug use: none - Family History Mother Adopted: No Living Status: Hx Family Cardiac Disorders: Yes Hx Family Respiratory Disorders: Yes Hx Family Endocrine Disorder: Yes Father Adopted: No Living Status: Hx Family Cardiac Disorders: Yes Hx Family Respiratory Disorders: Yes Hx Family Cancer: No Medications and Allergies Albuterol Sulfate [Proair Hfa] 2 puff IH Q4H PRN 08/15/18 [History] Amitriptyline [Elavil] 25 mg PO HS 08/15/18 [History] Aspirin [Lo-Dose Aspirin EC] 81 mg PO DAILY 08/15/18 [History] Clopidogrel [Plavix] 75 mg PO DAILY 08/15/18 [History] DULoxetine [Cymbalta] 30 mg PO DAILY 08/15/18 [History] Ergocalciferol (VITAMIN D2) [Vitamin D2] 50,000 unit PO TH 08/15/18 [History] Gabapentin [Neurontin] 300 mg PO HS 08/15/18 [History] Insulin NPH Hum/Reg Insulin Hm [Relion Novolin 70-30 Flexpen] 5 unit SQ BID 08/15/18 [History] Ipratropium/Albuterol Sulfate [Iprat-Albut 0.5-3(2.5) mg/3 ml] 1 vial IH Q6H PRN 08/15/18 [History] Iron Polysaccharide Complex [Ferrex 150] 150 mg PO DAILY 08/15/18 [History] Isosorbide MONOnitrate (24 HR) [Imdur] 60 mg PO DAILY 08/15/18 [History] Lisinopril [Zestril] 20 mg PO DAILY 08/15/18 [History] Lovastatin [Mevacor] 20 mg PO HS 08/15/18 [History] Metoprolol [Lopressor] 25 mg PO BID 08/15/18 [History] OxyCODONE/APAP 10/325 [Percocet 10/325 MG] 1 tab PO Q6H PRN 08/15/18 [History] Ropinirole HCl 0.25 mg PO HS 08/15/18 [History] Sertraline [Zoloft] 50 mg PO DAILY 08/15/18 [History] Simethicone [Gas-X] 80 mg PO QID PRN 08/15/18 [History] Sitagliptin Phosphate [Januvia] 50 mg PO DAILY 08/15/18 [History] Vit A/C/E AC/Znox/Cupric Oxide [Eye Vitamin-Minerals Tablet] 1 tab PO DAILY 08/15/18 [History] Cefepime HCl/Dextrose, Iso-Osm [Cefepime 1 gm Injection] 1 gm IV Q12H 42 Days #84 [email or web address] 09/18/18 [Rx] Clindamycin 600 MG/50 ML [Cleocin Premix 600 MG/50 ML] 600 mg IVPB Q8H 42 Days #126 bag 09/18/18 [Rx] DAPTOmycin [Daptomycin] 350 mg IV DAILY #31 vial 09/20/18 [Rx] Allergy/AdvReac Type Severity Reaction Status Date / Time escitalopram [From Lexapro] Allergy Rash Verified 09/09/18 16:11 itraconazole [From Sporanox] Allergy Hives Verified 09/09/18 16:11 Penicillins [PCN] Allergy Rash Verified 09/09/18 16:11 metformin AdvReac Diarrhea Verified 09/09/18 16:11 Review of Systems All Systems review (narrative): The rest of the systems are negative Constitutional: fatigue (admits), fever(s) (denies) Cardiovascular: chest pain (denies), leg edema (admits) Respiratory: dyspnea (denies) Exam - Vital Signs Vital signs: Initial Vital Signs Temp Pulse Resp BP Pulse Ox 98.6 F 97 18 132/88 97 09/08/18 18:46 09/08/18 18:46 09/08/18 18:46 09/08/18 18:46 09/08/18 18:46 Vital Signs - Last 8 Hours Temp Pulse Resp BP Pulse Ox 09/14/18 08:00 73 09/14/18 07:30 98.1 F 74 16 184/83 98 09/14/18 04:04 18 98 09/14/18 03:52 98.3 F 67 17 160/76 Intake and Output 09/13/18 09/14/18 09/14/18 23:59 07:59 15:59 Intake Total 50 / 150 1050 / 1050 Output Total 100 / 450 400 / 400 Balance -50 / -300 650 / 650 Intake: IV Fluids 50 / 150 1050 / 1050 0.9 % Sodium Chloride 1,000 ML 1000 / 1000 @ 75 mls/hr IVC .[id number] [facility] Rx #:[id number] Cleocin Premix 600 MG/50 ML 600 50 / 50 50 / 50 mg In 50 ml @ 50 mls/hr IVPB Q8HR DEANNA Rx#:[id number] Output: Catheter 100 / 100 400 / 400 Other: Meal Dinner Percent of Meal Consumed 100% Weight 59.2 kg Blood Glucose* 272 200 Patient Weight 09/14/18 23:59 Weight 59.2 kg - General Appearance General appearance: chronically ill (NAD) EENT: ATNC, mucous membranes dry Neck: no JVD, supple Respiratory: clear Cardiology: no edema (L foot with dressing), normal S1, normal S2 Gastrointestinal: no tenderness, no guarding Integumentary: warm and dry Neurologic: no focal deficit Musculoskeletal: no deformities Psychiatric: mood/affect appropriate, cooperative Results - Lab Results 09/19/18 09:29 09/20/18 03:14 Most recent lab results 09/14/18 01:21 Calcium 8.0 L Consult Discharge Plan - Plan Referrals: Tera Schmidt DPM [Partnered Physician] - 09/23/18 3:30 pm Eleazar aVrgas MD [Primary Care Provider] - Peewee Koroma [Partnered Physician] - 10/08/18 9:00 am Prescriptions: Cefepime HCl/Dextrose, Iso-Osm [Cefepime 1 gm Injection] 1 gm IV Q12H 42 Days #84 [email or web address] Clindamycin 600 MG/50 ML [Cleocin Premix 600 MG/50 ML] 600 mg IVPB Q8H 42 Days #126 bag DAPTOmycin [Daptomycin] 350 mg IV DAILY #31 vial
--- NOTE | 2018-09-14 11:54 | Internal Med Progress Note ---
Hospitalist Progress Note - Encounter Date of Encounter: 09/14/18 Time of Encounter: 11:50 - Subjective Interval History: Patient had event of bronchospasm and operative room therefore vascular surgery was canceled and patient was transferred to [facility] as was short of breath and requiring oxygen. Today she is feeling better and shortness of breath and does not require any oxygen supplement but notice hematuria. Review of the vitals and lab. Slight decrease in hemoglobin. Denies fever nausea vomiting headache dizziness chest pain abdominal pain diarrhea - Exam Vitals: Temp Pulse Resp BP Pulse Ox 98.1 F 73 16 184/83 98 09/14/18 07:30 09/14/18 08:00 09/14/18 07:30 09/14/18 07:30 09/14/18 07:30 Exam: General: In no acute distress. Respiratory exam: no accessory muscle use. Decreased breath sound at the base with few scattered rhonchi Cardiovascular exam: RRR, +S1, +S2. no murmur, GI/Abdominal exam: Non-tender, Non-distended, normal bowel sounds, soft, no peritoneal signs. Extremities exam: no pedal edema, absent pulse on Lt foot. no calf tenderness. Lt great toe with necrosis at tip, absent nail. Neurological exam: CN II-XII intact, AO X3, no focal deficits. Skin exam: No rash 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 Current Visit: No Status: Acute (2) CAD (coronary artery disease) Current Visit: No Status: Chronic (3) Diabetes mellitus Current Visit: No Status: Chronic (4) DVT prophylaxis Current Visit: No Status: Acute (5) Chronic kidney disease, stage III (moderate) Current Visit: No Status: Chronic (6) Anemia Current Visit: No Status: Acute (7) Osteomyelitis Current Visit: Yes Status: Acute (8) Ischemic toe ulcer Current Visit: Yes Status: Acute (9) COPD exacerbation Current Visit: Yes Status: Acute (10) Hematuria Current Visit: Yes Status: Acute - Summary of Assessment and Plan Summary of Assessment and Plan: Assessment Acute respiratory failure-due to bronchospasm at operating room questionable vancomycin reaction. Required oxygen supplement but now back to normal baseline. Improved. Hematuria-new onset. Patient has chronic anemia with slight trending down hemoglobin. Is stopped heparin for DVT prophylaxis and continue SCDs. Consulted urologists-after discussion decided to watch and other day for hematuria in hemoglobin and effaced worse then will hold aspirin eventually Lt toe osteomyelitis, cellulitis-- Continue empiric clindamycin for osteomyelitis as per senior technical editor's advice. ID consulted and he advised to add ce fepime therefore ordered. Patient will require 6 week IV antibiotic therefore need PICC line placement for the facility where IV antibiotic can be given. Due to long weekend social service is not available therefore possible discharge on Sunday. Blood culture NGTD-final report. Toe ulceration-ischemic.- Podiatry following. Possible I&D vs possible amputation. Vascular surgery on board and decided for outpatient follow-up and surgery as patient had episode of bronchospasm in the operating room. Recent fem-pop bypass on left. Decreased SILVIA on left at 0.48. Has graft occlusion. COPD exacerbation-improving. Continue po steroid with tapering dose . C/w scheduled bronchodilators. Breathing improved Lt fem-pop graft -as mentioned above. OSCAR-high creatinine level with slight worse. Could be due to exposure of 1 dose of vancomycin. Consulted nephrology. Avoid nephrotoxic drug. On renal protective medicine acetylcysteine and IV fluid 75 mL per hour. Monitor BMP. Hypertension-high. Will hold lisinopril as creatinine are worse. Increase beta wesley 50 mg by mouth twice a day. Hydralazine when necessary. Will add amlodipine if needed. Giving all the morning medicine and will recheck the blood pressure and is still higher than will make further adjustment in medication. DVT prophylaxis-stopped heparin. SCDs CAD-- c/w home aspirin, imdur, and metoprolol. Started on atorvastatin instead of home simvastatin. On hold lisinopril for now PAD- severe. as above Chronic anemia--hemoglobin trended down with hematuria. Monitor hemoglobin. CKD-3 DM-well controlled.- c/w SSI and accuchecks. BG elevated post prandial. Will add 5 units premeal. smoker-- Discussed smoking cessation Spent more than 35 minute and patient care in communication with nursing staff and organization development consultant urologist, ID specialist and vascular surgeon - Time Spent with Patient Total time spent is greater than 50% in coordination of care (as documented) at patient's floor/unit and/or counseling patient: Greater than 35 minutes Plan of Care Discussed with: patient Internal Medicine: Result - Labs CBC & Chem 7: 09/14/18 01:21 09/14/18 01:21 Labs: Short CBC 09/14/18 Range/Units 01:21 WBC 9.6 (4.3-11.1) K/mcL Hgb 8.1 L (11.5-15.4) g/dL Hct 25.4 L (35.3-44.9) % Plt Count 231 (140-400) K/mcL Neutrophils # 8.6 (1.6-8.9) K/mcL BMP 09/14/18 01:21 Sodium 140 Potassium 4.9 Chloride 112 H Carbon Dioxide 22 L BUN 45 H Creatinine 1.43 H Glucose 183 H Calcium 8.0 L - Impressions Impressions Chest X-Ray 09/13/18 10:28 IMPRESSION: No acute cardiopulmonary process. D/ / 09/13/2018 18:57:18 Raven Hirsch MD / paige Interpreting Provider: Raven Hirsch MD Consult Discharge Plan - Plan Referrals: Eleazar Vargas MD [Primary Care Provider] - _ (1) Atherosclerosis of left lower extremity with ulceration Qualifiers: Peripheral atherosclerosis artery type: bypass graft, nonbiological Lower extremity ulceration location: other part of foot Qualified Code(s): I70.645 - Atherosclerosis of nonbiological bypass graft(s) of the left leg with ulceration of other part of foot (2) CAD (coronary artery disease) Qualifiers: Coronary Disease-Associated Artery/Lesion type: bypass graft [place] vs. transplanted heart: [place] heart Associated angina: without angina Qualified Code(s): I25.810 - Atherosclerosis of coronary artery bypass graft(s) without angina pectoris (3) Diabetes mellitus Qualifiers: Diabetes mellitus type: type 2 Diabetes mellitus oysterman insulin use: with nursing home use Diabetes mellitus complication status: with circulatory complication Diabetes mellitus complication detail: with peripheral angiopathy without gangrene Qualified Code(s): E11.51 - Type 2 diabetes mellitus with diabetic peripheral angiopathy without gangrene; Z79.4 - long term care phlebotomist (current) use of insulin (6) Anemia Qualifiers: Anemia type: unspecified type Qualified Code(s): D64.9 - Anemia, unspecified (7) Osteomyelitis Qualifiers: Osteomyelitis type: unspecified type Osteomyelitis location: foot Laterality: left Qualified Code(s): M86.9 - Osteomyelitis, unspecified (8) Ischemic toe ulcer Qualifiers: Laterality: left Non-pressure ulcer stage: with fat layer exposed Qualified Code(s): L97.522 - Non-pressure chronic ulcer of other part of left foot with fat layer exposed
[2018-09-14] MEDS: Cefepime HCl 1,000 MG in Water for inj. (sterile) 10 ML IVP SCH ×2 (12:02→23:13)
[2018-09-14 12:03] LABS: Bilirubin,Urine Moderate (Negative); Blood,Urine Large (Negative); Clarity,Urine Turbid (Clear); Color,Urine Red (Yellow); Glucose,Urine (UA) Normal (Normal); Ketones,Urine Trace mg/dL (Negative); Leukocyte Esterase,Urine Moderate (Negative); Nitrite,Urine Negative (Negative); Protein,Urine 100 mg/dL (Neg-Trace); Specific Gravity,Urine 1.013 (1.010-1.025); Urobilinogen,Urine Normal (Normal)
[2018-09-14 12:03] LABS: Uric Acid 6.3 mg/dL (2.3-7.6)
[2018-09-14 12:05] LABS: Bacteria,Urine None Seen per hpf (None-Few); Hyaline Casts,Urine None Seen per lpf (None-Few); Squamous Epithelial Cell,Urine Many per lpf (None-Few); WBC,Urine 15-30 per hpf (0-3)
[2018-09-14 12:12] LABS: RBC,Urine TNTC per hpf (0-3)
[2018-09-14 12:20] LABS: Sodium, Urine 68.6 mEq/L
--- NOTE | 2018-09-14 13:43 | Electrocardiograph Report ---
[address] [place], [place] [address] Test Date: 2018-09-13 Pat Name: Romina Sepulveda Department: 110 Room: 2N12 Gender: F Dishtank Operator: : 1950 Requested By: Kali Correa Order Number: [id number] Reading MD: Mauricio Gutierrez Measurements Intervals [place] Rate: 69 P: 63 AL: 129 QRS: 7 QRSD: 131 T: 117 QT: 437 QTc: 456 Interpretive Statements SINUS RHYTHM RIGHT BUNDLE BRANCH BLOCK MODERATE T-WAVE ABNORMALITY, CONSIDER LATERAL ISCHEMIA Electronically Signed On 09-14-2018 13:42:13 EDT by Mauricio Gutierrez
--- NOTE | 2018-09-14 13:45 | Event Note ---
Date of Encounter: 09/14/18 Time of Encounter: 13:42 Patient is sitting up in bed. She is comfortable. She surrounded by her family and is eating her lunch. She is in no respiratory distress. I reviewed with her the surgical plans and that the patient is to follow-up with Dr. Castelan as an outpatient. It is Dr. Castelan's intention to proceed with further left lower extremity vascular surgery in an attempt to increase the perfusion to try to salvage the lower extremity in the near future. All questions were answered.
[2018-09-14] MEDS: Gabapentin 300 MG CAPSULE PO SCH (20:49)
[2018-09-14] MEDS: Insulin DETEMIR 100 UNIT/ML X5UNITS SQ SCH (20:50)
[2018-09-15] MEDS: Ipratropium/Albuterol Neb 3 ML IH SCH ×4 (03:53→21:26)
[2018-09-15] MEDS: OXYCODONE Oral CONC 10 MG/0.5 ML ORAL.SYG SL PRN ×5 (04:36→23:08)
[2018-09-15] MEDS: 0.9 % Sodium Chloride 1,000 ML IVC SCH ×3 (04:39→17:40)
[2018-09-15 07:21] LABS: Basophils % 0.1 %; Eosinophils # 0.1 K/mcL (0.0-0.6); Eosinophils % 0.9 %; Hematocrit 24.5 % (35.3-44.9); Hemoglobin 7.7 g/dL (11.5-15.4); Immature Granulocytes % 2.1 % (0-4); Immature Platelets 3.3 % (1.1-6.1); Lymphocytes % 12.8 %; Mean Corpuscular HGB Conc 31.4 g/dL (31.6-35.5); Mean Corpuscular Hemoglobin 29.8 pg (28.0-33.3); Mean Platelet Volume 10.6 fL (9.4-12.4); Monocytes # 0.7 K/mcL (0.0-1.3); Monocytes % 9.5 %; Neutrophils # 5.8 K/mcL (1.6-8.9); Platelet Count 210 K/mcL (140-400); Red Blood Count 2.58 M/mcL (3.82-4.97); Red Cell Distribution Width 13.5 % (11.5-14.5); Segmented Neutrophils % 74.6 %; White Blood Count 7.8 K/mcL (4.3-11.1)
[2018-09-15 07:51] LABS: Calcium 8.3 mg/dL (8.6-10.3); Potassium 4.3 mEq/L (3.5-5.1)
[2018-09-15] MEDS: Insulin LISPRO 300 UNITS/3 ML VIAL SQ SCH ×7 (08:40→20:17)
[2018-09-15] MEDS: Clindamycin 600 MG/50 ML 600 MG/50 ML IV.SOLN IVPB SCH ×3 (08:40→23:09)
[2018-09-15] MEDS: Isosorbide MONOnitrate (24 HR) 60 MG TAB.ER.24H PO SCH (08:41)
[2018-09-15] MEDS: predniSONE 20 MG TABLET PO SCH (08:41)
[2018-09-15] MEDS: Aspirin Enteric Coated 81 MG Tablet PO SCH (08:42)
[2018-09-15] MEDS: Iron Polysaccharide Complex 150 MG CAPSULE PO SCH (08:42)
--- NOTE | 2018-09-15 09:54 | Internal Med Progress Note ---
Hospitalist Progress Note - Encounter Date of Encounter: 09/15/18 Time of Encounter: 10:53 - Subjective Interval History: No acute event overnight. Resolving hematuria. Review the lab attending on creatinine level and also hemoglobin. Review of the blood pressure slight elevated Patient denies fever chills nausea vomiting headache dizziness chest pain shortness of breath diarrhea. - Exam Vitals: Temp Pulse Resp BP Pulse Ox 98.4 F 69 15 151/64 97 09/15/18 07:23 09/15/18 07:23 09/15/18 07:23 09/15/18 07:23 09/15/18 07:23 Exam: General: In no acute distress. Respiratory exam: Decreased breath sound at the base with few scattered rhonchi slight better Cardiovascular exam: RRR, +S1, +S2. no murmur, GI/Abdominal exam: Non-tender, Non-distended, normal bowel sounds, soft, no peritoneal signs. Extremities exam: no pedal edema, absent pulse on Lt foot. no calf tenderness. Lt great toe with necrosis at tip, absent nail. Neurological exam: CN II-XII intact, AO X3, no focal deficits. Skin exam: No rash 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 Current Visit: No Status: Acute (2) CAD (coronary artery disease) Current Visit: No Status: Chronic (3) Diabetes mellitus Current Visit: No Status: Chronic (4) DVT prophylaxis Current Visit: No Status: Acute (5) Chronic kidney disease, stage III (moderate) Current Visit: No Status: Chronic (6) Anemia Current Visit: No Status: Acute (7) Osteomyelitis Current Visit: Yes Status: Acute (8) Ischemic toe ulcer Current Visit: Yes Status: Acute (9) COPD exacerbation Current Visit: Yes Status: Acute (10) Hematuria Current Visit: Yes Status: Acute - Summary of Assessment and Plan Summary of Assessment and Plan: Assessment Acute respiratory failure-due to bronchospasm at operating room questionable vancomycin reaction. Required oxygen supplement but now back to normal baseline. Improved. Hematuria-new onset. Improving. Patient has chronic anemia with slight trending down hemoglobin. stopped heparin for DVT prophylaxis and continue SCDs . Onboard neurologist-okay to remove Kennedy catheter, renal ultrasound inpatient and outpatient cystoscopy. Continue aspirin for now due to underlying severe peripheral vascular disease benefit weighs more than risk. Close monitoring if worsening then hold aspirin after discussing with urologist Lt toe osteomyelitis, cellulitis-- Continue empiric clindamycin for osteomyelitis as per fitness coach's advice. ID consulted and he advised to add cefepime therefore ordered. Patient will require 6 week IV antibiotic therefore need PICC line placement for the facility where IV antibiotic can be given. Due to long weekend social service is not available therefore possible discharge on Sunday. Blood culture NGTD-final report. Toe ulceration-ischemic.- Podiatry following. Possible I&D vs possible amputation. Vascular surgery on board and decided for outpatient follow-up and surgery as patient had episode of bronchospasm in the operating room. Recent fem-pop bypass on left. Decreased SILVIA on left at 0.48. Has graft occlusion. COPD exacerbation-improving. Continue po steroid with slow tapering dose. A started prednisone 40 mg by mouth on September 13 . C/w scheduled bronchodilators. Breathing improved Lt fem-pop graft -as mentioned above. OSCAR-high creatinine level with slight worse. Could be due to exposure of 1 dose of vancomycin. Consulted nephrology-agree with current management. Avoid nephrotoxic drug. On renal protective medicine acetylcysteine and IV fluid 75 mL per hour. Holding lisinopril. Monitor BMP. Hypertension-high. Will hold lisinopril as creatinine are worse. Increased beta wesley 50 mg by mouth twice a day. Hydralazine when necessary. Is still high blood pressure therefore will start amlodipine 5 mg by mouth daily. Close monitoring of blood pressure. DVT prophylaxis-stopped heparin. SCDs CAD-- c/w home aspirin, imdur, and metoprolol. Started on atorvastatin instead of home simvastatin. On hold lisinopril for now PAD- severe. as above Chronic anemia--hemoglobin trended down with hematuria. Monitor hemoglobin. CKD-3 DM-well controlled.- c/w SSI and accuchecks. Better controlled but still high blood glucose level therefore increase Levemir 12 units qhs. Diabetic diet smoker-- Discussed smoking cessation - Time Spent with Patient Total time spent is greater than 50% in coordination of care (as documented) at patient's floor/unit and/or counseling patient: 25 - 35 minutes Plan of Care Discussed with: patient Internal Medicine: Result - Labs CBC & Chem 7: 09/15/18 06:44 09/15/18 06:44 Labs: Short CBC 09/15/18 Range/Units 06:44 WBC 7.8 (4.3-11.1) K/mcL Hgb 7.7 L (11.5-15.4) g/dL Hct 24.5 L (35.3-44.9) % Plt Count 210 (140-400) K/mcL Neutrophils # 5.8 (1.6-8.9) K/mcL BMP 09/15/18 06:44 Sodium 140 Potassium 4.3 Chloride 110 H Carbon Dioxide 24 BUN 39 H Creatinine 1.34 H Glucose 154 H Calcium 8.3 L Urine 09/14/18 Range/Units 11:50 Urine Color Red A (Yellow) Urine Clarity Turbid A (Clear) Urine pH 5.0 (5.0-8.0) pH Units Ur Specific [place] 1.013 (1.010-1.025) Urine Protein 100 H (Neg-Trace) mg/dL Urine Glucose (UA) Normal (Normal) mg/dL - Impressions Impressions Chest X-Ray 09/13/18 10:28 IMPRESSION: No acute cardiopulmonary process. D/ / 09/13/2018 18:57:18 Raven Hirsch MD / [email or web address] Interpreting Provider: Raven Hirsch MD Consult Discharge Plan - Plan Referrals: Eleazar Vargas MD [Primary Care Provider] - (1) Atherosclerosis of left lower extremity with ulceration Qualifiers: Peripheral atherosclerosis artery type: bypass graft, nonbiological Lower extremity ulceration location: other part of foot Qualified Code(s): I70.645 - Atherosclerosis of nonbiological bypass graft(s) of the left leg with ulceration of other part of foot (2) CAD (coronary artery disease) Qualifiers: Coronary Disease-Associated Artery/Lesion type: bypass graft [place] vs. transplanted heart: [place] heart Associated angina: without angina Qualified Code(s): I25.810 - Atherosclerosis of coronary artery bypass graft(s) without angina pectoris (3) Diabetes mellitus Qualifiers: Diabetes mellitus type: type 2 Diabetes mellitus ferry terminal agent insulin use: with ferry terminal agent use Diabetes mellitus complication status: with circulatory complication Diabetes mellitus complication detail: with peripheral angiopathy without gangrene Qualified Code(s): E11.51 - Type 2 diabetes mellitus with diabetic peripheral angiopathy without gangrene; Z79.4 - parts counterman (current) use of insulin (6) Anemia Qualifiers: Anemia type: unspecified type Qualified Code(s): D64.9 - Anemia, unspecified (7) Osteomyelitis Qualifiers: Osteomyelitis type: unspecified type Osteomyelitis location: foot Laterality: left Qualified Code(s): M86.9 - Osteomyelitis, unspecified (8) Ischemic toe ulcer Qualifiers: Laterality: left Non-pressure ulcer stage: with fat layer exposed Qualified Code(s): L97.522 - Non-pressure chronic ulcer of other part of left foot with fat layer exposed (10) Hematuria Qualifiers: Hematuria type: gross Qualified Code(s): R31.0 - Gross hematuria
--- NOTE | 2018-09-15 11:22 | Urology - Consult Note ---
Date of Encounter: 09/15/18 Time of Encounter: 11:19 - Assessment and Plan (1) Hematuria Current Visit: Yes Status: Acute Assessment and plan: Scans potential etiologies evaluation. Suspect hematuria was due to indwelling Kennedy and anticoagulation. Hematuria resolving spontaneously. Will screen upper and lower tracts with inpatient ultrasound and outpatient cystoscopy. Plan: Discontinue Kennedy catheter when strict I and O's no longer required. Plan: Renal ultrasound while inpatient. My office will arrange for outpatient follow-up for cystoscopy. Thank you for allowing me to participate in the care of this very pleasant lady. Qualifiers: Hematuria type: gross Qualified Code(s): R31.0 - Gross hematuria Urology CN:HPI Consult date: 09/15/18 Requesting physician: Chanel Silveira History of present illness: 67-year-old lady admitted for osteomyelitis of the great toe and found to have occlusion of previous popliteal bypass. Patient being optimized for vascular intervention. Kennedy catheter was placed. The patient experienced some hematuria within the catheter yesterday. Her subcutaneous heparin was held she continues on aspirin. She reports no associated pain Kennedy trauma in relation to onset of hematuria. Patient with no prior history of hematuria. We are a sked to see the patient for the above. Past Med Surg Social Fam HX - Past Medical History Medical history: arthritis, asthma, CHF, COPD, coronary artery disease, diabetes, hyperlipidemia, hypertension, renal disease Additional medical history: 3 stents Psychiatric history: no psych history - Past Surgical History Surgical History: appendectomy, coronary bypass (CABG), hysterectomy, other, vascular surgery Additional surgical history: Colonoscopy - Social History Smoking Status: Current every day smoker Smokeless Tobacco Status: No Alcohol use: none Drug use: none - Family History Mother Adopted: No Living Status: Hx Family Cardiac Disorders: Yes Hx Family Respiratory Disorders: Yes Hx Family Endocrine Disorder: Yes Father Adopted: No Living Status: Hx Family Cardiac Disorders: Yes Hx Family Respiratory Disorders: Yes Hx Family Cancer: No Medications and Allergies Albuterol Sulfate [Proair Hfa] 2 puff IH Q4H PRN 08/15/18 [History] Amitriptyline [Elavil] 25 mg PO HS 08/15/18 [History] Aspirin [Lo-Dose Aspirin EC] 81 mg PO DAILY 08/15/18 [History] Clopidogrel [Plavix] 75 mg PO DAILY 08/15/18 [History] DULoxetine [Cymbalta] 30 mg PO DAILY 08/15/18 [History] Ergocalciferol (VITAMIN D2) [Vitamin D2] 50,000 unit PO TH 08/15/18 [History] Gabapentin [Neurontin] 300 mg PO HS 08/15/18 [History] Insulin NPH Hum/Reg Insulin Hm [Relion Novolin 70-30 Flexpen] 5 unit SQ BID 08/15/18 [History] Ipratropium/Albuterol Sulfate [Iprat-Albut 0.5-3(2.5) mg/3 ml] 1 vial IH Q6H PRN 08/15/18 [History] Iron Polysaccharide Complex [Ferrex 150] 150 mg PO DAILY 08/15/18 [History] Isosorbide MONOnitrate (24 HR) [Imdur] 60 mg PO DAILY 08/15/18 [History] Lisinopril [Zestril] 20 mg PO DAILY 08/15/18 [History] Lovastatin [Mevacor] 20 mg PO HS 08/15/18 [History] Metoprolol [Lopressor] 25 mg PO BID 08/15/18 [History] OxyCODONE/APAP 10/325 [Percocet 10/325 MG] 1 tab PO Q6H PRN 08/15/18 [History] Ropinirole HCl 0.25 mg PO HS 08/15/18 [History] Sertraline [Zoloft] 50 mg PO DAILY 08/15/18 [History] Simethicone [Gas-X] 80 mg PO QID PRN 08/15/18 [History] Sitagliptin Phosphate [Januvia] 50 mg PO DAILY 08/15/18 [History] Vit A/C/E AC/Znox/Cupric Oxide [Eye Vitamin-Minerals Tablet] 1 tab PO DAILY 08/15/18 [History] Allergy/AdvReac Type Severity Reaction Status Date / Time escitalopram [From Lexapro] Allergy Rash Verified 09/09/18 16:11 itraconazole [From Sporanox] Allergy Hives Verified 09/09/18 16:11 Penicillins [PCN] Allergy Rash Verified 09/09/18 16:11 metformin AdvReac Diarrhea Verified 09/09/18 16:11 Review of Systems - Constitutional no chills, no fever(s) - EENT Nose, mouth and throat: no dizziness, no headache(s) - Cardiovascular no chest pain, no diaphoresis - Respiratory no cough, no dyspnea - Gastrointestinal no abdominal pain, no nausea - Genitourinary Genitourinary: no dysuria, no flank pain - Musculoskeletal no back pain, no muscle weakness - Integumentary no lesions, no rash - Neurological no confusion, no sensory deficit - Psychiatric no anxiety, no confusion - Hematologic/Lymphatic no lymphadenopathy - Allergic/Immunologic no throat swelling, no wheezing Exam Initial Vital Signs Temp Pulse Resp BP Pulse Ox 98.6 F 97 18 132/88 97 09/08/18 18:46 09/08/18 18:46 09/08/18 18:46 09/08/18 18:46 09/08/18 18:46 - General physical appearance Present: well nourished, no distress - Eyes Present: normal ocular movement. Absent: icteric - ENT Present: normal mucosa. Absent: nasal discharge - Neck Present: trachea midline - Respiratory Present: normal respiratory effort - Abdomen Abdomen: Present: non tender. Absent: distended - Genitourinary Present: other (Kennedy catheter in place) - Integumentary Absent: no growths, no abnormal pigmentation - Neurologic Absent: disoriented, confused Urology Results - Labs 09/15/18 06:44 09/15/18 06:44 Abnormal lab results RBC 2.58 M/mcL (3.82-4.97) L 09/15/18 06:44 Hgb 7.7 g/dL (11.5-15.4) L 09/15/18 06:44 Hct 24.5 % (35.3-44.9) L 09/15/18 06:44 MCHC 31.4 g/dL (31.6-35.5) L 09/15/18 06:44 0.3 K/mcL (0.6-4.6) L 09/14/18 01:21 ESR 75 mm/hr (0-15) H 09/08/18 21:02 Sodium 135 mEq/L (136-145) L 09/09/18 06:48 Chloride 110 mEq/L (98-107) H 09/15/18 06:44 Carbon Dioxide 22 mEq/L (23-29) L 09/14/18 01:21 BUN 39 mg/dL (8-23) H 09/15/18 06:44 1.34 mg/dL (0.60-1.20) H 09/15/18 06:44 Est GFR ( Amer) 48 (> 60) L 09/15/18 06:44 Est GFR (Non-Af Amer) 39 (> 60) L 09/15/18 06:44 29 (6-26) H 09/15/18 06:44 Glucose 154 mg/dL (70-105) H 09/15/18 06:44 POC Glucose 150 mg/dL (70-99) H 09/15/18 07:20 302 (280-300) H 09/15/18 06:44 Calcium 8.3 mg/dL (8.6-10.3) L 09/15/18 06:44 113 mg/L (Less than 10) H 09/08/18 21:02 Red (Yellow) A 09/14/18 11:50 Turbid (Clear) A 09/14/18 11:50 100 mg/dL (Neg-Trace) H 09/14/18 11:50 Trace mg/dL (Negative) H 09/14/18 11:50 Large (Negative) H 09/14/18 11:50 Moderate (Negative) H 09/14/18 11:50 Ur Leukocyte Esterase Moderate (Negative) H 09/14/18 11:50 TNTC per hpf (0-3) H 09/14/18 11:50 15-30 per hpf (0-3) H 09/14/18 11:50 Ur Squamous Epith Cells Many per lpf (None-Few) H 09/14/18 11:50 Ur Culture Indicated? YES (NO) A 09/14/18 11:50 Diabetes panel 09/15/18 Range/Units 06:44 Sodium 140 (136-145) mEq/L Potassium 4.3 (3.5-5.1) mEq/L Chloride 110 H (98-107) mEq/L Carbon Dioxide 24 (23-29) mEq/L BUN 39 H (8-23) mg/dL Creatinine 1.34 H (0.60-1.20) mg/dL Glucose 154 H (70-105) mg/dL Calcium 8.3 L (8.6-10.3) mg/dL Calcium panel 09/15/18 Range/Units 06:44 Calcium 8.3 L (8.6-10.3) mg/dL Pituitary panel 09/15/18 Range/Units 06:44 Sodium 140 (136-145) mEq/L Potassium 4.3 (3.5-5.1) mEq/L Chloride 110 H (98-107) mEq/L Carbon Dioxide 24 (23-29) mEq/L BUN 39 H (8-23) mg/dL Creatinine 1.34 H (0.60-1.20) mg/dL Glucose 154 H (70-105) mg/dL Calcium 8.3 L (8.6-10.3) mg/dL Adrenal panel 09/15/18 Range/Units 06:44 Sodium 140 (136-145) mEq/L Potassium 4.3 (3.5-5.1) mEq/L Chloride 110 H (98-107) mEq/L Carbon Dioxide 24 (23-29) mEq/L BUN 39 H (8-23) mg/dL Creatinine 1.34 H (0.60-1.20) mg/dL Glucose 154 H (70-105) mg/dL Calcium 8.3 L (8.6-10.3) mg/dL All other labs normal. Consult Discharge Plan - Plan Referrals: Eleazar Vargas MD [Primary Care Provider] -
[2018-09-15] MEDS: Cefepime HCl 1,000 MG in Water for inj. (sterile) 10 ML IVP SCH ×2 (11:54→23:09)
[2018-09-15] MEDS: amLODIPine 5 MG TABLET PO SCH (14:13)
[2018-09-15] MEDS: Gabapentin 300 MG CAPSULE PO SCH (20:17)
[2018-09-15] MEDS: Insulin DETEMIR 100 UNIT/ML X5UNITS SQ SCH (21:58)
--- NOTE | 2018-09-15 23:37 | Nephrology Progress Note ---
Date of Encounter: 09/15/18 - Assessment and Plan (1) Acute kidney injury Current Visit: No Status: Acute (2) Osteomyelitis Current Visit: Yes Status: Acute Qualifiers: Osteomyelitis type: unspecified type Osteomyelitis location: foot Later ality: left Qualified Code(s): M86.9 - Osteomyelitis, unspecified (3) Vascular graft occlusion Current Visit: Yes Status: Acute Qualifiers: Encounter type: initial encounter Qualified Code(s): T82.898A - Other specified complication of vascular prosthetic devices, implants and grafts, initial encounter (4) Anemia Current Visit: No Status: Acute Qualifiers: Anemia type: unspecified type Qualified Code(s): D64.9 - Anemia, unspecified Objective - Vital Signs Vital signs: Vital Signs Temp Pulse Resp BP Pulse Ox 09/15/18 22:49 98.4 F 73 16 162/61 94 09/15/18 21:27 14 98 09/15/18 19:44 98.7 F 74 16 165/64 95 09/15/18 18:50 98.6 F 85 16 135/56 94 09/15/18 16:09 16 99 09/15/18 16:08 98.4 F 67 15 160/68 99 09/15/18 11:01 16 97 09/15/18 07:23 98.4 F 69 15 151/64 97 09/15/18 06:51 169/51 09/15/18 06:27 179/67 09/15/18 05:45 160/67 09/15/18 05:17 197/72 09/15/18 04:34 98.2 F 81 16 197/73 96 09/15/18 03:53 16 98 Intake and Output 09/15/18 09/15/18 09/15/18 07:59 15:59 23:59 Intake Total 50 / 1760 540 / 1760 1170 / 1760 Output Total 1200 / 2450 1250 / 2450 Balance -1150 / -690 540 / -690 -80 / -690 Intake: IV Fluids 50 / 1160 60 / 1160 1050 / 1160 0.9 % Sodium Chloride 1,000 ML 1000 / 1000 @ 75 mls/hr IVC .[id number] [facility] Rx #:[id number] Maxipime 1,000 MG In Water for 10 inj. (sterile) 10 ML @ 300 mls/ hr IVP Q12H [facility] Rx#:[id number] Cleocin Premix 600 MG/50 ML 600 50 / 150 50 / 150 50 / 150 mg In 50 ml @ 50 mls/hr IVPB Q8HR [facility] Rx#:[id number] Oral 480 / 600 120 / 600 Output: Urine 0 / 0 Catheter 1200 / 2450 1250 / 2450 Other: Meal Lunch Dinner Percent of Meal Consumed 100% 95% Blood Glucose* 150 108 259 - Lab 09/15/18 06:44 09/15/18 06:44 Consult Discharge Plan - Plan Referrals: Eleazar Vargas MD [Primary Care Provider] -
[2018-09-16] MEDS: rOPINIRole 0.25 MG TABLET PO SCH ×2 (01:22→20:38)
[2018-09-16] MEDS: *HR* Heparin 5,000 UNIT/ML VIAL SQ SCH ×2 (03:38→17:45)
[2018-09-16] MEDS: Ipratropium/Albuterol Neb 3 ML IH SCH ×4 (04:23→21:57)
[2018-09-16 05:27] LABS: Basophils % 0.3 %; Eosinophils % 0.3 %; Hematocrit 25.1 % (35.3-44.9); Hemoglobin 7.9 g/dL (11.5-15.4); Immature Granulocytes % 4.6 % (0-4); Lymphocytes # 0.9 K/mcL (0.6-4.6); Lymphocytes % 9.4 %; Mean Corpuscular HGB Conc 31.5 g/dL (31.6-35.5); Mean Corpuscular Hemoglobin 29.9 pg (28.0-33.3); Mean Corpuscular Volume 95.1 fL (83.0-100.0); Monocytes # 0.8 K/mcL (0.0-1.3); Monocytes % 8.2 %; Neutrophils # 7.6 K/mcL (1.6-8.9); Platelet Count 224 K/mcL (140-400); Red Blood Count 2.64 M/mcL (3.82-4.97); Red Cell Distribution Width 13.4 % (11.5-14.5); Segmented Neutrophils % 77.2 %; White Blood Count 9.9 K/mcL (4.3-11.1)
[2018-09-16 05:45] LABS: Calcium 8.2 mg/dL (8.6-10.3); Potassium 4.4 mEq/L (3.5-5.1)
[2018-09-16] MEDS: OXYCODONE Oral CONC 10 MG/0.5 ML ORAL.SYG SL PRN ×4 (06:25→20:39)
[2018-09-16] MEDS: Aspirin Enteric Coated 81 MG Tablet PO SCH (08:24)
[2018-09-16] MEDS: Isosorbide MONOnitrate (24 HR) 60 MG TAB.ER.24H PO SCH (08:24)
[2018-09-16] MEDS: amLODIPine 5 MG TABLET PO SCH (08:24)
[2018-09-16] MEDS: Iron Polysaccharide Complex 150 MG CAPSULE PO SCH (08:24)
[2018-09-16] MEDS: predniSONE 20 MG TABLET PO SCH (08:24)
[2018-09-16] MEDS: Clindamycin 600 MG/50 ML 600 MG/50 ML IV.SOLN IVPB SCH ×2 (08:24→16:32)
[2018-09-16] MEDS: Insulin LISPRO 300 UNITS/3 ML VIAL SQ SCH ×7 (08:25→20:39)
--- NOTE | 2018-09-16 12:16 | Internal Med Progress Note ---
Hospitalist Progress Note - Encounter Date of Encounter: 09/16/18 Time of Encounter: 11:18 - Subjective Interval History: Seen and examined this morning at bedside. No acute overnight events. Denies new complaints. Denies any chest pain. Breathing improved. Mild left lower extreme the pain. Denies any fevers chills nausea vomiting diarrhea. - Exam Vitals: Temp Pulse Resp BP Pulse Ox 98.2 F 65 13 165/66 95 09/16/18 07:28 09/16/18 07:28 09/16/18 07:28 09/16/18 07:28 09/16/18 07:28 Exam: General: In no acute distress. Respiratory exam: CTAB, No adventitious lung sound Cardiovascular exam: RRR, +S1, +S2. no murmur, GI/Abdominal exam: Non-tender, Non-distended, normal bowel sounds, soft, no peritoneal signs. Extremities exam: no pedal edema, absent pulse on Lt foot. no calf tenderness. Lt great toe with bandage Neurological exam: CN II-XII intact, AO X3, no focal deficits. Skin exam: No rash 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 Current Visit: No Status: Acute (2) CAD (coronary artery disease) Current Visit: No Status: Chronic (3) Diabetes mellitus Current Visit: No Status: Chronic (4) DVT prophylaxis Current Visit: No Status: Acute (5) Chronic kidney disease, stage III (moderate) Current Visit: No Status: Chronic (6) Anemia Current Visit: No Status: Acute (7) Osteomyelitis Current Visit: Yes Status: Acute (8) Ischemic toe ulcer Current Visit: Yes Status: Acute (9) COPD exacerbation Current Visit: Yes Status: Acute (10) Hematuria Current Visit: Yes Status: Acute - Summary of Assessment and Plan Summary of Assessment and Plan: Assessment Lt toe osteomyelitis, cellulitis Toe ulceration COPD exacerbation Lt fem-pop graft occlusion OSCAR Acute respiratory failure Hematuria Severe LT PAD Tobacco abuse DVT prophylaxis CAD PAD Chronic anemia CKD-3 DM smoker Plan - Developed bronchospasm during induction of anesthesia and initiation of vanomycin during vascular surgery. Patient now managed conservatively with IV antibiotics. Patient currently on clindaymicin and Cefepime per ID. No reaction to cefepime. Blood culture NGTD on final report. Will likely need IV abx on DC. will f/u ID. - C/w scheduled bronchodilators. Change steroid to PO. taper to 30. Breathing improved - c/w SSI and accuchecks, levemir 12 units and premeal 5 units. - c/w home aspirin, imdur, and metoprolol(dose increased before). c/w atorvastatin. Home lisinopril on hold. started on amlodipine. BP reasonable. Monitor for now - OSCAR. SCr slightly [place]. uric acid and CPK normal. Fena indicating prerenal. pending renal US. c/w NS IVF at 75 cc/hr IVf, as negative fluid balance. Has go od urine output. strict I/O. avoid nephrotoxins. lisinopril on hold. Appreciate nephrology input. - Hematuria likely related to rivera and heparin for dvt. Urine culture with no growth. Will c/w Rivera for now. Urology was consulted. Renal US pending. Outpatient cystoscopy. On aspirin for PAD. - chronic anemia. Hb stable. Monitor for now. c/w iron supplementation - scd for dvt prophylaxis - Time Spent with Patient Total time spent is greater than 50% in coordination of care (as documented) at patient's floor/unit and/or counseling patient: Internal Medicine: Result - Labs CBC & Chem 7: 09/16/18 04:45 09/16/18 04:45 Labs: Short CBC 09/16/18 Range/Units 04:45 WBC 9.9 (4.3-11.1) K/mcL Hgb 7.9 L (11.5-15.4) g/dL Hct 25.1 L (35.3-44.9) % Plt Count 224 (140-400) K/mcL Neutrophils # 7.6 (1.6-8.9) K/mcL BMP 09/16/18 04:45 Sodium 140 Potassium 4.4 Chloride 107 Carbon Dioxide 24 BUN 53 H Creatinine 1.69 H Glucose 165 H Calcium 8.2 L Consult Discharge Plan - Plan Referrals: Eleazar Vargas MD [Primary Care Provider] - (1) Atherosclerosis of left lower extremity with ulceration Qualifiers: Peripheral atherosclerosis artery type: bypass graft, nonbiological Lower extremity ulceration location: other part of foot Qualified Code(s): I70.645 - Atherosclerosis of nonbiological bypass graft(s) of the left leg with ulceration of other part of foot (2) CAD (coronary artery disease) Qualifiers: Coronary Disease-Associated Artery/Lesion type: bypass graft [place] vs. 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
[2018-09-16] MEDS: 0.9 % Sodium Chloride 1,000 ML IVC SCH (12:40)
[2018-09-16] MEDS: Cefepime HCl 1,000 MG in Water for inj. (sterile) 10 ML IVP SCH (12:42)
--- NOTE | 2018-09-16 15:43 | Infectious Disease Progress No ---
ID Progress Note Date of Encounter: 09/16/18 Time of Encounter: 15:42 - Subjective Subjective: Patient seen and examined. Doing well clinically. NO chest pain no shortness of breath no cough no sputum production no abdominal pain no diarrhea. VS: noted Labs reveiewd cultures noted - Objective CBC & Chem 7: 09/16/18 04:45 09/16/18 04:45 - Exam Vitals: Temp Pulse Resp BP Pulse Ox 98.3 F 65 18 147/73 96 09/16/18 15:00 09/16/18 15:00 09/16/18 15:00 09/16/18 15:00 09/16/18 15:00 - Assessment and Plan (1) Osteomyelitis Current Visit: Yes Status: Acute Osteomyelitis of the left great toe with necrosis and poor O2 supply. SILVIA 24 I did speak with the surgery team and they think they would rather go with antibiotics because if not patient will end up having an amputation. Even th gh the resident good blood supply but the thing that is sufficient to get the antibiotics down there. Currently patient has no cultures from the wound. Previous wound culture were positive for MRSA less than a year ago Patient is already on clindamycin, I will add cefepime to have MRSA, anaerobic and gram-negative coverage. I will post and cefepime tomorrow to make sure the patient is clinically doing well and there is no other reaction. Patient's creatinine clearance right now is about 30-33. We will ask pharmacy to help us with the dosing. I am aware that the patient has penicillin allergy but hopefully she will tolerate the cefepime just fine. Qualifiers: Osteomyelitis type: unspecified type Osteomyelitis location: foot Laterality: left Qualified Code(s): M86.9 - Osteomyelitis, unspecified SNOMED Code(s): 09777603 (2) Ischemic toe ulcer Current Visit: Yes Status: Acute Qualifiers: Laterality: left Non-pressure ulcer stage: with fat layer exposed Qualified Code(s): L97.522 - Non-pressure chronic ulcer of other part of left foot with fat layer exposed SNOMED Code(s): 488555546 (3) PAD (peripheral artery disease) Current Visit: No Status: Chronic Multiple surgeries in the past s/p: 08/29/17: 1. Left lower extremity bypass graft thrombectomy. 2. Left common femoral endarterectomy. 08/15/18: 1. Left femoral to popliteal artery bypass graft thrombectomy with 4 kazakh and 5 kazakh Demetrice embolectomy catheters. 2. Left iliofemoral endarterterectomy. 08/29/2017 1. Left lower extremity bypass graft thrombectomy. 2. Left common femoral endarterectomy. SNOMED Code(s): 779361850, 566364114 (4) CAD (coronary artery disease) Current Visit: No Status: Chronic Qualifiers: Coronary Disease-Associated Artery/Lesion type: bypass graft [place] vs. transplanted heart: [place] heart Associated angina: without angina Qualified Code(s): I25.810 - Atherosclerosis of coronary artery bypass graft(s) without angina pectoris SNOMED Code(s): 13032542 (5) Diabetes mellitus Current Visit: No Status: Chronic Qualifiers: Diabetes mellitus type: type 2 Diabetes mellitus tank terminal gauger insulin use: with custodial use Diabetes mellitus complication status: with circulatory complication Diabetes mellitus complication detail: with peripheral angiopathy without gangrene Qualified Code(s): E11.51 - Type 2 diabetes mellitus with diabetic peripheral angiopathy without gangrene; 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 SNOMED Code(s): 28495944 (6) Tobacco dependence Current Visit: No Status: Chronic SNOMED Code(s): 94208677 (7) 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 Visit: No Status: Chronic History of MRSA infection in September [address] the patient and contact precautions Notified nursing already SNOMED Code(s): 116686392 (8) COPD exacerbation Current Visit: Yes Status: Acute SNOMED Code(s): 461466460 (9) Vascular graft occlusion Current Visit: Yes Status: Acute Qualifiers: Encounter type: initial encounter Qualified Code(s): T82.898A - Other specified complication of vascular prosthetic devices, implants and grafts, initial encounter SNOMED Code(s): 683481086 Consult Discharge Plan - Plan Referrals: Eleazar Vargas MD [Primary Care Provider] -
[2018-09-16] MEDS: Gabapentin 300 MG CAPSULE PO SCH (20:38)
[2018-09-16] MEDS: Insulin DETEMIR 100 UNIT/ML X5UNITS SQ SCH (20:39)
--- NOTE | 2018-09-16 23:50 | Nephrology Progress Note ---
Date of Encounter: 09/16/18 Time of Encounter: 15:00 - Assessment and Plan (1) Acute kidney injury Current Visit: No Status: Acute Scr slightly worse at 1.69, GFR 30, continue fluds Encouraged po fluids as well Continue to avoid nephrotxins if possile (2) Osteomyelitis Current Visit: Yes Status: Acute Qualifiers: Osteomyelitis type: unspecified type Osteomyelitis location: foot Laterality: left Qualified Code(s): M86.9 - Osteomyelitis, unspecified (3) Vascular graft occlusion Current Visit: Yes Status: Acute Qualifiers: Encounter type: initial encounter Qualified Code(s): T82.898A - Other specified complication of vascular prosthetic devices, implants and grafts, initial encounter (4) Anemia Current Visit: No Status: Acute Qualifiers: Anemia type: unspecified type Qualified Code(s): D64.9 - Anemia, unspecifi ed Subjective Interval history: Pt seen ad examined doing well but weak overall. Objective - Vital Signs Vital signs: Vital Signs Temp Pulse Resp BP Pulse Ox 09/16/18 21:57 16 95 09/16/18 18:20 98.2 F 74 16 158/70 93 09/16/18 15:41 18 95 09/16/18 15:00 98.3 F 65 18 147/73 96 09/16/18 11:52 98.2 F 66 16 163/65 97 09/16/18 11:19 18 94 09/16/18 07:28 98.2 F 65 13 165/66 95 09/16/18 04:24 14 100 09/16/18 02:33 98.3 F 69 14 152/58 99 09/16/18 00:58 98.7 F 65 16 155/62 96 Intake and Output 09/16/18 09/16/18 09/16/18 07:59 15:59 23:59 Intake Total 1290 / 1880 530 / 1880 60 / 1880 Output Total 1050 / 1300 250 / 1300 Balance 240 / 580 280 / 580 60 / 580 Intake: IV Fluids 1050 / 1160 50 / 1160 60 / 1160 0.9 % Sodium Chloride 1,000 ML 1000 / 1000 @ 75 mls/hr IVC .[id number] [facility] Rx #:[id number] Maxipime 1,000 MG In Water for 10 inj. (sterile) 10 ML @ 300 mls/ hr IVP Q12H [facility] Rx#:[id number] Cleocin Premix 600 MG/50 ML 600 50 / 150 50 / 150 50 / 150 mg In 50 ml @ 50 mls/hr IVPB Q8HR [facility] Rx#:[id number] Oral 240 / 720 480 / 720 Output: Catheter 1050 / 1300 250 / 1300 Other: Meal Breakfast Percent of Meal Consumed 100% Blood Glucose* 164 230 235 - Lab 09/16/18 04:45 09/16/18 04:45 Consult Discharge Plan - Plan Referrals: Eleazar Vargas MD [Primary Care Provider] -
[2018-09-17] MEDS: Cefepime HCl 1,000 MG in Water for inj. (sterile) 10 ML IVP SCH ×2 (00:19→17:14)
[2018-09-17] MEDS: Clindamycin 600 MG/50 ML 600 MG/50 ML IV.SOLN IVPB SCH ×3 (00:20→17:15)
[2018-09-17] MEDS: Ipratropium/Albuterol Neb 3 ML IH SCH ×4 (04:10→21:49)
[2018-09-17] MEDS: 0.9 % Sodium Chloride 1,000 ML IVC SCH ×2 (04:26→17:16)
[2018-09-17 05:49] LABS: Hematocrit 26.9 % (35.3-44.9); Hemoglobin 8.3 g/dL (11.5-15.4)
[2018-09-17] MEDS: *HR* Heparin 5,000 UNIT/ML VIAL SQ SCH ×2 (06:00→17:14)
[2018-09-17 06:07] LABS: Calcium 8.9 mg/dL (8.6-10.3); Potassium 4.3 mEq/L (3.5-5.1)
[2018-09-17] MEDS: Insulin LISPRO 300 UNITS/3 ML VIAL SQ SCH ×7 (08:02→20:27)
[2018-09-17] MEDS: predniSONE 20 MG TABLET PO SCH (08:06)
[2018-09-17] MEDS: Aspirin Enteric Coated 81 MG Tablet PO SCH (08:07)
[2018-09-17] MEDS: amLODIPine 5 MG TABLET PO SCH (08:07)
[2018-09-17] MEDS: Isosorbide MONOnitrate (24 HR) 60 MG TAB.ER.24H PO SCH (08:07)
[2018-09-17] MEDS: Iron Polysaccharide Complex 150 MG CAPSULE PO SCH (08:07)
--- NOTE | 2018-09-17 11:20 | Infectious Disease Progress No ---
ID Progress Note Date of Encounter: 09/17/18 Time of Encounter: 11:18 - Subjective Subjective: Patient seen and examined with podiatry at the bedside. No acute events noted overnight. Patient complains of pain in her left foot and back. Denies fevers, chills, or rigors. Denies chest pain, shortness of breath, or cough. Denies nausea, vomiting, diarrhea, or constipation. Denies abdominal pain. Kennedy catheter remains patent. Denies oral thrush or skin rashes. - Objective CBC & Chem 7: 09/17/18 04:59 09/17/18 04:59 - Exam Vitals: Temp Pulse Resp BP Pulse Ox 97.3 F L 63 16 185/71 97 09/17/18 07:55 09/17/18 07:55 09/17/18 10:35 09/17/18 07:55 09/17/18 10:35 Exam: Head: Atraumatic, normal inspection, normocephalic. Eye: EOMI, PERRLA, no scleral icterus noted. ENT: Mucous membranes moist. No odontogenic infection noted. Neck: Normal inspection, no meningismus. Respiratory: Clear to auscultation. No rales, respiratory distress, rhonchi, or wheezes noted. Cardiovascular: Regular rate and rhythm, S1 and S2 audible. No murmurs, rubs, or gallops. GI: Soft, nondistended, normal bowel sounds. Kennedy catheter draining clear yellow urine. Extremities:No joint swelling, pedal edema, or tenderness noted. Necrosis noted to the distal aspect of the left foot great toe with mild erythema. No foul odor or drainage noted. No lymphangitis or streaking up the leg appreciated. Back: Normal inspection. No vertebral tenderness noted. Neurological: Alert, oriented 3, no focal deficits. Psychiatric: normal affect, normal mood. Skin: Dry, intact, warm. Normal color. No rashes. - Assessment and Plan (1) Osteomyelitis Current Visit: Yes Status: Chronic Location: Left foot great toe. Causative organism: Unclear. Previous wound culture were positive for MRSA less than a year ago. Etiology: Likely multifactorial: Diabetes plus PAD plus infection. SILVIA of the LLE showed severe disease. Patient was unable to undergo revision of her vascular graft occlusion. Concerned that without adequate bloodflow, we will be unable to get adequate tissue penetration. Additionally, we do not have cultures and the patient will have to be on broad- spectrum antibiotics for six weeks in the setting of OSCAR/CKD. She is at high risk for further damage to her kidneys. Podiatry consulted and following. No surgical intervention planned at this time. Currently on cefepime and clindamycin. Qualifiers: Osteomyelitis type: unspecified type Osteomyelitis location: foot Laterality: left Qualified Code(s): M86.9 - Osteomyelitis, unspecified SNOMED Code(s): 89114853 (2) Ischemic toe ulcer Current Visit: Yes Status: Acute Location: Left foot great toe. Likely multifactorial: infection + PAD + diabetes. Podiatry consulted and following. Qualifiers: Laterality: left Non-pressure ulcer stage: with fat layer exposed Qualified Code(s): L97.522 - Non-pressure chronic ulcer of other part of left foot with fat layer exposed SNOMED Code(s): 895660220 (3) Acute kidney injury Current Visit: No Status: Acute Likely multifactorial: infection + CKD + nephrotoxic medications (vanc and lisinopril). Improved. Continue to trend. Nephrology consulted and following. SNOMED Code(s): 97685036, 13367502 (4) Vascular graft occlusion Current Visit: Yes Status: Acute Vascular consulted and following. Surgery cancelled due to impaired respiratory status and bronchospasms. Qualifiers: Encounter type: initial encounter Qualified Code(s): T82.898A - Other specified complication of vascular prosthetic devices, implants and grafts, initial encounter SNOMED Code(s): 841483872 (5) PAD (peripheral artery disease) Current Visit: No Status: Chronic Multiple surgeries in the past s/p: 08/29/17: 1. Left lower extremity bypass graft thrombectomy. 2. Left common femoral endarterectomy. 08/15/18: 1. Left femoral to popliteal artery bypass graft thrombectomy with 4 cape verdean and 5 cape verdean Demetrice embolectomy catheters. 2. Left iliofemoral endarterterectomy. 08/29/2018 1. Left lower extremity bypass graft thrombectomy. 2. Left common femoral endarterectomy. ABIs consistent with severe disease in the LLE. Vascular surgery consulted, but further intervention on hold due to acute respiratory failure. 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 SNOMED Code(s): 218888167 (9) CAD (coronary artery disease) Current Visit: No Status: Chronic Qualifiers: Coronary Disease-Associated Artery/Lesion type: bypass graft [place] vs. transplanted heart: [place] heart Associated angina: without angina Qualified Code(s): I25.810 - Atherosclerosis of coronary artery bypass graft(s) without angina pectoris SNOMED Code(s): 37570998 (10) Hypertension Current Visit: No Status: Chronic Qualifiers: Hypertension type: essential hypertension Qualified Code(s): I10 - Essent ial (primary) hypertension SNOMED Code(s): 07979935 (11) Diabetes mellitus Current Visit: No Status: Chronic Recommend aggressive glucose monitoring and control to promote wound healing and prevent re-infection. Management per the primary team. Qualifiers: Diabetes mellitus type: type 2 Diabetes mellitus intermediate insulin use: with exterminator termite use Diabetes mellitus complication status: with circulatory complication Diabetes mellitus complication detail: with peripheral angiopathy without gangrene Qualified Code(s): E11.51 - Type 2 diabetes mellitus with diabetic peripheral angiopathy without gangrene; Z79.4 - exterminator termite (current) use of insulin SNOMED Code(s): 70686700 - Recommendations Recommendations: At this point, we do not have any cultures to help identify the causative organi sm of the patient's osteomyelitis. Discussed with the podiatry team. May need to consider a bone biopsy if okay with the podiatry team, however, she is at high risk for nonhealing of an additional wound given her impaired vascular status. Additionally, given the patient's impaired vascular status, concern that we will be unable to maintain adequate tissue penetration to get the antibiotics to the infected tissue. We also need to consider the fact that the patient has chronic kidney disease in 6 weeks of IV antibiotics is very high risk for causing worsening of her renal status. Wound care per the podiatry team. Continue cefepime 2 g IV every 12 hours for now. Continue clindamycin 600 mg IV every 8 hours. Duration of treatment depends on the clinical picture, but likely a total of 6 weeks. Monitor renal function and dose adjust antibiotics. Recommend probiotics daily. Contact precautions per hospital policy. We will discuss with the podiatry and vascular teams. Consult Discharge Plan - Plan Referrals: Eleazar Vargas MD [Primary Care Provider] - Peewee Koroma [Partnered Physician] - 10/08/18 9:00 am - Attending Attestation I have personally performed a face to face evaluation on this patient. I have reviewed and agree with the care plan. History and Exam by me shows: Assessment and plan: 1.Osteomyelitis 2.Ischemic toe ulcer 3.Peripheral artery disease 4.Coronary artery disease 5.Reaction to vancomycin 6.Diabetes mellitus type 2 7.Tobacco dependence 8.History of MRSA infection 9.Worsening kidney function Recommendations At this point we will continue broad-spectrum antibiotics per surgery's request including cefepime and clindamycin The feel that the patient still has adequate tissue perfusion to the foot. Surgery still planning to take her to surgery once clinically stable. We will discuss with surgery to see if they are planning to take her before she gets discharged only one us to put her with antibiotics and then take her to surgery. I would prefer's the first option to minimize adverse reactions of antibiotic specially with her recent kidney function and all her comorbidities.
--- NOTE | 2018-09-17 11:59 | Urology Progress Note ---
<Brynn Willett N - Last Filed: 09/17/18 11:55> Date of Encounter: 09/17/18 Time of Encounter: 11:50 - Assessment and Plan (1) Hematuria Current Visit: Yes Status: Acute Assessment and plan: Patient is a 67-year-old female who presents with gross hematuria following catheter insertion and anticoagulation. Gross hematuria is now resolved. Kennedy catheter may be removed per primary team. Renal ultrasound was reassuring for no cyst, tumor, hydronephrosis or stone. Patient instructed to follow-up with Dr. Koroma within 1-2 weeks for an outpatient cystoscopy in order to directly evaluate bladder. Patient may resume anticoagulation per primary team. Qualifiers: Hematuria type: gross Qualified Code(s): R31.0 - Gross hematuria Progress Note Subjective: no new complaints, feels better Narrative: Patient seen and examined standing in room in no apparent distress. Patient denies any gross hematuria, flank pain, fever or chills. Kennedy catheter is indwelling and draining transparent, clear yellow urine into bedside bag. Objective Initial Vital Signs Temp Pulse Resp BP Pulse Ox 98.6 F 97 18 132/88 97 09/08/18 18:46 09/08/18 18:46 09/08/18 18:46 09/08/18 18:46 09/08/18 18:46 - General physical appearance Present: well developed, no distress, no pain - Respiratory Present: normal expansion, normal respiratory effort - Abdomen Present: soft, non tender. Absent: distended - Genitourinary Urine Appearance: Present: Clear - Integumentary Present: no rash, no abnormal pigmentation - Musculoskeletal Present: normal posture - Psychiatric Present: oriented to time, oriented to person, oriented to place, speech is normal, memory intact - Labs 09/17/18 04:59 09/17/18 04:59 Diabetes panel 09/17/18 Range/Units 04:59 Sodium 139 (136-145) mEq/L Potassium 4.3 (3.5-5.1) mEq/L Chloride 109 H (98-107) mEq/L Carbon Dioxide 25 (23-29) mEq/L BUN 57 H (8-23) mg/dL Creatinine 1.51 H (0.60-1.20) mg/dL Glucose 133 H (70-105) mg/dL Calcium 8.9 (8.6-10.3) mg/dL Calcium panel 09/17/18 Range/Units 04:59 Calcium 8.9 (8.6-10.3) mg/dL Pituitary panel 09/17/18 Range/Units 04:59 Sodium 139 (136-145) mEq/L Potassium 4.3 (3.5-5.1) mEq/L Chloride 109 H (98-107) mEq/L Carbon Dioxide 25 (23-29) mEq/L BUN 57 H (8-23) mg/dL Creatinine 1.51 H (0.60-1.20) mg/dL Glucose 133 H (70-105) mg/dL Calcium 8.9 (8.6-10.3) mg/dL Adrenal panel 09/17/18 Range/Units 04:59 Sodium 139 (136-145) mEq/L Potassium 4.3 (3.5-5.1) mEq/L Chloride 109 H (98-107) mEq/L Carbon Dioxide 25 (23-29) mEq/L BUN 57 H (8-23) mg/dL Creatinine 1.51 H (0.60-1.20) mg/dL Glucose 133 H (70-105) mg/dL Calcium 8.9 (8.6-10.3) mg/dL Consult Discharge Plan - Plan Referrals: Eleazar Vargas MD [Primary Care Provider] - Peewee Koroma [Partnered Physician] - 10/08/18 9:00 am <Georges Canales - Last Filed: 09/17/18 16:35> Date of Encounter: 09/17/18 - Assessment and Plan (1) Hematuria Current Visit: Yes Status: Resolved Assessment and plan: pt seen and examined. Agree with physician therapeutic assistant's note. Urine is clear. Renal ultrasound reviewed by myself. Agree there are no concerning findings. Follow-up with Dr. Koroma for outpatient cystoscopy. Agree okay to resume anticoagulation but watch urine closely Qualifiers: Hematuria type: gross Qualified Code(s): R31.0 - Gross hematuria Objective Initial Vital Signs Temp Pulse Resp BP Pulse Ox 98.6 F 97 18 132/88 97 09/08/18 18:46 09/08/18 18:46 09/08/18 18:46 09/08/18 18:46 09/08/18 18:46 - Labs 09/17/18 04:59 09/17/18 04:59 Diabetes panel 09/17/18 Range/Units 04:59 Sodium 139 (136-145) mEq/L Potassium 4.3 (3.5-5.1) mEq/L Chloride 109 H (98-107) mEq/L Carbon Dioxide 25 (23-29) mEq/L BUN 57 H (8-23) mg/dL Creatinine 1.51 H (0.60-1.20) mg/dL Glucose 133 H (70-105) mg/dL Calcium 8.9 (8.6-10.3) mg/dL Calcium panel 09/17/18 Range/Units 04:59 Calcium 8.9 (8.6-10.3) mg/dL Pituitary panel 09/17/18 Range/Units 04:59 Sodium 139 (136-145) mEq/L Potassium 4.3 (3.5-5.1) mEq/L Chloride 109 H (98-107) mEq/L Carbon Dioxide 25 (23-29) mEq/L BUN 57 H (8-23) mg/dL Creatinine 1.51 H (0.60-1.20) mg/dL Glucose 133 H (70-105) mg/dL Calcium 8.9 (8.6-10.3) mg/dL Adrenal panel 09/17/18 Range/Units 04:59 Sodium 139 (136-145) mEq/L Potassium 4.3 (3.5-5.1) mEq/L Chloride 109 H (98-107) mEq/L Carbon Dioxide 25 (23-29) mEq/L BUN 57 H (8-23) mg/dL Creatinine 1.51 H (0.60-1.20) mg/dL Glucose 133 H (70-105) mg/dL Calcium 8.9 (8.6-10.3) mg/dL
--- NOTE | 2018-09-17 12:08 | Podiatry Progress Note ---
Date of Encounter: 09/17/18 Time of Encounter: 12:00 - Assessment and Plan (1) PAD (peripheral artery disease) Current Visit: No Status: Chronic Per vascular note she was scheduled for a left femoral to popliteal artery bypass graft thrombectomy with possible revision, However she had bronchospasm on induction of anesthesia and initiation of vancomycin. She required supportive care and was ultimately extubated. She will need to continue with antibiotic therapy. She will ultimately need revascularization to reduce her risk of limb loss. Patient reports she believes it may be done outpatient but she is not sure. (2) Ischemic toe ulcer Current Visit: Yes Status: Acute Assessment: -Left distal great toe necrotic, stable gangrene. Left hallux dusky and pallor. Toe nail absent. No drainage noted. No cellulitis, no lymphangitis noted. -Nonpalpable pulses LLE, unable to obtain pulse with Doppler. -Cap refill sluggish -Left lower extremity dusky in comparison to right lower extremity -CT showed evidence of soft tissue wound distal great toe extending to the underlying bone with osteolysis involving the distal phalanx of the great toe consistent with osteomyelitis. No organized drainable fluid collection identified within limits of the exam. -Patient receiving IV Clindamycin -Blood cultures preliminary no growth -ABIs: Right SILVIA is consistent with mild disease Right PT 0.93 DP 0.87 Left SILVIA is consistent with severe disease Left PT 0.43 DP 0.48 Waiting for demarcation of wound. Patient failed vascular intervention No wound cultures have not been obtained ID requesting possible bone bx, discussed with Roxana and Juliana and both decline to do biopsy at this time due to risk of introducing another non healing source of infection. Recommend 2-3 weeks of IV antibiotics and then transition to PO. Revascularize when possible and will plan amputation after patient undergoes vascular intervention. Qualifiers: Laterality: left Non-pressure ulcer stage: with fat layer exposed Qualified Code(s): L97.522 - Non-pressure chronic ulcer of other part of left foot with fat layer exposed Subjective Interval history: Patient resting comfortably in bed. ID on board. Patient denies any fevers, chills, n/v or fls. Patient with dressing intact to LLE. No drainage. Objective - Vital Signs Vital Signs: Vital Signs Temp Pulse Resp BP Pulse Ox 09/17/18 10:35 16 97 09/17/18 07:55 97.3 F L 63 18 185/71 94 09/17/18 04:10 16 95 09/17/18 03:04 97.9 F 66 15 178/65 95 09/16/18 21:57 16 95 09/16/18 18:20 98.2 F 74 16 158/70 93 09/16/18 15:41 18 95 09/16/18 15:00 98.3 F 65 18 147/73 96 Intake and Output 09/16/18 09/17/18 09/17/18 23:59 07:59 15:59 Intake Total 60 / 1880 1060 / 1350 290 / 1350 Output Total 0 / 1800 1800 / 1800 Balance 60 / 580 1060 / -450 -1510 / -450 Intake: IV Fluids 60 / 1160 1060 / 1110 50 / 1110 0.9 % Sodium Chloride 1,000 ML 1000 / 1000 @ 75 mls/hr IVC .[id number] DEANNA Rx #:[id number] Maxipime 1,000 MG In Water for inj. (sterile) 10 ML @ 300 mls/ hr IVP Q12H DEANNA Rx#:[id number] Cleocin Premix 600 MG/50 ML 600 50 / 150 50 / 100 50 / 100 mg In 50 ml @ 50 mls/hr IVPB Q8HR DEANNA Rx#:[id number] Oral 240 / 240 Output: Urine 0 / 0 Catheter 1800 / 1800 Other: Meal Breakfast Percent of Meal Consumed 50% Blood Glucose* 235 131 - Exam Exam: Constitutional: Patient alert and oriented x 3, no acute distress noted Vascular: Left lower extremity dusky, no palpable pulses left PT/DP, unable to obtain with Doppler, right lower extremity warm and pulses 2+ PT/DP. Cap refill sluggish to left lower extremity, cap refill less than 3 seconds RLE. No pain with calf squeeze bilaterally. Neurological: Proprioception intact, abnormal dorsal reflex Dermatological: Left distal great toe necrotic, stable gangrene. dry, Left hallux dusky and pallor. Toe nail absent. No drainage noted. No cellulitis, n o lymphangitis noted. Musculoskeletal: 4/5 muscle strength, normal muscle tone - Lab Result Diagrams: 09/17/18 04:59 09/17/18 04:59 Labs: Abnormal lab results RBC 2.64 M/mcL (3.82-4.97) L 09/16/18 04:45 Hgb 8.3 g/dL (11.5-15.4) L 09/17/18 04:59 Hct 26.9 % (35.3-44.9) L 09/17/18 04:59 MCHC 31.5 g/dL (31.6-35.5) L 09/16/18 04:45 Immature Gran % 4.6 % (0-4) H 09/16/18 04:45 0.3 K/mcL (0.6-4.6) L 09/14/18 01:21 ESR 75 mm/hr (0-15) H 09/08/18 21:02 Sodium 135 mEq/L (136-145) L 09/09/18 06:48 Chloride 109 mEq/L (98-107) H 09/17/18 04:59 Carbon Dioxide 22 mEq/L (23-29) L 09/14/18 01:21 BUN 57 mg/dL (8-23) H 09/17/18 04:59 1.51 mg/dL (0.60-1.20) H 09/17/18 04:59 Est GFR ( Amer) 42 (> 60) L 09/17/18 04:59 Est GFR (Non-Af Amer) 34 (> 60) L 09/17/18 04:59 38 (6-26) H 09/17/18 04:59 Glucose 133 mg/dL (70-105) H 09/17/18 04:59 POC Glucose 131 mg/dL (70-99) H 09/17/18 07:57 306 (280-300) H 09/17/18 04:59 Calcium 8.2 mg/dL (8.6-10.3) L 09/16/18 04:45 113 mg/L (Less than 10) H 09/08/18 21:02 Red (Yellow) A 09/14/18 11:50 Turbid (Clear) A 09/14/18 11:50 100 mg/dL (Neg-Trace) H 09/14/18 11:50 Trace mg/dL (Negative) H 09/14/18 11:50 Large (Negative) H 09/14/18 11:50 Moderate (Negative) H 09/14/18 11:50 Ur Leukocyte Esterase Moderate (Negative) H 09/14/18 11:50 TNTC per hpf (0-3) H 09/14/18 11:50 15-30 per hpf (0-3) H 09/14/18 11:50 Ur Squamous Epith Cells Many per lpf (None-Few) H 09/14/18 11:50 Ur Culture Indicated? YES (NO) A 09/14/18 11:50 Microbiology, Last 48 Hours 09/14/18 11:50 Urine Culture - Final Urine,[place] No growth. Consult Discharge Plan - Plan Referrals: Eleazar Vargas MD [Primary Care Provider] -
[2018-09-17] MEDS: OXYCODONE Oral CONC 10 MG/0.5 ML ORAL.SYG SL PRN (13:01)
--- NOTE | 2018-09-17 13:39 | Internal Med Progress Note ---
Hospitalist Progress Note - Encounter Date of Encounter: 09/17/18 Time of Encounter: 12:39 - Subjective Interval History: Patient seen and examined this morning at bedside. No acute overnight events. Denies any fevers chills nausea vomiting or diarrhea. Denies any new complaint. - Exam Vitals: Temp Pulse Resp BP Pulse Ox 97.3 F L 63 16 185/71 97 09/17/18 07:55 09/17/18 07:55 09/17/18 10:35 09/17/18 07:55 09/17/18 10:35 Exam: General: In no acute distress. Respiratory exam: CTAB, No adventitious lung sound Cardiovascular exam: RRR, +S1, +S2. no murmur, GI/Abdominal exam: Non-tender, Non-distended, normal bowel sounds, soft, no peritoneal signs. rivera in place Extremities exam: no pedal edema, absent pulse on Lt foot. no calf tenderness. Lt great toe with bandage Neurological exam: CN II-XII intact, AO X3, no focal deficits. Skin exam: ecchymosis on UE 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 Current Visit: No Status: Chronic (2) CAD (coronary artery disease) Current Visit: No Status: Chronic (3) Diabetes mellitus Current Visit: No Status: Chronic (4) DVT prophylaxis Current Visit: No Status: Acute (5) Chronic kidney disease, stage III (moderate) Current Visit: No Status: Chronic (6) Anemia Current Visit: No Status: Acute (7) Osteomyelitis Current Visit: Yes Status: Chronic (8) Ischemic toe ulcer Current Visit: Yes Status: Acute (9) COPD exacerbation Current Visit: Yes Status: Acute (10) Hematuria Current Visit: Yes Status: Acute - Summary of Assessment and Plan Summary of Assessment and Plan: Assessment Lt toe osteomyelitis, cellulitis Toe ulceration COPD exacerbation Lt fem-pop graft occlusion OSCAR Acute respiratory failure Hematuria Severe LT PAD Tobacco abuse DVT prophylaxis CAD PAD Chronic anemia CKD-3 DM smoker Plan - Developed bronchospasm during induction of anesthesia and initiation of vanomycin during vascular surgery. Patient now managed conservatively with IV antibiotics. Patient currently on clindaymicin and Cefepime per ID. No reaction to cefepime. Blood culture NGTD on final report. Will likely need IV abx on DC. ID following. awaiting discussion with podiatry to make final recommendation on antibiotics. - C/w scheduled bronchodilators and steroid taper. Breathing improved - c/w SSI and accuchecks, levemir 12 units and premeal 5 units. - c/w home aspirin, imdur, and metoprolol(dose increased before). c/w atorvastatin. Home lisinopril on hold given renal function. started on amlodipine. BP elevated. May need additional Medication if remains high. Prn hydralazine - OSCAR. SCr improved with ivf. uric acid and CPK normal. Fena indicating prerenal. pending renal US. c/w NS IVF at 75 cc/hr IVf, strict I/O. avoid nephrotoxins. lisinopril on hold. Appreciate nephrology input. - Hematuria likely related to rivera and heparin for dvt. Urine culture with no growth. Urology was consulted. Renal US unremarkable. DC rivera. Outpatient cysto scopy. On aspirin for PAD. - chronic anemia. Hb stable. Monitor for now. c/w iron supplementation - scd for dvt prophylaxis - Time Spent with Patient Total time spent is greater than 50% in coordination of care (as documented) at patient's floor/unit and/or counseling patient: Internal Medicine: Result - Labs CBC & Chem 7: 09/17/18 04:59 09/17/18 04:59 Labs: Short CBC 09/17/18 Range/Units 04:59 Hgb 8.3 L (11.5-15.4) g/dL Hct 26.9 L (35.3-44.9) % BMP 09/17/18 04:59 Sodium 139 Potassium 4.3 Chloride 109 H Carbon Dioxide 25 BUN 57 H Creatinine 1.51 H Glucose 133 H Calcium 8.9 - Impressions Impressions Retroperitoneum Ultrasound 09/17/18 09:00 IMPRESSION: 1. Unremarkable ultrasound of the kidneys. D/ / 09/17/2018 10:00:42 Fouzia Escoto MD / pola Interpreting Provider: Fouzia Escoto MD Consult Discharge Plan - Plan Referrals: Eleazar Vargas MD [Primary Care Provider] - ___ (1) Atherosclerosis of left lower extremity with ulceration Qualifiers: Peripheral atherosclerosis artery type: bypass graft, nonbiological Lower extremity ulceration location: other part of foot Qualified Code(s): I70.645 - Atherosclerosis of nonbiological bypass graft(s) of the left leg with ulceration of other part of foot (2) CAD (coronary artery disease) Qualifiers: Coronary Disease-Associated Artery/Lesion type: bypass graft [place] vs. transplanted heart: [place] heart Associated angina: without angina Qualified Code(s): I25.810 - Atherosclerosis of coronary artery bypass graft(s) without angina pectoris (3) Diabetes mellitus Qualifiers: Diabetes mellitus type: type 2 Diabetes mellitus termite control representative insulin use: with termite control representative use Diabetes mellitus complication status: with circulatory complication Diabetes mellitus complication detail: with peripheral angiopathy without gangrene Qualified Code(s): E11.51 - Type 2 diabetes mellitus with diabetic peripheral angiopathy without gangrene; Z79.4 - petroleum terminal plant operator (current) use of insulin (6) Anemia Qualifiers: Anemia type: unspecified type Qualified Code(s): D64.9 - Anemia, unspecified (7) Osteomyelitis Qualifiers: Osteomyelitis type: unspecified type Osteomyelitis location: foot Laterality: left Qualified Code(s): M86.9 - Osteomyelitis, unspecified (8) Ischemic toe ulcer Qualifiers: Laterality: left Non-pressure ulcer stage: with fat layer exposed Qualified Code(s): L97.522 - Non-pressure chronic ulcer of other part of left foot with fat layer exposed (10) Hematuria Qualifiers: Hematuria type: gross Qualified Code(s): R31.0 - Gross hematuria
[2018-09-17] MEDS: Gabapentin 300 MG CAPSULE PO SCH (20:25)
[2018-09-17] MEDS: rOPINIRole 0.25 MG TABLET PO SCH (20:25)
[2018-09-17] MEDS: Insulin DETEMIR 100 UNIT/ML X5UNITS SQ SCH (20:25)
--- NOTE | 2018-09-17 21:49 | Vascular/Endovas Progress Note ---
Date of Encounter: 09/17/18 Time of Encounter: 09:35 - Assessment and plan (1) Atherosclerosis of left lower extremity with ulceration Current Visit: No Status: Chronic The patient has a long history of peripheral vascular disease with ulceration. She previously underwent a left femoral to popliteal artery bypass graft. She has required graft thrombectomy in the past. She now has a recurrent graft occlusion. Her left ankle-brachial index is consistent with severe disease. She has gangrenous changes in his left great toe with a resolving cellulitis. She will continue with antibiotics. She had an acute bronchospasm on induction of anesthesia for a planned graft thrombectomy. She is now recovered. The patient may follow-up in vascular clinic for further evaluation and to reschedule her thrombectomy. She is no signs of acute limb ischemia at this time. Recommend avoiding SCD placement on the left lower extremity due to her chronic peripheral vascular disease. We will schedule TCP O2 levels had left lower extremity. Qualifiers: Peripheral atherosclerosis artery type: bypass graft, nonbiological Lower extremity ulceration location: other part of foot Qualified Code(s): I70.645 - Atherosclerosis of nonbiological bypass graft(s) of the left leg with ulceration of other part of foot (2) CAD (coronary artery disease) Current Visit: No Status: Chronic Qualifiers: Coronary Disease-Associated Artery/Lesion type: bypass graft [place] vs. transplanted heart: [place] heart Associated angina: without angina Qualified Code(s): I25.810 - Atherosclerosis of coronary artery bypass graft(s) without angina pectoris (3) COPD (chronic obstructive pulmonary disease) Current Visit: No Status: Chronic Qualifiers: COPD type: unspecified COPD Qualified Code(s): J44.9 - Chronic obstructive pulmonary disease, unspecified (4) Chronic disease anemia Current Visit: No Status: Chronic (5) Chronic kidney disease, stage III (moderate) Current Visit: No Status: Chronic The patient is chronically disease stage III. Her creatinine increased and her GFR decreased overnight. She is beginning hydration. Her labs rechecked tomorrow. (6) Hypertension Current Visit: No Status: Chronic She was counseled regarding atherosclerotic risk factor reduction. Qualifiers: Hypertension type: essential hypertension Qualified Code(s): I10 - Essential (primary) hypertension (7) Tobacco dependence Current Visit: No Status: Chronic She was counseled regarding smoking cessation. - Subjective Interval history: The patient is resting comfortably. She reports occasional left forefoot pain. She has a SCD on the left lower extremity. She states that this is causing some of her pain. She denies any fevers or chills. She denies any chest pain or shortness of breath. Vital Signs, Last 4 Hours Temp Pulse Resp BP Pulse Ox 09/17/18 20:14 98.7 F 72 14 122/48 97 - Physical Examination General: Present: Conversant, No Apparent Distress HEENT: Present: Pupils equal Neck: Absent: JVD Cardiac: Present: Reg Rate and Rhythm Lungs: Present: Normal Breath Sounds Neuro: Present: Alert and responsive, No focal deficits noted Vascular: Present: Normal capillary refill, Pulse, absent (Left pedal pulses and popliteal pulse absent), Pulse, normal (Right pedal pulses normal). Absent: Cy anosis, Edema Abdomen: Present: Soft Skin: Present: Wound/ulcer(s) (Left great toe dry gangrene is stable) Results 09/17/18 04:59 09/17/18 04:59 Lab Results, Last 24 hours 09/17/18 09/17/18 04:59 04:59 Hgb 8.3 L Hct 26.9 L Sodium 139 Potassium 4.3 Chloride 109 H Carbon Dioxide 25 BUN 57 H Creatinine 1.51 H Glucose 133 H Calcium 8.9 Consult Discharge Plan - Plan Referrals: Eleazar Vargas MD [Primary Care Provider] - Peewee Koroma [Partnered Physician] - 10/08/18 9:00 am
--- NOTE | 2018-09-17 22:59 | Nephrology Progress Note ---
Date of Encounter: 09/17/18 Time of Encounter: 16:00 - Assessment and Plan (1) Acute kidney injury Current Visit: No Status: Acute Scr slightly better at 1.51, GFR 34, will monitor Continue po fluids Continue to avoid nephrotxins if possile (2) Osteomyelitis Current Visit: Yes Status: Chronic Qualifiers: Osteomyelitis type: unspecified type Osteomyelitis location: foot Laterality: left Qualified Code(s): M86.9 - Osteomyelitis, unspecified (3) Vascular graft occlusion Current Visit: Yes Status: Acute Qualifiers: Encounter type: initial encounter Qualified Code(s): T82.898A - Other specified complication of vascular prosthetic devices, implants and grafts, initial encounter (4) Anemia Current Visit: No Status: Acute Qualifiers: Anemia type: unspecified type Qualified Code(s): D64.9 - Anemia, unspecified Subjective Interval history: Pt seen ad examined feeling better today. No new complaints. Drinking more fluids. Kennedy now removed, heading to urinate in the bathroom now Objective - Vital Signs Vital signs: Vital Signs Temp Pulse Resp BP Pulse Ox 09/17/18 21:49 16 98 09/17/18 20:14 98.7 F 72 14 122/48 97 09/17/18 17:11 72 187/84 09/17/18 15:35 14 98 09/17/18 13:30 98.3 F 64 183/62 98 09/17/18 10:35 16 97 09/17/18 07:55 97.3 F L 63 18 185/71 94 09/17/18 04:10 16 95 09/17/18 03:04 97.9 F 66 15 178/65 95 Intake and Output 09/17/18 09/17/18 09/17/18 07:59 15:59 23:59 Intake Total 1060 / 1570 340 / 1570 170 / 1570 Output Total 0 / 1800 1800 / 1800 Balance 1060 / -230 -1460 / -230 170 / -230 Intake: IV Fluids 1060 / 1210 100 / 1210 50 / 1210 0.9 % Sodium Chloride 1,000 ML 1000 / 1050 50 / 1050 0 / 1050 @ 75 mls/hr IVC .[id number] [facility] Rx #:[id number] Maxipime 1,000 MG In Water for inj. (sterile) 10 ML @ 300 mls/ hr IVP Q12H [facility] Rx#:[id number] Cleocin Premix 600 MG/50 ML 600 50 / 150 50 / 150 50 / 150 mg In 50 ml @ 50 mls/hr IVPB Q8HR [facility] Rx#:[id number] Oral 240 / 360 120 / 360 Output: Urine 0 / 0 Catheter 1800 / 1800 Other: Meal Breakfast Dinner Percent of Meal Consumed 50% 100% Blood Glucose* 131 163 210 - Lab 09/17/18 04:59 09/17/18 04:59 Consult Discharge Plan - Plan Referrals: Eleazar Vargas MD [Primary Care Provider] - Peewee Koroma [Partnered Physician] - 10/08/18 9:00 am
[2018-09-18] MEDS: Clindamycin 600 MG/50 ML 600 MG/50 ML IV.SOLN IVPB SCH ×3 (00:26→17:33)
[2018-09-18] MEDS: *HR* OxyCODONE Immed Rel 5 MG TABLET PO PRN ×4 (00:34→21:01)
[2018-09-18] MEDS: Cefepime HCl 1,000 MG in Water for inj. (sterile) 10 ML IVP SCH ×2 (04:02→17:32)
[2018-09-18] MEDS: Ipratropium/Albuterol Neb 3 ML IH SCH ×4 (04:15→22:13)
[2018-09-18] MEDS: 0.9 % Sodium Chloride 1,000 ML IVC SCH (05:21)
[2018-09-18] MEDS: *HR* Heparin 5,000 UNIT/ML VIAL SQ SCH ×2 (05:22→17:32)
[2018-09-18] MEDS: amLODIPine 5 MG TABLET PO SCH (08:02)
[2018-09-18] MEDS: predniSONE 20 MG TABLET PO SCH (08:03)
[2018-09-18] MEDS: Isosorbide MONOnitrate (24 HR) 60 MG TAB.ER.24H PO SCH (08:03)
[2018-09-18] MEDS: Aspirin Enteric Coated 81 MG Tablet PO SCH (08:03)
[2018-09-18] MEDS: Iron Polysaccharide Complex 150 MG CAPSULE PO SCH (08:03)
[2018-09-18] MEDS: Insulin LISPRO 300 UNITS/3 ML VIAL SQ SCH ×7 (08:03→21:06)
--- NOTE | 2018-09-18 12:07 | Infectious Disease Progress No ---
ID Progress Note Date of Encounter: 09/18/18 Time of Encounter: 10:30 - Subjective Subjective: Patient seen and examined. No acute events noted overnight. Patient complains of pain in her left foot and back. Denies fevers, chills, or rigors. Denies chest pain, shortness of breath, or cough. Denies nausea, vomiting, diarrhea, or constipation. Denies abdominal pain. Voiding without difficulty since having Kennedy catheter removed. Denies oral thrush or skin rashes. - Objective CBC & Chem 7: 09/19/18 09:29 09/19/18 09:29 - Exam Vitals: Temp Pulse Resp BP Pulse Ox 97.8 F 67 14 123/65 97 09/18/18 11:31 09/18/18 11:31 09/18/18 11:31 09/18/18 11:31 09/18/18 11:31 Exam: Head: Atraumatic, normal inspection, normocephalic. Eye: EOMI, PERRLA, no scleral icterus noted. ENT: Mucous membranes moist. No odontogenic infection noted. Neck: Normal inspection, no meningismus. Respiratory: Clear to auscultation. No rales, respiratory distress, rhonchi, or wheezes noted. Cardiovascular: Regular rate and rhythm, S1 and S2 audible. No murmurs, rubs, or gallops. GI: Soft, nondistended, normal bowel sounds. Extremities:No joint swelling, pedal edema, or tenderness noted. Necrosis noted to the distal aspect of the left foot great toe with mild erythema. No foul odor or drainage noted. No lymphangitis or streaking up the leg appreciated. Back: Normal inspection. No vertebral tenderness noted. Neurological: Alert, oriented 3, no focal deficits. Psychiatric: normal affect, normal mood. Skin: Dry, intact, warm. Normal color. No rashes. - Assessment and Plan (1) Osteomyelitis Current Visit: Yes Status: Chronic Location: Left foot great toe. Causative organism: Unclear. Previous wound culture were positive for MRSA less than a year ago. Etiology: Likely multifactorial: Diabetes plus PAD plus infection. SILVIA of the LLE showed severe disease. Patient was unable to undergo revision of her vascular graft occlusion. Concerned that without adequate bloodflow, we will be unable to get adequate tissue penetration. Additionally, we do not have cultures and the patient will have to be on broad- spectrum antibiotics for six weeks in the setting of OSCAR/CKD. She is at high risk for further damage to her kidneys. Podiatry consulted and following. No surgical intervention planned at this time. No bone biopsy obtained. Currently on cefepime and clindamycin. Qualifiers: Osteomyelitis type: unspecified type Osteomyelitis location: foot Laterality: left Qualified Code(s): M86.9 - Osteomyelitis, unspecified SNOMED Code(s): 44463962 (2) Ischemic toe ulcer Current Visit: Yes Status: Acute Location: Left foot great toe. Likely multifactorial: infection + PAD + diabetes. Podiatry consulted and following. Qualifiers: Laterality: left Non-pressure ulcer stage: with fat layer exposed Qualified Code(s): L97.522 - Non-pressure chronic ulcer of other part of left foot with fat layer exposed SNOMED Code(s): 167027422 (3) Acute kidney injury Current Visit: No Status: Acute Likely multifactorial: infection + CKD + nephrotoxic medications (vanc and lisinopril). Improved. Continue to trend. Nephrology consulted and following. SNOMED Code(s): 54295416, 86187212 (4) Vascular graft occlusion Current Visit: Yes Status: Acute Vascular consulted and following. Surgery cancelled due to impaired respiratory status and bronchospasms. Qualifiers: Encounter type: initial encounter Qualified Code(s): T82.898A - Other specified complication of vascular prosthetic devices, implants and grafts, initial encounter SNOMED Code(s): 095468069 (5) PAD (peripheral artery disease) Current Visit: No Status: Chronic Multiple surgeries in the past s/p: 08/29/17: 1. Left lower extremity bypass graft thrombectomy. 2. Left common femoral endarterectomy. 08/15/18: 1. Left femoral to popliteal artery bypass graft thrombectomy with 4 niuean and 5 niuean Demetrice embolectomy catheters. 2. Left iliofemoral endarterterectomy. 08/29/2018 1. Left lower extremity bypass graft thrombectomy. 2. Left common femoral endarterectomy. ABIs consistent with severe disease in the LLE. Vascular surgery consulted, but further intervention on hold due to acute respiratory failure. 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 SNOMED Code(s): 187456554 (9) CAD (coronary artery disease) Current Visit: No Status: Chronic Qualifiers: Coronary Disease-Associated Artery/Lesion type: bypass graft [place] vs. transplanted heart: [place] heart Associated angina: without angina Qualified Code(s): I25.810 - Atherosclerosis of coronary artery bypass graft(s) without angina pectoris SNOMED Code(s): 03010825 (10) Hypertension Current Visit: No Status: Chronic Qualifiers: Hypertension type: essential hypertension Qualified Code(s): I10 - Essential (primary) hypertension SNOMED Code(s): 79595723 (11) Diabetes mellitus Current Visit: No Status: Chronic Recommend aggressive glucose monitoring and control to promote wound healing and prevent re-infection. Management per the primary team. Qualifiers: Diabetes mellitus type: type 2 Diabetes mellitus usp insulin use: with technician terminal and repeater use Diabetes mellitus complication status: with circulatory complication Diabetes mellitus complication detail: with peripheral angiopathy without gangrene Qualified Code(s): E11.51 - Type 2 diabetes mellitus with diabetic peripheral angiopathy without gangrene; Z79.4 - technician terminal and repeater (current) use of insulin SNOMED Code(s): 32846605 - Recommendations Recommendations: At this point, we do not have any cultures to help identify the causative organism of the patient's osteomyelitis. Discussed with the podiatry team. Too high risk for bone biopsy. Additionally, given the patient's impaired vascular status, concern that we will be unable to maintain adequate tissue penetration to get the antibiotics to the infected tissue. Will discuss with the vascular team to see if we can expedite getting her leg procedure done. We also need to consider the fact that the patient has chronic kidney disease in 6 weeks of IV antibiotics is very high risk for causing worsening of her renal status. I discussed the risks, benefits, and alternatives with the patient and she is agreeable to proceed with whatever the care team recommends. Wound care per the podiatry team. Continue cefepime 1 g IV every 12 hours for now. Continue clindamycin 600 mg IV every 8 hours. Duration of treatment depends on the clinical picture, but likely a total of 6 weeks. Monitor renal function and dose adjust antibiotics. Recommend probiotics daily. Contact precautions per hospital policy. We will discuss with the podiatry and vascular teams. Consult VAT for EPIV placement. Consult Discharge Plan - Plan Referrals: Tera Schmidt DPM [Partnered Physician] - 09/23/18 3:30 pm Eleazar Vargas MD [Primary Care Provider] - Peewee Koroma [Partnered Physician] - 10/08/18 9:00 am Prescriptions: Cefepime HCl/Dextrose, Iso-Osm [Cefepime 1 gm Injection] 1 gm IV Q12H 42 Days #84 froz.piggy Clindamycin 600 MG/50 ML [Cleocin Premix 600 MG/50 ML] 600 mg IVPB Q8H 42 Days #126 bag - Attending Attestation I have personally performed a face to face evaluation on this patient. I have reviewed and agree with the care plan. History and Exam by me shows: Assessment and plan: 1.Osteomyelitis 2.Ischemic toe ulcer 3.Peripheral artery disease 4.Coronary artery disease 5.Reaction to vancomycin 6.Diabetes mellitus type 2 7.Tobacco dependence 8.History of MRSA infection 9.Worsening kidney function Recommendations: At this point, we do not have any cultures to help identify the causative organism of the patient's osteomyelitis. Discussed with the podiatry team. Too high risk for bone biopsy. Additionally, given the patient's impaired vascular status, concern that we will be unable to maintain adequate tissue penetration to get the antibiotics to the infected tissue. Will discuss with the vascular team to see if we can expedite getting her leg procedure done. We also need to consider the fact that the patient has chronic kidney disease in 6 weeks of IV antibiotics is very high risk for causing worsening of her renal status. I discussed the risks, benefits, and alternatives with the patient and she is agreeable to proceed with whatever the care team recommends. Wound care per the podiatry team. Continue cefepime 1 g IV every 12 hours for now. Continue clindamycin 600 mg IV every 8 hours. Duration of treatment depends on the clinical picture, but likely a total of 6 weeks. Monitor renal function and dose adjust antibiotics. Recommend probiotics daily. Contact precautions per hospital policy. We will discuss with the podiatry and vascular teams. Consult VAT for EPIV placement.
[2018-09-18] MEDS: Lactobacillus 1 EACH CAP.SPRINK PO SCH (13:00)
[2018-09-18 13:56] LABS: Basophils % 0.2 %; Eosinophils # 0.1 K/mcL (0.0-0.6); Eosinophils % 0.5 %; Hematocrit 30.9 % (35.3-44.9); Hemoglobin 9.7 g/dL (11.5-15.4); Immature Granulocytes % 4.7 % (0-4); Lymphocytes # 0.7 K/mcL (0.6-4.6); Lymphocytes % 5.4 %; Mean Corpuscular HGB Conc 31.4 g/dL (31.6-35.5); Mean Corpuscular Hemoglobin 30.6 pg (28.0-33.3); Mean Corpuscular Volume 97.5 fL (83.0-100.0); Mean Platelet Volume 11.7 fL (9.4-12.4); Monocytes # 0.4 K/mcL (0.0-1.3); Monocytes % 3.4 %; Neutrophils # 10.4 K/mcL (1.6-8.9); Platelet Count 243 K/mcL (140-400); Red Blood Count 3.17 M/mcL (3.82-4.97); Red Cell Distribution Width 14.6 % (11.5-14.5); Segmented Neutrophils % 85.8 %; White Blood Count 12.1 K/mcL (4.3-11.1)
[2018-09-18 14:17] LABS: Calcium 9.1 mg/dL (8.6-10.3); Potassium 4.9 mEq/L (3.5-5.1)
--- NOTE | 2018-09-18 15:11 | Internal Med Progress Note ---
Hospitalist Progress Note - Encounter Date of Encounter: 09/18/18 Time of Encounter: 11:09 - Subjective Interval History: ECG and examined this morning at bedside. No acute overnight as. Denies fevers chills nausea vomiting or diarrhea. Denies any chest pain shortness of breath abdominal pain. A mild foot soreness. - Exam Vitals: Temp Pulse Resp BP Pulse Ox 97.8 F 67 14 123/65 97 09/18/18 11:31 09/18/18 11:31 09/18/18 11:31 09/18/18 11:31 09/18/18 11:31 Exam: General: In no acute distress. Respiratory exam: CTAB, No adventitious lung sound Cardiovascular exam: RRR, +S1, +S2. no murmur, GI/Abdominal exam: Non-tender, Non-distended, normal bowel sounds, soft, no peritoneal signs. rivera in place Extremities exam: no pedal edema, absent pulse on Lt foot. no calf tenderness. Lt great toe with necrosis with mild erythema. Neurological exam: CN II-XII intact, AO X3, no focal deficits. Skin exam: ecchymosis on UE 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 Current Visit: No Status: Chronic (2) CAD (coronary artery disease) Current Visit: No Status: Chronic (3) Diabetes mellitus Current Visit: No Status: Chronic (4) DVT prophylaxis Current Visit: No Status: Acute (5) Chronic kidney disease, stage III (moderate) Current Visit: No Status: Chronic (6) Anemia Current Visit: No Status: Acute (7) Osteomyelitis Current Visit: Yes Status: Chronic (8) Ischemic toe ulcer Current Visit: Yes Status: Acute (9) COPD exacerbation Current Visit: Yes Status: Acute (10) Hematuria Current Visit: Yes Status: Resolved - Summary of Assessment and Plan Summary of Assessment and Plan: Assessment Lt toe osteomyelitis, cellulitis Toe ulceration COPD exacerbation Lt fem-pop graft occlusion OSCAR Acute respiratory failure Hematuria Severe LT PAD Tobacco abuse DVT prophylaxis CAD PAD Chronic anemia CKD-3 DM smoker Plan - Developed bronchospasm during induction of anesthesia and initiation of va nomycin during vascular surgery. Patient now managed conservatively with IV antibiotics. Patient currently on clindaymicin and Cefepime per ID. No reaction to cefepime. Blood culture NGTD on final report. Will likely need IV abx on DC. ID following. Will get kulkarni check for 6 weeks of cefepime and clindamycin. Leukocytosis likely related to steroid use. - C/w scheduled bronchodilators and steroid taper. Breathing improved - c/w SSI and accuchecks, levemir 12 units and premeal 5 units. - c/w home aspirin, imdur, and metoprolol(dose increased before). c/w atorvastatin. Home lisinopril on hold given renal function. started on amlodipine. BP elevated. . Prn hydralazine - OSCAR. SCr improved with ivf. uric acid and CPK normal. Fena indicating prerenal. pending renal US. Will stop ivf and encourage po intake. strict I/O. avoid nephrotoxins. lisinopril on hold. Appreciate nephrology input. - Hematuria likely related to rivera and heparin for dvt. Urine culture with no growth. Urology was consulted. Renal US unremarkable. rivera removed. Outpatient cystoscopy. On aspirin for PAD. - chronic anemia. Hb stable. Monitor for now. c/w iron supplementation - heparin sc - Time Spent with Patient Total time spent is greater than 50% in coordination of care (as documented) at patient's floor/unit and/or counseling patient: Internal Medicine: Result - Labs CBC & Chem 7: 09/18/18 13:28 09/18/18 13:28 Labs: Short CBC 09/18/18 Range/Units 13:28 WBC 12.1 H (4.3-11.1) K/mcL Hgb 9.7 L (11.5-15.4) g/dL Hct 30.9 L (35.3-44.9) % Plt Count 243 (140-400) K/mcL Neutrophils # 10.4 H (1.6-8.9) K/mcL BMP 09/18/18 13:28 Sodium 137 Potassium 4.9 Chloride 109 H Carbon Dioxide 22 L BUN 80 H Creatinine 1.53 H Glucose 250 H Calcium 9.1 - Impressions Impressions Retroperitoneum Ultrasound 09/17/18 09:00 IMPRESSION: 1. Unremarkable ultrasound of the kidneys. D/ / 09/17/2018 10:00:42 Fouzia Escoto MD / pola Interpreting Provider: Fouzia Escoto MD Consult Discharge Plan - Plan Referrals: Eleazar Vargas MD [Primary Care Provider] - Peewee Koroma [Partnered Physician] - 10/08/18 9:00 am Prescriptions: Cefepime HCl/Dextrose, Iso-Osm [Cefepime 1 gm Injection] 1 gm IV Q12H 42 Days #84 froz.piggy Clindamycin 600 MG/50 ML [Cleocin Premix 600 MG/50 ML] 600 mg IVPB Q8H 42 Days #126 bag (1) Atherosclerosis of left lower extremity with ulceration Qualifiers: Peripheral atherosclerosis artery type: bypass graft, nonbiological Lower extremity ulceration location: other part of foot Qualified Code(s): I70.645 - Atherosclerosis of nonbiological bypass graft(s) of the left leg with ulceration of other part of foot (2) CAD (coronary artery disease) Qualifiers: Coronary Disease-Associated Artery/Lesion type: bypass graft [place] vs. transplanted heart: [place] heart Associated angina: without angina Qualified Code(s): I25.810 - Atherosclerosis of coronary artery bypass graft(s) without angina pectoris (3) Diabetes mellitus Qualifiers: Diabetes mellitus type: type 2 Diabetes mellitus assisted insulin use: with termite treater use Diabetes mellitus complication status: with circulatory complication Diabetes mellitus complication detail: with peripheral angiopathy without gangrene Qualified Code(s): E11.51 - Type 2 diabetes mellitus with diabetic peripheral angiopathy without gangrene; Z79.4 - superintendent terminal (current) use of insulin (6) Anemia Qualifiers: Anemia type: unspecified type Qualified Code(s): D64.9 - Anemia, unspecified (7) Osteomyelitis Qualifiers: Osteomyelitis type: unspecified type Osteomyelitis location: foot Laterality: left Qualified Code(s): M86.9 - Osteomyelitis, unspecified (8) Ischemic toe ulcer Qualifiers: Laterality: left Non-pressure ulcer stage: with fat layer exposed Qualified Code(s): L97.522 - Non-pressure chronic ulcer of other part of left foot with fat layer exposed (10) Hematuria Qualifiers: Hematuria type: gross Qualified Code(s): R31.0 - Gross hematuria
[2018-09-18] MEDS: Insulin DETEMIR 100 UNIT/ML X5UNITS SQ SCH (20:52)
[2018-09-18] MEDS: Gabapentin 300 MG CAPSULE PO SCH (20:52)
[2018-09-18] MEDS: rOPINIRole 0.25 MG TABLET PO SCH (20:52)
--- NOTE | 2018-09-18 23:32 | Nephrology Progress Note ---
Date of Encounter: 09/18/18 Time of Encounter: 17:00 - Assessment and Plan (1) Acute kidney injury Current Visit: No Status: Acute (2) Osteomyelitis Current Visit: Yes Status: Chronic Qualifiers: Osteomyelitis type: unspecified type Osteomyelitis location: foot Laterality: left Qualified Code(s): M86.9 - Osteomyelitis, unspecified (3) Vascular graft occlusion Current Visit: Yes Status: Acute Qualifiers: Encounter type: initial encounter Qualified Code(s): T82.898A - Other specified complication of vascular prosthetic devices, implants and grafts, initial encounter (4) Anemia Current Visit: No Status: Acute Qualifiers: Anemia type: unspecified type Qualified Code(s): D64.9 - Anemia, unspecified Subjective Interval history: Pt seen ad examined feeling better today. No new complaints. Drinking more fluids. IVF running Objective - Vital Signs Vital signs: Vital Signs Temp Pulse Resp BP Pulse Ox 09/18/18 22:31 98.5 F 64 16 151/76 96 09/18/18 22:15 14 98 09/18/18 18:49 98.5 F 67 14 147/83 97 09/18/18 16:08 98.6 F 66 16 109/42 97 09/18/18 15:20 18 97 09/18/18 11:31 97.8 F 67 14 123/65 97 09/18/18 10:48 17 97 09/18/18 07:12 97.3 F L 66 15 170/62 97 09/18/18 04:17 16 97 09/18/18 03:05 98.2 F 69 16 134/54 94 Intake and Output 09/18/18 09/18/18 09/18/18 07:59 15:59 23:59 Intake Total 1130 / 2885 1215 / 2885 540 / 2885 Output Total 500 / 1550 1050 / 1550 Balance 630 / 1335 165 / 1335 540 / 1335 Intake: IV Fluids 1010 / 2045 975 / 2045 60 / 2045 0.9 % Sodium Chloride 1,000 ML 950 / 1875 925 / 1875 @ 75 mls/hr IVC .[id number] [facility] Rx #:[id number] Maxipime 1,000 MG In Water for inj. (sterile) 10 ML @ 300 mls/ hr IVP Q12H [facility] Rx#:[id number] Cleocin Premix 600 MG/50 ML 600 50 / 150 50 / 150 50 / 150 mg In 50 ml @ 50 mls/hr IVPB Q8HR [facility] Rx#:[id number] Oral 120 / 840 240 / 840 480 / 840 Output: Urine 500 / 1550 1050 / 1550 Other: Meal Breakfast Dinner Percent of Meal Consumed 100% 100% Blood Glucose* 187 98 157 - Lab 09/18/18 13:28 09/18/18 13:28 Most recent lab results 09/18/18 13:28 Calcium 9.1 Consult Discharge Plan - Plan Referrals: Tera Schmidt DPM [Partnered Physician] - 09/23/18 3:30 pm Eleazar Vargas MD [Primary Care Provider] - Peewee Koroma [Partnered Physician] - 10/08/18 9:00 am Prescriptions: Cefepime HCl/Dextrose, Iso-Osm [Cefepime 1 gm Injection] 1 gm IV Q12H 42 Days #84 delmy Clindamycin 600 MG/50 ML [Cleocin Premix 600 MG/50 ML] 600 mg IVPB Q8H 42 Days #126 bag
[2018-09-19] MEDS: Clindamycin 600 MG/50 ML 600 MG/50 ML IV.SOLN IVPB SCH ×4 (00:31→23:38)
[2018-09-19] MEDS: Ipratropium/Albuterol Neb 3 ML IH SCH ×4 (03:32→22:11)
[2018-09-19] MEDS: Cefepime HCl 1,000 MG in Water for inj. (sterile) 10 ML IVP SCH ×3 (04:03→19:59)
[2018-09-19] MEDS: *HR* Heparin 5,000 UNIT/ML VIAL SQ SCH ×2 (05:32→18:50)
[2018-09-19] MEDS: Isosorbide MONOnitrate (24 HR) 60 MG TAB.ER.24H PO SCH (08:16)
[2018-09-19] MEDS: Lactobacillus 1 EACH CAP.SPRINK PO SCH (08:16)
[2018-09-19] MEDS: predniSONE 20 MG TABLET PO SCH (08:16)
[2018-09-19] MEDS: amLODIPine 5 MG TABLET PO SCH (08:16)
[2018-09-19] MEDS: Aspirin Enteric Coated 81 MG Tablet PO SCH (08:17)
[2018-09-19] MEDS: Iron Polysaccharide Complex 150 MG CAPSULE PO SCH (08:17)
[2018-09-19] MEDS: Insulin LISPRO 300 UNITS/3 ML VIAL SQ SCH ×7 (08:18→21:11)
[2018-09-19] MEDS: *HR* OxyCODONE Immed Rel 5 MG TABLET PO PRN ×4 (08:31→23:38)
[2018-09-19 09:56] LABS: Basophils % 0.3 %; Eosinophils # 0.1 K/mcL (0.0-0.6); Eosinophils % 1.1 %; Hematocrit 26.8 % (35.3-44.9); Hemoglobin 8.3 g/dL (11.5-15.4); Immature Granulocytes % 3.6 % (0-4); Lymphocytes # 1.3 K/mcL (0.6-4.6); Lymphocytes % 11.7 %; Mean Corpuscular Hemoglobin 30.6 pg (28.0-33.3); Mean Corpuscular Volume 98.9 fL (83.0-100.0); Monocytes # 0.7 K/mcL (0.0-1.3); Monocytes % 6.1 %; Neutrophils # 8.4 K/mcL (1.6-8.9); Platelet Count 222 K/mcL (140-400); Red Blood Count 2.71 M/mcL (3.82-4.97); Red Cell Distribution Width 14.6 % (11.5-14.5); Segmented Neutrophils % 77.2 %; White Blood Count 10.9 K/mcL (4.3-11.1)
[2018-09-19 10:11] LABS: Calcium 8.8 mg/dL (8.6-10.3); Potassium 4.5 mEq/L (3.5-5.1)
--- NOTE | 2018-09-19 12:30 | Infectious Disease Progress No ---
ID Progress Note Date of Encounter: 09/19/18 Time of Encounter: 10:35 - Subjective Subjective: Patient seen and examined. No acute events noted overnight. Patient complains of pain in her left foot and back. Denies fevers, chills, or rigors. Denies chest pain, shortness of breath, or cough. Denies nausea, vomiting, diarrhea, or constipation. Denies abdominal pain. Voiding without difficulty since having Kennedy catheter removed. Reports BM overnight. Denies oral thrush or skin rashes. - Objective CBC & Chem 7: 09/19/18 09:29 09/20/18 03:14 - Exam Vitals: Temp Pulse Resp BP Pulse Ox 98.2 F 61 16 165/64 99 09/19/18 11:12 09/19/18 11:12 09/19/18 11:12 09/19/18 11:12 09/19/18 11:12 Exam: Head: Atraumatic, normal inspection, normocephalic. Eye: EOMI, PERRLA, no scleral icterus noted. ENT: Mucous membranes moist. No odontogenic infection noted. Neck: Normal inspection, no meningismus. Respiratory: Clear to auscultation. No rales, respiratory distress, rhonchi, or wheezes noted. Cardiovascular: Regular rate and rhythm, S1 and S2 audible. No murmurs, rubs, or gallops. GI: Soft, nondistended, normal bowel sounds. Extremities:No joint swelling, pedal edema, or tenderness noted. Necrosis noted to the distal aspect of the left foot great toe. Erythema improved. No foul odor or drainage noted. No lymphangitis or streaking up the leg appreciated. Back: Normal inspection. No vertebral tenderness noted. Neurological: Alert, oriented 3, no focal deficits. Psychiatric: normal affect, normal mood. Skin: Dry, intact, warm. Normal color. No rashes. - Assessment and Plan (1) Osteomyelitis Current Visit: Yes Status: Chronic Location: Left foot great toe. Causative organism: Unclear. Previous wound culture were positive for MRSA less than a year ago. Etiology: Likely multifactorial: Diabetes plus PAD plus infection. SILVIA of the LLE showed severe disease. Patient was unable to undergo revision of her vascular graft occlusion. Concerned that without adequate bloodflow, we will be unable to get adequate tissue penetration. Additionally, we do not have cultures and the patient will have to be on broad- spectrum antibiotics for six weeks in the setting of OSCAR/CKD. She is at high risk for further damage to her kidneys. Podiatry consulted and following. No surgical intervention planned at this time. No bone biopsy obtained. Discussed with RNCM who states patient cannot afford home IV antibiotics and will need to go to ECF. Working to see about cost of medications at in-network ECF. Currently on cefepime and clindamycin. Qualifiers: Osteomyelitis type: unspecified type Osteomyelitis location: foot Laterality: left Qualified Code(s): M86.9 - Osteomyelitis, unspecified SNOMED Code(s): 81565337 (2) Ischemic toe ulcer Current Visit: Yes Status: Acute Location: Left foot great toe. Likely multifactorial: infection + PAD + diabetes. Podiatry consulted and following. Qualifiers: Laterality: left Non-pressure ulcer stage: with fat layer exposed Q ualified Code(s): L97.522 - Non-pressure chronic ulcer of other part of left foot with fat layer exposed SNOMED Code(s): 413501783 (3) Acute kidney injury Current Visit: No Status: Acute Likely multifactorial: infection + CKD + nephrotoxic medications (vanc and lisinopril). Improved/stable. Continue to trend. Nephrology consulted and following. SNOMED Code(s): 75600567, 82975478 (4) Vascular graft occlusion Current Visit: Yes Status: Acute Vascular consulted and following. Surgery cancelled due to impaired respiratory status and bronchospasms. Planning outpatient follow-up. Qualifiers: Encounter type: initial encounter Qualified Code(s): T82.898A - Other specified complication of vascular prosthetic devices, implants and grafts, initial encounter SNOMED Code(s): 083119512 (5) PAD (peripheral artery disease) Current Visit: No Status: Chronic Multiple surgeries in the past s/p: 08/29/17: 1. Left lower extremity bypass graft thrombectomy. 2. Left common femoral endarterectomy. 08/15/18: 1. Left femoral to popliteal artery bypass graft thrombectomy with 4 south korean and 5 south korean Demetrice embolectomy catheters. 2. Left iliofemoral endarterterectomy. 08/29/2018 1. Left lower extremity bypass graft thrombectomy. 2. Left common femoral endarterectomy. ABIs consistent with severe disease in the LLE. Vascular surgery consulted, but further intervention on hold due to acute respiratory failure. 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 SNOMED Code(s): 750779849 (9) CAD (coronary artery disease) Current Visit: No Status: Chronic Qualifiers: Coronary Disease-Associated Artery/Lesion type: bypass graft [place] vs. transplanted heart: [place] heart Associated angina: without angina Qualified Code(s): I25.810 - Atherosclerosis of coronary artery bypass graft(s) without angina pectoris SNOMED Code(s): 30983655 (10) Hypertension Current Visit: No Status: Chronic Qualifiers: Hypertension type: essential hypertension Qualified Code(s): I10 - Essential (primary) hypertension SNOMED Code(s): 91567612 (11) Diabetes mellitus Current Visit: No Status: Chronic Recommend aggressive glucose monitoring and control to promote wound healing and prevent re-infection. Management per the primary team. 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 Discussed with the podiatry team. Too high risk for bone biopsy. Additionally, given the patient's impaired vascular status, concern that we will be unable to maintain adequate tissue penetration to get the antibiotics to the infected tissue. Will discuss with the vascular team to see if we can expedite getting her leg procedure done. We also need to consider the fact that the patient has chronic kidney disease in 6 weeks of IV antibiotics is very high risk for causing worsening of her renal status. I discussed the risks, benefits, and alternatives with the patient and she is agreeable to proceed with whatever the care team recommends. Wound care per the podiatry team. Continue cefepime 1 g IV every 12 hours for now. Continue clindamycin 600 mg IV every 8 hours. Duration of treatment depends on the clinical picture, but likely a total of 6 weeks. Monitor renal function and dose adjust antibiotics. Recommend probiotics daily. Contact precautions per hospital policy. director of food and beverage services assisting with discharge planning. - VTE Documentation of Mechanical Device: Intermittent pneumatic compression device Consult Discharge Plan - Plan Referrals: Tera Schmidt DPM [Partnered Physician] - 09/23/18 3:30 pm Eleazar Vargas MD [Primary Care Provider] - Laure Strong CNP [Advanced Practice Nurse] - 10/08/18 2:20 pm Peewee Koroma [Partnered Physician] - 10/08/18 9:00 am Prescriptions: Cefepime HCl/Dextrose, Iso-Osm [Cefepime 1 gm Injection] 1 gm IV Q12H 42 Days #84 froz.piggy Clindamycin 600 MG/50 ML [Cleocin Premix 600 MG/50 ML] 600 mg IVPB Q8H 42 Days #126 bag DAPTOmycin [Daptomycin] 350 mg IV DAILY #31 vial - Attending Attestation I have personally performed a face to face evaluation on this patient. I have reviewed and agree with the care plan. History and Exam by me shows: Assessment and plan: 1.Osteomyelitis 2.Ischemic toe ulcer 3.Peripheral artery disease 4.Coronary artery disease 5.Reaction to vancomycin 6.Diabetes mellitus type 2 7.Tobacco dependence 8.History of MRSA infection 9.Worsening kidney function Recommendations: AContinue cefepime 1 g IV every 12 hours for now. Continue clindamycin 600 mg IV every 8 hours. Duration of treatment depends on the clinical picture, but likely a total of 6 weeks. Monitor renal function and dose adjust antibiotics. Recommend probiotics daily. Contact precautions per hospital policy. director of food and beverage services assisting with discharge planning.
--- NOTE | 2018-09-19 15:51 | Internal Med Progress Note ---
Hospitalist Progress Note - Encounter Date of Encounter: 09/19/18 Time of Encounter: 11:51 - Subjective Interval History: Patient seen and examined this morning at present. No acute overnight events. Has some pain in her left foot. Denies new complaints. Denies fevers chills nausea vomiting diarrhea. - Exam Vitals: Temp Pulse Resp BP Pulse Ox 97.8 F 57 16 128/42 96 09/19/18 15:46 09/19/18 15:46 09/19/18 15:46 09/19/18 15:46 09/19/18 15:46 Exam: General: In no acute distress. Respiratory exam: CTAB, No adventitious lung sound Cardiovascular exam: RRR, +S1, +S2. no murmur, GI/Abdominal exam: Non-tender, Non-distended, normal bowel sounds, soft, no peritoneal signs. rivera in place Extremities exam: no pedal edema, absent pulse on Lt foot. no calf tenderness. Lt great toe with necrosis with mild erythema. Neurological exam: CN II-XII intact, AO X3, no focal deficits. Skin exam: ecchymosis on UE 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 Current Visit: No Status: Chronic (2) CAD (coronary artery disease) Current Visit: No Status: Chronic (3) Diabetes mellitus Current Visit: No Status: Chronic (4) DVT prophylaxis Current Visit: No Status: Acute (5) Chronic kidney disease, stage III (moderate) Current Visit: No Status: Chronic (6) Anemia Current Visit: No Status: Acute (7) Osteomyelitis Current Visit: Yes Status: Chronic (8) Ischemic toe ulcer Current Visit: Yes Status: Acute (9) COPD exacerbation Current Visit: Yes Status: Acute (10) Hematuria Current Visit: Yes Status: Resolved - Summary of Assessment and Plan Summary of Assessment and Plan: Assessment Lt toe osteomyelitis, cellulitis Toe ulceration COPD exacerbation Lt fem-pop graft occlusion OSCAR Acute hypoxic respiratory failure Hematuria Severe LT PAD Tobacco abuse DVT prophylaxis CAD PAD Chronic anemia CKD-3 DM smoker Plan - Developed bronchospasm during induction of anesthesia and initiation of vanomycin during vascular surgery. Patient now managed conservatively with IV antibiotics. Patient currently on clindaymicin and Cefepime per ID. No reaction to cefepime. Blood culture NGTD on final report. Will need 6 weeks of antibiotics given she could not have surgery done. Currently Case management working to find option that would be cost effective for patient. - C/w scheduled bronchodilators and steroid taper. - c/w SSI and accuchecks, levemir 12 units and premeal 5 units. - c/w home aspirin, imdur, and metoprolol(dose increased before). c/w atorvastatin. Home lisinopril on hold given renal function. started on amlodipine. BP elevated. Prn hydralazine - S.cr slightly worse. uric acid and CPK normal. Fena indicating prerenal. renal US unremakable. Encourage po intake. strict I/O. avoid nephrotoxins. lisinopril on hold. Appreciate nephrology input. - Hematuria likely related to rivera and heparin for dvt. Urine culture with no growth. Urology was consulted. Renal US unremarkable. rivera removed. Outpatient cystoscopy. On aspirin for PAD. resume home plavix. - chronic anemia. Hb stable. Monitor for now. c/w iron supplementation - heparin sc - Time Spent with Patient Total time spent is greater than 50% in coordination of care (as documented) at patient's floor/unit and/or counseling patient: Internal Medicine: Result - Labs CBC & Chem 7: 09/19/18 09:29 09/19/18 09:29 Labs: Short CBC 09/19/18 Range/Units 09:29 WBC 10.9 (4.3-11.1) K/mcL Hgb 8.3 L (11.5-15.4) g/dL Hct 26.8 L (35.3-44.9) % Plt Count 222 (140-400) K/mcL Neutrophils # 8.4 (1.6-8.9) K/mcL BMP 09/19/18 09:29 Sodium 139 Potassium 4.5 Chloride 110 H Carbon Dioxide 24 BUN 82 H Creatinine 1.61 H Glucose 132 H Calcium 8.8 - VTE Documentation of Mechanical Device: Intermittent pneumatic compression device Consult Discharge Plan - Plan Referrals: Tera Schmidt DPM [Partnered Physician] - 09/23/18 3:30 pm Eleazar Vargas MD [Primary Care Provider] - Peewee Koroma [Partnered Physician] - 10/08/18 9:00 am Prescriptions: Cefepime HCl/Dextrose, Iso-Osm [Cefepime 1 gm Injection] 1 gm IV Q12H 42 Days #84 delmy Clindamycin 600 MG/50 ML [Cleocin Premix 600 MG/50 ML] 600 mg IVPB Q8H 42 Days #126 bag (1) Atherosclerosis of left lower extremity with ulceration Qualifiers: Peripheral atherosclerosis artery type: bypass graft, nonbiological Lower extremity ulceration location: other part of foot Qualified Code(s): I70.645 - Atherosclerosis of nonbiological bypass graft(s) of the left leg with ulceration of other part of foot (2) CAD (coronary artery disease) Qualifiers: Coronary Disease-Associated Artery/Lesion type: bypass graft [place] vs. transplanted heart: [place] heart Associated angina: without angina Qualified Code(s): I25.810 - Atherosclerosis of coronary artery bypass graft(s) without angina pectoris (3) Diabetes mellitus Qualifiers: Diabetes mellitus type: type 2 Diabetes mellitus residential insulin use: with lobsterman use Diabetes mellitus complication status: with circulatory complication Diabetes mellitus complication detail: with peripheral angiopathy without gangrene Qualified Code(s): E11.51 - Type 2 diabetes mellitus with diabetic peripheral angiopathy without gangrene; Z79.4 - lobsterman (current) use of insulin (6) Anemia Qualifiers: Anemia type: unspecified type Qualified Code(s): D64.9 - Anemia, unspecified (7) Osteomyelitis Qualifiers: Osteomyelitis type: unspecified type Osteomyelitis location: foot Laterality: left Qualified Code(s): M86.9 - Osteomyelitis, unspecified (8) Ischemic toe ulcer Qualifiers: Laterality: left Non-pressure ulcer stage: with fat layer exposed Qualified Code(s): L97.522 - Non-pressure chronic ulcer of other part of left foot with fat layer exposed (10) Hematuria Qualifiers: Hematuria type: gross Qualified Code(s): R31.0 - Gross hematuria
[2018-09-19] MEDS: 0.9 % Sodium Chloride 1,000 ML IVC SCH (20:01)
[2018-09-19] MEDS: rOPINIRole 0.25 MG TABLET PO SCH (21:10)
[2018-09-19] MEDS: Gabapentin 300 MG CAPSULE PO SCH (21:11)
[2018-09-19] MEDS: Insulin DETEMIR 100 UNIT/ML X5UNITS SQ SCH (21:11)
--- NOTE | 2018-09-19 22:55 | Nephrology Progress Note ---
Date of Encounter: 09/19/18 Time of Encounter: 13:00 - Assessment and Plan (1) Acute kidney injury Current Visit: No Status: Acute Scr continues to fluctuate at 1.61, GFR 32 and appears volume mediated, will monitor Continue to encourage po fluids Continue to avoid nephrotxins if possible Will signoff, please reconsult prn Can followup with me on discharge within 4 weeks, BMP in a week (2) Osteomyelitis Current Visit: Yes Status: Chronic per ID and primary team Qualifiers: Osteomyelitis type: unspecified type Osteomyelitis location: foot Laterality: left Qualified Code(s): M86.9 - Osteomyelitis, unspecified (3) Vascular graft occlusion Current Visit: Yes Status: Acute per vascular surgery. intervention to be done outpatient per Dr Castelan Qualifiers: Encounter type: initial encounter Qualified Code(s): T82.898A - Other specified complication of vascular prosthetic devices, implants and grafts, initial encounter (4) Anemia Current Visit: No Status: Acute Hgb noted at 8.3 fluctuating, will monitor Qualifiers: Anemia type: unspecified type Qualified Code(s): D64.9 - Anemia, unspecified Subjective Interval history: Pt seen ad examined doing well. No new complaints. Drinking more fluids with IVF still running. No F/N/V. Objective - Vital Signs Vital signs: Vital Signs Temp Pulse Resp BP Pulse Ox 09/19/18 22:19 97.7 F 60 17 138/61 100 09/19/18 22:12 16 97 09/19/18 19:41 98.2 F 67 18 130/52 97 09/19/18 16:18 16 96 09/19/18 15:46 97.8 F 57 16 128/42 96 09/19/18 11:12 98.2 F 61 16 165/64 99 09/19/18 10:50 16 100 09/19/18 07:56 98.1 F 60 16 179/67 100 09/19/18 03:55 97.8 F 54 14 148/68 97 Intake and Output 09/19/18 09/19/18 09/19/18 07:59 15:59 23:59 Intake Total 180 / 1610 1130 / 1610 300 / 1610 Output Total 1100 / 1950 500 / 1950 350 / 1950 Balance -920 / -340 630 / -340 -50 / -340 Intake: IV Fluids 60 / 170 50 / 170 60 / 170 Maxipime 1,000 MG In Water for inj. (sterile) 10 ML @ 300 mls/ hr IVP Q12H [facility] Rx#:[id number] Cleocin Premix 600 MG/50 ML 600 50 / 150 50 / 150 50 / 150 mg In 50 ml @ 50 mls/hr IVPB Q8HR [facility] Rx#:[id number] Oral 120 / 1440 1080 / 1440 240 / 1440 Output: Urine 1100 / 1950 500 / 1950 350 / 1950 Other: Meal Lunch Dinner Percent of Meal Consumed 90% 100% Stool Size Moderate Moderate Stool Consistency formed soft Stool Characteristics Normal for Patient Stool Color Brown Brown # Bowel Movements 1 1 Blood Glucose* 158 150 299 - General Appearance Exam: NAD EENT: Present: ATNC, mucous membranes moist Neck: Present: no JVD, supple Respiratory: Present: clear Cardiology: Present: no edema, normal S1, normal S2 Gastrointestinal: Present: no tenderness, no guarding Integumentary: Present: warm and dry Neurologic: Present: no focal deficit Musculoskeletal: Present: no deformities Psychiatric: Present: mood/affect appropriate, cooperative - Lab 09/19/18 09:29 09/19/18 09:29 - VTE Documentation of Mechanical Device: Intermittent pneumatic compression device Consult Discharge Plan - Plan Referrals: Tera Schmidt DPM [Partnered Physician] - 09/23/18 3:30 pm Eleazar Vargas MD [Primary Care Provider] - Peewee Koroma [Partnered Physician] - 10/08/18 9:00 am Prescriptions: Cefepime HCl/Dextrose, Iso-Osm [Cefepime 1 gm Injection] 1 gm IV Q12H 42 Days #84 delmy Clindamycin 600 MG/50 ML [Cleocin Premix 600 MG/50 ML] 600 mg IVPB Q8H 42 Days #126 bag
[2018-09-20 03:44] LABS: Calcium 8.7 mg/dL (8.6-10.3); Potassium 5.3 mEq/L (3.5-5.1)
[2018-09-20] MEDS: Ipratropium/Albuterol Neb 3 ML IH SCH ×4 (04:37→22:35)
[2018-09-20] MEDS: *HR* Heparin 5,000 UNIT/ML VIAL SQ SCH ×2 (05:22→17:09)
[2018-09-20] MEDS: Iron Polysaccharide Complex 150 MG CAPSULE PO SCH (08:44)
[2018-09-20] MEDS: Isosorbide MONOnitrate (24 HR) 60 MG TAB.ER.24H PO SCH (08:44)
[2018-09-20] MEDS: Lactobacillus 1 EACH CAP.SPRINK PO SCH (08:44)
[2018-09-20] MEDS: *HR* OxyCODONE Immed Rel 5 MG TABLET PO PRN ×3 (08:45→19:40)
[2018-09-20] MEDS: amLODIPine 5 MG TABLET PO SCH (08:45)
[2018-09-20] MEDS: Aspirin Enteric Coated 81 MG Tablet PO SCH (08:45)
[2018-09-20] MEDS: Clindamycin 600 MG/50 ML 600 MG/50 ML IV.SOLN IVPB SCH (08:45)
[2018-09-20] MEDS: Insulin LISPRO 300 UNITS/3 ML VIAL SQ SCH ×7 (08:46→21:03)
[2018-09-20] MEDS ORDERED: Cefepime HCl 2,000 MG in Water for inj. (sterile) 20 ML IVP SCH (09:00)
[2018-09-20] MEDS ORDERED: predniSONE 20 MG TABLET PO SCH (09:00)
--- NOTE | 2018-09-20 10:22 | Internal Med Progress Note ---
Hospitalist Progress Note - Encounter Date of Encounter: 09/20/18 Time of Encounter: 08:10 - Subjective Interval History: Patient seen and examined this morning at bedside. No acute overnight events. Denies any fevers chills nausea vomiting and diarrhea. Does have left foot pain. Does mention she is trying to drink but also passing urine significantly. - Exam Vitals: Temp Pulse Resp BP Pulse Ox 98.5 F 63 18 174/51 98 09/20/18 08:20 09/20/18 08:20 09/20/18 08:20 09/20/18 08:20 09/20/18 08:20 Exam: General: In no acute distress. Respiratory exam: CTAB, No adventitious lung sound Cardiovascular exam: RRR, +S1, +S2. no murmur, GI/Abdominal exam: Non-tender, Non-distended, normal bowel sounds, soft, no peritoneal signs. Extremities exam: no pedal edema, absent pulse on Lt foot. no calf tenderness. Lt great toe with necrosis with mild erythema. Neurological exam: CN II-XII intact, AO X3, no focal deficits. 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 Current Visit: No Status: Chronic (2) CAD (coronary artery disease) Current Visit: No Status: Chronic (3) Diabetes mellitus Current Visit: No Status: Chronic (4) DVT prophylaxis Current Visit: No Status: Acute (5) Chronic kidney disease, stage III (moderate) Current Visit: No Status: Chronic (6) Anemia Current Visit: No Status: Acute (7) Osteomyelitis Current Visit: Yes Status: Chronic (8) Ischemic toe ulcer Current Visit: Yes Status: Acute (9) COPD exacerbation Current Visit: Yes Status: Acute (10) Hematuria Current Visit: Yes Status: Resolved - Summary of Assessment and Plan Summary of Assessment and Plan: Assessment Lt toe osteomyelitis, cellulitis Toe ulceration COPD exacerbation Lt fem-pop graft occlusion OSCAR Acute hypoxic respiratory failure Hematuria Severe LT PAD Tobacco abuse hyperkalemia DVT prophylaxis CAD PAD Chronic anemia CKD-3 DM smoker Plan - Developed bronchospasm during induction of anesthesia and initiation of vanomycin during vascular surgery. Patient now managed conservatively with IV antibiotics. Patient currently on daptomycin and Cefepime per ID/ Blood culture NGTD on final report. Will need 6 weeks of antibiotics given she could not have surgery done. Currently Case management working to find option that would be cost effective for patient. - Also patient's renal function is worsening. Still with significant output. will start IVF 100 cc/hr and reconsult Nephrology. uric acid and CPK normal. Fena indicating prerenal. renal US unremakable. c/w strict I/O. avoid nephrotoxins. lisinopril on hold. Appreciate nephrology input. - Will give dose of kayexalte for hyperkalemia. f/u bmp in evening. - C/w scheduled bronchodilators and steroid taper. - c/w SSI and accuchecks, levemir 12 units and premeal 5 units. - c/w home aspirin, imdur, amlodipine and metoprolol c/w atorvastatin. Home lisinopril on hold given renal function. - Hematuria likely related to rivera and heparin for dvt. Urine culture with no growth. Urology was consulted. Renal US unremarkable. rivera removed. Outpatient cystoscopy. On aspirin for PAD. resume home plavix. - chronic anemia. Hb stable. Monitor for now. c/w iron supplementation - heparin sc - Time Spent with Patient Total time spent is greater than 50% in coordination of care (as documented) at patient's floor/unit and/or counseling patient: Internal Medicine: Result - Labs CBC & Chem 7: 09/19/18 09:29 09/20/18 03:14 Labs: BMP 09/20/18 03:14 Sodium 138 Potassium 5.3 H Chloride 110 H Carbon Dioxide 22 L BUN 89 H Creatinine 2.04 H Glucose 198 H Calcium 8.7 - VTE Documentation of Mechanical Device: Intermittent pneumatic compression device Consult Discharge Plan - Plan Referrals: Tera Schmidt DPM [Partnered Physician] - 09/23/18 3:30 pm Eleazar Vargas MD [Primary Care Provider] - Laure Strong, TAILINGS MAN [Advanced Practice Nurse] - 10/08/18 2:20 pm Peewee Koroma [Partnered Physician] - 10/08/18 9:00 am Prescriptions: Cefepime HCl/Dextrose, Iso-Osm [Cefepime 1 gm Injection] 1 gm IV Q12H 42 Days #84 froz.piggy Clindamycin 600 MG/50 ML [Cleocin Premix 600 MG/50 ML] 600 mg IVPB Q8H 42 Days #126 bag DAPTOmycin [Daptomycin] 350 mg IV DAILY #31 vial (1) Atherosclerosis of left lower extremity with ulceration Qualifiers: Peripheral atherosclerosis artery type: bypass graft, nonbiological Lower extremity ulceration location: other part of foot Qualified Code(s): I70.645 - Atherosclerosis of nonbiological bypass graft(s) of the left leg with ulceration of other part of foot (2) CAD (coronary artery disease) Qualifiers: Coronary Disease-Associated Artery/Lesion type: bypass graft [place] vs. 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 insulin use: with local intermodal truck driver use Diabetes mellitus complication status: with circulatory complication Diabetes mellitus complication detail: with peripheral angiopathy without gangrene Qualified Code(s): E11.51 - Type 2 diabetes mellitus with diabetic peripheral angiopathy without gangrene; Z79.4 - termination clerk (current) use of insulin (6) Anemia Qualifiers: Anemia type: unspecified type Qualified Code(s): D64.9 - Anemia, unspecified (7) Osteomyelitis Qualifiers: Osteomyelitis type: unspecified type Osteomyelitis location: foot Laterality: left Qualified Code(s): M86.9 - Osteomyelitis, unspecified (8) Ischemic toe ulcer Qualifiers: Laterality: left Non-pressure ulcer stage: with fat layer exposed Qualified Code(s): L97.522 - Non-pressure chronic ulcer of other part of left foot with fat layer exposed (10) Hematuria Qualifiers: Hematuria type: gross Qualified Code(s): R31.0 - Gross hematuria
--- NOTE | 2018-09-20 12:10 | Infectious Disease Progress No ---
ID Progress Note Date of Encounter: 09/20/18 Time of Encounter: 10:40 - Subjective Subjective: Patient seen and examined. No acute events noted overnight. Patient complains of pain in her left foot Denies fevers, chills, or rigors. Denies chest pain, shortness of breath, or cough. Denies nausea, vomiting, diarrhea, or constipation. Denies abdominal pain. Voiding without difficulty since having Kennedy catheter removed, but reports urinating a lot. Reports BM overnight. De nies oral thrush or skin rashes. - Objective CBC & Chem 7: 09/19/18 09:29 09/20/18 03:14 - Exam Vitals: Temp Pulse Resp BP Pulse Ox 98.2 F 56 18 133/50 97 09/20/18 11:54 09/20/18 11:54 09/20/18 11:54 09/20/18 11:54 09/20/18 11:54 Exam: Head: Atraumatic, normal inspection, normocephalic. Eye: EOMI, PERRLA, no scleral icterus noted. ENT: Mucous membranes moist. No odontogenic infection noted. Neck: Normal inspection, no meningismus. Respiratory: Clear to auscultation. No rales, respiratory distress, rhonchi, or wheezes noted. Cardiovascular: Regular rate and rhythm, S1 and S2 audible. No murmurs, rubs, or gallops. GI: Soft, nondistended, normal bowel sounds. Extremities:No joint swelling, pedal edema, or tenderness noted. Left foot dressing C/D/I. Back: Normal inspection. No vertebral tenderness noted. Neurological: Alert, oriented 3, no focal deficits. Psychiatric: normal affect, normal mood. Skin: Dry, intact, warm. Normal color. No rashes. - Assessment and Plan (1) Osteomyelitis Current Visit: Yes Status: Chronic Location: Left foot great toe. Causative organism: Unclear. Previous wound culture were positive for MRSA less than a year ago. Etiology: Likely multifactorial: Diabetes plus PAD plus infection. SILVIA of the LLE showed severe disease. Patient was unable to undergo revision of her vascular graft occlusion. Concerned that without adequate bloodflow, we will be unable to get adequate tissue penetration. Additionally, we do not have cultures and the patient will have to be on broad- spectrum antibiotics for six weeks in the setting of OSCAR/CKD. She is at high risk for further damage to her kidneys. Podiatry consulted and following. No surgical intervention planned at this time. No bone biopsy obtained. Currently on cefepime and clindamycin. Qualifiers: Osteomyelitis type: unspecified type Osteomyelitis location: foot Laterality: left Qualified Code(s): M86.9 - Osteomyelitis, unspecified SNOMED Code(s): 73824198 (2) Ischemic toe ulcer Current Visit: Yes Status: Acute Location: Left foot great toe. Likely multifactorial: infection + PAD + diabetes. Podiatry consulted and following. Qualifiers: Laterality: left Non-pressure ulcer stage: with fat layer exposed Qualified Code(s): L97.522 - Non-pressure chronic ulcer of other part of left foot with fat layer exposed SNOMED Code(s): 356071941 (3) Acute kidney injury Current Visit: No Status: Acute Likely multifactorial: infection + CKD + nephrotoxic medications (vanc and lisinopril). Improved initially, but trending back up. Continue to trend. Nephrology consulted and following. SNOMED Code(s): 53283400, 82260660 (4) Vascular graft occlusion Current Visit: Yes Status: Acute Vascular consulted and following. Surgery cancelled due to impaired respiratory status and bronchospasms. Planning outpatient follow-up. Qualifiers: Encounter type: initial encounter Qualified Code(s): T82.898A - Other specified complication of vascular prosthetic devices, implants and grafts, initial encounter SNOMED Code(s): 776860621 (5) PAD (peripheral artery disease) Current Visit: No Status: Chronic Multiple surgeries in the past s/p: 08/29/17: 1. Left lower extremity bypass graft thrombectomy. 2. Left common femoral endarterectomy. 08/15/18: 1. Left femoral to popliteal artery bypass graft thrombectomy with 4 honduran and 5 honduran Demetrice embolectomy catheters. 2. Left iliofemoral endarterterectomy. 08/29/2018 1. Left lower extremity bypass graft thrombectomy. 2. Left common femoral endarterectomy. ABIs consistent with severe disease in the LLE. Vascular surgery consulted, but further intervention on hold due to acute respiratory failure. 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 SNOMED Code(s): 454588429 (9) CAD (coronary artery disease) Current Visit: No Status: Chronic Qualifiers: Coronary Disease-Associated Artery/Lesion type: bypass graft [place] vs. transplanted heart: [place] heart Associated angina: without angina Qualified Code(s): I25.810 - Atherosclerosis of coronary artery bypass graft(s) without angina pectoris SNOMED Code(s): 35956838 (10) Hypertension Current Visit: No Status: Chronic Qualifiers: Hypertension type: essential hypertension Qualified Code(s): I10 - Essential (primary) hypertension SNOMED Code(s): 51820869 (11) Diabetes mellitus Current Visit: No Status: Chronic Recommend aggressive glucose monitoring and control to promote wound healing and prevent re-infection. Management per the primary team. Qualifiers: Diabetes mellitus type: type 2 Diabetes mellitus care home insulin use: with [employer] customer service use Diabetes mellitus complication status: with circulatory complication Diabetes mellitus complication detail: with peripheral angiopathy without gangrene Qualified Code(s): E11.51 - Type 2 diabetes mellitus with diabetic peripheral angiopathy without gangrene; Z79.4 - buttermaker (current) use of insulin SNOMED Code(s): 19533647 - Recommendations Recommendations: At this point, we do not have any cultures to help identify the causative organism of the patient's osteomyelitis. Discussed with the podiatry team. Too high risk for bone biopsy. Additionally, given the patient's impaired vascular status, concern that we will be unable to maintain adequate tissue penetration to get the antibiotics to the infected tissue. Planning outpatient procedure at a later date. We also need to consider the fact that the patient has chronic kidney disease in 6 weeks of IV antibiotics is very high risk for causing worsening of her renal status. I discussed the risks, benefits, and alternatives with the patient and she is agreeable to proceed with whatever the care team recommends. Wound care per the podiatry team. Continue cefepime, but decrease to 1 gram Q24H. (dose-adjusted for CrCl ~17). Discontinue clindamycin. Apparently the ECF cannot do Q8H infusions. Start daptomycin 6mg/kg IV Q48H (dose-adjusted for CrCl ~17). Check baseline CK level. Stop atorvastatin while on IV Daptomycin. Duration of treatment depends on the clinical picture, but likely a total of 6 weeks. Monitor renal function and dose adjust antibiotics. Recommend probiotics daily. Contact precautions per hospital policy. We will discuss with the podiatry and vascular teams. Will need weekly CBC, BUN/Cr, ESR, CRP, CK. Will need weekly IV care per protocol. Follow up with ID 10/08/18 at 1420. - VTE Documentation of Mechanical Device: Intermittent pneumatic compression device Consult Discharge Plan - Plan Referrals: Tera Schmidt DPM [Partnered Physician] - 09/23/18 3:30 pm Eleazar Vargas MD [Primary Care Provider] - Peewee Koroma [Partnered Physician] - 10/08/18 9:00 am Laure Strong CNP [Advanced Practice Nurse] - 10/08/18 2:20 pm Prescriptions: Cefepime HCl/Dextrose, Iso-Osm [Cefepime 1 gm Injection] 1 gm IV Q12H 42 Days #84 froz.piggy Clindamycin 600 MG/50 ML [Cleocin Premix 600 MG/50 ML] 600 mg IVPB Q8H 42 Days #126 bag DAPTOmycin [Daptomycin] 350 mg IV DAILY #31 vial
--- NOTE | 2018-09-20 12:50 | Podiatry Progress Note ---
Date of Encounter: 09/20/18 Time of Encounter: 11:00 - Assessment and Plan (1) PAD (peripheral artery disease) Current Visit: No Status: Chronic Per vascular note she was scheduled for a left femoral to popliteal artery bypass graft thrombectomy with possible revision, However she had bronchospasm on induction of anesthesia and initiation of vancomycin. She required supportive care and was ultimately extubated. She will need to continue with antibiotic therapy. She will ultimately need revascularization to reduce her risk of limb loss. Will be completed on outpatient basis (2) Ischemic toe ulcer Current Visit: Yes Status: Acute Assessment: -Left distal great toe necrotic, stable gangrene. Left hallux dusky and pallor. Toe nail absent. No drainage noted. No cellulitis, no lymphangitis noted. Slight healing noted since previous exam. -Nonpalpable pulses LLE, unable to obtain pulse with Doppler. -Cap refill sluggish -Left lower extremity dusky in comparison to right lower extremity -CT showed evidence of soft tissue wound distal great toe extending to the underlying bone with osteolysis involving the distal phalanx of the great toe consistent with osteomyelitis. No organized drainable fluid collection identified within limits of the exam. -Patient receiving IV Clindamycin -Blood cultures preliminary no growth -ABIs: Right SILVIA is consistent with mild disease Right PT 0.93 DP 0.87 Left SILVIA is consistent with severe disease Left PT 0.43 DP 0.48 Waiting for demarcation of wound. Patient failed vascular intervention- pending outpatient intervention No wound cultures have not been obtained ID on board and appreciated - patient currently on cefepime and clindamycin. Pending D/C based on coverage of IV antibiotics. States she may have to go to an ECF. not sure. Recommend 2-3 weeks of IV antibiotics and then transition to PO. Revascularize when possible and will plan amputation after patient undergoes vascular intervention. Qualifiers: Laterality: left Non-pressure ulcer stage: with fat layer exposed Qualified Code(s): L97.522 - Non-pressure chronic ulcer of other part of left foot with fat layer exposed Subjective Interval history: Patient resting comfortably in bed. Dressing to RLE CDI. ID on board. Patient denies any fevers, chills, n/v or fls. Patient denies any pain. Objective - Vital Signs Vital Signs: Vital Signs Temp Pulse Resp BP Pulse Ox 09/20/18 11:54 98.2 F 56 18 133/50 97 09/20/18 10:41 16 98 09/20/18 08:20 98.5 F 63 18 174/51 98 09/20/18 04:37 12 96 09/19/18 22:19 97.7 F 60 17 138/61 100 09/19/18 22:12 16 97 09/19/18 19:41 98.2 F 67 18 130/52 97 09/19/18 16:18 16 96 09/19/18 15:46 97.8 F 57 16 128/42 96 Intake and Output 09/19/18 09/20/18 09/20/18 23:59 07:59 15:59 Intake Total 300 / 1610 50 / 100 50 / 100 Output Total 350 / 1950 500 / 500 Balance -50 / -340 50 / -400 -450 / -400 Intake: IV Fluids 60 / 170 50 / 100 50 / 100 Maxipime 1,000 MG In Water for inj. (sterile) 10 ML @ 300 mls/ hr IVP Q12H [facility] Rx#:[id number] Cleocin Premix 600 MG/50 ML 600 50 / 150 50 / 100 50 / 100 mg In 50 ml @ 50 mls/hr IVPB Q8HR [facility] Rx#:[id number] Oral 240 / 1440 Output: Urine 350 / 1950 500 / 500 Other: Meal Dinner Breakfast Percent of Meal Consumed 100% Stool Size Moderate Moderate Stool Consistency soft soft formed Stool Color Brown # Bowel Movements 1 Weight 59.7 kg Blood Glucose* 299 144 Patient Weight 09/20/18 23:59 Weight 59.7 kg - Exam Exam: Constitutional: Patient alert and oriented x 3, no acute distress noted Vascular: Left lower extremity dusky, no palpable pulses left PT/DP, unable to obtain with Doppler, right lower extremity warm and pulses 2+ PT/DP. Cap refill sluggish to left lower extremity, cap refill less than 3 seconds RLE. No pain with calf squeeze bilaterally. Neurological: Proprioception intact, abnormal dorsal reflex Dermatological: Left distal great toe necrotic, stable gangrene. dry, Left hallux dusky and pallor. Toe nail absent. No drainage noted. No cellulitis, no lymphangitis noted. slight healing noted since previous exam Musculoskeletal: 4/5 muscle strength, normal muscle tone - Lab Result Diagrams: 09/19/18 09:29 09/20/18 03:14 Labs: Abnormal lab results WBC 12.1 K/mcL (4.3-11.1) H 09/18/18 13:28 RBC 2.71 M/mcL (3.82-4.97) L 09/19/18 09:29 Hgb 8.3 g/dL (11.5-15.4) L 09/19/18 09: Hct 26.8 % (35.3-44.9) L 09/19/18 09: MCHC 31.0 g/dL (31.6-35.5) L 09/19/18 09: RDW 14.6 % (11.5-14.5) H 09/19/18 09: Immature Gran % 4.7 % (0-4) H 09/18/18 13:28 10.4 K/mcL (1.6-8.9) H 09/18/18 13:28 0.3 K/mcL (0.6-4.6) L 09/14/18 01:21 ESR 75 mm/hr (0-15) H 09/08/18 21:02 Sodium 135 mEq/L (136-145) L 09/09/18 06:48 Potassium 5.3 mEq/L (3.5-5.1) H 09/20/18 03:14 Chloride 110 mEq/L (98-107) H 09/20/18 03:14 Carbon Dioxide 22 mEq/L (23-29) L 09/20/18 03:14 BUN 89 mg/dL (8-23) H 09/20/18 03:14 2.04 mg/dL (0.60-1.20) H 09/20/18 03:14 Est GFR ( Amer) 29 (> 60) L 09/20/18 03:14 Est GFR (Non-Af Amer) 24 (> 60) L 09/20/18 03:14 44 (6-26) H 09/20/18 03:14 Glucose 198 mg/dL (70-105) H 09/20/18 03:14 POC Glucose 299 mg/dL (70-99) H 09/19/18 19:43 319 (280-300) H 09/20/18 03:14 Calcium 8.2 mg/dL (8.6-10.3) L 09/16/18 04:45 113 mg/L (Less than 10) H 09/08/18 21:02 Red (Yellow) A 09/14/18 11:50 Turbid (Clear) A 09/14/18 11:50 100 mg/dL (Neg-Trace) H 09/14/18 11:50 Trace mg/dL (Negative) H 09/14/18 11:50 Large (Negative) H 09/14/18 11:50 Moderate (Negative) H 09/14/18 11:50 Ur Leukocyte Esterase Moderate (Negative) H 09/14/18 11:50 TNTC per hpf (0-3) H 09/14/18 11:50 15-30 per hpf (0-3) H 09/14/18 11:50 Ur Squamous Epith Cells Many per lpf (None-Few) H 09/14/18 11:50 Ur Culture Indicated? YES (NO) A 09/14/18 11:50 - VTE Documentation of Mechanical Device: Intermittent pneumatic compression device Consult Discharge Plan - Plan Referrals: Tera Schmidt DPM [Partnered Physician] - 09/23/18 3:30 pm Eleazar Vargas MD [Primary Care Provider] - Laure Strong, BRIDGET [Advanced Practice Nurse] - 10/08/18 2:20 pm Peewee Koroma [Partnered Physician] - 10/08/18 9:00 am Prescriptions: Cefepime HCl/Dextrose, Iso-Osm [Cefepime 1 gm Injection] 1 gm IV Q12H 42 Days #84 froz.piggy Clindamycin 600 MG/50 ML [Cleocin Premix 600 MG/50 ML] 600 mg IVPB Q8H 42 Days #126 bag DAPTOmycin [Daptomycin] 350 mg IV DAILY #31 vial
[2018-09-20] MEDS ORDERED: 0.9 % Sodium Chloride 1,000 ML IVC SCH ×2 (13:45→15:27)
[2018-09-20] MEDS: Cefepime HCl 1,000 MG in Water for inj. (sterile) 20 ML IVP SCH (14:34)
[2018-09-20] MEDS: SODIUM CHLORIDE 0.9% IVPB SCH (15:03)
[2018-09-20] MEDS: DAPTOMYCIN IVPB SCH (15:03)
[2018-09-20 18:17] LABS: Calcium 8.7 mg/dL (8.6-10.3); Potassium 5.2 mEq/L (3.5-5.1)
[2018-09-20] MEDS: rOPINIRole 0.25 MG TABLET PO SCH (19:41)
[2018-09-20] MEDS: Gabapentin 300 MG CAPSULE PO SCH (19:41)
--- NOTE | 2018-09-20 20:23 | Nephrology Progress Note ---
Date of Encounter: 09/20/18 Time of Encounter: 12:30 - Assessment and Plan (1) Acute kidney injury Current Visit: No Status: Acute Acute kidney injury on chronic kidney disease stage III, with potential renal risk factors of hemodynamic insults, potential nephrotoxins, and reduced renal autoregulation while on lisinopril. There is a growing body of renal biopsy evidence in the literature that when patients have osteomyelitis they can develop an infection associated glomerulonephritis. The treatment of choice is to treat the underlying infection, and avoid nephrotoxins. The patient's hospitalist paged me and ask that nephrology continue to follow along. I reviewed the typed up handoff from my colleague Dr. Blackwood, as well as the patient's labs, vital signs, medication list, progress notes and imaging. No indications for renal replacement therapy at this time. I recommend following a renal protective strategy by avoiding nephrotoxic agents, including collection of strict I's and O's, daily weights, and following a renal diet. We will follow along with you. (2) Anemia Current Visit: No Status: Acute Since she is not requiring chronic hemodialysis, I would not recommend using EPO at this time. The goal hemoglobin and kidney disease is 10-11. Qualifiers: Anemia type: unspecified type Qualified Code(s): D64.9 - Anemia, unspecified (3) Osteomyelitis Current Visit: Yes Status: Chronic per ID and primary team Qualifiers: Osteomyelitis type: unspecified type Osteomyelitis location: foot Laterality: left Qualified Code(s): M86.9 - Osteomyelitis, unspecified (4) Metabolic acidosis Current Visit: Yes Status: Acute This can potentiate hyperkalemia. Goal serum carbon dioxide is greater than 21. If this becomes a trend with tomorrow's renal function labs, I would recommend starting sodium bicarbonate. (5) Hypertension Current Visit: No Status: Chronic She should avoid Kevon inhibitors or angiotensin receptor blockers due to the recurrent hyperkalemia and acute kidney injury Qualifiers: Hypertension type: essential hypertension Qualified Code(s): I10 - Essential (primary) hypertension (6) Hyperkalemia Current Visit: No Status: Acute Mild, and I recommend she follow a renal diet that is low in potassium. Sometimes a metabolic acidosis will worsen in the setting of kidney disease and potentiate hyperkalemia (see above). She received Kayexalate earlier today, and if this continues to worsen then she may need temporizing agents to correct the hyperkalemia. Subjective Principal diagnosis: OSCAR on CKD Interval history: The patient was seen and examined earlier today. She did not affirm nausea, vomiting, diarrhea, but did report slightly diminished appetite, and swelling around her thighs. My colleague Dr. Blackwood had been rounding on the pt and sign- off yesterday. Her primary team asked that I re-consult. Objective - Vital Signs Vital signs: Vital Signs Temp Pulse Resp BP Pulse Ox 09/20/18 19:21 98.1 F 68 16 156/68 98 09/20/18 15:54 16 99 09/20/18 14:16 98.1 F 61 20 134/56 98 09/20/18 11:54 98.2 F 56 18 133/50 97 09/20/18 10:41 16 98 09/20/18 08:20 98.5 F 63 18 174/51 98 09/20/18 04:37 12 96 09/19/18 22:19 97.7 F 60 17 138/61 100 09/19/18 22:12 16 97 Intake and Output 09/20/18 09/20/18 09/20/18 07:59 15:59 23:59 Intake Total 50 / 340 290 / 340 Output Total 500 / 900 400 / 900 Balance 50 / -560 -210 / -560 -400 / -560 Intake: IV Fluids 50 / 100 50 / 100 Cleocin Premix 600 MG/50 ML 600 50 / 100 50 / 100 mg In 50 ml @ 50 mls/hr IVPB Q8HR [facility] Rx#:[id number] Oral 240 / 240 Output: Urine 500 / 900 400 / 900 Other: Meal Lunch Dinner Percent of Meal Consumed 25% 100% Stool Size Moderate Stool Consistency soft formed Weight 59.7 kg Blood Glucose* 144 261 Patient Weight 09/20/18 23:59 Weight 59.7 kg - General Appearance General appearance: Present: well-developed, well-nourished, appears started age EENT: Present: ATNC, PERRL, mucous membranes moist Neck: Present: no JVD, supple Respiratory: Present: wheezing Cardiology: Present: edema (no hand or ankle edema but she did have mild depende thigh edema bilaterally), regular rate, regular rhythm Gastrointestinal: Present: normoactive bowel sounds, no tenderness, no guarding Additional Comments: dressings were C/D/I Neurologic: Present: no focal deficit, no asterixis, alert and oriented x3 Musculoskeletal: Present: no erythema, no cyanosis Psychiatric: Present: mood/affect appropriate, cooperative - Lab 09/19/18 09:29 09/20/18 17:49 Most recent lab results 09/20/18 09/20/18 03:14 17:49 Calcium 8.7 8.7 - VTE Documentation of Mechanical Device: Intermittent pneumatic compression device Consult Discharge Plan - Plan Referrals: Tera Schmidt DPM [Partnered Physician] - 09/23/18 3:30 pm Eleazar Vargas MD [Primary Care Provider] - Laure Strong CNP [Advanced Practice Nurse] - 10/08/18 2:20 pm Peewee Koroma [Partnered Physician] - 10/08/18 9:00 am Prescriptions: Cefepime HCl/Dextrose, Iso-Osm [Cefepime 1 gm Injection] 1 gm IV Q12H 42 Days #84 froz.ines Clindamycin 600 MG/50 ML [Cleocin Premix 600 MG/50 ML] 600 mg IVPB Q8H 42 Days #126 bag DAPTOmycin [Daptomycin] 350 mg IV DAILY #31 vial
[2018-09-20] MEDS: Insulin DETEMIR 100 UNIT/ML X5UNITS SQ SCH (21:02)
[2018-09-20] MEDS: 0.9 % Sodium Chloride 1,000 ML IVC SCH (21:15)
[2018-09-21] MEDS: *HR* OxyCODONE Immed Rel 5 MG TABLET PO PRN ×3 (00:38→17:21)
[2018-09-21] MEDS: 0.9 % Sodium Chloride 1,000 ML IVC SCH (02:21)
[2018-09-21] MEDS: Ipratropium/Albuterol Neb 3 ML IH SCH ×4 (03:14→22:30)
[2018-09-21] MEDS: *HR* Heparin 5,000 UNIT/ML VIAL SQ SCH ×2 (06:16→17:20)
[2018-09-21] MEDS: Insulin LISPRO 300 UNITS/3 ML VIAL SQ SCH ×7 (07:58→20:51)
--- NOTE | 2018-09-21 08:19 | Internal Med Progress Note ---
Hospitalist Progress Note - Encounter Date of Encounter: 09/21/18 Time of Encounter: 08:19 - Subjective Interval History: Patient seen and examined this morning at bedside. No acute overnight events. It started having diarrhea after receiving Kayexalate yesterday and after a few episodes of diarrhea started noticing bright red blood about a teaspoon in total. Denies any fevers chills nausea or vomiting. Denies any chest pain or difficulty breathing. Feels has lower extremity swelling on both legs. - Exam Vitals: Temp Pulse Resp BP Pulse Ox 98.6 F 65 16 134/99 98 09/21/18 07:12 09/21/18 07:12 09/21/18 07:12 09/21/18 07:12 09/21/18 07:12 Exam: General: In no acute distress. Respiratory exam: CTAB, No adventitious lung sound Cardiovascular exam: RRR, +S1, +S2. no murmur, GI/Abdominal exam: Non-tender, Non-distended, normal bowel sounds, soft, no peritoneal signs. Extremities exam: 1+ pedal edema, absent pulse on Lt foot. no calf tenderness. Lt foot with bandage. Neurological exam: CN II-XII intact, AO X3, no focal deficits. 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 Current Visit: No Status: Chronic (2) CAD (coronary artery disease) Current Visit: No Status: Chronic (3) Diabetes mellitus Current Visit: No Status: Chronic (4) DVT prophylaxis Current Visit: No Status: Acute (5) Chronic kidney disease, stage III (moderate) Current Visit: No Status: Chronic (6) Anemia Current Visit: No Status: Acute (7) Osteomyelitis Current Visit: Yes Status: Chronic (8) Ischemic toe ulcer Current Visit: Yes Status: Acute (9) COPD exacerbation Current Visit: Yes Status: Acute (10) Hematuria Current Visit: Yes Status: Resolved - Summary of Assessment and Plan Summary of Assessment and Plan: Assessment Lt toe osteomyelitis, cellulitis Toe ulceration COPD exacerbation-resolved Lt fem-pop graft occlusion OSCAR Acute hypoxic respiratory failure- resolved Hematuria-resolved Severe LT PAD hyperkalemia Diarrhea BRBPR DVT prophylaxis CAD PAD Chronic anemia CKD-3 DM smoker Plan - Developed bronchospasm during induction of anesthesia and initiation of vanomycin during vascular surgery. Patient now managed conservatively with IV antibiotics. Patient currently on daptomycin and Cefepime per ID. Blood culture NGTD on final report. Will need 6 weeks of antibiotics given she could not have surgery done. Currently Case management working to find option that would be cost effective for patient. - Patient was given IV fluids yesterday for worsening renal function and did develop some lower extremity edema. We will stop IV fluids. Hyperkalemia improved after Kayexalate and fluids however she developed diarrhea. Follow-up CBC and BMP. c/w strict I/O. avoid nephrotoxins. lisinopril was stopped given hyperkalemia and OSCAR. Appreciate nephrology input. - Developed diarrhea after Kayexalate and later bright red blood. Minimal in quantity. Likely related to diarrhea while on aspirin and Plavix. Hold Aspirin Plavix for today. Monitor hemoglobin. Obtain C. difficile testing. We will consider GI workup if continues to have diarrhea and bright red blood on Sunday. - C/w scheduled bronchodilators and steroid taper. - c/w SSI and accuchecks, levemir 12 units and premeal 5 units. - c/w home, imdur, amlodipine and metoprolol c/w atorvastatin. - Hematuria likely related to rivera and heparin for dvt. Urine culture with no growth. Urology was consulted. Renal US unremarkable. rivear removed. Outpatient cystoscopy. We will hold aspirin and Plavix for today. - chronic anemia. New symptoms as above. Follow-up labs. c/w iron supplementation - heparin sc - Time Spent with Patient Total time spent is greater than 50% in coordination of care (as documented) at patient's floor/unit and/or counseling patient: Internal Medicine: Result - Labs CBC & Chem 7: 09/19/18 09:29 09/20/18 17:49 Labs: BMP 09/20/18 09/20/18 03:14 17:49 Sodium 138 137 Potassium 5.3 H 5.2 H Chloride 110 H 111 H Carbon Dioxide 22 L 19 L BUN 89 H 86 H Creatinine 2.04 H 1.84 H Glucose 198 H 305 H Calcium 8.7 8.7 - VTE Documentation of Mechanical Device: Intermittent pneumatic compression device Consult Discharge Plan - Plan Referrals: Tera Schmidt DPM [Partnered Physician] - 09/23/18 3:30 pm Eleazar Vargas MD [Primary Care Provider] - Laure Strong HIGHWAY PAINTER HELPER [Advanced Practice Nurse] - 10/08/18 2:20 pm Peewee Koroma [Partnered Physician] - 10/08/18 9:00 am Prescriptions: Cefepime HCl/Dextrose, Iso-Osm [Cefepime 1 gm Injection] 1 gm IV Q12H 42 Days #84 [email or web address] Clindamycin 600 MG/50 ML [Cleocin Premix 600 MG/50 ML] 600 mg IVPB Q8H 42 Days #126 bag DAPTOmycin [Daptomycin] 350 mg IV DAILY #31 vial _ (1) Atherosclerosis of left lower extremity with ulceration Qualifiers: Peripheral atherosclerosis artery type: bypass graft, nonbiological Lower extremity ulceration location: other part of foot Qualified Code(s): I70.645 - 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 transplanted heart: [place] heart Associated angina: without angina Qualified Code(s): I25.810 - Atherosclerosis of coronary artery bypass graft(s) without angina pectoris (3) Diabetes mellitus Qualifiers: Diabetes mellitus type: type 2 Diabetes mellitus custodial insulin use: with custodial use Diabetes mellitus complication status: with circulatory complication Diabetes mellitus complication detail: with peripheral angiopathy without gangrene Qualified Code(s): E11.51 - Type 2 diabetes mellitus with diab etic peripheral angiopathy without gangrene; Z79.4 - terminal carman (current) use of insulin (6) Anemia Qualifiers: Anemia type: unspecified type Qualified Code(s): D64.9 - Anemia, unspecified (7) Osteomyelitis Qualifiers: Osteomyelitis type: unspecified type Osteomyelitis location: foot Laterality: left Qualified Code(s): M86.9 - Osteomyelitis, unspecified (8) Ischemic toe ulcer Qualifiers: Laterality: left Non-pressure ulcer stage: with fat layer exposed Qualified Code(s): L97.522 - Non-pressure chronic ulcer of other part of left foot with fat layer exposed (10) Hematuria Qualifiers: Hematuria type: gross Qualified Code(s): R31.0 - Gross hematuria
[2018-09-21] MEDS: Isosorbide MONOnitrate (24 HR) 60 MG TAB.ER.24H PO SCH (08:56)
[2018-09-21] MEDS: amLODIPine 5 MG TABLET PO SCH (08:56)
[2018-09-21] MEDS: Aspirin Enteric Coated 81 MG Tablet PO SCH (08:57)
[2018-09-21] MEDS: predniSONE 10 MG TABLET PO SCH (08:57)
[2018-09-21] MEDS: Iron Polysaccharide Complex 150 MG CAPSULE PO SCH (08:57)
[2018-09-21] MEDS: Lactobacillus 1 EACH CAP.SPRINK PO SCH (08:57)
[2018-09-21 10:26] LABS: Calcium 8.5 mg/dL (8.6-10.3)
[2018-09-21 10:35] LABS: Basophils % 0.2 %; Eosinophils # 0.1 K/mcL (0.0-0.6); Eosinophils % 1.2 %; Hemoglobin 8.7 g/dL (11.5-15.4); Immature Granulocytes % 1.8 % (0-4); Lymphocytes # 1.5 K/mcL (0.6-4.6); Lymphocytes % 13.7 %; Mean Corpuscular Hemoglobin 29.9 pg (28.0-33.3); Mean Corpuscular Volume 99.7 fL (83.0-100.0); Mean Platelet Volume 11.6 fL (9.4-12.4); Monocytes # 0.6 K/mcL (0.0-1.3); Monocytes % 5.2 %; Neutrophils # 8.4 K/mcL (1.6-8.9); Nucleated Red Blood Cells 0.2 /100 WBC (0); Platelet Count 190 K/mcL (140-400); Red Blood Count 2.91 M/mcL (3.82-4.97); Red Cell Distribution Width 15.2 % (11.5-14.5); Segmented Neutrophils % 77.9 %; White Blood Count 10.8 K/mcL (4.3-11.1)
--- NOTE | 2018-09-21 12:47 | Nephrology Progress Note ---
Date of Encounter: 09/21/18 Time of Encounter: 10:00 - Assessment and Plan (1) Acute kidney injury Current Visit: No Status: Acute Hyperkalemia, improved. Hold any LAN or ARB. Fluctuating SCr, and slightly better today. No indications for renal replacement therapy at this time. Acute kidney injury on chronic kidney disease stage III, with potential renal risk factors of hemodynamic insults, potential nephrotoxins, and reduced renal autoregulation while on lisinopril. There is a growing body of renal biopsy evidence in the literature that when patients have osteomyelitis they can develop an infection associated glomerulonephritis. The treatment of choice is to treat the underlying infection, and avoid nephrotoxins. I recommend following a renal protective strategy by avoiding nephrotoxic agents, including collection of strict I's and O's, daily weights, and following a renal diet. Thank you (2) Anemia Current Visit: No Status: Acute Since she is not requiring chronic hemodialysis, I would not recommend using EPO at this time. The goal hemoglobin and kidney disease is 10-11. Qualifiers: Anemia type: unspecified type Qualified Code(s): D64.9 - Anemia, unspecified (3) Osteomyelitis Current Visit: Yes Status: Chronic per ID and primary team Qualifiers: Osteomyelitis type: unspecified type Osteomyelitis location: foot Laterality: left Qualified Code(s): M86.9 - Osteomyelitis, unspecified (4) Metabolic acidosis Current Visit: Yes Status: Acute This can potentiate hyperkalemia. Goal serum carbon dioxide is greater than 21. We will hold off on starting oral sodium bicarbonate at this point, but she may need it in the future. (5) Hypertension Current Visit: No Status: Chronic Qualifiers: Hypertension type: essential hypertension Qualified Code(s): I10 - Essential (primary) hypertension (6) Hyperkalemia Current Visit: No Status: Acute Mild, and improved. Low K+ diet recommended. Subjective Principal diagnosis: OSCAR on CKD Interval history: The patient was seen and examined earlier today. She did not affirm nausea, vomiting and voiced feeling relatively well. Her labs were still pending while I was rounding on the pt. Yesterday she had received Kayexalate, which induced lo ose stool, she affirmed. Objective - Vital Signs Vital signs: Vital Signs Temp Pulse Resp BP Pulse Ox 09/21/18 11:08 97.5 F L 57 16 137/55 98 09/21/18 10:42 14 93 09/21/18 07:12 98.6 F 65 16 134/99 98 09/21/18 03:14 18 156/68 98 09/20/18 22:35 16 98 09/20/18 19:21 98.1 F 68 16 156/68 98 09/20/18 15:54 16 99 09/20/18 14:16 98.1 F 61 20 134/56 98 Intake and Output 09/20/18 09/21/18 09/21/18 23:59 07:59 15:59 Intake Total 60 / 400 360 / 360 Output Total 700 / 1200 Balance -640 / -800 360 / 360 Intake: Oral 60 / 300 360 / 360 Output: Urine 700 / 1200 Other: Meal Dinner Breakfast Percent of Meal Consumed 100% 100% Stool Size Large Moderate Stool Consistency formed formed Stool Color Brown Brown # Voids 0 1 # Bowel Movements 0 Blood Glucose* 227 119 104 - General Appearance Exam: General appearance: Present: well-developed, well-nourished, appears started age EENT: Present: ATNC, PERRL, mucous membranes moist Neck: Present: no JVD, supple Respiratory: Present: clear anteriorly Cardiology: Present: no hand or ankle edema but she did have mild dependent thigh edema bilaterally, regular rate, regular rhythm Gastrointestinal: Present: normoactive bowel sounds, no tenderness, no guarding Integement, Additional Comments: dressings were C/D/I Neurologic: Present: no focal deficit, no asterixis, alert and oriented x3 Musculoskeletal: Present: no erythema, no cyanosis Psychiatric: Present: mood/affect appropriate, cooperative - Lab 09/21/18 09:52 09/21/18 09:52 Most recent lab results 09/21/18 09:52 Calcium 8.5 L - VTE Documentation of Mechanical Device: Intermittent pneumatic compression device Consult Discharge Plan - Plan Referrals: Tera Schmidt DPM [Partnered Physician] - 09/23/18 3:30 pm Eleazar Vargas MD [Primary Care Provider] - Laure Strong CNP [Advanced Practice Nurse] - 10/08/18 2:20 pm Peewee Koroma [Partnered Physician] - 10/08/18 9:00 am Prescriptions: Cefepime HCl/Dextrose, Iso-Osm [Cefepime 1 gm Injection] 1 gm IV Q12H 42 Days #84 [email or web address] Clindamycin 600 MG/50 ML [Cleocin Premix 600 MG/50 ML] 600 mg IVPB Q8H 42 Days #126 bag DAPTOmycin [Daptomycin] 350 mg IV DAILY #31 vial
[2018-09-21] MEDS: Cefepime HCl 1,000 MG in Water for inj. (sterile) 20 ML IVP SCH (13:32)
[2018-09-21] MEDS: Gabapentin 300 MG CAPSULE PO SCH (20:07)
[2018-09-21] MEDS: rOPINIRole 0.25 MG TABLET PO SCH (20:07)
[2018-09-21] MEDS: Insulin DETEMIR 100 UNIT/ML X5UNITS SQ SCH (20:52)
[2018-09-22] MEDS: *HR* OxyCODONE Immed Rel 5 MG TABLET PO PRN ×4 (01:58→21:18)
[2018-09-22 02:10] LABS: Hematocrit 24.6 % (35.3-44.9); Hemoglobin 7.8 g/dL (11.5-15.4)
[2018-09-22 02:32] LABS: Calcium 8.3 mg/dL (8.6-10.3)
[2018-09-22] MEDS: Ipratropium/Albuterol Neb 3 ML IH SCH ×4 (04:02→21:55)
[2018-09-22] MEDS: *HR* Heparin 5,000 UNIT/ML VIAL SQ SCH ×2 (05:30→18:03)
--- NOTE | 2018-09-22 08:47 | Internal Med Progress Note ---
Hospitalist Progress Note - Encounter Date of Encounter: 09/22/18 Time of Encounter: 07:50 - Subjective Interval History: Patient seen and examined this morning at bedside. No acute overnight events. Patient feeling better. Denies any further diarrhea. Does have some bright red blood while wiping. Does have a history of hemorrhoids. Lower extremity edema improving. Denies any chest pain or shortness of breath. Denies any abdominal pain. - Exam Vitals: Temp Pulse Resp BP Pulse Ox 97.8 F 64 16 148/62 98 09/22/18 07:52 09/22/18 07:52 09/22/18 07:52 09/22/18 07:52 09/22/18 07:52 Exam: General: In no acute distress. Respiratory exam: CTAB, No adventitious lung sound Cardiovascular exam: RRR, +S1, +S2. no murmur, GI/Abdominal exam: Non-tender, Non-distended, normal bowel sounds, soft, no peritoneal signs. Extremities exam: trace pedal edema, absent pulse on Lt foot. no calf tenderness. Lt foot with bandage. Neurological exam: CN II-XII intact, AO X3, no focal deficits. 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 Current Visit: No Status: Chronic (2) CAD (coronary artery disease) Current Visit: No Status: Chronic (3) Diabetes mellitus Current Visit: No Status: Chronic (4) DVT prophylaxis Current Visit: No Status: Acute (5) Chronic kidney disease, stage III (moderate) Current Visit: No Status: Chronic (6) Anemia Current Visit: No Status: Acute (7) Osteomyelitis Current Visit: Yes Status: Chronic (8) Ischemic toe ulcer Current Visit: Yes Status: Acute (9) COPD exacerbation Current Visit: Yes Status: Acute (10) Hematuria Current Visit: Yes Status: Resolved - Summary of Assessment and Plan Summary of Assessment and Plan: Assessment Lt toe osteomyelitis, cellulitis Toe ulceration COPD exacerbation-resolved Lt fem-pop graft occlusion OSCAR Acute hypoxic respiratory failure- resolved Hematuria-resolved Severe LT PAD hyperkalemia Diarrhea BRBPR DVT prophylaxis CAD PAD Chronic anemia CKD-3 DM smoker Plan - Developed bronchospasm during induction of anesthesia and initiation of vanomycin during vascular surgery. Patient now managed conservatively with IV antibiotics. Patient currently on daptomycin and Cefepime per ID. Blood culture NGTD on final report. Will need 6 weeks of antibiotics given she could not have surgery done. Currently Case management and ID working to find option that would be cost effective for patient. - S.cr worse after IVF stopped after she had some lower extremity edema. Will repeat tonight labs. if hb downtrending will transfuse given CAD. Hyperkalemia resolved. c/w strict I/O. avoid nephrotoxins. lisinopril was stopped given hyperkalemia and OSCAR. nephrology following - Diarrhea likely from Kayexalate now resolved. - C/w scheduled bronchodilators and steroid taper. To finish steroid today - c/w SSI and accuchecks, levemir 12 units and premeal 5 units. - c/w home, imdur, amlodipine, metoprolol, atorvastatin. - Hematuria resolved. likely related to rivera and heparin for dvt. Urine culture with no growth. Urology was consulted. Renal US unremarkable. rivera removed. Outpatient cystoscopy. - chronic anemia. Hb downtrending after small amount of GI loss. f/u Hb. Will transfuse if downtrending. c/w iron supplementation - heparin sc - Time Spent with Patient Total time spent is greater than 50% in coordination of care (as documented) at patient's floor/unit and/or counseling patient: Internal Medicine: Result - Labs CBC & Chem 7: 09/22/18 01:48 09/22/18 01:48 Labs: Short CBC 09/21/18 09/22/18 Range/Units 09:52 01:48 WBC 10.8 (4.3-11.1) K/mcL Hgb 8.7 L 7.8 L (11.5-15.4) g/dL Hct 29.0 L 24.6 L (35.3-44.9) % Plt Count 190 (140-400) K/mcL Neutrophils # 8.4 (1.6-8.9) K/mcL BMP 09/21/18 09/22/18 09:52 01:48 Sodium 142 144 Potassium 4.0 4.0 Chloride 112 H 108 H Carbon Dioxide 20 L 20 L BUN 71 H 70 H Creatinine 1.51 H 1.85 H Glucose 118 H 266 H Calcium 8.5 L 8.3 L - VTE Documentation of Mechanical Device: Intermittent pneumatic compression device Consult Discharge Plan - Plan Referrals: Tera Schmidt DPM [Partnered Physician] - 09/23/18 3:30 pm Eleazar Vargas MD [Primary Care Provider] - Laure Strong, WAREHOUSE MATERIAL HANDLER [Advanced Practice Nurse] - 10/08/18 2:20 pm Peewee Koroma [Partnered Physician] - 10/08/18 9:00 am Prescriptions: Cefepime HCl/Dextrose, Iso-Osm [Cefepime 1 gm Injection] 1 gm IV Q12H 42 Days #84 froz.piggy Clindamycin 600 MG/50 ML [Cleocin Premix 600 MG/50 ML] 600 mg IVPB Q8H 42 Days #126 bag DAPTOmycin [Daptomycin] 350 mg IV DAILY #31 vial (1) Atherosclerosis of left lower extremity with ulceration Qualifiers: Peripheral atherosclerosis artery type: bypass graft, nonbiological Lower extremity ulceration location: other part of foot Qualified Code(s): I70.645 - Atherosclerosis of nonbiological bypass graft(s) of the left leg with ulceration of other part of foot (2) CAD (coronary artery disease) Qualifiers: Coronary Disease-Associated Artery/Lesion type: bypass graft [place] vs. transplanted heart: [place] heart Associated angina: without angina Qualified Code(s): I25.810 - Atherosclerosis of coronary artery bypass graft(s) without angina pectoris (3) Diabetes mellitus Qualifiers: Diabetes mellitus type: type 2 Diabetes mellitus detention insulin use: with intermediate card tender use Diabetes mellitus complication status: with circulatory complicat ion Diabetes mellitus complication detail: with peripheral angiopathy without gangrene Qualified Code(s): E11.51 - Type 2 diabetes mellitus with diabetic peripheral angiopathy without gangrene; Z79.4 - residential (current) use of insulin (6) Anemia Qualifiers: Anemia type: unspecified type Qualified Code(s): D64.9 - Anemia, unspecified (7) Osteomyelitis Qualifiers: Osteomyelitis type: unspecified type Osteomyelitis location: foot Laterality: left Qualified Code(s): M86.9 - Osteomyelitis, unspecified (8) Ischemic toe ulcer Qualifiers: Laterality: left Non-pressure ulcer stage: with fat layer exposed Qualified Code(s): L97.522 - Non-pressure chronic ulcer of other part of left foot with fat layer exposed (10) Hematuria Qualifiers: Hematuria type: gross Qualified Code(s): R31.0 - Gross hematuria
[2018-09-22] MEDS: Iron Polysaccharide Complex 150 MG CAPSULE PO SCH (09:52)
[2018-09-22] MEDS: Lactobacillus 1 EACH CAP.SPRINK PO SCH (09:52)
[2018-09-22] MEDS: predniSONE 10 MG TABLET PO SCH (09:53)
[2018-09-22] MEDS: amLODIPine 5 MG TABLET PO SCH (09:53)
[2018-09-22] MEDS: Isosorbide MONOnitrate (24 HR) 60 MG TAB.ER.24H PO SCH (09:53)
[2018-09-22] MEDS: Aspirin Enteric Coated 81 MG Tablet PO SCH (09:53)
[2018-09-22] MEDS: Insulin LISPRO 300 UNITS/3 ML VIAL SQ SCH ×7 (09:57→21:04)
--- NOTE | 2018-09-22 11:07 | Nephrology Progress Note ---
Date of Encounter: 09/22/18 Time of Encounter: 10:20 - Assessment and Plan (1) Acute kidney injury Current Visit: No Status: Acute Fluctuating SCr noted today on the medically necessary review of her chemistry. No hyperkalemia. No indications for BUTTON RECLAIMER today (Sunday). Thank you. (2) Anemia Current Visit: No Status: Acute Qualifiers: Anemia type: unspecified type Qualified Code(s): D64.9 - Anemia, unspecified (3) Osteomyelitis Current Visit: Yes Status: Chronic Qualifiers: Osteomyelitis type: unspecified type Osteomyelitis location: foot Laterality: left Qualified Code(s): M86.9 - Osteomyelitis, unspecified (4) Metabolic acidosis Current Visit: Yes Status: Acute (5) Hypertension Current Visit: No Status: Chronic Qualifiers: Hypertension type: essential hypertension Qualified Code(s): I10 - Essential (primary) hypertension (6) Hyperkalemia Current Visit: No Status: Acute Subjective Principal diagnosis: OSCAR on CKD Interval history: The patient was seen and examined earlier today, and she appeared to be resting comfortably Objective - Vital Signs Vital signs: Vital Signs Temp Pulse Resp BP Pulse Ox 09/22/18 10:33 18 97 09/22/18 07:52 97.8 F 64 16 148/62 98 09/22/18 04:02 16 93 09/22/18 03:20 97.9 F 91 15 168/56 94 09/21/18 22:31 18 97 09/21/18 19:41 98.7 F 66 14 154/62 97 09/21/18 16:12 98.1 F 62 16 162/58 98 09/21/18 15:51 14 98 09/21/18 11:08 97.5 F L 57 16 137/55 98 Intake and Output 09/21/18 09/22/18 09/22/18 23:59 07:59 15:59 Intake Total 240 / 620 0 / 480 480 / 480 Balance 240 / 620 0 / 480 480 / 480 Intake: Oral 240 / 600 0 / 480 480 / 480 Other: Meal Dinner Breakfast Percent of Meal Consumed 100% 100% Stool Size Small Stool Consistency soft Stool Color Brown # Voids 2 1 # Bowel Movements 1 0 Blood Glucose* 160 219 - General Appearance General appearance: Present: well-nourished, fatigue Exam: She appeared to be resting comfortably EENT: Present: ATNC Neurologic: Present: no focal deficit - Lab 09/22/18 21:00 09/22/18 21:00 Most recent lab results 09/22/18 01:48 Calcium 8.3 L - VTE Documentation of Mechanical Device: Intermittent pneumatic compression device Consult Discharge Plan - Plan Referrals: Tera Scmhidt DPM [Partnered Physician] - 09/23/18 3:30 pm Eleazar Vargas MD [Primary Care Provider] - Laure Strong CNP [Advanced Practice Nurse] - 10/08/18 2:20 pm Peewee Koroma [Partnered Physician] - 10/08/18 9:00 am Prescriptions: Cefepime HCl/Dextrose, Iso-Osm [Cefepime 1 gm Injection] 1 gm IV Q12H 42 Days #84 froz.piggy Clindamycin 600 MG/50 ML [Cleocin Premix 600 MG/50 ML] 600 mg IVPB Q8H 42 Days #126 bag DAPTOmycin [Daptomycin] 350 mg IV DAILY #31 vial
[2018-09-22] MEDS: Cefepime HCl 1,000 MG in Water for inj. (sterile) 20 ML IVP SCH (13:11)
[2018-09-22] MEDS: SODIUM CHLORIDE 0.9% IVPB SCH (13:13)
[2018-09-22] MEDS: DAPTOMYCIN IVPB SCH (13:13)
[2018-09-22] MEDS: Insulin DETEMIR 100 UNIT/ML X5UNITS SQ SCH (21:18)
[2018-09-22] MEDS: rOPINIRole 0.25 MG TABLET PO SCH (21:18)
[2018-09-22] MEDS: Gabapentin 300 MG CAPSULE PO SCH (21:18)
[2018-09-22 21:25] LABS: Hematocrit 24.9 % (35.3-44.9); Hemoglobin 7.8 g/dL (11.5-15.4)
[2018-09-22 21:48] LABS: Calcium 8.6 mg/dL (8.6-10.3); Potassium 4.1 mEq/L (3.5-5.1)
[2018-09-23] MEDS: Ipratropium/Albuterol Neb 3 ML IH SCH ×4 (04:01→21:58)
[2018-09-23 04:58] LABS: Calcium 8.7 mg/dL (8.6-10.3); Potassium 4.2 mEq/L (3.5-5.1)
[2018-09-23] MEDS: *HR* Heparin 5,000 UNIT/ML VIAL SQ SCH ×2 (05:04→18:22)
[2018-09-23] MEDS: *HR* OxyCODONE Immed Rel 5 MG TABLET PO PRN ×3 (05:30→19:26)
[2018-09-23] MEDS: Insulin LISPRO 300 UNITS/3 ML VIAL SQ SCH ×7 (09:09→21:23)
[2018-09-23] MEDS: Lactobacillus 1 EACH CAP.SPRINK PO SCH (09:09)
[2018-09-23] MEDS: Iron Polysaccharide Complex 150 MG CAPSULE PO SCH (09:09)
[2018-09-23] MEDS: amLODIPine 5 MG TABLET PO SCH (09:09)
[2018-09-23] MEDS: predniSONE 10 MG TABLET PO SCH (09:09)
[2018-09-23] MEDS: Aspirin Enteric Coated 81 MG Tablet PO SCH (09:09)
[2018-09-23] MEDS: Isosorbide MONOnitrate (24 HR) 60 MG TAB.ER.24H PO SCH (09:09)
--- NOTE | 2018-09-23 10:33 | Nephrology Progress Note ---
Date of Encounter: 09/23/18 Time of Encounter: 08:25 - Assessment and Plan (1) Acute kidney injury Current Visit: No Status: Acute Slightly improved serum creatinine today, and well within her baseline renal function. Her mild non-oliguric OSCAR has improved and so has the hyperkalemia. I recommend continuing to follow a renal supportive strategy including strict I's and O's, daily weights, avoidance of nephrotoxic agents, renal dosing of medications that are renally cleared, and renal diet. I will politely sign off at this time, but please feel free to call or page me with any nephrology questions. She should follow up with her primary nephrolog ist Dr. Blackwood in approximately 3-5 weeks. Thank you. (2) Anemia Current Visit: No Status: Acute Since she is not requiring chronic hemodialysis, I would not recommend using EPO at this time. The goal hemoglobin and kidney disease is 10-11. Qualifiers: Anemia type: unspecified type Qualified Code(s): D64.9 - Anemia, unspecified (3) Osteomyelitis Current Visit: Yes Status: Chronic per ID and primary team Qualifiers: Osteomyelitis type: unspecified type Osteomyelitis location: foot Laterality: left Qualified Code(s): M86.9 - Osteomyelitis, unspecified (4) Metabolic acidosis Current Visit: Yes Status: Acute (5) Hypertension Current Visit: No Status: Chronic Qualifiers: Hypertension type: essential hypertension Qualified Code(s): I10 - Essential (primary) hypertension (6) Hyperkalemia Current Visit: No Status: Acute Mild, and improved. Low K+ diet recommended. Subjective Principal diagnosis: OSCAR on CKD Interval history: The patient was seen and examined earlier today, and she did not affirm nausea, vomiting, diarrhea, or other major complaints. She voiced her desire and hope to discharge to the rehabilitation unit soon. Objective - Vital Signs Vital signs: Vital Signs Temp Pulse Resp BP Pulse Ox 09/23/18 07:33 98.1 F 65 18 212/69 98 09/23/18 04:38 97.4 F L 64 18 180/76 97 09/23/18 04:03 16 99 09/22/18 21:57 16 100 09/22/18 19:43 98.3 F 70 18 158/61 98 09/22/18 16:51 98.2 F 75 16 156/54 95 09/22/18 16:01 18 96 09/22/18 12:02 98.0 F 62 16 151/53 97 09/22/18 10:33 18 97 Intake and Output 09/22/18 09/23/18 09/23/18 23:59 07:59 15:59 Intake Total 240 / 1640 Balance 240 / 1640 Intake: Oral 240 / 720 Other: Meal Dinner Percent of Meal Consumed 100% # Voids 3 # Bowel Movements 0 Blood Glucose* 199 200 - General Appearance Exam: General appearance: Present: well-developed, well-nourished, appears started age EENT: Present: ATNC, PERRL, mucous membranes moist Neck: Present: no JVD, supple Respiratory: Present: clear anteriorly Cardiology: Present: no hand or ankle edema but she did have mild non-tense thigh swelling bilaterally, regular rate, regular rhythm Gastrointestinal: Present: normoactive bowel sounds, no tenderness, no guarding Integement, Additional Comments: foot/ankle dressings were C/D/I Neurologic: Present: no focal deficit, no asterixis, alert and oriented x3 Musculoskeletal: Present: no erythema, no cyanosis Psychiatric: Present: mood/affect appropriate, cooperative - Lab 09/22/18 21:00 09/23/18 03:46 Most recent lab results 09/23/18 03:46 Calcium 8.7 - VTE Documentation of Mechanical Device: Intermittent pneumatic compression device Consult Discharge Plan - Plan Referrals: Tera Schmidt, ODELL [Partnered Physician] - 09/23/18 3:30 pm Eleazar Vargas MD [Primary Care Provider] - Laure Strong, ASTRONOMY PROFESSOR [Advanced Practice Nurse] - 10/08/18 2:20 pm Peewee Koroma [Partnered Physician] - 10/08/18 9:00 am Prescriptions: Cefepime HCl/Dextrose, Iso-Osm [Cefepime 1 gm Injection] 1 gm IV Q12H 42 Days #84 froz.piggy Clindamycin 600 MG/50 ML [Cleocin Premix 600 MG/50 ML] 600 mg IVPB Q8H 42 Days #126 bag DAPTOmycin [Daptomycin] 350 mg IV DAILY #31 vial
--- NOTE | 2018-09-23 13:38 | Internal Med Progress Note ---
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 Current Visit: No Status: Chronic (2) CAD (coronary artery disease) Current Visit: No Status: Chronic (3) Diabetes mellitus Current Visit: No Status: Chronic (4) DVT prophylaxis Current Visit: No Status: Acute (5) Chronic kidney disease, stage III (moderate) Current Visit: No Status: Chronic (6) Anemia Current Visit: No Status: Acute (7) Osteomyelitis Current Visit: Yes Status: Chronic (8) Ischemic toe ulcer Current Visit: Yes Status: Acute (9) COPD exacerbation Current Visit: Yes Status: Acute (10) Hematuria Current Visit: Yes Status: Resolved - Time Spent with Patient Total time spent is greater than 50% in coordination of care (as documented) at patient's floor/unit and/or counseling patient: Internal Medicine: Result - Labs CBC & Chem 7: 09/22/18 21:00 09/23/18 03:46 Labs: Short CBC 09/22/18 Range/Units 21:00 Hgb 7.8 L (11.5-15.4) g/dL Hct 24.9 L (35.3-44.9) % BMP 09/22/18 09/23/18 21:00 03:46 Sodium 137 139 Potassium 4.1 4.2 Chloride 111 H 109 H Carbon Dioxide 21 L 23 BUN 65 H 68 H Creatinine 1.81 H 1.55 H Glucose 188 H 183 H Calcium 8.6 8.7 - VTE Documentation of Mechanical Device: Intermittent pneumatic compression device Consult Discharge Plan - Plan Referrals: Tera Schmidt DPM [Partnered Physician] - 09/23/18 3:30 pm Eleazar Vargas MD [Primary Care Provider] - Laure Strong CNP [Advanced Practice Nurse] - 10/08/18 2:20 pm Peewee Koroma [Partnered Physician] - 10/08/18 9:00 am Prescriptions: Cefepime HCl/Dextrose, Iso-Osm [Cefepime 1 gm Injection] 1 gm IV Q12H 42 Days #84 delmy Clindamycin 600 MG/50 ML [Cleocin Premix 600 MG/50 ML] 600 mg IVPB Q8H 42 Days #126 bag DAPTOmycin [Daptomycin] 350 mg IV DAILY #31 vial (1) Atherosclerosis of left lower extremity with ulceration Qualifiers: Peripheral atherosclerosis artery type: bypass graft, nonbiological Lower extremity ulceration location: other part of foot Qualified Code(s): I70.645 - 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 transplanted heart: [place] heart Associated angina: without angina Qualified Code(s): I25.810 - Atherosclerosis of coronary artery bypass graft(s) without angina pectoris (3) Diabetes mellitus Qualifiers: Diabetes mellitus type: type 2 Diabetes mellitus emt intermediate insulin use: with emt intermediate use Diabetes mellitus complication status: with circulatory complication Diabetes mellitus complication detail: with peripheral angiopathy without gangrene Qualified Code(s): E11.51 - Type 2 diabetes mellitus with diabetic peripheral angiopathy without gangrene; Z79.4 - USP (current) use of insulin (6) Anemia Qualifiers: Anemia type: unspecified type Qualified Code(s): D64.9 - Anemia, unspecified (7) Osteomyelitis Qualifiers: Osteomyelitis type: unspecified type Osteomyelitis location: foot Laterality: left Qualified Code(s): M86.9 - Osteomyelitis, unspecified (8) Ischemic toe ulcer Qualifiers: Laterality: left Non-pressure ulcer stage: with fat layer exposed Qualified Code(s): L97.522 - Non-pressure chronic ulcer of other part of left foot with fat layer exposed (10) Hematuria Qualifiers: Hematuria type: gross Qualified Code(s): R31.0 - Gross hematuria
[2018-09-23] MEDS: Cefepime HCl 2,000 MG in Water for inj. (sterile) 20 ML IVP SCH (14:19)
--- NOTE | 2018-09-23 15:16 | Podiatry Progress Note ---
Date of Encounter: 09/23/18 Time of Encounter: 14:15 - Assessment and Plan (1) Ischemic toe ulcer Current Visit: Yes Status: Acute Assessment: Left hallux, distal aspect, stable gangrene Toe nail absent, no erythema noted, no edema noted, no foul odor noted, no cellulitis or lymphangitis noted Non-palpable pulses LLE ABIs: Right PT 0.93, DP 0.87 Left PT 0.43, DP 0.48 Plan: Cleansed with 0.9 NS Painted with betadine, covered with betadine 4x4 dry gauze and kerlix. Secured with paper tape ID following- appreciate recommendations At this time a bone biopsy is not recommended d/t possibility of causing worsening infection/cellulitis Will allow for demarcation of wound until able to have vascular intervention. After intervention will plan for amputation of toe. At this time vascular plans for outpatient intervention; if plans for inpatient intervention will amputate inpatient OK to d/c to ECF or home once cleared with vascular, ID, and ceramics machine operator Qualifiers: Laterality: left Non-pressure ulcer stage: with fat layer exposed Qualified Code(s): L97.522 - Non-pressure chronic ulcer of other part of left foot with fat layer exposed Subjective Principal diagnosis: OSCAR on CKD Interval history: Patient awake in bed. Alert and oriented x 3. Denies any fevers, chills, nausea, vomiting, or diarrhea. Denies any calf pain, chest pain, or shortness of breath. Reports midfoot pain to LLE. Reports wanting to go home upon discharge but states doesn't know if her insurance will cover home care. No other questions or concerns at this time Objective - Vital Signs Vital Signs: Vital Signs Temp Pulse Resp BP Pulse Ox 09/23/18 11:13 98.1 F 67 18 181/48 96 09/23/18 10:39 18 97 09/23/18 07:33 98.1 F 65 18 212/69 98 09/23/18 04:38 97.4 F L 64 18 180/76 97 09/23/18 04:03 16 99 09/22/18 21:57 16 100 09/22/18 19:43 98.3 F 70 18 158/61 98 09/22/18 16:51 98.2 F 75 16 156/54 95 09/22/18 16:01 18 96 Intake and Output 09/22/18 09/23/18 09/23/18 23:59 07:59 15:59 Intake Total 240 / 1640 240 / 240 Balance 240 / 1640 240 / 240 Intake: Oral 240 / 720 240 / 240 Other: Meal Dinner Lunch Percent of Meal Consumed 100% 100% # Voids 3 1 # Bowel Movements 0 Blood Glucose* 199 200 - Exam Exam: Constitiutional: Alert and oriented x 3. Well nourished. No acute distress noted Vascular: non-palpable DP/PT LLE, CFT sluggish, warm to cool from tibia to toes LLE, no calf pain with squeeze Neurologic: Diminished sensation to touch, normal plantar response, Dermatologic: Dry gangrene noted to left distal hallux. No erythema, no edema noted. No fluctuance, no foul odor, no cellultis, no lymphangitis noted Musculoskeletal: 3/5 muscle strength and normal tone LLE. - Lab Result Diagrams: 09/22/18 21:00 09/23/18 03:46 Labs: Abnormal lab results WBC 12.1 K/mcL (4.3-11.1) H 09/18/18 13:28 RBC 2.91 M/mcL (3.82-4.97) L 09/21/18 09:52 Hgb 7.8 g/dL (11.5-15.4) L 09/22/18 21:00 Hct 24.9 % (35.3-44.9) L 09/22/18 21:00 MCHC 30.0 g/dL (31.6-35.5) L 09/21/18 09:52 RDW 15.2 % (11.5-14.5) H 09/21/18 09:52 Immature Gran % 4.7 % (0-4) H 09/18/18 13:28 10.4 K/mcL (1.6-8.9) H 09/18/18 13:28 0.3 K/mcL (0.6-4.6) L 09/14/18 01:21 Nucleated RBCs/100 WBC 0.2 /100 WBC (0) H 09/21/18 09:52 ESR 75 mm/hr (0-15) H 09/08/18 21:02 Sodium 135 mEq/L (136-145) L 09/09/18 06:48 Potassium 5.2 mEq/L (3.5-5.1) H 09/20/18 17:49 Chloride 109 mEq/L (98-107) H 09/23/18 03:46 Carbon Dioxide 21 mEq/L (23-29) L 09/22/18 21:00 BUN 68 mg/dL (8-23) H 09/23/18 03:46 1.55 mg/dL (0.60-1.20) H 09/23/18 03:46 Est GFR ( Amer) 40 (> 60) L 09/23/18 03:46 Est GFR (Non-Af Amer) 33 (> 60) L 09/23/18 03:46 44 (6-26) H 09/23/18 03:46 Glucose 183 mg/dL (70-105) H 09/23/18 03:46 POC Glucose 142 mg/dL (70-99) H 09/23/18 11:20 312 (280-300) H 09/23/18 03:46 Calcium 8.3 mg/dL (8.6-10.3) L 09/22/18 01:48 113 mg/L (Less than 10) H 09/08/18 21:02 Red (Yellow) A 09/14/18 11:50 Turbid (Clear) A 09/14/18 11:50 100 mg/dL (Neg-Trace) H 09/14/18 11:50 Trace mg/dL (Negative) H 09/14/18 11:50 Large (Negative) H 09/14/18 11:50 Moderate (Negative) H 09/14/18 11:50 Ur Leukocyte Esterase Moderate (Negative) H 09/14/18 11:50 TNTC per hpf (0-3) H 09/14/18 11:50 15-30 per hpf (0-3) H 09/14/18 11:50 Ur Squamous Epith Cells Many per lpf (None-Few) H 09/14/18 11:50 Ur Culture Indicated? YES (NO) A 09/14/18 11:50 - VTE Documentation of Mechanical Device: Intermittent pneumatic compression device Consult Discharge Plan - Plan Referrals: Tera Schmidt DPM [Partnered Physician] - 09/23/18 3:30 pm Eleazar Vargas MD [Primary Care Provider] - Laure Strong CNP [Advanced Practice Nurse] - 10/08/18 2:20 pm Peewee Koroma [Partnered Physician] - 10/08/18 9:00 am Prescriptions: Cefepime HCl/Dextrose, Iso-Osm [Cefepime 1 gm Injection] 1 gm IV Q12H 42 Days #84 froz.piggy Clindamycin 600 MG/50 ML [Cleocin Premix 600 MG/50 ML] 600 mg IVPB Q8H 42 Days #126 bag DAPTOmycin [Daptomycin] 350 mg IV DAILY #31 vial
--- NOTE | 2018-09-23 15:27 | Infectious Disease Progress No ---
ID Progress Note Date of Encounter: 09/23/18 Time of Encounter: 12:00 - Subjective Subjective: Patient seen and examined. No acute events noted overnight. Patient complains of pain in her left foot and lower back. Denies fevers, chills, or rigors. Denies chest pain, shortness of breath, or cough. Denies nausea, vomiting, diarrhea, or constipation. Denies abdominal pain. Voiding without difficulty since having Kennedy catheter removed, but reports urinating a lot. Reports BM overnight. Denies oral thrush or skin rashes. - Objective CBC & Chem 7: 09/22/18 21:00 09/23/18 03:46 - Exam Vitals: Temp Pulse Resp BP Pulse Ox 98.1 F 67 18 181/48 96 09/23/18 11:13 09/23/18 11:13 09/23/18 11:13 09/23/18 11:13 09/23/18 11:13 Exam: Head: Atraumatic, normal inspection, normocephalic. Eye: EOMI, PERRLA, no scleral icterus noted. ENT: Mucous membranes moist. No odontogenic infection noted. Neck: Normal inspection, no meningismus. Respiratory: Clear to auscultation. No rales, respiratory distress, rhonchi, or wheezes noted. Cardiovascular: Regular rate and rhythm, S1 and S2 audible. No murmurs, rubs, or gallops. GI: Soft, nondistended, normal bowel sounds. Extremities:No joint swelling, pedal edema, or tenderness noted. Left foot d ressing C/D/I. Back: Normal inspection. No vertebral tenderness noted. Neurological: Alert, oriented 3, no focal deficits. Psychiatric: normal affect, normal mood. Skin: Dry, intact, warm. Normal color. No rashes. - Assessment and Plan (1) Osteomyelitis Current Visit: Yes Status: Chronic Location: Left foot great toe. Causative organism: Unclear. Previous wound culture were positive for MRSA less than a year ago. Etiology: Likely multifactorial: Diabetes plus PAD plus infection. SILVIA of the LLE showed severe disease. Patient was unable to undergo revision of her vascular graft occlusion. Concerned that without adequate bloodflow, we will be unable to get adequate tissue penetration. Additionally, we do not have cultures and the patient will have to be on broad- spectrum antibiotics for six weeks in the setting of OSCAR/CKD. She is at high risk for further damage to her kidneys. Podiatry consulted and following. No surgical intervention planned at this time. No bone biopsy obtained. Discussed with RNCM who states patient cannot afford home IV antibiotics and will need to go to ECF. Working to see about cost of medications at in-network ECF. Currently on cefepime and daptomycin. Qualifiers: Osteomyelitis type: unspecified type Osteomyelitis location: foot Laterality: left Qualified Code(s): M86.9 - Osteomyelitis, unspecified SNOMED Code(s): 66957058 (2) Ischemic toe ulcer Current Visit: Yes Status: Acute Location: Left foot great toe. Likely multifactorial: infection + PAD + diabetes. Podiatry consulted and following. Qualifiers: Laterality: left Non-pressure ulcer stage: with fat layer exposed Qualified Code(s): L97.522 - Non-pressure chronic ulcer of other part of left foot with fat layer exposed SNOMED Code(s): 318230725 (3) Acute kidney injury Current Visit: No Status: Acute Likely multifactorial: infection + CKD + nephrotoxic medications (vanc and lisinopril). Improved/stable. Continue to trend. Nephrology consulted and following. SNOMED Code(s): 69470609, 46847748 (4) Vascular graft occlusion Current Visit: Yes Status: Acute Vascular consulted and following. Surgery cancelled due to impaired respiratory status and bronchospasms. Planning outpatient follow-up. Qualifiers: Encounter type: initial encounter Qualified Code(s): T82.898A - Other specified complication of vascular prosthetic devices, implants and grafts, ini tial encounter SNOMED Code(s): 696765335 (5) PAD (peripheral artery disease) Current Visit: No Status: Chronic Multiple surgeries in the past s/p: 08/29/17: 1. Left lower extremity bypass graft thrombectomy. 2. Left common femoral endarterectomy. 08/15/18: 1. Left femoral to popliteal artery bypass graft thrombectomy with 4 dominican and 5 dominican Demetrice embolectomy catheters. 2. Left iliofemoral endarterterectomy. 08/29/2018 1. Left lower extremity bypass graft thrombectomy. 2. Left common femoral endarterectomy. ABIs consistent with severe disease in the LLE. Vascular surgery consulted, but further intervention on hold due to acute respiratory failure. 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 SNOMED Code(s): 527820404 (9) CAD (coronary artery disease) Current Visit: No Status: Chronic Qualifiers: Coronary Disease-Associated Artery/Lesion type: bypass graft [place] vs. transplanted heart: [place] heart Associated angina: without angina Qualified Code(s): I25.810 - Atherosclerosis of coronary artery bypass graft(s) without angina pectoris SNOMED Code(s): 07783435 (10) Hypertension Current Visit: No Status: Chronic Qualifiers: Hypertension type: essential hypertension Qualified Code(s): I10 - Essential (primary) hypertension SNOMED Code(s): 99458900 (11) Diabetes mellitus Current Visit: No Status: Chronic Recommend aggressive glucose monitoring and control to promote wound healing and prevent re-infection. Management per the primary team. Qualifiers: Diabetes mellitus type: type 2 Diabetes mellitus residential insulin use: with residential use Diabetes mellitus complication status: with circulatory complication Diabetes mellitus complication detail: with peripheral angiopathy without gangrene Qualified Code(s): E11.51 - Type 2 diabetes mellitus with diabetic peripheral angiopathy without gangrene; Z79.4 - half-way (current) use of insulin SNOMED Code(s): 55580384 - Recommendations Recommendations: At this point, we do not have any cultures to help identify the causative organism of the patient's osteomyelitis. Discussed with the podiatry team. Too high risk for bone biopsy. Additionally, given the patient's impaired vascular status, concern that we will be unable to maintain adequate tissue penetration to get the antibiotics to the infected tissue. Will discuss with the vascular team to see if we can expedite getting her leg procedure done. We also need to consider the fact that the patient has chronic kidney disease in 6 weeks of IV antibiotics is very high risk for causing worsening of her renal status. I discussed the risks, benefits, and alternatives with the patient and she is agreeable to proceed with whatever the care team recommends. Wound care per the podiatry team. Continue cefepime 1 g IV every 12 hours for now. Continue daptomycin 6mg/kg Q48H. Duration of treatment depends on the clinical picture, but likely a total of 6 weeks. Monitor renal function and dose adjust antibiotics. Recommend probiotics daily. Contact precautions per hospital policy. manager managed backup services assisting with discharge planning. Check CK level in the morning. - VTE Documentation of Mechanical Device: Intermittent pneumatic compression device Consult Discharge Plan - Plan Referrals: Tera Schmidt DPM [Partnered Physician] - 09/23/18 3:30 pm Eleazar Vargas MD [Primary Care Provider] - Laure Strong CNP [Advanced Practice Nurse] - 10/08/18 2:20 pm Peewee Koroma [Partnered Physician] - 10/08/18 9:00 am Prescriptions: Cefepime HCl/Dextrose, Iso-Osm [Cefepime 1 gm Injection] 1 gm IV Q12H 42 Days #84 froz.piggy DAPTOmycin [Daptomycin] 350 mg IV DAILY #31 vial OxyCODONE/APAP 10/325 [Percocet 10/325 MG] 1 tab PO Q6H PRN 3 Days #9 tablet PRN Reason: Severe Pain - Attending Attestation I have personally performed a face to face evaluation on this patient. I have reviewed and agree with the care plan. History and Exam by me shows: ssessment and plan: 1.Osteomyelitis 2.Ischemic toe ulcer 3.Peripheral artery disease 4.Coronary artery disease 5.Reaction to vancomycin 6.Diabetes mellitus type 2 7.Tobacco dependence 8.History of MRSA infection 9.Worsening kidney function Recommendations: Continue cefepime 1 g IV every 12 hours for now. Continue clindamycin 600 mg IV every 8 hours. Duration of treatment depends on the clinical picture, but likely a total of 6 weeks. Monitor renal function and dose adjust antibiotics. Recommend probiotics daily.
--- NOTE | 2018-09-23 16:08 | Discharge Summary ---
- NOTES TO OUTPATIENT PROVIDER Notes to Outpatient Provider: Patient will need follow-up with vascular surgery for thrombectomy. We will also need follow-up with infectious disease and nephrology. Will be discharged and cefepime and daptomycin for osteomyelitis. 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 transplanted heart: [place] heart Associated angina: without angina Qualified Code(s): I25.810 - Atherosclerosis of coronary artery bypass graft(s) without angina pectoris (3) Diabetes mellitus Priority: Secondary Status: Chronic Qualifiers: Diabetes mellitus type: type 2 Diabetes mellitus care home insulin use: with care home use Diabetes mellitus complication status: with circulatory complication Diabetes mellitus complication detail: with peripheral angiopathy without gangrene Qualified Code(s): E11.51 - Type 2 diabetes mellitus with diabetic peripheral angiopathy without gangrene; Z79.4 - jail (current) use of insulin (4) DVT prophylaxis Priority: Secondary Status: Acute (5) Chronic kidney disease, stage III (moderate) Priority: Secondary Status: Chronic (6) Anemia Priority: Secondary Status: Acute Qualifiers: Anemia type: unspecified type Qualified Code(s): D64.9 - Anemia, unspecified (7) Osteomyelitis Priority: Primary Status: Chronic Qualifiers: Osteomyelitis type: unspecified type Osteomyelitis location: foot Laterality: left Qualified Code(s): M86.9 - Osteomyelitis, unspecified (8) Ischemic toe ulcer Priority: Primary Status: Acute Qualifiers: Laterality: left Non-pressure ulcer stage: with fat layer exposed Qualified Code(s): L97.522 - Non-pressure chronic ulcer of other part of left foot with fat layer exposed (9) COPD exacerbation Priority: Secondary Status: Acute (10) Hematuria Priority: Secondary Status: Resolved Qualifiers: Hematuria type: gross Qualified Code(s): R31.0 - Gross hematuria (11) Diarrhea Priority: Secondary Status: Acute Qualifiers: Qualified Code(s): R19.7 - Diarrhea, unspecified (12) Vascular graft occlusion Priority: Secondary Status: Acute Qualifiers: Encounter type: initial encounter Qualified Code(s): T82.898A - Other specified complication of vascular prosthetic devices, implants and grafts, initial encounter (13) Acute kidney injury Priority: Primary Status: Acute (14) HLD (hyperlipidemia) Priority: Secondary Status: Chronic Qualifiers: Hyperlipidemia type: unspecified Qualified Code(s): E78.5 - Hyperlipidemia, unspecified (15) Hypertension Priority: Secondary Status: Chronic Qualifiers: Hypertension type: essential hypertension Qualified Code(s): I10 - Essential (primary) hypertension (16) PAD (peripheral artery disease) Priority: Secondary Status: Chronic (17) Tobacco dependence Priority: Secondary Status: Chronic (18) Acute respiratory failure with hypoxia Priority: Secondary Status: Acute (19) Hyperkalemia Priority: Secondary Status: Acute Hospital course: Ms. Sepulveda is a 67 year old female past medical history of COPD, CHF, CAD, diabetes, hypertension, PAD came in complaining of left toe pain. Patient was found to have osteomyelitis of great toe on CT. Patient was started on clindamycin. Patient was found to have severe PAD on right extremity by ankle- brachial index. Vascular surgery evaluation was done. Patient was planned to have vascular intervention however developed bronchospasm on induction of anesthesia any initiation of vancomycin. Surgery was aborted. Infectious disease consult was obtained. Patient was started on cefepime for gram-negative coverage. Blood cultures remain negative. Per podiatry patient would be at risk for another nonhealing source of infection with bone biopsy and did not think she was a good candidate withou vascular intervention. After discussion with podiatry vascular infectious disease it would decided that patient would have 6 weeks of antibiotic therapy. Patient did have some hematuria likely from trauma while on blood thinners as well as developed diarrhea after managing with Kayexalate her hyperkalemia. She did develop OSCAR on CKD which was prerenal in nature. Nephrology followed during inpatient. Patient receive IV fluids and her renal function remains stable however we need close follow-up as outpatient. Antibiotic therapy was adjusted to daptomycin as it has to be given less frequently. Currently patient is set up to get her antibiotic as outpatient or at [facility] depending on the cost. Patient will need to continue for 6 weeks of IV therapy. Patient would need monitoring of renal function and blood work including CBC BUN/creatinine ESR CRP CK every week. Patient would need podiatry vascular any infectious disease follow-up as outpatient. Discharge discussed with: patient, family, nurse, social work, case management, internet sales consultant - Time Spent with Patient Total time spent providing and/or coordinating discharge services: Time spent: Greater than 30 minutes (45) - Discharge Medications Prescriptions: New Cefepime HCl/Dextrose, Iso-Osm [Cefepime 1 gm Injection] 1 gm IV Q12H 42 Days #84 frozharriett DAPTOmycin [Daptomycin] 350 mg IV DAILY #31 vial amLODIPine [Norvasc] 5 mg PO DAILY #0 tablet Continued Albuterol Sulfate [Proair Hfa] 2 puff IH Q4H PRN PRN Reason: Shortness Of Breath Amitriptyline [Elavil] 25 mg PO HS Aspirin [Lo-Dose Aspirin EC] 81 mg PO DAILY Clopidogrel [Plavix] 75 mg PO DAILY DULoxetine [Cymbalta] 30 mg PO DAILY Ergocalciferol (VITAMIN D2) [Vitamin D2] 50,000 unit PO TH Gabapentin [Neurontin] 300 mg PO HS Insulin NPH Hum/Reg Insulin Hm [Relion Novolin 70-30 Flexpen] 5 unit SQ BID Ipratropium/Albuterol Sulfate [Iprat-Albut 0.5-3(2.5) mg/3 ml] 1 vial IH Q6H PRN PRN Reason: Shortness Of Breath Isosorbide MONOnitrate (24 HR) [Imdur] 60 mg PO DAILY Lovastatin [Mevacor] 20 mg PO HS Metoprolol [Lopressor] 25 mg PO BID Ropinirole HCl 0.25 mg PO HS Sertraline [Zoloft] 50 mg PO DAILY Simethicone [Gas-X] 80 mg PO QID PRN PRN Reason: Heartburn Vit A/C/E AC/Znox/Cupric Oxide [Eye Vitamin-Minerals Tablet] 1 tab PO DAILY Iron Polysaccharide Complex [Ferrex 150] 150 mg PO DAILY Sitagliptin Phosphate [Januvia] 50 mg PO DAILY OxyCODONE/APAP 10/325 [Percocet 10/325 MG] 1 tab PO Q6H PRN 3 Days #9 tablet PRN Reason: Severe Pain Discontinued Lisinopril [Zestril] 20 mg PO DAILY Home Medications: Albuterol Sulfate [Proair Hfa] 2 puff IH Q4H PRN 08/15/18 [History] Amitriptyline [Elavil] 25 mg PO HS 08/15/18 [History] Aspirin [Lo-Dose Aspirin EC] 81 mg PO DAILY 08/15/18 [History] Clopidogrel [Plavix] 75 mg PO DAILY 08/15/18 [History] DULoxetine [Cymbalta] 30 mg PO DAILY 08/15/18 [History] Ergocalciferol (VITAMIN D2) [Vitamin D2] 50,000 unit PO TH 08/15/18 [History] Gabapentin [Neurontin] 300 mg PO HS 08/15/18 [History] Insulin NPH Hum/Reg Insulin Hm [Relion Novolin 70-30 Flexpen] 5 unit SQ BID 08/15/18 [History] Ipratropium/Albuterol Sulfate [Iprat-Albut 0.5-3(2.5) mg/3 ml] 1 vial IH Q6H PRN 08/15/18 [History] Iron Polysaccharide Complex [Ferrex 150] 150 mg PO DAILY 08/15/18 [History] Isosorbide MONOnitrate (24 HR) [Imdur] 60 mg PO DAILY 08/15/18 [History] Lovastatin [Mevacor] 20 mg PO HS 08/15/18 [History] Metoprolol [Lopressor] 25 mg PO BID 08/15/18 [History] Ropinirole HCl 0.25 mg PO HS 08/15/18 [History] Sertraline [Zoloft] 50 mg PO DAILY 08/15/18 [History] Simethicone [Gas-X] 80 mg PO QID PRN 08/15/18 [History] Sitagliptin Phosphate [Januvia] 50 mg PO DAILY 08/15/18 [History] Vit A/C/E AC/Znox/Cupric Oxide [Eye Vitamin-Minerals Tablet] 1 tab PO DAILY 08/15/18 [History] Cefepime HCl/Dextrose, Iso-Osm [Cefepime 1 gm Injection] 1 gm IV Q12H 42 Days #84 froz.piggy 09/18/18 [Rx] DAPTOmycin [Daptomycin] 350 mg IV DAILY #31 vial 09/20/18 [Rx] OxyCODONE/APAP 10/325 [Percocet 10/325 MG] 1 tab PO Q6H PRN 3 Days #9 tablet 09/23/18 [Rx] amLODIPine [Norvasc] 5 mg PO DAILY #0 tablet 09/23/18 [Rx] Allergies/Adverse Reactions: Allergy/AdvReac Type Severity Reaction Status Date / Time escitalopram [From Lexapro] Allergy Rash Verified 09/09/18 16:11 itraconazole [From Sporanox] Allergy Hives Verified 09/09/18 16:11 Penicillins [PCN] Allergy Rash Verified 09/09/18 16:11 metformin AdvReac Diarrhea Verified 09/09/18 16:11 Date of admission: 09/09/18 14:01 Primary care physician: Eleazar Vargas MD Consults: 09/08/18 23:16 Consult to Podiatry [CONS] Stat Consulting Provider: Podiatry [facility] Reason for Consult: Osteomyelitis of the left great toe Time Notified: 23:17 Call Completed: Yes 09/09/18 03:44 Consult to Nurse Navigator [CONS] Routine Comment: 09/10/18 08:33 Consult to Vascular Surgery [CONS] Routine Consulting Provider: Vascular Surgery [place] Reason for Consult: Lt toes osteomyelitis, ischemic toe ulcer Call Completed: Yes 09/13/18 14:28 Consult to Infectious Diseases [CONS] Routine Consulting Provider: Infectious Disease [facility] Reason for Consult: Left toe osteomyelitis, diabetes foot Call Completed: Yes 09/14/18 07:38 Consult to Nephrology [CONS] Routine Consulting Provider: [facility]/LINDSEY/RADHA/HUMBLE Reason for Consult: OSCAR Call Completed: Yes 09/14/18 11:50 Consult to Urology [CONS] Routine Consulting Provider: Urology [place] Reason for Consult: Hematuria. Recommendation on blood thinner Call Completed: Yes 09/14/18 14:01 Consult to Pharmacy Intake Technician [CONS] Routine Reason for SW Consult: will need 6 weeks iv atb therapy picc to be placed sunday or sunday09/18/18 10:32 Consult to Invasive Line Access Team [CONS] Routine Reason for Consult: Powerglide for abx and IV fluids Line Type: EPIV 09/18/18 10:51 Consult to Pharmacy Intake Technician [CONS] Routine Reason for SW Consult: Patients goal was to return home, cost for IV abx too expensive. Would like to check cost of placement in ECF in [place] for IV abx. Discharging clinician: Jmi Hernandez - Constitutional Vitals: Temp Pulse Resp BP Pulse Ox 98.1 F 67 18 181/48 95 09/23/18 11:13 09/23/18 11:13 09/23/18 15:35 09/23/18 11:13 09/23/18 15:35 Exam: General: In no acute distress. Respiratory exam: CTAB, No adventitious lung sound Cardiovascular exam: RRR, +S1, +S2. no murmur, GI/Abdominal exam: Non-tender, Non-distended, normal bowel sounds, soft, no peritoneal signs. Extremities exam: trace pedal edema, absent pulse on Lt foot. no calf tenderness. Lt foot with bandage. Neurological exam: CN II-XII intact, AO X3, no focal deficits. - Patient Status Disposition: Transfer SNF Condition: Fair - Discharge Instructions Follow Up With: Tera Schmidt DPM [Partnered Physician] - 09/23/18 3:30 pm Eleazar Vargas MD [Primary Care Provider] - Laure Strong, BRIDGET [Advanced Practice Nurse] - 10/08/18 2:20 pm Peewee Koroma [Partnered Physician] - 10/08/18 9:00 am - VTE Documentation of Mechanical Device: Intermittent pneumatic compression device
[2018-09-23] MEDS: Insulin DETEMIR 100 UNIT/ML X5UNITS SQ SCH (21:23)
[2018-09-23] MEDS: rOPINIRole 0.25 MG TABLET PO SCH (21:30)
[2018-09-23] MEDS: Gabapentin 300 MG CAPSULE PO SCH (21:30)
[2018-09-24] MEDS: *HR* OxyCODONE Immed Rel 5 MG TABLET PO PRN ×5 (01:29→23:57)
[2018-09-24] MEDS: Ipratropium/Albuterol Neb 3 ML IH SCH ×4 (03:56→21:19)
[2018-09-24] MEDS: *HR* Heparin 5,000 UNIT/ML VIAL SQ SCH ×2 (05:15→17:13)
[2018-09-24] MEDS: Insulin LISPRO 300 UNITS/3 ML VIAL SQ SCH ×7 (09:57→21:23)
[2018-09-24] MEDS: Isosorbide MONOnitrate (24 HR) 60 MG TAB.ER.24H PO SCH (09:58)
[2018-09-24] MEDS: Iron Polysaccharide Complex 150 MG CAPSULE PO SCH (09:58)
[2018-09-24] MEDS: amLODIPine 5 MG TABLET PO SCH (09:58)
[2018-09-24] MEDS: Lactobacillus 1 EACH CAP.SPRINK PO SCH (09:58)
[2018-09-24] MEDS: Aspirin Enteric Coated 81 MG Tablet PO SCH (09:59)
[2018-09-24 11:28] LABS: Basophils % 0.2 %; Eosinophils # 0.4 K/mcL (0.0-0.6); Eosinophils % 4.4 %; Hematocrit 28.4 % (35.3-44.9); Hemoglobin 8.9 g/dL (11.5-15.4); Immature Granulocytes % 0.7 % (0-4); Lymphocytes % 12.5 %; Mean Corpuscular HGB Conc 31.3 g/dL (31.6-35.5); Mean Corpuscular Hemoglobin 30.5 pg (28.0-33.3); Mean Corpuscular Volume 97.3 fL (83.0-100.0); Mean Platelet Volume 11.6 fL (9.4-12.4); Monocytes # 0.5 K/mcL (0.0-1.3); Monocytes % 5.8 %; Neutrophils # 6.4 K/mcL (1.6-8.9); Platelet Count 163 K/mcL (140-400); Red Blood Count 2.92 M/mcL (3.82-4.97); Red Cell Distribution Width 15.4 % (11.5-14.5); Segmented Neutrophils % 76.4 %; White Blood Count 8.3 K/mcL (4.3-11.1)
--- NOTE | 2018-09-24 11:45 | Internal Med Progress Note ---
Hospitalist Progress Note - Encounter Date of Encounter: 09/24/18 Time of Encounter: 08:12 - Subjective Interval History: Patient seen and examined this morning and no acute overnight events. Denies new complaints. Urinating well. Denies any fevers chills nausea vomiting or diarrhea. Denies any difficulty breathing or abdominal pain. - Exam Vitals: Temp Pulse Resp BP Pulse Ox 98.1 F 68 16 162/65 98 09/24/18 06:30 09/24/18 06:30 09/24/18 10:25 09/24/18 06:30 09/24/18 10:25 Exam: General: In no acute distress. Respiratory exam: CTAB, No adventitious lung sound Cardiovascular exam: RRR, +S1, +S2. no murmur, GI/Abdominal exam: Non-tender, Non-distended, normal bowel sounds, soft, no peritoneal signs. Extremities exam: 1+ pedal edema, absent pulse on Lt foot. no calf tenderness. Lt foot with bandage. Neurological exam: CN II-XII intact, AO X3, no focal deficits. 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 Current Visit: No Status: Chronic (2) CAD (coronary artery disease) Current Visit: No Status: Chronic (3) Diabetes mellitus Current Visit: No Status: Chronic (4) DVT prophylaxis Current Visit: No Status: Acute (5) Chronic kidney disease, stage III (moderate) Current Visit: No Status: Chronic (6) Anemia Current Visit: No Status: Acute (7) Osteomyelitis Current Visit: Yes Status: Chronic (8) Ischemic toe ulcer Current Visit: Yes Status: Acute (9) COPD exacerbation Current Visit: Yes Status: Acute (10) Hematuria Current Visit: Yes Status: Resolved (11) Diarrhea Current Visit: Yes Status: Acute (12) Vascular graft occlusion Current Visit: Yes Status: Acute (13) Acute kidney injury Current Visit: No Status: Acute (14) HLD (hyperlipidemia) Current Visit: No Status: Chronic (15) Hypertension Current Visit: No Status: Chronic (16) PAD (peripheral artery disease) Current Visit: No Status: Chronic (17) Tobacco dependence Current Visit: No Status: Chronic (18) Acute respiratory failure with hypoxia Current Visit: Yes Status: Acute (19) Hyperkalemia Current Visit: No Status: Acute - Summary of Assessment and Plan Summary of Assessment and Plan: Assessment Lt toe osteomyelitis, cellulitis Toe ulceration COPD exacerbation-resolved Lt fem-pop graft occlusion OSCAR Acute hypoxic respiratory failure- resolved Hematuria-resolved Severe LT PAD hyperkalemia Diarrhea BRBPR DVT prophylaxis CAD PAD Chronic anemia CKD-3 DM smoker Plan - Developed bronchospasm during induction of anesthesia and initiation of vanomycin during vascular surgery. Patient now managed conservatively with IV antibiotics. Patient currently on daptomycin and Cefepime per ID. Blood culture NGTD on final report. Will need 6 weeks of antibiotics given she could not have surgery done. Currently Case management and ID working to find option that would be cost effective for patient. Likely will be getting antibiotics initially at [facility] initially and then reevaluate if can be switched to oral with ID outpatient. - S.cr imporved. Hyperkalemia resolved. c/w strict I/O. avoid nephrotoxins. lisinopril was stopped given hyperkalemia and OSCAR. nephrology following - Diarrhea likely from Kayexalate now resolved. - C/w scheduled bronchodilators and steroid taper. To finish steroid today - c/w SSI and accuchecks, levemir 12 units and premeal 5 units. - c/w home, imdur, amlodipine, metoprolol, atorvastatin. - Hematuria resolved. likely related to rivera and heparin for dvt. Urine culture with no growth. Urology was consulted. Renal US unremarkable. rivera removed. Outpatient cystoscopy. - chronic anemia. Hb stable. c/w iron supplementation. BRBPR likely related to hemorrhoids. - heparin sc - Time Spent with Patient Total time spent is greater than 50% in coordination of care (as documented) at patient's floor/unit and/or counseling patient: Internal Medicine: Result - Labs CBC & Chem 7: 09/24/18 11:12 09/24/18 11:12 - VTE Documentation of Mechanical Device: Intermittent pneumatic compression device Consult Discharge Plan - Plan Referrals: Tera Schmidt DPM [Partnered Physician] - 10/02/18 2:30 pm Eleazar Vargas MD [Primary Care Provider] - Serge Castelan MD [Partnered Physician] - 10/01/18 2:10 pm Laure Strong, BRIDGET [Advanced Practice Nurse] - 10/08/18 2:20 pm Peewee Koroma [Partnered Physician] - 10/08/18 9:00 am Prescriptions: Cefepime HCl/Dextrose, Iso-Osm [Cefepime 1 gm Injection] 1 gm IV Q12H 42 Days #84 delmy DAPTOmycin [Daptomycin] 350 mg IV DAILY #31 vial OxyCODONE/APAP 10/325 [Percocet 10/325 MG] 1 tab PO Q6H PRN 3 Days #9 tablet PRN Reason: Severe Pain (1) 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 transplanted heart: [place] heart Associated angina: without angina Qualified Code(s): I25.810 - Atherosclerosis of coronary artery bypass graft(s) without angina pectoris (3) Diabetes mellitus Qualifiers: Diabetes mellitus type: type 2 Diabetes mellitus commercial development manager insulin use: with mcc use Diabetes mellitus complication status: with circulatory complication Diabetes mellitus complication detail: with peripheral angiopathy without gangrene Qualified Code(s): E11.51 - Type 2 diabetes mellitus with diabetic peripheral angiopathy without gangrene; Z79.4 - halfway (current) use of insulin (6) Anemia Qualifiers: Anemia type: unspecified type Qualified Code(s): D64.9 - Anemia, unspecified (7) Osteomyelitis Qualifiers: Osteomyelitis type: unspecified type Osteomyelitis location: foot Laterality: left Qualified Code(s): M86.9 - Osteomyelitis, unspecified (8) Ischemic toe ulcer Qualifiers: Laterality: left Non-pressure ulcer stage: with fat layer exposed Qualified Code(s): L97.522 - Non-pressure chronic ulcer of other part of left foot with fat layer exposed (10) Hematuria Qualifiers: Hematuria type: gross Qualified Code(s): R31.0 - Gross hematuria (11) Diarrhea Qualifiers: Qualified Code(s): R19.7 - Diarrhea, unspecified (12) Vascular graft occlusion Qualifiers: Encounter type: initial encounter Qualified Code(s): T82.898A - Other specified complication of vascular prosthetic devices, implants and grafts, initial encounter (14) HLD (hyperlipidemia) Qualifiers: Hyperlipidemia type: unspecified Qualified Code(s): E78.5 - Hyperlipidemia, unspecified (15) Hypertension Qualifiers: Hypertension type: essential hypertension Qualified Code(s): I10 - Essential (primary) hypertension
[2018-09-24 12:14] LABS: Calcium 9.5 mg/dL (8.6-10.3); Potassium 3.8 mEq/L (3.5-5.1)
[2018-09-24] MEDS: Cefepime HCl 2,000 MG in Water for inj. (sterile) 20 ML IVP SCH (13:14)
[2018-09-24] MEDS: SODIUM CHLORIDE 0.9% IVPB SCH (13:14)
[2018-09-24] MEDS: DAPTOMYCIN IVPB SCH (13:14)
--- NOTE | 2018-09-24 13:21 | Infectious Disease Progress No ---
ID Progress Note Date of Encounter: 09/24/18 Time of Encounter: 11:10 - Subjective Subjective: Patient seen and examined. No acute events noted overnight. Patient complains of pain in her left foot and lower back. Denies fevers, chills, or rigors. Denies chest pain, shortness of breath, or cough. Denies vomiting, diarrhea, or constipation, but does complain of some mild intermittent nausea with decreased appetite. Denies abdominal pain. Voiding without difficulty since having Kennedy catheter removed, but reports urinating a lot. Reports BM overnight. Denies oral thrush or skin rashes. - Objective CBC & Chem 7: 09/24/18 11:12 09/24/18 11:12 - Exam Vitals: Temp Pulse Resp BP Pulse Ox 98.1 F 68 16 162/65 98 09/24/18 06:30 09/24/18 06:30 09/24/18 10:25 09/24/18 06:30 09/24/18 10:25 Exam: Head: Atraumatic, normal inspection, normocephalic. Eye: EOMI, PERRLA, no scleral icterus noted. ENT: Mucous membranes moist. No odontogenic infection noted. Neck: Normal inspection, no meningismus. Respiratory: Clear to auscultation. No rales, respiratory distress, rhonchi, or wheezes noted. Cardiovascular: Regular rate and rhythm, S1 and S2 audible. No murmurs, rubs, or gallops. GI: Soft, nondistended, normal bowel sounds. Extremities:No joint swelling, pedal edema, or tenderness noted. Left great toe with dry necrosis of the distal tip. Erythema resolved. No tenderness or fluctuance noted. Back: Normal inspection. No vertebral tenderness noted. Neurological: Alert, oriented 3, no focal deficits. Psychiatric: normal affect, normal mood. Skin: Dry, intact, warm. Normal color. No rashes. - Assessment and Plan (1) Osteomyelitis Current Visit: Yes Status: Chronic Location: Left foot great toe. Causative organism: Unclear. Previous wound culture were positive for MRSA less than a year ago. Etiology: Likely multifactorial: Diabetes plus PAD plus infection. SILVIA of the LLE showed severe disease. Patient was unable to undergo revision of her vascular graft occlusion. Concerned that without adequate bloodflow, we will be unable to get adequate tissue penetration. Additionally, we do not have cultures and the patient will have to be on broad- spectrum antibiotics for six weeks in the setting of OSCAR/CKD. She is at high risk for further damage to her kidneys. Podiatry consulted and following. No surgical intervention planned at this time. No bone biopsy obtained. Discussed with RNCM who states patient cannot afford home IV antibiotics and will need to go to ECF. Working to see about cost of medications at in-network ECF. Currently on cefepime and daptomycin. Qualifiers: Osteomyelitis type: unspecified type Osteomyelitis location: foot Laterality: left Qualified Code(s): M86.9 - Osteomyelitis, unspecified SNOMED Code(s): 12623000 (2) Ischemic toe ulcer Current Visit: Yes Status: Acute Location: Left foot great toe. Likely multifactorial: infection + PAD + diabetes. Podiatry consulted and following. Qualifiers: Laterality: left Non-pressure ulcer stage: with fat layer exposed Qualified Code(s): L97.522 - Non-pressure chronic ulcer of other part of left foot with fat layer exposed SNOMED Code(s): 170168250 (3) Acute kidney injury Current Visit: No Status: Acute Likely multifactorial: infection + CKD + nephrotoxic medications (vanc and lisinopril). Improved/stable. Continue to trend. Nephrology consulted and following. SNOMED Code(s): 63996755, 27474915 (4) Vascular graft occlusion Current Visit: Yes Status: Acute Vascular consulted and following. Surgery cancelled due to impaired respiratory status and bronchospasms. Planning outpatient follow-up. Qualifiers: Encounter type: initial encounter Qualified Code(s): T82.898A - Other specified complication of vascular prosthetic devices, implants and grafts, initial encounter SNOMED Code(s): 078889506 (5) PAD (peripheral artery disease) Current Visit: No Status: Chronic Multiple surgeries in the past s/p: 08/29/17: 1. Left lower extremity bypass graft thrombectomy. 2. Left common femoral endarterectomy. 08/15/18: 1. Left femoral to popliteal artery bypass graft thrombectomy with 4 beninese and 5 beninese Demetrice embolectomy catheters. 2. Left iliofemoral endarterterectomy. 08/29/2018 1. Left lower extremity bypass graft thrombectomy. 2. Left common femoral endarterectomy. ABIs consistent with severe disease in the LLE. Vascular surgery consulted, but further intervention on hold due to acute respiratory failure. 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 SNOMED Code(s): 085779718 (9) CAD (coronary artery disease) Current Visit: No Status: Chronic Qualifiers: Coronary Disease-Associated Artery/Lesion type: bypass graft [place] vs. transplanted heart: [place] heart Associated angina: without angina Qualified Code(s): I25.810 - Atherosclerosis of coronary artery bypass graft(s) without angina pectoris SNOMED Code(s): 11029655 (10) Hypertension Current Visit: No Status: Chronic Qualifiers: Hypertension type: essential hypertension Qualified Code(s): I10 - Essential (primary) hypertension SNOMED Code(s): 79070192 (11) Diabetes mellitus Current Visit: No Status: Chronic Recommend aggressive glucose monitoring and control to promote wound healing and prevent re-infection. Management per the primary team. Qualifiers: Diabetes mellitus type: type 2 Diabetes mellitus apprentice lineman third step insulin use: with apprentice lineman third step use Diabetes mellitus complication status: with circulatory complication Diabetes mellitus complication detail: with peripheral angiopathy without gangrene Qualified Code(s): E11.51 - Type 2 diabetes mellitus with diabetic peripheral angiopathy without gangrene; Z79.4 - therapy assistant (current) use of insulin SNOMED Code(s): 61446538 - Recommendations Recommendations: At this point, we do not have any cultures to help identify the causative organism of the patient's osteomyelitis. Discussed with the podiatry team. Too high risk for bone biopsy. Additionally, given the patient's impaired vascular status, concern that we will be unable to maintain adequate tissue penetration to get the antibiotics to the infected tissue. Will discuss with the vascular team to see if we can expedite getting her leg procedure done. We also need to consider the fact that the patient has chronic kidney disease in 6 weeks of IV antibiotics is very high risk for causing worsening of her renal status. I discussed the risks, benefits, and alternatives with the patient and she is agreeable to proceed with whatever the care team recommends. Wound care per the podiatry team. Continue cefepime 1 g IV every 12 hours for now. Continue daptomycin 6mg/kg Q48H. Duration of treatment depends on the clinical picture, but likely a total of 6 weeks. Monitor renal function and dose adjust antibiotics. Recommend probiotics daily. Contact precautions per hospital policy. manager environmental services assisting with discharge planning. Check CBC, BUN/Cr, ESR, CRP, and CK level. Will need weekly labs: CBC, BUN/Cr, ESR, CRP, CK. Will need weekly IV care per protocol. Follow up with ID 10/08/18 at 1440. - VTE Documentation of Mechanical Device: Intermittent pneumatic compression device Consult Discharge Plan - Plan Referrals: Tera Schmidt DPM [Partnered Physician] - 09/23/18 3:30 pm Eleazar Vargas MD [Primary Care Provider] - Laure Strong CNP [Advanced Practice Nurse] - 10/08/18 2:20 pm Peewee Koroma [Partnered Physician] - 10/08/18 9:00 am Prescriptions: Cefepime HCl/Dextrose, Iso-Osm [Cefepime 1 gm Injection] 1 gm IV Q12H 42 Days #84 frozharriett DAPTOmycin [Daptomycin] 350 mg IV DAILY #31 vial OxyCODONE/APAP 10/325 [Percocet 10/325 MG] 1 tab PO Q6H PRN 3 Days #9 tablet PRN Reason: Severe Pain
[2018-09-24] MEDS: Gabapentin 300 MG CAPSULE PO SCH (21:36)
[2018-09-24] MEDS: rOPINIRole 0.25 MG TABLET PO SCH (21:36)
[2018-09-24] MEDS: Insulin DETEMIR 100 UNIT/ML X5UNITS SQ SCH (21:36)
[2018-09-25] MEDS: Ipratropium/Albuterol Neb 3 ML IH SCH ×2 (03:52→10:29)
[2018-09-25] MEDS: *HR* Heparin 5,000 UNIT/ML VIAL SQ SCH ×2 (06:18→17:20)
[2018-09-25] MEDS: Lactobacillus 1 EACH CAP.SPRINK PO SCH (09:11)
[2018-09-25] MEDS: amLODIPine 5 MG TABLET PO SCH (09:11)
[2018-09-25] MEDS: Aspirin Enteric Coated 81 MG Tablet PO SCH (09:11)
[2018-09-25] MEDS: Isosorbide MONOnitrate (24 HR) 60 MG TAB.ER.24H PO SCH (09:11)
[2018-09-25] MEDS: Iron Polysaccharide Complex 150 MG CAPSULE PO SCH (09:11)
[2018-09-25] MEDS: Insulin LISPRO 300 UNITS/3 ML VIAL SQ SCH ×6 (09:12→22:27)
[2018-09-25] MEDS: *HR* OxyCODONE Immed Rel 5 MG TABLET PO PRN ×3 (09:18→19:55)
[2018-09-25] MEDS: Cefepime HCl 2,000 MG in Water for inj. (sterile) 20 ML IVP SCH (13:27)
--- NOTE | 2018-09-25 14:00 | Infectious Disease Progress No ---
ID Progress Note Date of Encounter: 09/25/18 Time of Encounter: 11:45 - Subjective Subjective: Patient seen and examined sitting up in the bedside chair. No acute events noted overnight. Patient complains of pain in her left foot and lower back. Denies fevers, chills, or rigors. Denies chest pain, shortness of breath, or cough. Denies vomiting, diarrhea, or constipation, but does complain of some mild intermittent nausea with decreased appetite. Denies abdominal pain. Vo iding without difficulty since having Kennedy catheter removed, but reports urinating a lot. Reports BM overnight. Denies oral thrush or skin rashes. - Objective CBC & Chem 7: 09/26/18 05:51 09/26/18 05:51 - Exam Vitals: Temp Pulse Resp BP Pulse Ox 98.4 F 65 15 128/39 97 09/25/18 12:04 09/25/18 12:04 09/25/18 12:04 09/25/18 12:04 09/25/18 12:04 Exam: Head: Atraumatic, normal inspection, normocephalic. Eye: EOMI, PERRLA, no scleral icterus noted. ENT: Mucous membranes moist. No odontogenic infection noted. Neck: Normal inspection, no meningismus. Respiratory: Clear to auscultation. No rales, respiratory distress, rhonchi, or wheezes noted. Cardiovascular: Regular rate and rhythm, S1 and S2 audible. No murmurs, rubs, or gallops. GI: Soft, nondistended, normal bowel sounds. Extremities:No joint swelling, pedal edema, or tenderness noted. Left foot d ressing C/D/I. Back: Normal inspection. No vertebral tenderness noted. Neurological: Alert, oriented 3, no focal deficits. Psychiatric: normal affect, normal mood. Skin: Dry, intact, warm. Normal color. No rashes. - Assessment and Plan (1) Osteomyelitis Current Visit: Yes Status: Acute Location: Left foot great toe. Causative organism: Unclear. Previous wound culture were positive for MRSA less than a year ago. Etiology: Likely multifactorial: Diabetes plus PAD plus infection. SILVIA of the LLE showed severe disease. Patient was unable to undergo revision of her vascular graft occlusion. Concerned that without adequate bloodflow, we will be unable to get adequate tissue penetration. Additionally, we do not have cultures and the patient will have to be on broad- spectrum antibiotics for six weeks in the setting of OSCAR/CKD. She is at high risk for further damage to her kidneys. Podiatry consulted and following. No surgical intervention planned at this time. No bone biopsy obtained. Discussed with RNCM who states patient cannot afford home IV antibiotics and will need to go to ECF. Pending insurance approval for ECF. Currently on cefepime and daptomycin. Qualifiers: Osteomyelitis type: unspecified type Osteomyelitis location: foot Laterality: left Qualified Code(s): M86.9 - Osteomyelitis, unspecified SNOMED Code(s): 78982127 (2) Ischemic toe ulcer Current Visit: Yes Status: Acute Location: Left foot great toe. Likely multifactorial: infection + PAD + diabetes. Podiatry consulted and following. Qualifiers: Laterality: left Non-pressure ulcer stage: with fat layer exposed Qualified Code(s): L97.522 - Non-pressure chronic ulcer of other part of left foot with fat layer exposed SNOMED Code(s): 965482023 (3) Acute kidney injury Current Visit: No Status: Acute Likely multifactorial: infection + CKD + nephrotoxic medications (vanc and lisinopril). Improved/stable. Continue to trend. Nephrology consulted and following. SNOMED Code(s): 96108479, 66452227 (4) Vascular graft occlusion Current Visit: Yes Status: Acute Vascular consulted and following. Surgery cancelled due to impaired respiratory status and bronchospasms. Planning outpatient follow-up. Qualifiers: Encounter type: initial encounter Qualified Code(s): T82.898A - Other specified complication of vascular prosthetic devices, implants and grafts, initial encounter SNOMED Code(s): 150974866 (5) PAD (peripheral artery disease) Current Visit: Yes Status: Chronic Multiple surgeries in the past s/p: 08/29/17: 1. Left lower extremity bypass graft thrombectomy. 2. Left common femoral endarterectomy. 08/15/18: 1. Left femoral to popliteal artery bypass graft thrombectomy with 4 sudanese and 5 sudanese Demetrice embolectomy catheters. 2. Left iliofemoral endarterterectomy. 08/29/2018 1. Left lower extremity bypass graft thrombectomy. 2. Left common femoral endarterectomy. ABIs consistent with severe disease in the LLE. Vascular surgery consulted, but further intervention on hold due to acute respiratory failure. SNOMED Code(s): 872958199, 930235066 (6) Chronic kidney disease, stage III (moderate) Current Visit: Yes Status: Acute SNOMED Code(s): 301748491 (7) COPD (chronic obstructive pulmonary disease) Current Visit: No Status: Chronic Qualifiers: COPD type: unspecified COPD Qualified Code(s): J44.9 - Chronic obstructive pulmonary disease, unspecified SNOMED Code(s): 59615389 (8) 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 Visit: No Status: Chronic History of MRSA infection in September 2017. SNOMED Code(s): 920301106 (9) CAD (coronary artery disease) Current Visit: No Status: Chronic Qualifiers: Coronary Disease-Associated Artery/Lesion type: bypass graft [place] vs. transplanted heart: [place] heart Associated angina: without angina Qualified Code(s): I25.810 - Atherosclerosis of coronary artery bypass graft(s) without angina pectoris SNOMED Code(s): 72195236 (10) Hypertension Current Visit: No Status: Chronic Qualifiers: Hypertension type: essential hypertension Qualified Code(s): I10 - Essential (primary) hypertension SNOMED Code(s): 44138660 (11) Diabetes mellitus Current Visit: No Status: Chronic Recommend aggressive glucose monitoring and control to promote wound healing and prevent re-infection. Management per the primary team. Qualifiers: Diabetes mellitus type: type 2 Diabetes mellitus jail insulin use: with jail use Diabetes mellitus complication status: with circulatory complication Diabetes mellitus complication detail: with peripheral angiopathy without gangrene Qualified Code(s): E11.51 - Type 2 diabetes mellitus with diabetic peripheral angiopathy without gangrene; Z79.4 - [facility] (current) use of insulin SNOMED Code(s): 35172538 - Recommendations Recommendations: At this point, we do not have any cultures to help identify the causative organism of the patient's osteomyelitis. Discussed with the podiatry team. Too high risk for bone biopsy. Additionally, given the patient's impaired vascular status, concern that we will be unable to maintain adequate tissue penetration to get the antibiotics to the infected tissue. Will discuss with the vascular team to see if we can expedite getting her leg procedure done. We also need to consider the fact that the patient has chronic kidney disease in 6 weeks of IV antibiotics is very high risk for causing worsening of her renal status. I discussed the risks, benefits, and alternatives with the patient and she is agreeable to proceed with whatever the care team recommends. Wound care per the podiatry team. Continue cefepime 1 g IV every 12 hours for now. Continue daptomycin 6mg/kg Q48H. Duration of treatment depends on the clinical picture, but likely a total of 6 weeks. Monitor renal function and dose adjust antibiotics. Recommend probiotics daily. Contact precautions per hospital policy. program services assistant assisting with discharge planning. Will need weekly labs: CBC, BUN/Cr, ESR, CRP, CK. Will need weekly IV care per protocol. Follow up with ID 10/08/18 at 1440. - VTE Documentation of Mechanical Device: Intermittent pneumatic compression device Consult Discharge Plan - Plan Referrals: Tera Schmidt DPM [Partnered Physician] - 10/02/18 2:30 pm Eleazar Vargas MD [Primary Care Provider] - Serge Castelan MD [Partnered Physician] - 10/01/18 2:10 pm Laure Strong CNP [Advanced Practice Nurse] - 10/08/18 2:20 pm Peewee Koroma [Partnered Physician] - 10/08/18 9:00 am Prescriptions: Cefepime HCl/Dextrose, Iso-Osm [Cefepime 1 gm Injection] 1 gm IV Q12H 42 Days #84 froz.piggy DAPTOmycin [Daptomycin] 350 mg IV DAILY #31 vial - Attending Attestation I have personally performed a face to face evaluation on this patient. I have reviewed and agree with the care plan. History and Exam by me shows: Assessment and plan: 1.Osteomyelitis 2.Ischemic toe ulcer 3.Peripheral artery disease 4.Coronary artery disease 5.Reaction to vancomycin 6.Diabetes mellitus type 2 7.Tobacco dependence 8.History of MRSA infection 9.Worsening kidney function Recommendations: Continue cefepime 1 g IV every 12 hours for now. Continue clindamycin 600 mg IV every 8 hours. Duration of treatment depends on the clinical picture, but likely a total of 6 weeks. Monitor renal function and dose adjust antibiotics. Recommend probiotics daily.
--- NOTE | 2018-09-25 14:12 | Internal Med Progress Note ---
Hospitalist Progress Note - Encounter Date of Encounter: 09/25/18 Time of Encounter: 11:30 - Subjective Interval History: No acute events overnight. Denies any fever/chills, nausea/vomiting, or worsening left foot pain - Exam Vitals: Temp Pulse Resp BP Pulse Ox 98.4 F 65 15 128/39 97 09/25/18 12:04 09/25/18 12:04 09/25/18 12:04 09/25/18 12:04 09/25/18 12:04 Exam: General: In no acute distress. Respiratory exam: Clear to auscultation bilaterally Cardiovascular exam: RRR, +S1, +S2. no murmur, GI/Abdominal exam: Non-tender, Non-distended, normal bowel sounds, soft, no peritoneal signs. Extremities exam: L foot dressing c/d/i Neurological exam: no focal deficits. - Assessment and Plan (1) Osteomyelitis Current Visit: Yes Status: Acute Assessment and Plan: med mx with IV daptomycin and cefepime, anticipate 6 weeks of IV Abx blood culture -ve will work with SW for ECF placement for continuation of IV Abx appreciate ID input outpatient vascular surgery follow up for revascularization (2) PAD (peripheral artery disease) Current Visit: Yes Status: Chronic Assessment and Plan: s/p L fem-pop bypass graft previously required graft thrombectomy in the past now has a recurrent graft occlusion, was taken to the OR for thrombectomy but developed acute bronchospasm on induction of anesthesia and IV Vancomycin appreciate vascular input, for outpatient follow up to reschedule thrombectomy (3) COPD exacerbation Current Visit: Yes Status: Acute Assessment and Plan: resolved, completed steroid on 09/23 PRN duoneb (4) Chronic kidney disease, stage III (moderate) Current Visit: Yes Status: Acute Assessment and Plan: acute on chronic kidney failure stage III, now resolved renally dosed abx (5) CAD (coronary artery disease) Current Visit: No Status: Chronic Assessment and Plan: Resume home meds (6) Hypertension Current Visit: No Status: Chronic Assessment and Plan: Resume home meds (7) Diabetes mellitus Current Visit: No Status: Chronic Assessment and Plan: Hold off on Januvia continue basal bolus insulin, will discontinue scheduled 5 units of lispro 3 times a day with meals (8) Tobacco dependence Current Visit: No Status: Chronic (9) Anemia Current Visit: No Status: Chronic Assessment and Plan: Chronic, hb stable, continue iron supplementation (10) Hematuria Current Visit: Yes Status: Resolved Assessment and Plan: Likely due to traumatic rivera insertion, resolved Outpatient cystoscopy with Urology (11) DVT prophylaxis Current Visit: No Status: Acute Assessment and Plan: Subcutaneous heparin - Summary of Assessment and Plan Summary of Assessment and Plan: Discharge when accepted at ECF - Time Spent with Patient Total time spent is greater than 50% in coordination of care (as documented) at patient's floor/unit and/or counseling patient: 25 - 35 minutes Plan of Care Discussed with: patient (discussed with SW/CM regarding disposition plan) Internal Medicine: Result - Labs CBC & Chem 7: 09/24/18 11:12 09/24/18 11:12 - VTE Documentation of Mechanical Device: Intermittent pneumatic compression device Consult Discharge Plan - Plan Referrals: Tera Schmidt DPM [Partnered Physician] - 10/02/18 2:30 pm Eleazar Vargas MD [Primary Care Provider] - Serge Castelan MD [Partnered Physician] - 10/01/18 2:10 pm Laure Strong CNP [Advanced Practice Nurse] - 10/08/18 2:20 pm Peewee Koroma [Partnered Physician] - 10/08/18 9:00 am Prescriptions: Cefepime HCl/Dextrose, Iso-Osm [Cefepime 1 gm Injection] 1 gm IV Q12H 42 Days #84 froz.deagy DAPTOmycin [Daptomycin] 350 mg IV DAILY #31 vial OxyCODONE/APAP 10/325 [Percocet 10/325 MG] 1 tab PO Q6H PRN 3 Days #9 tablet PRN Reason: Severe Pain (1) Osteomyelitis Qualifiers: Osteomyelitis type: unspecified type Osteomyelitis location: foot Laterality: left Qualified Code(s): M86.9 - Osteomyelitis, unspecified (5) CAD (coronary artery disease) Qualifiers: Coronary Disease-Associated Artery/Lesion type: bypass graft [place] vs. transplanted heart: [place] heart Associated angina: without angina Qualified Code(s): I25.810 - Atherosclerosis of coronary artery bypass graft(s) without angina pectoris (6) Hypertension Qualifiers: Hypertension type: essential hypertension Qualified Code(s): I10 - Essential (primary) hypertension (7) Diabetes mellitus Qualifiers: Diabetes mellitus type: type 2 Diabetes mellitus remote computer terminal operator insulin use: with senior care use Diabetes mellitus complication status: with circulatory complication Diabetes mellitus complication detail: with peripheral angiopathy without gangrene Qualified Code(s): E11.51 - Type 2 diabetes mellitus with diabetic peripheral angiopathy without gangrene; Z79.4 - prison (current) use of insulin (9) Anemia Qualifiers: Anemia type: unspecified type Qualified Code(s): D64.9 - Anemia, unspecified (10) Hematuria Qualifiers: Hematuria type: gross Qualified Code(s): R31.0 - Gross hematuria
[2018-09-25] MEDS ORDERED: Ipratropium/Albuterol Neb 3 ML IH PRN (14:16)
[2018-09-25] MEDS: rOPINIRole 0.25 MG TABLET PO SCH (22:54)
[2018-09-25] MEDS: Gabapentin 300 MG CAPSULE PO SCH (22:54)
[2018-09-26] MEDS: Insulin DETEMIR 100 UNIT/ML X5UNITS SQ SCH (00:34)
[2018-09-26] MEDS: *HR* Heparin 5,000 UNIT/ML VIAL SQ SCH (06:05)
[2018-09-26 06:09] LABS: Basophils % 0.4 %; Eosinophils # 0.3 K/mcL (0.0-0.6); Hematocrit 25.7 % (35.3-44.9); Hemoglobin 8.2 g/dL (11.5-15.4); Immature Granulocytes % 0.4 % (0-4); Lymphocytes # 0.6 K/mcL (0.6-4.6); Lymphocytes % 11.3 %; Mean Corpuscular HGB Conc 31.9 g/dL (31.6-35.5); Mean Corpuscular Hemoglobin 30.8 pg (28.0-33.3); Mean Corpuscular Volume 96.6 fL (83.0-100.0); Mean Platelet Volume 12.2 fL (9.4-12.4); Monocytes # 0.4 K/mcL (0.0-1.3); Monocytes % 7.6 %; Neutrophils # 4.1 K/mcL (1.6-8.9); Platelet Count 138 K/mcL (140-400); Red Blood Count 2.66 M/mcL (3.82-4.97); Red Cell Distribution Width 15.4 % (11.5-14.5); Segmented Neutrophils % 74.3 %; White Blood Count 5.5 K/mcL (4.3-11.1)
[2018-09-26 06:29] LABS: Calcium 8.6 mg/dL (8.6-10.3); Potassium 4.6 mEq/L (3.5-5.1)
[2018-09-26] MEDS: Lactobacillus 1 EACH CAP.SPRINK PO SCH (07:57)
[2018-09-26] MEDS: Aspirin Enteric Coated 81 MG Tablet PO SCH (07:58)
[2018-09-26] MEDS: Isosorbide MONOnitrate (24 HR) 60 MG TAB.ER.24H PO SCH (07:58)
[2018-09-26] MEDS: *HR* OxyCODONE Immed Rel 5 MG TABLET PO PRN ×2 (07:58→12:05)
[2018-09-26] MEDS: Iron Polysaccharide Complex 150 MG CAPSULE PO SCH (07:58)
[2018-09-26] MEDS: amLODIPine 5 MG TABLET PO SCH (07:58)
[2018-09-26] MEDS: Insulin LISPRO 300 UNITS/3 ML VIAL SQ SCH ×2 (08:02→12:07)
[2018-09-26 11:33] VITALS: BP 148/54
[2018-09-26] MEDS: Cefepime HCl 2,000 MG in Water for inj. (sterile) 20 ML IVP SCH (12:05)
--- NOTE | 2018-09-26 12:07 | Internal Med Progress Note ---
Hospitalist Progress Note - Encounter Date of Encounter: 09/26/18 Time of Encounter: 10:15 - Subjective Interval History: No acute events overnight, L foot pain well controlled. No fever. - Exam Vitals: Temp Pulse Resp BP Pulse Ox 98.1 F 55 15 148/54 97 09/26/18 11:32 09/26/18 11:32 09/26/18 11:32 09/26/18 11:32 09/26/18 11:32 Exam: General: In no acute distress. Respiratory exam: Clear to auscultation bilaterally Cardiovascular exam: RRR, +S1, +S2. no murmur, GI/Abdominal exam: Non-tender, Non-distended, normal bowel sounds, soft, no peritoneal signs. Extremities exam: L foot dressing c/d/i Neurological exam: no focal deficits. - Assessment and Plan (1) Osteomyelitis Current Visit: Yes Status: Acute Assessment and Plan: med mx with IV daptomycin and cefepime, anticipate 6 weeks of IV Abx blood culture -ve was notified by SW today that ECF placement is now confirmed. continue IV Abx and follow up with ID as outpatient for further continuation outpatient vascular surgery follow up for revascularization (2) PAD (peripheral artery disease) Current Visit: Yes Status: Chronic Assessment and Plan: s/p L fem-pop bypass graft previously required graft thrombectomy in the past now has a recurrent graft occlusion, was taken to the OR for thrombectomy but developed acute bronchospasm on induction of anesthesia and IV Vancomycin appreciate vascular input, for outpatient follow up to reschedule thrombectomy (3) COPD exacerbation Current Visit: Yes Status: Acute Assessment and Plan: resolved, completed steroid on 09/23 PRN duoneb (4) Chronic kidney disease, stage III (moderate) Current Visit: Yes Status: Acute Assessment and Plan: acute on chronic kidney failure stage III, now resolved renally dosed abx (5) CAD (coronary artery disease) Current Visit: No Status: Chronic Assessment and Plan: Resume home meds (6) Hypertension Current Visit: No Status: Chronic Assessment and Plan: Resume home meds (7) Diabetes mellitus Current Visit: No Status: Chronic Assessment and Plan: Hold off on Januvia continue basal bolus insulin (8) Tobacco dependence Current Visit: No Status: Chronic (9) Anemia Current Visit: No Status: Chronic Assessment and Plan: Chronic, hb stable, continue iron supplementation (10) Hematuria Current Visit: Yes Status: Resolved Assessment and Plan: Likely due to traumatic rivera insertion, resolved Outpatient cystoscopy with Urology (11) DVT prophylaxis Current Visit: No Status: Acute Assessment and Plan: Subcutaneous heparin - Summary of Assessment and Plan Summary of Assessment and Plan: Discharge today - Time Spent with Patient Total time spent is greater than 50% in coordination of care (as documented) at patient's floor/unit and/or counseling patient: less than 15 minutes Plan of Care Discussed with: social work Internal Medicine: Result - Labs CBC & Chem 7: 09/26/18 05:51 09/26/18 05:51 Labs: Short CBC 09/26/18 Range/Units 05:51 WBC 5.5 (4.3-11.1) K/mcL Hgb 8.2 L (11.5-15.4) g/dL Hct 25.7 L (35.3-44.9) % Plt Count 138 L (140-400) K/mcL Neutrophils # 4.1 (1.6-8.9) K/mcL BMP 09/26/18 05:51 Sodium 136 Potassium 4.6 Chloride 106 Carbon Dioxide 22 L BUN 63 H Creatinine 1.43 H Glucose 144 H Calcium 8.6 - VTE Documentation of Mechanical Device: Intermittent pneumatic compression device Consult Discharge Plan - Plan Referrals: Tera Schmidt DPM [Partnered Physician] - 10/02/18 2:30 pm Eleazar Vargas MD [Primary Care Provider] - Serge Castelan MD [Partnered Physician] - 10/01/18 2:10 pm Laure Strong CNP [Advanced Practice Nurse] - 10/08/18 2:20 pm Peewee Koroma [Partnered Physician] - 10/08/18 9:00 am Prescriptions: Cefepime HCl/Dextrose, Iso-Osm [Cefepime 1 gm Injection] 1 gm IV Q12H 42 Days #84 delmy DAPTOmycin [Daptomycin] 350 mg IV DAILY #31 vial (1) Osteomyelitis Qualifiers: Osteomyelitis type: unspecified type Osteomyelitis location: foot Laterality: left Qualified Code(s): M86.9 - Osteomyelitis, unspecified (5) CAD (coronary artery disease) Qualifiers: Coronary Disease-Associated Artery/Lesion type: bypass graft [place] vs. 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
--- NOTE | 2018-09-26 12:11 | Physician Discharge Referral ---
ExtendedCare Referral Info Institutional Level of Care: Skilled - Diagnosis (1) Osteomyelitis Priority: Primary Status: Acute (2) PAD (peripheral artery disease) Priority: Secondary Status: Chronic (3) COPD exacerbation Priority: Secondary Status: Acute (4) Chronic kidney disease, stage III (moderate) Priority: Secondary Status: Acute (5) CAD (coronary artery disease) Priority: Secondary Status: Chronic (6) Hypertension Priority: Secondary Status: Chronic (7) Diabetes mellitus Priority: Secondary Status: Chronic (8) Tobacco dependence Priority: Secondary Status: Chronic (9) Anemia Priority: Secondary Status: Chronic (10) Hematuria Priority: Secondary Status: Resolved (11) DVT prophylaxis Priority: Secondary Status: Acute Prognosis: Fair - Transfer Medications Prescriptions: Cefepime HCl/Dextrose, Iso-Osm [Cefepime 1 gm Injection] 1 gm IV Q12H 42 Days #84 frozharriett DAPTOmycin [Daptomycin] 350 mg IV DAILY #31 vial Home Medications: Albuterol Sulfate [Proair Hfa] 2 puff IH Q4H PRN 08/15/18 [History] Amitriptyline [Elavil] 25 mg PO HS 08/15/18 [History] Aspirin [Lo-Dose Aspirin EC] 81 mg PO DAILY 08/15/18 [History] Clopidogrel [Plavix] 75 mg PO DAILY 08/15/18 [History] DULoxetine [Cymbalta] 30 mg PO DAILY 08/15/18 [History] Ergocalciferol (VITAMIN D2) [Vitamin D2] 50,000 unit PO TH 08/15/18 [History] Gabapentin [Neurontin] 300 mg PO HS 08/15/18 [History] Insulin NPH Hum/Reg Insulin Hm [Relion Novolin 70-30 Flexpen] 5 unit SQ BID 08/15/18 [History] Ipratropium/Albuterol Sulfate [Iprat-Albut 0.5-3(2.5) mg/3 ml] 1 vial IH Q6H PRN 08/15/18 [History] Iron Polysaccharide Complex [Ferrex 150] 150 mg PO DAILY 08/15/18 [History] Isosorbide MONOnitrate (24 HR) [Imdur] 60 mg PO DAILY 08/15/18 [History] Lovastatin [Mevacor] 20 mg PO HS 08/15/18 [History] Metoprolol [Lopressor] 25 mg PO BID 08/15/18 [History] Ropinirole HCl 0.25 mg PO HS 08/15/18 [History] Sertraline [Zoloft] 50 mg PO DAILY 08/15/18 [History] Simethicone [Gas-X] 80 mg PO QID PRN 08/15/18 [History] Sitagliptin Phosphate [Januvia] 50 mg PO DAILY 08/15/18 [History] Vit A/C/E AC/Znox/Cupric Oxide [Eye Vitamin-Minerals Tablet] 1 tab PO DAILY 08/15/18 [History] Cefepime HCl/Dextrose, Iso-Osm [Cefepime 1 gm Injection] 1 gm IV Q12H 42 Days #84 froz.piggy 09/18/18 [Rx] DAPTOmycin [Daptomycin] 350 mg IV DAILY #31 vial 09/20/18 [Rx] amLODIPine [Norvasc] 5 mg PO DAILY #0 tablet 09/23/18 [Rx] Allergies/Adverse Reactions: Allergy/AdvReac Type Severity Reaction Status Date / Time escitalopram [From Lexapro] Allergy Rash Verified 09/09/18 16:11 itraconazole [From Sporanox] Allergy Hives Verified 09/09/18 16:11 Penicillins [PCN] Allergy Rash Verified 09/09/18 16:11 metformin AdvReac Diarrhea Verified 09/09/18 16:11 - Respiratory Orders Smoking Cessation: Smoking cessation has been advised. For more information, call the [place] Tobacco Quit Line at 8-569-MGUQ-NOW. - Rehabiliation Orders Rehab Orders: Evaluation for Physical Therapy, Evaluation for Occupational Therapy CERTIFICATION: I certify that the transfer of the above named patient to an Extended Care Facility is necessary for the continuing treatment of the diagnosis listed. The above information is true and accurate reflection of patient's current condition. Confidential - Redisclosure prohibited without a patient's written consent.
--- NOTE | 2018-09-26 13:41 | Infectious Disease Progress No ---
ID Progress Note Date of Encounter: 09/26/18 Time of Encounter: 10:00 - Subjective Subjective: Patient seen and examined sitting up in the bedside chair. No acute events noted overnight. Patient complains of pain in her left foot and lower back. Denies fevers, chills, or rigors. Denies chest pain, shortness of breath, or cough. Denies vomiting, diarrhea, or constipation, but does complain of some mild intermittent nausea with decreased appetite. Denies abdominal pain. Vo iding without difficulty since having Kennedy catheter removed, but reports urinating a lot. Reports BM overnight. Denies oral thrush or skin rashes. - Objective CBC & Chem 7: 09/26/18 05:51 09/26/18 05:51 - Exam Vitals: Temp Pulse Resp BP Pulse Ox 98.1 F 55 15 148/54 97 09/26/18 11:32 09/26/18 11:32 09/26/18 11:32 09/26/18 11:32 09/26/18 11:32 Exam: Head: Atraumatic, normal inspection, normocephalic. Eye: EOMI, PERRLA, no scleral icterus noted. ENT: Mucous membranes moist. No odontogenic infection noted. Neck: Normal inspection, no meningismus. Respiratory: Clear to auscultation. No rales, respiratory distress, rhonchi, or wheezes noted. Cardiovascular: Regular rate and rhythm, S1 and S2 audible. No murmurs, rubs, or gallops. GI: Soft, nondistended, normal bowel sounds. Extremities:No joint swelling, pedal edema, or tenderness noted. Left foot d ressing C/D/I. Back: Normal inspection. No vertebral tenderness noted. Neurological: Alert, oriented 3, no focal deficits. Psychiatric: normal affect, normal mood. Skin: Dry, intact, warm. Normal color. No rashes. - Assessment and Plan (1) Osteomyelitis Status: Acute Location: Left foot great toe. Causative organism: Unclear. Previous wound culture were positive for MRSA less than a year ago. Etiology: Likely multifactorial: Diabetes plus PAD plus infection. SILVIA of the LLE showed severe disease. Patient was unable to undergo revision of her vascular graft occlusion. Concerned that without adequate bloodflow, we will be unable to get adequate tissue penetration. Additionally, we do not have cultures and the patient will have to be on broad- spectrum antibiotics for six weeks in the setting of OSCAR/CKD. She is at high risk for further damage to her kidneys. Podiatry consulted and following. No surgical intervention planned at this time. No bone biopsy obtained. Discussed with RNCM who states patient cannot afford home IV antibiotics and will need to go to ECF. Pending insurance approval for ECF. Currently on cefepime and daptomycin. Qualifiers: Osteomyelitis type: unspecified type Osteomyelitis location: foot Laterality: left Qualified Code(s): M86.9 - Osteomyelitis, unspecified SNOMED Code(s): 74582360 (2) Ischemic toe ulcer Status: Acute Location: Left foot great toe. Likely multifactorial: infection + PAD + diabetes. Podiatry consulted and following. Qualifiers: Laterality: left Non-pressure ulcer stage: with fat layer exposed Qualified Code(s): L97.522 - Non-pressure chronic ulcer of other part of left foot with fat layer exposed SNOMED Code(s): 330106700 (3) Acute kidney injury Status: Acute Likely multifactorial: infection + CKD + nephrotoxic medications (vanc and lisinopril). Improved/stable. Continue to trend. Nephrology consulted and following. SNOMED Code(s): 04208885, 93701232 (4) Vascular graft occlusion Status: Acute Vascular consulted and following. Surgery cancelled due to impaired respiratory status and bronchospasms. Planning outpatient follow-up. Qualifiers: Encounter type: initial encounter Qualified Code(s): T82.898A - Other specified complication of vascular prosthetic devices, implants and grafts, initial encounter SNOMED Code(s): 489593326 (5) PAD (peripheral artery disease) Status: Chronic Multiple surgeries in the past s/p: 08/29/17: 1. Left lower extremity bypass graft thrombectomy. 2. Left common femoral endarterectomy. 08/15/18: 1. Left femoral to popliteal artery bypass graft thrombectomy with 4 libyan and 5 libyan Demetrice embolectomy catheters. 2. Left iliofemoral endarterterectomy. 08/29/2018 1. Left lower extremity bypass graft thrombectomy. 2. Left common femoral endarterectomy. ABIs consistent with severe disease in the LLE. Vascular surgery consulted, but further intervention on hold due to acute respiratory failure. SNOMED Code(s): 334963481, 237186460 (6) Chronic kidney disease, stage III (moderate) Status: Acute SNOMED Code(s): 071839669 (7) COPD (chronic obstructive pulmonary disease) Status: Chronic Qualifiers: COPD type: unspecified COPD Qualified Code(s): J44.9 - Chronic obstructive pulmonary disease, unspecified SNOMED Code(s): 50145392 (8) Methicillin resistant Staphylococcus aureus infection Status: Chronic History of MRSA infection in September 2017. SNOMED Code(s): 921834121 (9) CAD (coronary artery disease) Status: Chronic Qualifiers: Coronary Disease-Associated Artery/Lesion type: bypass graft [place] vs. transplanted heart: [place] heart Associated angina: without angina Qualified Code(s): I25.810 - Atherosclerosis of coronary artery bypass graft(s) without angina pectoris SNOMED Code(s): 24339041 (10) Hypertension Status: Chronic Qualifiers: Hypertension type: essential hypertension Qualified Code(s): I10 - Essential (primary) hypertension SNOMED Code(s): 35551102 (11) Diabetes mellitus Status: Chronic Recommend aggressive glucose monitoring and control to promote wound healing and prevent re-infection. Management per the primary team. 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 Discussed with the podiatry team. Too high risk for bone biopsy. Additionally, given the patient's impaired vascular status, concern that we will be unable to maintain adequate tissue penetration to get the antibiotics to the infected tissue. Will discuss with the vascular team to see if we can expedite getting her leg procedure done. We also need to consider the fact that the patient has chronic kidney disease in 6 weeks of IV antibiotics is very high risk for causing worsening of her renal status. I discussed the risks, benefits, and alternatives with the patient and she is agreeable to proceed with whatever the care team recommends. Wound care per the podiatry team. Continue cefepime 1 g IV every 12 hours for now. Continue daptomycin 6mg/kg Q48H. Duration of treatment depends on the clinical picture, but likely a total of 6 weeks. Monitor renal function and dose adjust antibiotics. Recommend probiotics daily. Contact precautions per hospital policy. surgical services director assisting with discharge planning. Will need weekly labs: CBC, BUN/Cr, ESR, CRP, CK. Will need weekly IV care per protocol. Follow up with ID 10/08/18 at 1440. - VTE Documentation of Mechanical Device: Intermittent pneumatic compression device Consult Discharge Plan - Plan Referrals: Tera Schmidt DPM [Partnered Physician] - 10/02/18 2:30 pm Eleazar Vargas MD [Primary Care Provider] - Serge Castelan MD [Partnered Physician] - 10/01/18 2:10 pm Laure Strong CNP [Advanced Practice Nurse] - 10/08/18 2:20 pm Peewee Koroma [Partnered Physician] - 10/08/18 9:00 am Prescriptions: Cefepime HCl/Dextrose, Iso-Osm [Cefepime 1 gm Injection] 1 gm IV Q12H 42 Days #84 froz.piggy DAPTOmycin [Daptomycin] 350 mg IV DAILY #31 vial - Attending Attestation I have personally performed a face to face evaluation on this patient. I have reviewed and agree with the care plan. History and Exam by me shows: Assessment and plan: 1.Osteomyelitis 2.Ischemic toe ulcer 3.Peripheral artery disease 4.Coronary artery disease 5.Reaction to vancomycin 6.Diabetes mellitus type 2 7.Tobacco dependence 8.History of MRSA infection 9.Worsening kidney function Recommendations: Continue cefepime 1 g IV every 12 hours for now. Continue clindamycin 600 mg IV every 8 hours. Duration of treatment depends on the clinical picture, but likely a total of 6 weeks. Monitor renal function and dose adjust antibiotics. Recommend probiotics daily. Will need weekly labs: CBC, BUN/Cr, ESR, CRP, CK. Will need weekly IV care per protocol. Follow up with ID 10/08/18 at 1440.
[2018-09-26] MEDS: SODIUM CHLORIDE 0.9% IVPB SCH (14:33)
[2018-09-26] MEDS: DAPTOMYCIN IVPB SCH (14:33)
== END 2018-09-26 17:36 | DRG 314 ==
LOC: EMEROOARM 18:34 → 2ANU 18:34 → SUATTDRO 09-09 01:33 → 2ANU 09-09 01:38 → SUATTDRO 09-09 14:01 → 2NNU 09-13 14:38 → 3ANU 09-14 15:15
PROVIDERS: ADMIT Internal Medicine; ATTEND Internal Medicine

== ENCOUNTER 2018-10-02 15:22 | Inpatient (IN) ==
[~2018-10-02 15:22] MED LIST: Aminoglycoside Consult 1 EACH MC ONE
[2018-10-02] MEDS ORDERED: 0.9 % Sodium Chloride 1,000 ML IVC ONE (16:06)
[2018-10-02 16:09] LABS: Bilirubin,Urine Negative (Negative); Blood,Urine Large (Negative); Clarity,Urine Clear (Clear); Color,Urine Yellow (Yellow); Glucose,Urine (UA) Normal (Normal); Ketones,Urine Trace mg/dL (Negative); Leukocyte Esterase,Urine Negative (Negative); Nitrite,Urine Negative (Negative); Protein,Urine >=300 mg/dL (Neg-Trace); Specific Gravity,Urine 1.025 (1.010-1.025); Urobilinogen,Urine Normal (Normal)
[2018-10-02 16:17] LABS: Squamous Epithelial Cell,Urine Few per lpf (None-Few)
[2018-10-02 16:24] LABS: Basophils % 0.5 %; Eosinophils # 0.2 K/mcL (0.0-0.6); Eosinophils % 2.8 %; Hematocrit 25.5 % (35.3-44.9); Hemoglobin 7.9 g/dL (11.5-15.4); Immature Granulocytes % 0.5 % (0-4); Lymphocytes # 0.6 K/mcL (0.6-4.6); Lymphocytes % 9.5 %; Mean Corpuscular Hemoglobin 30.4 pg (28.0-33.3); Mean Corpuscular Volume 98.1 fL (83.0-100.0); Mean Platelet Volume 12.6 fL (9.4-12.4); Monocytes # 0.4 K/mcL (0.0-1.3); Monocytes % 6.6 %; Neutrophils # 4.9 K/mcL (1.6-8.9); Platelet Count 113 K/mcL (140-400); Red Cell Distribution Width 14.6 % (11.5-14.5); Segmented Neutrophils % 80.1 %; White Blood Count 6.1 K/mcL (4.3-11.1)
[2018-10-02 16:45] LABS: BUN/Creatinine Ratio 34 (6-26); Blood Urea Nitrogen 48 mg/dL (8-23); Calcium 8.7 mg/dL (8.6-10.3); Carbon Dioxide 21 mEq/L (23-29); Chloride 106 mEq/L (98-107); Glucose 125 mg/dL (70-105); Osmolality,Calculated 288 (280-300); Potassium 5.2 mEq/L (3.5-5.1); Sodium 132 mEq/L (136-145); eGFR For African Americans 45 (> 60); eGFR For Non-African Americans 37 (> 60)
[2018-10-02 16:46] LABS: Troponin I < 0.03 ng/mL (< 0.04)
[2018-10-02] MEDS ORDERED: DAPTOmycin 500 MG in 0.9 % Sodium Chloride 100 ML IVPB SCH (17:00)
[2018-10-02] MEDS ORDERED: Naloxone 0.4 MG/ML INJ IVP PRN (17:42)
[2018-10-02] MEDS ORDERED: D5% in Water 1,000 ML IVC PRN (18:00)
[2018-10-02] MEDS ORDERED: *HR* Dextrose 50 % in Water (Syg) 50 ML SYRINGE IVP PRN (18:00)
[2018-10-02] MEDS ORDERED: Dextrose Gel 15 GM/37.5 ML TUBE PO PRN ×2 (18:00)
[2018-10-02] MEDS ORDERED: Ipratropium/Albuterol Neb 3 ML IH PRN (18:24)
[2018-10-02] MEDS: 0.9 % Sodium Chloride 1,000 ML IVC SCH (22:14)
[2018-10-02] MEDS: MetroNIDAZOLE 500 MG/100 ML 500 MG/100 ML BAG IVPB SCH (22:15)
[2018-10-02] MEDS: Cefepime HCl 1,000 MG in Water for inj. (sterile) 10 ML IVP SCH (22:15)
[2018-10-03] MEDS: MetroNIDAZOLE 500 MG/100 ML 500 MG/100 ML BAG IVPB SCH ×3 (01:47→17:48)
[2018-10-03] MEDS: *HR* Heparin 5,000 UNIT/ML VIAL SQ SCH ×2 (05:56→17:49)
[2018-10-03 06:41] LABS: Basophils % 0.1 %; Hematocrit 23.3 % (35.3-44.9); Hemoglobin 7.1 g/dL (11.5-15.4); Immature Granulocytes % 0.3 % (0-4); Lymphocytes # 0.2 K/mcL (0.6-4.6); Lymphocytes % 2.7 %; Mean Corpuscular HGB Conc 30.5 g/dL (31.6-35.5); Mean Corpuscular Volume 101.7 fL (83.0-100.0); Mean Platelet Volume 12.4 fL (9.4-12.4); Monocytes # 0.3 K/mcL (0.0-1.3); Monocytes % 3.8 %; Neutrophils # 7.2 K/mcL (1.6-8.9); Platelet Count 112 K/mcL (140-400); Red Blood Count 2.29 M/mcL (3.82-4.97); Red Cell Distribution Width 14.8 % (11.5-14.5); Segmented Neutrophils % 93.1 %; White Blood Count 7.7 K/mcL (4.3-11.1)
[2018-10-03 07:01] LABS: Calcium 8.1 mg/dL (8.6-10.3); Magnesium 2.2 mg/dL (1.6-2.6); Phosphorous 3.8 mg/dL (2.7-4.5); Potassium 5.1 mEq/L (3.5-5.1)
[2018-10-03] MEDS: Cefepime HCl 1,000 MG in Water for inj. (sterile) 10 ML IVP SCH ×2 (08:49→20:45)
[2018-10-03 10:52] LABS: Hematocrit 27.4 % (35.3-44.9); Hemoglobin 7.7 g/dL (11.5-15.4)
[2018-10-03 13:02] LABS: Adenovirus Not Detected (Not Detect); Coronavirus 229E Not Detected (Not Detect); Coronavirus HKU1 Not Detected (Not Detect); Coronavirus NL63 Not Detected (Not Detect); Coronavirus OC43 Not Detected (Not Detect); Human Metapneumovirus Not Detected (Not Detect); Human Rhinovirus/Enterovirus Not Detected (Not Detect)
[2018-10-03 13:03] LABS: Bordetella Pertussis Not Detected (Not Detect); Chlamydophila pneumoniae Not Detected (Not Detect); Influenza A Subtype 2009 H1 Not Detected (Not Detect); Influenza B Not Detected (Not Detect); Mycoplasma pneumoniae Not Detected (Not Detect); Parainfluenza Virus 1 Not Detected (Not Detect); Parainfluenza Virus 2 Not Detected (Not Detect); Parainfluenza Virus 3 Not Detected (Not Detect); Parainfluenza Virus 4 Not Detected (Not Detect); Respiratory Syncytial Virus Not Detected (Not Detect)
[2018-10-03] MEDS: Insulin LISPRO 300 UNITS/3 ML VIAL SQ SCH ×3 (15:01→17:48)
[2018-10-03] MEDS: Iron Polysaccharide Complex 150 MG CAPSULE PO SCH (15:19)
[2018-10-03] MEDS: Aspirin Enteric Coated 81 MG Tablet PO SCH (15:19)
[2018-10-03] MEDS: Isosorbide MONOnitrate (24 HR) 60 MG TAB.ER.24H PO SCH (15:19)
[2018-10-03] MEDS ORDERED: *HR* OxyCODONE Immed Rel 5 MG TABLET PO PRN ×2 (15:24→21:17)
[2018-10-03] MEDS: Ipratropium/Albuterol Neb 3 ML IH SCH ×3 (15:39→19:35)
[2018-10-03] MEDS ORDERED: Cefepime HCl 1,000 MG in 0.9 % Sodium Chloride Mini Bag 100 ML IVPB ONE (16:12)
[2018-10-03] MEDS: Insulin NPH/REG 70/30 100 UNIT/ML (x5UNIT) SQ SCH (20:47)
[2018-10-03] MEDS: *HR* OxyCODONE Immed Rel 5 MG TABLET PO PRN (22:49)
[2018-10-04] MEDS: Ipratropium/Albuterol Neb 3 ML IH SCH ×7 (00:05→23:43)
[2018-10-04] MEDS: MetroNIDAZOLE 500 MG/100 ML 500 MG/100 ML BAG IVPB SCH ×3 (02:31→17:48)
[2018-10-04] MEDS: *HR* Heparin 5,000 UNIT/ML VIAL SQ SCH ×3 (05:32→19:14)
[2018-10-04 06:06] LABS: Basophils % 0.1 %; Hematocrit 23.7 % (35.3-44.9); Hemoglobin 7.4 g/dL (11.5-15.4); Immature Granulocytes % 0.4 % (0-4); Lymphocytes # 0.2 K/mcL (0.6-4.6); Lymphocytes % 2.6 %; Mean Corpuscular HGB Conc 31.2 g/dL (31.6-35.5); Mean Corpuscular Hemoglobin 30.6 pg (28.0-33.3); Mean Corpuscular Volume 97.9 fL (83.0-100.0); Mean Platelet Volume 12.2 fL (9.4-12.4); Monocytes # 0.4 K/mcL (0.0-1.3); Platelet Count 125 K/mcL (140-400); Red Blood Count 2.42 M/mcL (3.82-4.97); Segmented Neutrophils % 90.9 %; White Blood Count 7.3 K/mcL (4.3-11.1)
[2018-10-04 06:07] LABS: Neutrophils # 6.6 K/mcL (1.6-8.9)
[2018-10-04 06:24] LABS: Albumin 3.2 g/dL (3.5-5.7); Albumin/Globulin Ratio 1.1 (1.1-2.2); Bilirubin,Total 0.7 mg/dL (0.3-1.0); Calcium 8.4 mg/dL (8.6-10.3); Magnesium 2.2 mg/dL (1.6-2.6); Phosphorous 3.1 mg/dL (2.7-4.5); Potassium 4.8 mEq/L (3.5-5.1); Total Protein 6.2 g/dL (6.4-8.9)
[2018-10-04 06:27] LABS: Platelet Estimate Decreased (Normal)
[2018-10-04] MEDS: 0.9 % Sodium Chloride 1,000 ML IVC SCH (07:33)
[2018-10-04] MEDS: Insulin LISPRO 300 UNITS/3 ML VIAL SQ SCH ×4 (07:33→16:47)
[2018-10-04] MEDS: Cefepime HCl 1,000 MG in Water for inj. (sterile) 10 ML IVP SCH ×2 (08:26→20:48)
[2018-10-04] MEDS: Isosorbide MONOnitrate (24 HR) 60 MG TAB.ER.24H PO SCH (11:20)
[2018-10-04] MEDS: Aspirin Enteric Coated 81 MG Tablet PO SCH (11:20)
[2018-10-04] MEDS: Iron Polysaccharide Complex 150 MG CAPSULE PO SCH (11:20)
[2018-10-04] MEDS: amLODIPine 5 MG TABLET PO SCH (11:22)
[2018-10-04] MEDS: Insulin NPH/REG 70/30 100 UNIT/ML (x5UNIT) SQ SCH ×2 (11:23→20:49)
[2018-10-04] MEDS ORDERED: Vancomycin 500 MG in 0.9 % Sodium Chloride Mini Bag 100 ML IVPB ONE (13:00)
[2018-10-04] MEDS: levoFLOXacin 750 MG TABLET PO SCH (14:43)
[2018-10-04] MEDS ORDERED: 0.9 % Sodium Chloride 1,000 ML IVC SCH (16:45)
[2018-10-04] MEDS: hydrALAZINE 25 MG TABLET PO SCH (16:47)
[2018-10-04] MEDS: *HR* OxyCODONE Immed Rel 5 MG TABLET PO PRN ×2 (17:49→23:41)
[2018-10-04] MEDS ORDERED: DAPTOmycin 400 MG in 0.9 % Sodium Chloride 100 ML IVPB SCH (18:00)
[2018-10-04] MEDS ORDERED: DAPTOmycin 500 MG in 0.9 % Sodium Chloride 100 ML IVPB SCH (18:00)
[2018-10-05] MEDS: MetroNIDAZOLE 500 MG/100 ML 500 MG/100 ML BAG IVPB SCH ×3 (03:11→18:43)
[2018-10-05 04:05] LABS: Folate > 22.3 ng/mL (3.0-16.0); Vitamin B12 1253 pg/mL (250-1100)
[2018-10-05] MEDS: Ipratropium/Albuterol Neb 3 ML IH SCH ×6 (04:10→23:25)
[2018-10-05] MEDS: hydrALAZINE 25 MG TABLET PO SCH ×4 (05:52→22:28)
[2018-10-05] MEDS: *HR* OxyCODONE Immed Rel 5 MG TABLET PO PRN ×2 (05:56→22:27)
[2018-10-05] MEDS ORDERED: *HR* FentaNYL (PF) 100 MCG/2 ML VIAL ONE (07:35)
[2018-10-05] MEDS ORDERED: Lidocaine Viscous Oral Soln 15 ML SOLUTION ONE (07:35)
[2018-10-05] MEDS ORDERED: *HR* Midazolam HCl 5 MG/5 ML VIAL IVP ONE ×2 (07:35→08:26)
[2018-10-05] MEDS ORDERED: *HR* FentaNYL (PF) 100 MCG/2 ML VIAL IVP ONE (08:26)
[2018-10-05] MEDS ORDERED: Lidocaine Viscous Oral Soln 15 ML SOLUTION MM ONE (08:26)
[2018-10-05] MEDS ORDERED: *HR* EPINEPHrine 1 MG/10 ML SYRINGE INTRATRACH PRN (08:26)
[2018-10-05] MEDS ORDERED: 0.9 % Sodium Chloride 1,000 ML IVC SCH (08:30)
[2018-10-05] MEDS ORDERED: Albuterol 2.5 MG/3 ML NEBULIZER ONE (08:41)
[2018-10-05] MEDS ORDERED: Tetracaine/Benzocaine/Butamben 1 SPRAY AEROSOL MM ONE (08:44)
[2018-10-05] MEDS ORDERED: Albuterol 2.5 MG/3 ML NEBULIZER IH ONE (08:44)
[2018-10-05] MEDS: Insulin LISPRO 300 UNITS/3 ML VIAL SQ SCH ×3 (09:26→18:43)
[2018-10-05] MEDS: Insulin NPH/REG 70/30 100 UNIT/ML (x5UNIT) SQ SCH ×2 (09:27→20:05)
[2018-10-05] MEDS: Cefepime HCl 1,000 MG in Water for inj. (sterile) 10 ML IVP SCH ×2 (09:33→20:04)
[2018-10-05] MEDS: Aspirin Enteric Coated 81 MG Tablet PO SCH (12:50)
[2018-10-05] MEDS: Iron Polysaccharide Complex 150 MG CAPSULE PO SCH (12:51)
[2018-10-05] MEDS: Isosorbide MONOnitrate (24 HR) 60 MG TAB.ER.24H PO SCH (12:51)
[2018-10-05] MEDS: amLODIPine 5 MG TABLET PO SCH (12:51)
[2018-10-05 13:52] LABS: Calcium 8.3 mg/dL (8.6-10.3); Phosphorous 2.3 mg/dL (2.7-4.5); Potassium 4.4 mEq/L (3.5-5.1)
[2018-10-05 14:35] LABS: Appearance of Body Fluid Cloudy (Clear); Volume of Body Fluid 16 mL
[2018-10-05] MEDS: Sodium Bicarbonate 150 MEQ in 0.45 % Sodium Chloride 1,000 ML IVC SCH (16:52)
[2018-10-05] MEDS: *HR* Heparin 5,000 UNIT/ML VIAL SQ SCH (18:43)
[2018-10-06] MEDS: MetroNIDAZOLE 500 MG/100 ML 500 MG/100 ML BAG IVPB SCH ×3 (02:37→20:19)
[2018-10-06] MEDS: Ipratropium/Albuterol Neb 3 ML IH SCH ×6 (03:36→23:27)
[2018-10-06] MEDS: *HR* Heparin 5,000 UNIT/ML VIAL SQ SCH ×2 (05:56→18:28)
[2018-10-06] MEDS: hydrALAZINE 25 MG TABLET PO SCH ×3 (06:00→23:47)
[2018-10-06 06:35] LABS: Eosinophils % 0.4 %; Hematocrit 22.6 % (35.3-44.9); Hemoglobin 6.8 g/dL (11.5-15.4); Immature Granulocytes % 0.4 % (0-4); Lymphocytes # 0.2 K/mcL (0.6-4.6); Lymphocytes % 4.2 %; Mean Corpuscular HGB Conc 30.1 g/dL (31.6-35.5); Mean Corpuscular Volume 99.6 fL (83.0-100.0); Monocytes # 0.3 K/mcL (0.0-1.3); Monocytes % 6.5 %; Neutrophils # 4.5 K/mcL (1.6-8.9); Platelet Count 123 K/mcL (140-400); Red Blood Count 2.27 M/mcL (3.82-4.97); Red Cell Distribution Width 15.5 % (11.5-14.5); Segmented Neutrophils % 88.5 %
[2018-10-06 06:55] LABS: Calcium 8.2 mg/dL (8.6-10.3); Magnesium 2.1 mg/dL (1.6-2.6); Phosphorous 2.5 mg/dL (2.7-4.5); Potassium 4.2 mEq/L (3.5-5.1)
[2018-10-06] MEDS: Insulin LISPRO 300 UNITS/3 ML VIAL SQ SCH ×3 (08:42→16:40)
[2018-10-06] MEDS: Insulin NPH/REG 70/30 100 UNIT/ML (x5UNIT) SQ SCH ×2 (08:43→20:34)
[2018-10-06] MEDS: Cefepime HCl 1,000 MG in Water for inj. (sterile) 10 ML IVP SCH ×2 (08:43→20:18)
[2018-10-06] MEDS: amLODIPine 5 MG TABLET PO SCH (08:44)
[2018-10-06] MEDS: Iron Polysaccharide Complex 150 MG CAPSULE PO SCH (08:44)
[2018-10-06] MEDS: Isosorbide MONOnitrate (24 HR) 60 MG TAB.ER.24H PO SCH (08:44)
[2018-10-06] MEDS: Aspirin Enteric Coated 81 MG Tablet PO SCH (08:44)
[2018-10-06 09:32] LABS: Hematocrit 21.9 % (35.3-44.9); Hemoglobin 6.8 g/dL (11.5-15.4)
[2018-10-06] MEDS: levoFLOXacin 750 MG TABLET PO SCH (12:04)
[2018-10-06] MEDS: Sodium Bicarbonate 150 MEQ in 0.45 % Sodium Chloride 1,000 ML IVC SCH (12:31)
[2018-10-06] MEDS: *HR* OxyCODONE Immed Rel 5 MG TABLET PO PRN ×2 (13:14→20:55)
[2018-10-06] MEDS ORDERED: 0.9 % Sodium Chloride 250 ML ONE (16:33)
[2018-10-06 21:27] LABS: Basophils % 0.2 %; Eosinophils % 0.5 %; Hematocrit 26.9 % (35.3-44.9); Hemoglobin 8.5 g/dL (11.5-15.4); Immature Granulocytes % 0.4 % (0-4); Lymphocytes # 0.2 K/mcL (0.6-4.6); Lymphocytes % 4.2 %; Mean Corpuscular HGB Conc 31.6 g/dL (31.6-35.5); Mean Corpuscular Hemoglobin 29.7 pg (28.0-33.3); Mean Corpuscular Volume 94.1 fL (83.0-100.0); Mean Platelet Volume 12.6 fL (9.4-12.4); Monocytes # 0.4 K/mcL (0.0-1.3); Monocytes % 6.9 %; Neutrophils # 4.8 K/mcL (1.6-8.9); Platelet Count 144 K/mcL (140-400); Red Blood Count 2.86 M/mcL (3.82-4.97); Red Cell Distribution Width 15.7 % (11.5-14.5); Segmented Neutrophils % 87.8 %; White Blood Count 5.5 K/mcL (4.3-11.1)
[2018-10-06 23:33] LABS: ABG Base Excess -3 mEq/L (-2 to 3); ABG HCO3 22 mEq/L (21-27); ABG Oxygen Saturation 95 % (95-98); ABG PCO2 34 mmHg (35-45); ABG PH 7.41 pH Units (7.32-7.45); ABG PO2 72 mmHg (85-104); ABG TCO2 23 mEq/L (20-26)
[2018-10-07] MEDS: MetroNIDAZOLE 500 MG/100 ML 500 MG/100 ML BAG IVPB SCH ×2 (02:16→14:21)
[2018-10-07] MEDS ORDERED: Furosemide 20 MG/2 ML VIAL IVP ONE (02:30)
[2018-10-07] MEDS: Ipratropium/Albuterol Neb 3 ML IH SCH ×6 (03:53→23:25)
[2018-10-07] MEDS: *HR* Heparin 5,000 UNIT/ML VIAL SQ SCH ×2 (06:27→17:54)
[2018-10-07] MEDS: hydrALAZINE 25 MG TABLET PO SCH ×3 (06:28→23:26)
[2018-10-07] MEDS: *HR* OxyCODONE Immed Rel 5 MG TABLET PO PRN ×2 (06:28→18:37)
[2018-10-07 08:30] LABS: Basophils % 0.2 %; Eosinophils % 0.3 %; Hematocrit 26.9 % (35.3-44.9); Hemoglobin 8.6 g/dL (11.5-15.4); Immature Granulocytes % 0.5 % (0-4); Lymphocytes # 0.2 K/mcL (0.6-4.6); Lymphocytes % 2.8 %; Mean Corpuscular Volume 93.7 fL (83.0-100.0); Mean Platelet Volume 12.1 fL (9.4-12.4); Monocytes # 0.4 K/mcL (0.0-1.3); Monocytes % 7.1 %; Platelet Count 144 K/mcL (140-400); Red Blood Count 2.87 M/mcL (3.82-4.97); Red Cell Distribution Width 16.3 % (11.5-14.5); Segmented Neutrophils % 89.1 %; White Blood Count 5.8 K/mcL (4.3-11.1)
[2018-10-07 08:38] LABS: Neutrophils # 5.2 K/mcL (1.6-8.9)
[2018-10-07 08:45] LABS: Calcium 8.6 mg/dL (8.6-10.3); Phosphorous 2.6 mg/dL (2.7-4.5)
[2018-10-07 09:06] LABS: Platelet Estimate Normal (Normal)
[2018-10-07] MEDS: Cefepime HCl 1,000 MG in Water for inj. (sterile) 10 ML IVP SCH ×2 (10:51→20:25)
[2018-10-07] MEDS: Iron Polysaccharide Complex 150 MG CAPSULE PO SCH (10:51)
[2018-10-07] MEDS: amLODIPine 5 MG TABLET PO SCH (10:52)
[2018-10-07] MEDS: Isosorbide MONOnitrate (24 HR) 60 MG TAB.ER.24H PO SCH (10:52)
[2018-10-07] MEDS: Aspirin Enteric Coated 81 MG Tablet PO SCH (10:52)
[2018-10-07] MEDS: Insulin LISPRO 300 UNITS/3 ML VIAL SQ SCH ×3 (10:57→16:46)
[2018-10-07] MEDS: Insulin NPH/REG 70/30 100 UNIT/ML (x5UNIT) SQ SCH ×2 (10:58→16:47)
[2018-10-07] MEDS ORDERED: Albumin 25% 12.5gm/50mL 12.5 GM/50 ML IV.SOLN IVPB ONE (12:21)
[2018-10-07] MEDS ORDERED: Furosemide 40 MG/4 ML VIAL IVP ONE (12:21)
[2018-10-07] MEDS ORDERED: Isosorbide MONOnitrate (24 HR) 60 MG TAB.ER.24H PO ONE (13:16)
[2018-10-07] MEDS: hydrOXYzine pamoate 25 MG CAPSULE PO PRN (19:00)
[2018-10-07] MEDS: metroNIDAZOLE 500 MG TABLET PO SCH (20:27)
[2018-10-08] MEDS: hydrOXYzine pamoate 25 MG CAPSULE PO PRN ×2 (01:25→16:39)
[2018-10-08] MEDS: *HR* OxyCODONE Immed Rel 5 MG TABLET PO PRN ×4 (01:46→23:01)
[2018-10-08 03:09] LABS: Basophils % 0.2 %; Eosinophils # 0.1 K/mcL (0.0-0.6); Eosinophils % 1.4 %; Hematocrit 25.5 % (35.3-44.9); Hemoglobin 8.1 g/dL (11.5-15.4); Immature Granulocytes % 0.5 % (0-4); Lymphocytes # 0.3 K/mcL (0.6-4.6); Lymphocytes % 4.7 %; Mean Corpuscular HGB Conc 31.8 g/dL (31.6-35.5); Mean Corpuscular Hemoglobin 29.2 pg (28.0-33.3); Mean Corpuscular Volume 92.1 fL (83.0-100.0); Mean Platelet Volume 11.2 fL (9.4-12.4); Monocytes # 0.4 K/mcL (0.0-1.3); Monocytes % 6.1 %; Platelet Count 162 K/mcL (140-400); Red Blood Count 2.77 M/mcL (3.82-4.97); Red Cell Distribution Width 15.9 % (11.5-14.5); Segmented Neutrophils % 87.1 %; White Blood Count 5.7 K/mcL (4.3-11.1)
[2018-10-08 03:32] LABS: Calcium 8.7 mg/dL (8.6-10.3); Magnesium 1.9 mg/dL (1.6-2.6); Phosphorous 2.6 mg/dL (2.7-4.5); Potassium 3.3 mEq/L (3.5-5.1)
[2018-10-08] MEDS: Ipratropium/Albuterol Neb 3 ML IH SCH ×5 (03:46→20:46)
[2018-10-08] MEDS: *HR* Heparin 5,000 UNIT/ML VIAL SQ SCH ×2 (06:17→16:25)
[2018-10-08] MEDS: hydrALAZINE 25 MG TABLET PO SCH ×3 (06:17→23:01)
[2018-10-08] MEDS ORDERED: *HR* LORazepam 2 MG/ML VIAL IVP ONE (07:47)
[2018-10-08] MEDS ORDERED: Calcium Gluconate 1,000 MG/10 ML VIAL ONE (07:57)
[2018-10-08] MEDS ORDERED: Potassium Phosphate 44 MEQ in 0.9 % Sodium Chloride 250 ML IVPB ONE (08:13)
[2018-10-08] MEDS: Insulin LISPRO 300 UNITS/3 ML VIAL SQ SCH ×3 (08:18→16:33)
[2018-10-08] MEDS: Cefepime HCl 1,000 MG in Water for inj. (sterile) 10 ML IVP SCH (08:19)
[2018-10-08] MEDS: Aspirin Enteric Coated 81 MG Tablet PO SCH (08:20)
[2018-10-08] MEDS: Iron Polysaccharide Complex 150 MG CAPSULE PO SCH (08:20)
[2018-10-08] MEDS: metroNIDAZOLE 500 MG TABLET PO SCH ×3 (08:20→20:49)
[2018-10-08] MEDS: Isosorbide MONOnitrate (24 HR) 60 MG TAB.ER.24H PO SCH (08:20)
[2018-10-08] MEDS: amLODIPine 5 MG TABLET PO SCH (08:20)
[2018-10-08] MEDS: Insulin NPH/REG 70/30 100 UNIT/ML (x5UNIT) SQ SCH ×2 (08:21→16:34)
[2018-10-08] MEDS ORDERED: Furosemide 40 MG/4 ML VIAL IVP ONE (12:25)
[2018-10-08] MEDS ORDERED: Albumin 25% 12.5gm/50mL 12.5 GM/50 ML IV.SOLN IVPB ONE (12:27)
[2018-10-08] MEDS: levoFLOXacin 750 MG TABLET PO SCH (12:32)
[2018-10-08 16:45] LABS: Bilirubin,Urine Negative (Negative); Blood,Urine Large (Negative); Clarity,Urine Cloudy (Clear); Color,Urine Dark Yellow (Yellow); Glucose,Urine (UA) Normal (Normal); Ketones,Urine Trace mg/dL (Negative); Leukocyte Esterase,Urine Small (Negative); Nitrite,Urine Negative (Negative); PH,Urine 5.5 pH Units (5.0-8.0); Protein,Urine >=300 mg/dL (Neg-Trace); Specific Gravity,Urine 1.019 (1.010-1.025); Urobilinogen,Urine Normal (Normal)
[2018-10-08 16:47] LABS: Bacteria,Urine None Seen per hpf (None-Few); RBC,Urine TNTC per hpf (0-3); Squamous Epithelial Cell,Urine Many per lpf (None-Few)
[2018-10-08 17:12] LABS: Creatinine,Urine 88 mg/dL; Microalbumin,Urine > 1350 mg/L; Protein/Creatinine Ratio,Urine 4.82 mg/mg (0.00-0.20)
[2018-10-09] MEDS: Ipratropium/Albuterol Neb 3 ML IH SCH ×7 (00:09→23:31)
[2018-10-09 02:36] LABS: Eosinophils # 0.2 K/mcL (0.0-0.6); Eosinophils % 3.6 %; Hematocrit 26.2 % (35.3-44.9); Hemoglobin 8.4 g/dL (11.5-15.4); Immature Granulocytes % 0.7 % (0-4); Lymphocytes # 0.3 K/mcL (0.6-4.6); Lymphocytes % 5.7 %; Mean Corpuscular HGB Conc 32.1 g/dL (31.6-35.5); Mean Corpuscular Hemoglobin 29.8 pg (28.0-33.3); Mean Corpuscular Volume 92.9 fL (83.0-100.0); Mean Platelet Volume 10.8 fL (9.4-12.4); Monocytes # 0.3 K/mcL (0.0-1.3); Monocytes % 5.7 %; Neutrophils # 4.7 K/mcL (1.6-8.9); Platelet Count 161 K/mcL (140-400); Red Blood Count 2.82 M/mcL (3.82-4.97); Red Cell Distribution Width 15.9 % (11.5-14.5); Segmented Neutrophils % 84.3 %; White Blood Count 5.6 K/mcL (4.3-11.1)
[2018-10-09 03:07] LABS: Complement C3 81 mg/dL (87-200)
[2018-10-09] MEDS: hydrALAZINE 25 MG TABLET PO SCH ×3 (05:51→22:07)
[2018-10-09] MEDS: *HR* Heparin 5,000 UNIT/ML VIAL SQ SCH ×2 (05:52→17:21)
[2018-10-09] MEDS: Iron Polysaccharide Complex 150 MG CAPSULE PO SCH (07:41)
[2018-10-09] MEDS: Aspirin Enteric Coated 81 MG Tablet PO SCH (07:41)
[2018-10-09] MEDS: Isosorbide MONOnitrate (24 HR) 60 MG TAB.ER.24H PO SCH (07:41)
[2018-10-09] MEDS: metroNIDAZOLE 500 MG TABLET PO SCH ×3 (07:41→20:17)
[2018-10-09] MEDS: amLODIPine 5 MG TABLET PO SCH (07:41)
[2018-10-09] MEDS: Insulin NPH/REG 70/30 100 UNIT/ML (x5UNIT) SQ SCH ×2 (07:52→17:09)
[2018-10-09] MEDS: Insulin LISPRO 300 UNITS/3 ML VIAL SQ SCH ×4 (07:54→22:00)
[2018-10-09] MEDS ORDERED: Cefepime HCl 1,000 MG in Water for inj. (sterile) 10 ML IVP SCH (09:00)
[2018-10-09 09:02] LABS: Calcium 8.8 mg/dL (8.6-10.3); Magnesium 1.8 mg/dL (1.6-2.6); Phosphorous 4.2 mg/dL (2.7-4.5); Potassium 3.6 mEq/L (3.5-5.1)
[2018-10-09] MEDS: Nystatin SUSP 5 ML UD.LIQ PO SCH ×3 (12:08→20:16)
[2018-10-09] MEDS ORDERED: predniSONE 10 MG TABLET PO SCH (18:00)
[2018-10-09] MEDS: Ceftaroline Fosamil Acetate 600 MG in 0.9 % Sodium Chloride 50 ML IVPB SCH (18:05)
[2018-10-09] MEDS: hydrOXYzine pamoate 25 MG CAPSULE PO PRN (18:58)
[2018-10-09] MEDS: *HR* OxyCODONE Immed Rel 5 MG TABLET PO PRN (22:06)
[2018-10-10 03:38] LABS: Eosinophils % 0.2 %; Hematocrit 26.8 % (35.3-44.9); Hemoglobin 8.5 g/dL (11.5-15.4); Immature Granulocytes % 1.3 % (0-4); Lymphocytes # 0.1 K/mcL (0.6-4.6); Mean Corpuscular HGB Conc 31.7 g/dL (31.6-35.5); Mean Corpuscular Hemoglobin 29.1 pg (28.0-33.3); Mean Corpuscular Volume 91.8 fL (83.0-100.0); Mean Platelet Volume 11.3 fL (9.4-12.4); Monocytes # 0.1 K/mcL (0.0-1.3); Monocytes % 1.7 %; Neutrophils # 4.4 K/mcL (1.6-8.9); Platelet Count 190 K/mcL (140-400); Red Blood Count 2.92 M/mcL (3.82-4.97); Red Cell Distribution Width 15.6 % (11.5-14.5); Segmented Neutrophils % 93.8 %; White Blood Count 4.7 K/mcL (4.3-11.1)
[2018-10-10] MEDS: Ipratropium/Albuterol Neb 3 ML IH SCH ×6 (03:45→23:30)
[2018-10-10 03:56] LABS: Platelet Estimate Normal (Normal)
[2018-10-10 03:57] LABS: Calcium 8.6 mg/dL (8.6-10.3); Magnesium 1.9 mg/dL (1.6-2.6); Phosphorous 3.9 mg/dL (2.7-4.5); Potassium 3.7 mEq/L (3.5-5.1)
[2018-10-10] MEDS: Ceftaroline Fosamil Acetate 600 MG in 0.9 % Sodium Chloride 50 ML IVPB SCH (04:13)
[2018-10-10] MEDS: *HR* OxyCODONE Immed Rel 5 MG TABLET PO PRN ×2 (04:15→23:34)
[2018-10-10] MEDS: *HR* Heparin 5,000 UNIT/ML VIAL SQ SCH ×2 (05:57→17:24)
[2018-10-10] MEDS: hydrALAZINE 25 MG TABLET PO SCH ×3 (05:58→23:34)
[2018-10-10] MEDS: Insulin LISPRO 300 UNITS/3 ML VIAL SQ SCH ×4 (08:56→22:32)
[2018-10-10] MEDS: Insulin NPH/REG 70/30 100 UNIT/ML (x5UNIT) SQ SCH ×2 (08:56→17:24)
[2018-10-10] MEDS: amLODIPine 5 MG TABLET PO SCH (08:57)
[2018-10-10] MEDS: Nystatin SUSP 5 ML UD.LIQ PO SCH ×4 (08:57→22:31)
[2018-10-10] MEDS: Aspirin Enteric Coated 81 MG Tablet PO SCH (08:57)
[2018-10-10] MEDS: Isosorbide MONOnitrate (24 HR) 60 MG TAB.ER.24H PO SCH (08:57)
[2018-10-10] MEDS: metroNIDAZOLE 500 MG TABLET PO SCH ×3 (08:58→22:31)
[2018-10-10] MEDS: Iron Polysaccharide Complex 150 MG CAPSULE PO SCH (08:58)
[2018-10-10] MEDS: levoFLOXacin 750 MG TABLET PO SCH (11:38)
[2018-10-10] MEDS: predniSONE 20 MG TABLET PO SCH (11:38)
[2018-10-10] MEDS: Ceftaroline Fosamil Acetate 400 MG in 0.9 % Sodium Chloride 50 ML IVPB SCH (18:49)
[2018-10-11] MEDS: Ipratropium/Albuterol Neb 3 ML IH SCH ×5 (04:17→19:51)
[2018-10-11 04:53] LABS: Hematocrit 25.1 % (35.3-44.9); Hemoglobin 7.9 g/dL (11.5-15.4); Immature Granulocytes % 1.2 % (0-4); Lymphocytes # 0.3 K/mcL (0.6-4.6); Lymphocytes % 5.8 %; Mean Corpuscular HGB Conc 31.5 g/dL (31.6-35.5); Mean Corpuscular Hemoglobin 29.4 pg (28.0-33.3); Mean Corpuscular Volume 93.3 fL (83.0-100.0); Mean Platelet Volume 10.6 fL (9.4-12.4); Monocytes # 0.3 K/mcL (0.0-1.3); Monocytes % 4.6 %; Platelet Count 165 K/mcL (140-400); Red Blood Count 2.69 M/mcL (3.82-4.97); Red Cell Distribution Width 15.4 % (11.5-14.5); Segmented Neutrophils % 88.4 %; White Blood Count 5.7 K/mcL (4.3-11.1)
[2018-10-11 05:11] LABS: Calcium 8.7 mg/dL (8.6-10.3); Magnesium 1.9 mg/dL (1.6-2.6); Phosphorous 3.6 mg/dL (2.7-4.5); Potassium 3.5 mEq/L (3.5-5.1)
[2018-10-11 05:38] LABS: Adenovirus Not Detected (Not Detect); Bordetella Pertussis Not Detected (Not Detect); Chlamydophila pneumoniae Not Detected (Not Detect); Coronavirus 229E Not Detected (Not Detect); Coronavirus HKU1 Not Detected (Not Detect); Coronavirus NL63 Not Detected (Not Detect); Coronavirus OC43 Not Detected (Not Detect); Human Metapneumovirus Not Detected (Not Detect); Human Rhinovirus/Enterovirus Not Detected (Not Detect); Influenza A Subtype 2009 H1 Not Detected (Not Detect); Influenza B Not Detected (Not Detect); Mycoplasma pneumoniae Not Detected (Not Detect); Parainfluenza Virus 1 Not Detected (Not Detect); Parainfluenza Virus 2 Not Detected (Not Detect); Parainfluenza Virus 3 Not Detected (Not Detect); Parainfluenza Virus 4 Not Detected (Not Detect); Respiratory Syncytial Virus Not Detected (Not Detect)
[2018-10-11] MEDS: *HR* Heparin 5,000 UNIT/ML VIAL SQ SCH ×2 (06:51→17:43)
[2018-10-11] MEDS: hydrALAZINE 25 MG TABLET PO SCH ×2 (06:52→15:39)
[2018-10-11] MEDS: Ceftaroline Fosamil Acetate 400 MG in 0.9 % Sodium Chloride 50 ML IVPB SCH ×2 (07:43→17:46)
[2018-10-11] MEDS: Isosorbide MONOnitrate (24 HR) 60 MG TAB.ER.24H PO SCH (08:50)
[2018-10-11] MEDS: predniSONE 20 MG TABLET PO SCH (08:50)
[2018-10-11] MEDS: metroNIDAZOLE 500 MG TABLET PO SCH ×3 (08:51→21:23)
[2018-10-11] MEDS: Insulin LISPRO 300 UNITS/3 ML VIAL SQ SCH ×4 (08:51→21:24)
[2018-10-11] MEDS: Nystatin SUSP 5 ML UD.LIQ PO SCH ×4 (08:51→21:22)
[2018-10-11] MEDS: Insulin NPH/REG 70/30 100 UNIT/ML (x5UNIT) SQ SCH ×2 (08:51→17:44)
[2018-10-11] MEDS: amLODIPine 5 MG TABLET PO SCH (08:51)
[2018-10-11 10:19] LABS: Serine Protease-3 Antibody 3 AU/mL (0-19)
[2018-10-11 10:31] LABS: ANA IgG by ELISA NONE DETECTED (None Detected)
[2018-10-11] MEDS: Iron Polysaccharide Complex 150 MG CAPSULE PO SCH (12:05)
[2018-10-11 13:22] LABS: Aldolase, Serum 5.8 U/L (1.5-8.1); Hepatitis B Core Ab Total NEGATIVE (Negative)
[2018-10-11] MEDS: *HR* OxyCODONE Immed Rel 5 MG TABLET PO PRN (21:42)
[2018-10-11 23:05] LABS: Hematocrit 26.6 % (35.3-44.9); Hemoglobin 8.2 g/dL (11.5-15.4)
[2018-10-11] MEDS ORDERED: Insulin DETEMIR 100 UNIT/ML X5UNITS SQ SCH (23:15)
[2018-10-12] MEDS: hydrALAZINE 25 MG TABLET PO SCH ×4 (00:01→23:48)
[2018-10-12] MEDS: Ipratropium/Albuterol Neb 3 ML IH SCH ×7 (00:08→23:50)
[2018-10-12 04:22] LABS: Eosinophils % 0.1 %; Hematocrit 25.6 % (35.3-44.9); Immature Granulocytes % 2.3 % (0-4); Lymphocytes # 0.6 K/mcL (0.6-4.6); Lymphocytes % 7.1 %; Mean Corpuscular HGB Conc 31.3 g/dL (31.6-35.5); Mean Corpuscular Hemoglobin 28.8 pg (28.0-33.3); Mean Corpuscular Volume 92.1 fL (83.0-100.0); Mean Platelet Volume 10.7 fL (9.4-12.4); Monocytes # 0.6 K/mcL (0.0-1.3); Monocytes % 7.2 %; Neutrophils # 6.6 K/mcL (1.6-8.9); Nucleated Red Blood Cells 0.3 /100 WBC (0); Platelet Count 196 K/mcL (140-400); Red Blood Count 2.78 M/mcL (3.82-4.97); Red Cell Distribution Width 15.1 % (11.5-14.5); Segmented Neutrophils % 83.3 %; White Blood Count 7.9 K/mcL (4.3-11.1)
[2018-10-12 04:35] LABS: Calcium 8.5 mg/dL (8.6-10.3); Magnesium 1.8 mg/dL (1.6-2.6); Phosphorous 3.4 mg/dL (2.7-4.5); Potassium 3.3 mEq/L (3.5-5.1)
[2018-10-12] MEDS: Ceftaroline Fosamil Acetate 400 MG in 0.9 % Sodium Chloride 50 ML IVPB SCH ×2 (06:26→18:28)
[2018-10-12] MEDS: *HR* Heparin 5,000 UNIT/ML VIAL SQ SCH ×2 (06:26→17:33)
[2018-10-12] MEDS ORDERED: Potassium Chloride 20 MEQ, Lidocaine 1% 2 ML in D5% in Water 250 ML IVPB ONE (08:17)
[2018-10-12] MEDS: Isosorbide MONOnitrate (24 HR) 60 MG TAB.ER.24H PO SCH (09:58)
[2018-10-12] MEDS: Iron Polysaccharide Complex 150 MG CAPSULE PO SCH (09:58)
[2018-10-12] MEDS: amLODIPine 5 MG TABLET PO SCH (09:59)
[2018-10-12] MEDS: Insulin NPH/REG 70/30 100 UNIT/ML (x5UNIT) SQ SCH ×2 (09:59→16:21)
[2018-10-12] MEDS: Nystatin SUSP 5 ML UD.LIQ PO SCH ×5 (09:59→22:35)
[2018-10-12] MEDS: metroNIDAZOLE 500 MG TABLET PO SCH ×3 (09:59→21:47)
[2018-10-12] MEDS: predniSONE 20 MG TABLET PO SCH (09:59)
[2018-10-12] MEDS: Insulin LISPRO 300 UNITS/3 ML VIAL SQ SCH ×4 (10:00→21:46)
[2018-10-12] MEDS: Insulin DETEMIR 100 UNIT/ML X5UNITS SQ SCH ×2 (16:01→22:34)
[2018-10-12] MEDS: levoFLOXacin 750 MG TABLET PO SCH (16:01)
[2018-10-12 16:29] LABS: Hematocrit 27.7 % (35.3-44.9); Hemoglobin 8.8 g/dL (11.5-15.4)
[2018-10-13 01:45] LABS: APTT (LE Anticoag) 50 sec (32-48); Diluted Russell Viper Venom 40 sec (33-44); LE Coag APTT Mixing 44 sec (32-48); PT (LE-Anticoag) 16.4 sec (12.0-15.5); Thrombin Time 18.3 sec (14.7-19.5)
[2018-10-13] MEDS: Ipratropium/Albuterol Neb 3 ML IH SCH ×6 (03:46→23:22)
[2018-10-13 05:14] LABS: Hematocrit 25.4 % (35.3-44.9); Hemoglobin 8.2 g/dL (11.5-15.4); Immature Granulocytes % 4.8 % (0-4); Lymphocytes # 0.5 K/mcL (0.6-4.6); Lymphocytes % 6.5 %; Mean Corpuscular HGB Conc 32.3 g/dL (31.6-35.5); Mean Platelet Volume 11.1 fL (9.4-12.4); Monocytes # 0.5 K/mcL (0.0-1.3); Monocytes % 6.3 %; Neutrophils # 6.8 K/mcL (1.6-8.9); Nucleated Red Blood Cells 0.4 /100 WBC (0); Platelet Count 177 K/mcL (140-400); Red Blood Count 2.73 M/mcL (3.82-4.97); Red Cell Distribution Width 14.8 % (11.5-14.5); Segmented Neutrophils % 82.4 %; White Blood Count 8.3 K/mcL (4.3-11.1)
[2018-10-13 05:33] LABS: Calcium 8.4 mg/dL (8.6-10.3); Magnesium 1.7 mg/dL (1.6-2.6); Phosphorous 3.1 mg/dL (2.7-4.5); Potassium 3.7 mEq/L (3.5-5.1)
[2018-10-13] MEDS: *HR* Heparin 5,000 UNIT/ML VIAL SQ SCH ×2 (06:30→18:04)
[2018-10-13] MEDS: Ceftaroline Fosamil Acetate 400 MG in 0.9 % Sodium Chloride 50 ML IVPB SCH ×2 (06:34→18:04)
[2018-10-13] MEDS: Insulin LISPRO 300 UNITS/3 ML VIAL SQ SCH ×4 (09:15→21:42)
[2018-10-13] MEDS: Isosorbide MONOnitrate (24 HR) 60 MG TAB.ER.24H PO SCH (09:16)
[2018-10-13] MEDS: Iron Polysaccharide Complex 150 MG CAPSULE PO SCH (09:17)
[2018-10-13] MEDS: amLODIPine 5 MG TABLET PO SCH (09:17)
[2018-10-13] MEDS: metroNIDAZOLE 500 MG TABLET PO SCH ×3 (09:17→21:43)
[2018-10-13] MEDS: hydrALAZINE 25 MG TABLET PO SCH ×3 (09:17→23:58)
[2018-10-13] MEDS: predniSONE 20 MG TABLET PO SCH (09:17)
[2018-10-13] MEDS: Nystatin SUSP 5 ML UD.LIQ PO SCH ×4 (09:18→21:42)
[2018-10-13] MEDS: Insulin DETEMIR 100 UNIT/ML X5UNITS SQ SCH ×2 (09:48→21:42)
[2018-10-13] MEDS: Insulin NPH/REG 70/30 100 UNIT/ML (x5UNIT) SQ SCH ×2 (09:49→17:35)
[2018-10-13] MEDS: *HR* OxyCODONE Immed Rel 5 MG TABLET PO PRN (21:42)
[2018-10-14] MEDS ORDERED: *HR* OxyCODONE Immed Rel 5 MG TABLET PO ONE (00:14)
[2018-10-14] MEDS: Ipratropium/Albuterol Neb 3 ML IH SCH ×6 (04:18→23:27)
[2018-10-14] MEDS: Ceftaroline Fosamil Acetate 400 MG in 0.9 % Sodium Chloride 50 ML IVPB SCH ×2 (05:44→18:29)
[2018-10-14] MEDS: *HR* Heparin 5,000 UNIT/ML VIAL SQ SCH ×2 (05:45→18:29)
[2018-10-14] MEDS: metroNIDAZOLE 500 MG TABLET PO SCH ×3 (08:16→20:49)
[2018-10-14] MEDS: predniSONE 20 MG TABLET PO SCH (08:16)
[2018-10-14] MEDS: amLODIPine 5 MG TABLET PO SCH (08:17)
[2018-10-14] MEDS: Isosorbide MONOnitrate (24 HR) 60 MG TAB.ER.24H PO SCH (08:17)
[2018-10-14] MEDS: Nystatin SUSP 5 ML UD.LIQ PO SCH ×4 (08:17→20:49)
[2018-10-14] MEDS: Iron Polysaccharide Complex 150 MG CAPSULE PO SCH (08:17)
[2018-10-14] MEDS: hydrALAZINE 25 MG TABLET PO SCH ×3 (08:17→22:51)
[2018-10-14 08:19] LABS: Hematocrit 27.3 % (35.3-44.9); Hemoglobin 8.7 g/dL (11.5-15.4); Lymphocytes # 1.4 K/mcL (0.6-4.6); Mean Corpuscular HGB Conc 31.9 g/dL (31.6-35.5); Mean Corpuscular Hemoglobin 29.3 pg (28.0-33.3); Mean Corpuscular Volume 91.9 fL (83.0-100.0); Nucleated Red Blood Cells 0.2 /100 WBC (0); Platelet Count 224 K/mcL (140-400); Red Blood Count 2.97 M/mcL (3.82-4.97); Red Cell Distribution Width 14.8 % (11.5-14.5)
[2018-10-14 08:21] LABS: White Blood Count 16.9 K/mcL (4.3-11.1)
[2018-10-14] MEDS: Insulin NPH/REG 70/30 100 UNIT/ML (x5UNIT) SQ SCH ×2 (08:22→18:05)
[2018-10-14] MEDS: Insulin DETEMIR 100 UNIT/ML X5UNITS SQ SCH ×2 (08:22→20:49)
[2018-10-14] MEDS: Insulin LISPRO 300 UNITS/3 ML VIAL SQ SCH ×4 (08:23→20:49)
[2018-10-14 08:39] LABS: Calcium 8.7 mg/dL (8.6-10.3); Magnesium 1.7 mg/dL (1.6-2.6); Potassium 3.7 mEq/L (3.5-5.1)
[2018-10-14 11:08] LABS: QuantiFERON NIL 0.03 IU/mL; QuantiFERON-TB Gold In-Tube INDETERMINATE
[2018-10-14 12:02] LABS: Monocytes # 0.3 K/mcL (0.0-1.3); Neutrophils # 15.2 K/mcL (1.6-8.9)
[2018-10-14 12:03] LABS: Platelet Estimate Normal (Normal)
[2018-10-14] MEDS: carvediloL 6.25 MG TABLET PO SCH (18:04)
[2018-10-14] MEDS ORDERED: Dextrose Gel 15 GM/37.5 ML TUBE PO PRN ×4 (18:05→18:15)
[2018-10-14] MEDS ORDERED: *HR* Dextrose 50 % in Water (Syg) 50 ML SYRINGE IVP PRN ×2 (18:05→18:15)
[2018-10-14] MEDS ORDERED: D5% in Water 1,000 ML IVC PRN ×2 (18:05→18:15)
[2018-10-15] MEDS: Ipratropium/Albuterol Neb 3 ML IH SCH ×6 (04:00→23:04)
[2018-10-15 04:14] LABS: Hematocrit 25.2 % (35.3-44.9); Mean Corpuscular HGB Conc 31.7 g/dL (31.6-35.5); Mean Corpuscular Hemoglobin 29.1 pg (28.0-33.3); Mean Corpuscular Volume 91.6 fL (83.0-100.0); Mean Platelet Volume 11.1 fL (9.4-12.4); Platelet Count 188 K/mcL (140-400); Red Blood Count 2.75 M/mcL (3.82-4.97); Red Cell Distribution Width 14.8 % (11.5-14.5); White Blood Count 15.6 K/mcL (4.3-11.1)
[2018-10-15 04:22] LABS: INR 1.2
[2018-10-15] MEDS: *HR* Heparin 5,000 UNIT/ML VIAL SQ SCH ×2 (05:01→17:12)
[2018-10-15] MEDS: Ceftaroline Fosamil Acetate 400 MG in 0.9 % Sodium Chloride 50 ML IVPB SCH ×2 (05:19→17:12)
[2018-10-15] MEDS: Insulin LISPRO 300 UNITS/3 ML VIAL SQ SCH ×7 (07:55→22:06)
[2018-10-15] MEDS: Insulin DETEMIR 100 UNIT/ML X5UNITS SQ SCH ×2 (07:56→22:01)
[2018-10-15] MEDS: metroNIDAZOLE 500 MG TABLET PO SCH ×3 (08:08→21:59)
[2018-10-15] MEDS: Isosorbide MONOnitrate (24 HR) 60 MG TAB.ER.24H PO SCH (08:09)
[2018-10-15] MEDS: amLODIPine 5 MG TABLET PO SCH (08:09)
[2018-10-15] MEDS: carvediloL 6.25 MG TABLET PO SCH ×2 (08:09→17:12)
[2018-10-15] MEDS: hydrALAZINE 25 MG TABLET PO SCH ×3 (08:09→22:02)
[2018-10-15] MEDS: Iron Polysaccharide Complex 150 MG CAPSULE PO SCH (08:09)
[2018-10-15] MEDS: predniSONE 20 MG TABLET PO SCH (08:10)
[2018-10-15] MEDS: Nystatin SUSP 5 ML UD.LIQ PO SCH ×4 (08:10→22:02)
[2018-10-15] MEDS ORDERED: *HR* Midazolam HCl 2 MG/2 ML VIAL IVP ONE (14:41)
[2018-10-15] MEDS ORDERED: *HR* FentaNYL (PF) 100 MCG/2 ML VIAL IVP ONE (14:42)
[2018-10-15] MEDS ORDERED: 0.9 % Sodium Chloride 500 ML ONE (14:42)
[2018-10-16] MEDS: Ipratropium/Albuterol Neb 3 ML IH SCH ×5 (03:36→19:58)
[2018-10-16 04:39] LABS: Hematocrit 26.3 % (35.3-44.9); Hemoglobin 8.3 g/dL (11.5-15.4); Mean Corpuscular HGB Conc 31.6 g/dL (31.6-35.5); Mean Corpuscular Hemoglobin 28.8 pg (28.0-33.3); Mean Corpuscular Volume 91.3 fL (83.0-100.0); Mean Platelet Volume 11.5 fL (9.4-12.4); Platelet Count 209 K/mcL (140-400); Red Blood Count 2.88 M/mcL (3.82-4.97); Red Cell Distribution Width 14.5 % (11.5-14.5); White Blood Count 16.2 K/mcL (4.3-11.1)
[2018-10-16 04:59] LABS: Calcium 8.1 mg/dL (8.6-10.3); Potassium 3.8 mEq/L (3.5-5.1)
[2018-10-16] MEDS: *HR* Heparin 5,000 UNIT/ML VIAL SQ SCH ×2 (05:20→18:00)
[2018-10-16] MEDS: Ceftaroline Fosamil Acetate 400 MG in 0.9 % Sodium Chloride 50 ML IVPB SCH (05:33)
[2018-10-16] MEDS: metroNIDAZOLE 500 MG TABLET PO SCH (09:20)
[2018-10-16] MEDS: predniSONE 20 MG TABLET PO SCH (09:20)
[2018-10-16] MEDS: carvediloL 6.25 MG TABLET PO SCH ×2 (09:20→21:49)
[2018-10-16] MEDS: amLODIPine 5 MG TABLET PO SCH (09:20)
[2018-10-16] MEDS: Iron Polysaccharide Complex 150 MG CAPSULE PO SCH (09:21)
[2018-10-16] MEDS: Isosorbide MONOnitrate (24 HR) 60 MG TAB.ER.24H PO SCH (09:21)
[2018-10-16] MEDS: hydrALAZINE 25 MG TABLET PO SCH ×2 (09:21→16:44)
[2018-10-16] MEDS: Insulin DETEMIR 100 UNIT/ML X5UNITS SQ SCH ×2 (09:21→21:50)
[2018-10-16] MEDS: Insulin LISPRO 300 UNITS/3 ML VIAL SQ SCH ×7 (09:22→21:50)
[2018-10-16] MEDS: Nystatin SUSP 5 ML UD.LIQ PO SCH ×4 (09:34→21:50)
[2018-10-16] MEDS ORDERED: *HR* Midazolam HCl 2 MG/2 ML VIAL ONE (13:41)
[2018-10-16] MEDS ORDERED: *HR* FentaNYL (PF) 100 MCG/2 ML VIAL ONE ×2 (13:41→14:49)
[2018-10-16] MEDS ORDERED: *HR* Propofol 200 MG/20 ML VIAL IVP ONE (13:41)
[2018-10-16] MEDS ORDERED: Lidocaine -MPF 2% 2 ML VIAL ONE ×3 (13:43→15:35)
[2018-10-16] MEDS ORDERED: Heparin 1,000 UNITS/500 mL 1,000 ML ONE (14:19)
[2018-10-16] MEDS ORDERED: Propofol 500 MG/50 ML INFUS..BTL ONE ×2 (14:34→16:49)
[2018-10-16] MEDS ORDERED: Bupivacaine/EPI 1:200k 0.25%PF 10 ML VIAL INFILT ONE (15:41)
[2018-10-16] MEDS ORDERED: Lidocaine/EPI 1:200k 1% PF 10 ML VIAL ONE (15:43)
[2018-10-16] MEDS ORDERED: Calcium Gluconate 1,000 MG/10 ML VIAL ONE (15:47)
[2018-10-16] MEDS ORDERED: Bupivacaine-MPF 0.25% 10 ML VIAL ONE (16:18)
[2018-10-16] MEDS ORDERED: *HR* Heparin 5,000 UNIT/ML VIAL ONE (16:46)
[2018-10-16] MEDS ORDERED: Ceftaroline Fosamil Acetate 300 MG in 0.9 % Sodium Chloride 50 ML IVPB SCH (18:00)
[2018-10-16] MEDS ORDERED: Dextrose Gel 15 GM/37.5 ML TUBE PO PRN ×2 (20:53)
[2018-10-16] MEDS ORDERED: D5% in Water 1,000 ML IVC PRN (20:53)
[2018-10-16] MEDS ORDERED: hydrOXYzine pamoate 25 MG CAPSULE PO PRN (20:53)
[2018-10-16] MEDS ORDERED: Naloxone 0.4 MG/ML INJ IVP PRN ×2 (20:53)
[2018-10-16] MEDS ORDERED: Acetaminophen 325 MG TABLET PO PRN (20:53)
[2018-10-16] MEDS ORDERED: *HR* Labetalol 20 MG/4 ML SYRINGE IVP PRN (20:53)
[2018-10-16] MEDS ORDERED: *HR* Promethazine 25 MG/ML VIAL IVP PRN (20:53)
[2018-10-16] MEDS ORDERED: Ipratropium/Albuterol Neb 3 ML IH PRN (20:53)
[2018-10-16] MEDS ORDERED: *HR* Dextrose 50 % in Water (Syg) 50 ML SYRINGE IVP PRN (20:53)
[2018-10-16 22:07] LABS: Hematocrit 24.4 % (35.3-44.9); Hemoglobin 7.7 g/dL (11.5-15.4); Mean Corpuscular HGB Conc 31.6 g/dL (31.6-35.5); Mean Corpuscular Hemoglobin 29.2 pg (28.0-33.3); Mean Corpuscular Volume 92.4 fL (83.0-100.0); Mean Platelet Volume 11.4 fL (9.4-12.4); Nucleated Red Blood Cells 0.1 /100 WBC (0); Platelet Count 223 K/mcL (140-400); Red Blood Count 2.64 M/mcL (3.82-4.97); Red Cell Distribution Width 14.8 % (11.5-14.5); White Blood Count 16.3 K/mcL (4.3-11.1)
[2018-10-16 22:41] LABS: Lymphocytes # 1.6 K/mcL (0.6-4.6); Monocytes # 0.3 K/mcL (0.0-1.3); Neutrophils # 14.3 K/mcL (1.6-8.9)
[2018-10-16 22:42] LABS: Hypochromasia Present (Not Present); Platelet Estimate Normal (Normal)
[2018-10-17] MEDS: hydrALAZINE 25 MG TABLET PO SCH ×3 (00:03→14:31)
[2018-10-17] MEDS: Ipratropium/Albuterol Neb 3 ML IH SCH ×7 (03:06→23:55)
[2018-10-17] MEDS ORDERED: Ceftaroline Fosamil Acetate 300 MG in 0.9 % Sodium Chloride 50 ML IVPB SCH (06:00)
[2018-10-17 07:41] LABS: Hematocrit 23.4 % (35.3-44.9); Hemoglobin 7.4 g/dL (11.5-15.4); Mean Corpuscular HGB Conc 31.6 g/dL (31.6-35.5); Mean Corpuscular Hemoglobin 29.6 pg (28.0-33.3); Mean Corpuscular Volume 93.6 fL (83.0-100.0); Mean Platelet Volume 11.3 fL (9.4-12.4); Platelet Count 234 K/mcL (140-400); Red Cell Distribution Width 14.7 % (11.5-14.5); White Blood Count 20.3 K/mcL (4.3-11.1)
[2018-10-17 08:02] LABS: Calcium 7.9 mg/dL (8.6-10.3); Potassium 3.7 mEq/L (3.5-5.1)
[2018-10-17] MEDS: Insulin LISPRO 300 UNITS/3 ML VIAL SQ SCH ×7 (08:42→22:16)
[2018-10-17] MEDS: *HR* HYDROcodone/Acet 5/325 mg TABLET PO PRN (08:45)
[2018-10-17] MEDS: predniSONE 20 MG TABLET PO SCH (08:46)
[2018-10-17] MEDS: amLODIPine 5 MG TABLET PO SCH (08:46)
[2018-10-17] MEDS: Aspirin Enteric Coated 81 MG Tablet PO SCH (08:47)
[2018-10-17] MEDS: Isosorbide MONOnitrate (24 HR) 60 MG TAB.ER.24H PO SCH (08:47)
[2018-10-17] MEDS: carvediloL 6.25 MG TABLET PO SCH ×2 (08:47→16:55)
[2018-10-17] MEDS: Iron Polysaccharide Complex 150 MG CAPSULE PO SCH (08:47)
[2018-10-17] MEDS: Insulin DETEMIR 100 UNIT/ML X5UNITS SQ SCH ×2 (08:48→22:00)
[2018-10-17] MEDS: Nystatin SUSP 5 ML UD.LIQ PO SCH ×4 (08:48→19:44)
[2018-10-17] MEDS ORDERED: 0.9 % Sodium Chloride 250 ML ONE (09:02)
[2018-10-18] MEDS: Ipratropium/Albuterol Neb 3 ML IH SCH ×6 (03:48→23:36)
[2018-10-18 03:58] LABS: Hematocrit 26.7 % (35.3-44.9); Hemoglobin 8.7 g/dL (11.5-15.4); Mean Corpuscular HGB Conc 32.6 g/dL (31.6-35.5); Mean Corpuscular Hemoglobin 29.1 pg (28.0-33.3); Mean Corpuscular Volume 89.3 fL (83.0-100.0); Mean Platelet Volume 11.4 fL (9.4-12.4); Platelet Count 180 K/mcL (140-400); Red Blood Count 2.99 M/mcL (3.82-4.97); Red Cell Distribution Width 14.9 % (11.5-14.5); White Blood Count 13.7 K/mcL (4.3-11.1)
[2018-10-18] MEDS: hydrALAZINE 25 MG TABLET PO SCH ×4 (04:52→22:26)
[2018-10-18] MEDS: Ceftaroline Fosamil Acetate 400 MG in 0.9 % Sodium Chloride 50 ML IVPB SCH ×3 (05:14→17:48)
[2018-10-18] MEDS: Aspirin Enteric Coated 81 MG Tablet PO SCH (09:35)
[2018-10-18] MEDS: Nystatin SUSP 5 ML UD.LIQ PO SCH ×4 (09:35→20:15)
[2018-10-18] MEDS: predniSONE 20 MG TABLET PO SCH (09:35)
[2018-10-18] MEDS: amLODIPine 5 MG TABLET PO SCH (09:35)
[2018-10-18] MEDS: Isosorbide MONOnitrate (24 HR) 60 MG TAB.ER.24H PO SCH (09:36)
[2018-10-18] MEDS: carvediloL 6.25 MG TABLET PO SCH ×2 (09:36→17:40)
[2018-10-18] MEDS: Iron Polysaccharide Complex 150 MG CAPSULE PO SCH (09:36)
[2018-10-18] MEDS: Insulin DETEMIR 100 UNIT/ML X5UNITS SQ SCH ×2 (09:37→20:16)
[2018-10-18] MEDS: Insulin LISPRO 300 UNITS/3 ML VIAL SQ SCH ×7 (09:37→20:17)
[2018-10-18] MEDS: *HR* HYDROcodone/Acet 5/325 mg TABLET PO PRN (09:56)
[2018-10-18] MEDS: *HR* OxyCODONE Immed Rel 5 MG TABLET PO PRN ×2 (11:18→22:26)
[2018-10-19] MEDS: *HR* HYDROcodone/Acet 5/325 mg TABLET PO PRN ×2 (00:03→08:46)
[2018-10-19] MEDS: Ipratropium/Albuterol Neb 3 ML IH SCH ×6 (04:17→23:39)
[2018-10-19] MEDS: Ceftaroline Fosamil Acetate 400 MG in 0.9 % Sodium Chloride 50 ML IVPB SCH ×2 (05:29→16:19)
[2018-10-19] MEDS: *HR* OxyCODONE Immed Rel 5 MG TABLET PO PRN ×3 (05:35→21:32)
[2018-10-19 05:47] LABS: Basophils % 0.1 %; Hematocrit 26.8 % (35.3-44.9); Hemoglobin 8.6 g/dL (11.5-15.4); Immature Granulocytes % 2.4 % (0-4); Lymphocytes # 0.4 K/mcL (0.6-4.6); Lymphocytes % 3.2 %; Mean Corpuscular HGB Conc 32.1 g/dL (31.6-35.5); Mean Corpuscular Hemoglobin 29.3 pg (28.0-33.3); Mean Corpuscular Volume 91.2 fL (83.0-100.0); Mean Platelet Volume 11.1 fL (9.4-12.4); Monocytes # 0.7 K/mcL (0.0-1.3); Monocytes % 5.5 %; Neutrophils # 10.9 K/mcL (1.6-8.9); Platelet Count 176 K/mcL (140-400); Red Blood Count 2.94 M/mcL (3.82-4.97); Red Cell Distribution Width 15.1 % (11.5-14.5); Segmented Neutrophils % 88.8 %; White Blood Count 12.3 K/mcL (4.3-11.1)
[2018-10-19 06:10] LABS: Calcium 7.8 mg/dL (8.6-10.3); Potassium 4.6 mEq/L (3.5-5.1)
[2018-10-19] MEDS: amLODIPine 5 MG TABLET PO SCH (08:37)
[2018-10-19] MEDS: hydrALAZINE 25 MG TABLET PO SCH ×3 (08:37→22:59)
[2018-10-19] MEDS: carvediloL 6.25 MG TABLET PO SCH ×2 (08:37→16:19)
[2018-10-19] MEDS: Nystatin SUSP 5 ML UD.LIQ PO SCH ×4 (08:37→21:31)
[2018-10-19] MEDS: Isosorbide MONOnitrate (24 HR) 60 MG TAB.ER.24H PO SCH (08:38)
[2018-10-19] MEDS: Insulin LISPRO 300 UNITS/3 ML VIAL SQ SCH ×7 (08:38→21:34)
[2018-10-19] MEDS: Aspirin Enteric Coated 81 MG Tablet PO SCH (08:38)
[2018-10-19] MEDS: predniSONE 20 MG TABLET PO SCH (08:38)
[2018-10-19] MEDS: Iron Polysaccharide Complex 150 MG CAPSULE PO SCH (08:38)
[2018-10-19] MEDS: Insulin DETEMIR 100 UNIT/ML X5UNITS SQ SCH ×2 (08:47→21:32)
[2018-10-20] MEDS: Ipratropium/Albuterol Neb 3 ML IH SCH ×6 (03:21→23:23)
[2018-10-20 03:40] LABS: Hematocrit 25.1 % (35.3-44.9); Immature Granulocytes % 1.6 % (0-4); Lymphocytes # 0.3 K/mcL (0.6-4.6); Lymphocytes % 3.2 %; Mean Corpuscular HGB Conc 31.9 g/dL (31.6-35.5); Mean Corpuscular Hemoglobin 30.3 pg (28.0-33.3); Mean Corpuscular Volume 95.1 fL (83.0-100.0); Mean Platelet Volume 11.5 fL (9.4-12.4); Monocytes # 0.4 K/mcL (0.0-1.3); Monocytes % 4.2 %; Platelet Count 150 K/mcL (140-400); Red Blood Count 2.64 M/mcL (3.82-4.97); White Blood Count 8.8 K/mcL (4.3-11.1)
[2018-10-20] MEDS: Ceftaroline Fosamil Acetate 400 MG in 0.9 % Sodium Chloride 50 ML IVPB SCH ×2 (03:54→18:25)
[2018-10-20 03:55] LABS: Potassium 4.7 mEq/L (3.5-5.1)
[2018-10-20 04:11] LABS: Platelet Estimate Normal (Normal)
[2018-10-20] MEDS: Insulin LISPRO 300 UNITS/3 ML VIAL SQ SCH ×7 (07:44→20:04)
[2018-10-20] MEDS: Nystatin SUSP 5 ML UD.LIQ PO SCH ×4 (07:45→20:03)
[2018-10-20] MEDS: hydrALAZINE 25 MG TABLET PO SCH ×3 (07:46→23:15)
[2018-10-20] MEDS: predniSONE 20 MG TABLET PO SCH (07:47)
[2018-10-20] MEDS: amLODIPine 5 MG TABLET PO SCH (07:48)
[2018-10-20] MEDS: Isosorbide MONOnitrate (24 HR) 60 MG TAB.ER.24H PO SCH (07:48)
[2018-10-20] MEDS: Insulin DETEMIR 100 UNIT/ML X5UNITS SQ SCH ×2 (07:52→20:03)
[2018-10-20] MEDS: Iron Polysaccharide Complex 150 MG CAPSULE PO SCH (07:52)
[2018-10-20] MEDS: carvediloL 6.25 MG TABLET PO SCH ×2 (07:53→17:04)
[2018-10-20] MEDS: Aspirin Enteric Coated 81 MG Tablet PO SCH (07:53)
[2018-10-20] MEDS: *HR* HYDROcodone/Acet 5/325 mg TABLET PO PRN ×2 (10:02→20:03)
[2018-10-21] MEDS: Ipratropium/Albuterol Neb 3 ML IH SCH ×7 (03:33→23:16)
[2018-10-21] MEDS: Ceftaroline Fosamil Acetate 400 MG in 0.9 % Sodium Chloride 50 ML IVPB SCH ×2 (04:26→17:32)
[2018-10-21 05:01] LABS: Hematocrit 25.2 % (35.3-44.9); Mean Corpuscular HGB Conc 31.7 g/dL (31.6-35.5); Mean Corpuscular Hemoglobin 30.3 pg (28.0-33.3); Mean Corpuscular Volume 95.5 fL (83.0-100.0); Mean Platelet Volume 11.5 fL (9.4-12.4); Platelet Count 161 K/mcL (140-400); Red Blood Count 2.64 M/mcL (3.82-4.97); Red Cell Distribution Width 15.1 % (11.5-14.5); White Blood Count 9.2 K/mcL (4.3-11.1)
[2018-10-21 05:26] LABS: Potassium 4.6 mEq/L (3.5-5.1)
[2018-10-21] MEDS: Iron Polysaccharide Complex 150 MG CAPSULE PO SCH (08:33)
[2018-10-21] MEDS: hydrALAZINE 25 MG TABLET PO SCH ×3 (08:33→23:38)
[2018-10-21] MEDS: carvediloL 6.25 MG TABLET PO SCH ×2 (08:34→17:32)
[2018-10-21] MEDS: predniSONE 20 MG TABLET PO SCH (08:34)
[2018-10-21] MEDS: amLODIPine 5 MG TABLET PO SCH (08:34)
[2018-10-21] MEDS: Aspirin Enteric Coated 81 MG Tablet PO SCH (08:34)
[2018-10-21] MEDS: Isosorbide MONOnitrate (24 HR) 60 MG TAB.ER.24H PO SCH (08:34)
[2018-10-21] MEDS: Insulin LISPRO 300 UNITS/3 ML VIAL SQ SCH ×7 (08:40→23:40)
[2018-10-21] MEDS: Nystatin SUSP 5 ML UD.LIQ PO SCH ×4 (08:41→23:37)
[2018-10-21] MEDS: Insulin DETEMIR 100 UNIT/ML X5UNITS SQ SCH ×2 (08:42→23:38)
[2018-10-21 10:18] LABS: QuantiFERON NIL 0.01 IU/mL; QuantiFERON-TB Gold In-Tube NEGATIVE (Negative)
[2018-10-21] MEDS: *HR* HYDROcodone/Acet 5/325 mg TABLET PO PRN ×2 (13:58→23:37)
[2018-10-22] MEDS: Ipratropium/Albuterol Neb 3 ML IH SCH ×3 (03:35→10:55)
[2018-10-22] MEDS: Ceftaroline Fosamil Acetate 400 MG in 0.9 % Sodium Chloride 50 ML IVPB SCH (04:00)
[2018-10-22 08:43] VITALS: BP 156/64
[2018-10-22] MEDS ORDERED: predniSONE 20 MG TABLET PO SCH (09:00)
[2018-10-22] MEDS: Aspirin Enteric Coated 81 MG Tablet PO SCH (10:05)
[2018-10-22] MEDS: Nystatin SUSP 5 ML UD.LIQ PO SCH (10:05)
[2018-10-22] MEDS: Iron Polysaccharide Complex 150 MG CAPSULE PO SCH (10:06)
[2018-10-22] MEDS: hydrALAZINE 25 MG TABLET PO SCH (10:06)
[2018-10-22] MEDS: carvediloL 6.25 MG TABLET PO SCH (10:06)
[2018-10-22] MEDS: amLODIPine 5 MG TABLET PO SCH (10:06)
[2018-10-22] MEDS: Isosorbide MONOnitrate (24 HR) 60 MG TAB.ER.24H PO SCH (10:07)
[2018-10-22] MEDS: Insulin LISPRO 300 UNITS/3 ML VIAL SQ SCH ×2 (10:08)
[2018-10-22] MEDS ORDERED: hydrALAZINE 25 MG TABLET PO SCH (10:15)
[2018-10-22] MEDS: Insulin DETEMIR 100 UNIT/ML X5UNITS SQ SCH (10:19)
== END 2018-10-22 12:50 | disposition home health service (06) | DRG 628 ==
LOC: EMEROOARM 15:22 → 3ANU 15:22 → SUATTDRO 20:19 → 3ANU 21:10 → SUATTDRO 22:00 → 3ANU 10-05 18:45 → 2NNU 10-07 18:07 → 2NENU 10-10 12:09
PROVIDERS: ADMIT Internal Medicine Nephrology; ATTEND Internal Medicine

== ENCOUNTER 2018-11-03 02:15 | Inpatient (IN) ==
[2018-11-03] MEDS ORDERED: 0.9 % Sodium Chloride 500 ML ONE ×2 (02:32→08:54)
[2018-11-03] MEDS ORDERED: D5% in Water 250 ML ONE ×2 (02:38→03:32)
[2018-11-03] MEDS ORDERED: D10% in Water 500 ML ONE (02:58)
[2018-11-03] MEDS ORDERED: Sodium Bicarbonate 50 MEQ/50 ML VIAL ONE (03:20)
[2018-11-03] MEDS ORDERED: D5% in Water 1,000 ML IVC ONE (03:20)
[2018-11-03 03:23] LABS: ABG Base Excess -24 mEq/L (-2 to 3); ABG HCO3 8 mEq/L (21-27); ABG Oxygen Saturation 95 % (95-98); ABG PCO2 46 mmHg (35-45); ABG PH 6.83 pH Units (7.32-7.45); ABG PO2 137 mmHg (85-104); ABG TCO2 9 mEq/L (20-26); Blood Gas Modality AF; Blood Gas VT 380 cc
[2018-11-03 03:38] LABS: Mean Platelet Volume 13.5 fL (9.4-12.4)
[2018-11-03 03:40] LABS: Basophils % 0.2 %; Hematocrit 22.9 % (35.3-44.9); Hemoglobin 6.1 g/dL (11.5-15.4); Immature Granulocytes % 9.5 % (0-4); Lymphocytes # 0.6 K/mcL (0.6-4.6); Lymphocytes % 13.9 %; Mean Corpuscular HGB Conc 26.6 g/dL (31.6-35.5); Mean Corpuscular Hemoglobin 30.8 pg (28.0-33.3); Mean Corpuscular Volume 115.7 fL (83.0-100.0); Monocytes # 0.1 K/mcL (0.0-1.3); Neutrophils # 3.4 K/mcL (1.6-8.9); Nucleated Red Blood Cells 6.5 /100 WBC (0); Red Blood Count 1.98 M/mcL (3.82-4.97); Segmented Neutrophils % 73.4 %; White Blood Count 4.6 K/mcL (4.3-11.1)
[2018-11-03 03:41] LABS: Platelet Count 49 K/mcL (140-400)
[2018-11-03 03:53] LABS: Activated Partial Thrombo Time 77.8 Seconds (26.0-36.0)
[2018-11-03 04:01] LABS: INR 4.4; Prothrombin Time 50.3 Seconds (9.4-12.1)
[2018-11-03 04:02] LABS: Albumin 1.7 g/dL (3.5-5.7); Albumin/Globulin Ratio 1.1 (1.1-2.2); Bilirubin,Direct 1.1 mg/dL (0.0-0.2); Bilirubin,Indirect 0.7 mg/dL (0.0-1.2); Bilirubin,Total 1.8 mg/dL (0.3-1.0); Calcium 8.5 mg/dL (8.6-10.3); Globulin 1.6 g/dL (2.4-3.5); Total Protein 3.3 g/dL (6.4-8.9); Troponin I 3.01 ng/mL (< 0.04)
[2018-11-03 04:04] LABS: Platelet Estimate Marked Decrease (Normal); Poikilocytosis 3+ (Not Present)
[2018-11-03] MEDS ORDERED: 0.9 % Sodium Chloride 1,000 ML ONE ×2 (04:04→05:25)
[2018-11-03 04:05] LABS: Burr Cells 2+ (Not Present)
[2018-11-03 04:07] LABS: Large Platelets Present (Not Present)
[2018-11-03] MEDS ORDERED: 0.9 % Sodium Chloride 1,000 ML IVC ONE (04:19)
[2018-11-03] MEDS ORDERED: Albuterol 2.5 MG/3 ML NEBULIZER IH ONE ×2 (04:19→04:36)
[2018-11-03] MEDS ORDERED: Insulin Human Regular 10 UNIT in 0.9 % Sodium Chloride 10 ML IV ONE ×2 (04:37→06:07)
[2018-11-03] MEDS ORDERED: *HR* Dextrose 50 % in Water (Vial) 50 ML VIAL IVP ONE (04:39)
[2018-11-03] MEDS ORDERED: Naloxone 0.4 MG/ML INJ IVP PRN (06:07)
[2018-11-03] MEDS ORDERED: *HR* Dextrose 50 % in Water (Syg) 50 ML SYRINGE IVP ONE (06:07)
[2018-11-03 06:08] LABS: ABG Base Excess -27 mEq/L (-2 to 3); ABG HCO3 6 mEq/L (21-27); ABG Oxygen Saturation 98 % (95-98); ABG PCO2 39 mmHg (35-45); ABG PH 6.77 pH Units (7.32-7.45); ABG PO2 206 mmHg (85-104); ABG TCO2 7 mEq/L (20-26); Blood Gas Modality AF; Blood Gas VT 380 cc
[2018-11-03] MEDS ORDERED: Sodium Bicarbonate 50 MEQ/50 ML VIAL IVP ONE (06:10)
[2018-11-03] MEDS ORDERED: Calcium Gluconate 1gm/50mL 1 GM/50 ML BAG IVPB ONE (06:30)
[2018-11-03] MEDS ORDERED: Artificial Tears SOLN 15 ML BOTTLE BOTH EYES PRN (06:34)
[2018-11-03] MEDS ORDERED: *HR* Midazolam HCl 2 MG/2 ML VIAL IV ONE (06:34)
[2018-11-03] MEDS ORDERED: FentaNYL (PF) 1,000 MCG in 0.9 % Sodium Chloride 80 ML IVC SCH (06:45)
[2018-11-03] MEDS ORDERED: methylPREDNISolone 125 MG/2 ML VIAL IVP SCH (07:00)
[2018-11-03] MEDS ORDERED: *HR* Heparin 5,000 UNIT/ML VIAL IV PRN (07:53)
[2018-11-03] MEDS ORDERED: 0.9 % Sodium Chloride 1,000 ML PRIME ONE ×2 (07:53)
[2018-11-03] MEDS ORDERED: Heparin 1,000 UNITS/500 mL 500 ML ONE (07:53)
[2018-11-03] MEDS ORDERED: *HR* Alteplase (Cathflo) 2 MG VIAL IVP PRN (07:53)
[2018-11-03] MEDS ORDERED: PrismaSATE BGK 4/2.5 5,000 ML CRRT SCH ×3 (08:00)
[2018-11-03] MEDS ORDERED: 0.9 % Sodium Chloride 1,000 ML PRIME SCH (08:00)
[2018-11-03] MEDS ORDERED: Artificial Tears SOLN 15 ML BOTTLE BOTH EYES SCH (08:00)
[2018-11-03] MEDS ORDERED: EPINEPHrine 1 MG in D5% in Water 250 ML IVC SCH (08:15)
[2018-11-03] MEDS ORDERED: *HR* Heparin 5,000 UNIT/ML VIAL ONE (08:28)
[2018-11-03] MEDS ORDERED: Norepinephrine 4 MG in D5% in Water 250 ML IVC SCH (08:30)
[2018-11-03] MEDS ORDERED: Chlorhexidine Rinse 15 ML MOUTHWASH MM SCH (09:00)
[2018-11-03 09:13] LABS: ABG Base Excess -27 mEq/L (-2 to 3); ABG HCO3 6 mEq/L (21-27); ABG Oxygen Saturation 96 % (95-98); ABG PCO2 42 mmHg (35-45); ABG PH 6.79 pH Units (7.32-7.45); ABG PO2 148 mmHg (85-104); ABG TCO2 8 mEq/L (20-26); Blood Gas VT 320 cc
[2018-11-03 09:51] LABS: Hematocrit 26.9 % (35.3-44.9); Hemoglobin 7.5 g/dL (11.5-15.4); Mean Corpuscular HGB Conc 27.9 g/dL (31.6-35.5); Mean Corpuscular Hemoglobin 30.9 pg (28.0-33.3); Mean Corpuscular Volume 110.7 fL (83.0-100.0); Mean Platelet Volume 11.5 fL (9.4-12.4); Nucleated Red Blood Cells 14.1 /100 WBC (0); Red Blood Count 2.43 M/mcL (3.82-4.97); Red Cell Distribution Width 17.7 % (11.5-14.5); White Blood Count 5.4 K/mcL (4.3-11.1)
[2018-11-03 09:52] LABS: Platelet Count 41 K/mcL (140-400)
[2018-11-03] MEDS ORDERED: Budesonide/Formoterol 160/4.5 1 PUFF INH IH SCH (10:00)
[2018-11-03 10:05] LABS: VBG Ionized Calcium 0.93 mmol/L (1.15-1.35)
[2018-11-03 10:11] LABS: Troponin I 5.25 ng/mL (< 0.04)
[2018-11-03 10:38] LABS: ABG Base Excess -23 mEq/L (-2 to 3); ABG HCO3 9 mEq/L (21-27); ABG Oxygen Saturation 100 % (95-98); ABG PCO2 48 mmHg (35-45); ABG PH 6.88 pH Units (7.32-7.45); ABG PO2 290 mmHg (85-104); ABG TCO2 10 mEq/L (20-26)
[2018-11-03 10:39] LABS: Alanine Aminotransferase 2566 Units/L (7-52); Albumin 1.9 g/dL (3.5-5.7); Albumin/Globulin Ratio 1.4 (1.1-2.2); Alkaline Phosphatase 257 Units/L (34-104); Aspartate Amino Transferase > 3000 Units/L (13-39); BUN/Creatinine Ratio 17 (6-26); Bilirubin,Direct 1.7 mg/dL (0.0-0.2); Bilirubin,Indirect 0.7 mg/dL (0.0-1.2); Bilirubin,Total 2.4 mg/dL (0.3-1.0); Blood Urea Nitrogen 55 mg/dL (8-23); Calcium 6.7 mg/dL (8.6-10.3); Carbon Dioxide 7 mEq/L (23-29); Chloride 96 mEq/L (98-107); Globulin 1.4 g/dL (2.4-3.5); Glucose 536 mg/dL (70-105); Magnesium 2.5 mg/dL (1.6-2.6); Osmolality,Calculated 309 (280-300); Phosphorous 10.7 mg/dL (2.7-4.5); Potassium 6.5 mEq/L (3.5-5.1); Sodium 130 mEq/L (136-145); Total Protein 3.3 g/dL (6.4-8.9); eGFR For African Americans 17 (> 60); eGFR For Non-African Americans 14 (> 60)
[2018-11-03 10:50] LABS: Lymphocytes # 2.5 K/mcL (0.6-4.6); Monocytes # 0.1 K/mcL (0.0-1.3); Neutrophils # 2.4 K/mcL (1.6-8.9); Platelet Estimate Decreased (Normal)
[2018-11-03 11:10] LABS: INR 3.2; Prothrombin Time 36.6 Seconds (9.4-12.1)
[2018-11-03] MEDS ORDERED: *HR* Norepinephrine 4 MG/4 ML VIAL IVC ONE ×2 (11:18)
[2018-11-03] MEDS ORDERED: *HR* Dextrose 50 % in Water (Syg) 50 ML SYRINGE IVC ONE (11:18)
[2018-11-03] MEDS ORDERED: D5% in Water 250 ML IV BAG IV ONE (11:18)
[2018-11-03] MEDS ORDERED: *HR* EPINEPHrine 1 MG/10 ML SYRINGE IVP ONE ×3 (11:18)
[2018-11-03 11:34] LABS: Activated Partial Thrombo Time > 360.0 Seconds (26.0-36.0); Fibrinogen 38 mg/dL (169-393)
[2018-11-03 11:39] LABS: Heparin anti-factor XA UFH 0.04 IU/mL (0.30-0.70)
[2018-11-03 12:15] VITALS: BP 91/68
[2018-11-04] MEDS ORDERED: Pantoprazole 40 MG VIAL IVP SCH (06:30)
== END 2018-11-03 11:19 | disposition expired | DRG 308 ==
LOC: EDBD 02:15 → EMEROOARM 02:15 → MERGE 06:48 → ICNU 06:48
PROVIDERS: ADMIT Pediatrics; ATTEND Internal Medicine